=== PATIENT | female | born 1940 | race Caucasian/White ===

== ENCOUNTER 2016-07-12 18:11 | Inpatient (IN) ==
[2016-07-12] MEDS ORDERED: *HR* HYDROmorphone 2 MG/ML SYRINGE IV ONE ×2 (19:25→20:20)
[2016-07-12] MEDS ORDERED: Ondansetron 4 MG/2 ML VIAL IV ONE (19:25)
[2016-07-12 19:30] LABS: Basophils # 0.1 K/mcL (0.0-0.2); Basophils % 0.7 %; Eosinophils # 0.7 K/mcL (0.0-0.6); Eosinophils % 7.5 %; Hematocrit 31.6 % (35.3-44.9); Immature Granulocytes % 0.5 % (0-4); Lymphocytes # 1.5 K/mcL (0.6-4.6); Lymphocytes % 16.9 %; Mean Corpuscular HGB Conc 31.6 g/dL (31.6-35.5); Mean Corpuscular Volume 91.6 fL (83.0-100.0); Mean Platelet Volume 10.4 fL (9.4-12.4); Monocytes # 0.7 K/mcL (0.0-1.3); Monocytes % 7.7 %; Neutrophils # 5.9 K/mcL (1.6-8.9); Platelet Count 151 K/mcL (140-400); Red Blood Count 3.45 M/mcL (3.82-4.97); Red Cell Distribution Width 13.1 % (11.5-14.5); Segmented Neutrophils % 66.7 %
[2016-07-12 19:43] LABS: BUN/Creatinine Ratio 30 (6-26); Blood Urea Nitrogen 22 mg/dL (7-20); Calcium 9.5 mg/dL (8.6-10.8); Carbon Dioxide 27 mEq/L (19-29); Chloride 105 mEq/L (98-109); Glucose 106 mg/dL (70-99); Osmolality,Calculated 294 (280-300); Potassium 3.9 mEq/L (3.5-4.5); Sodium 140 mEq/L (136-145); eGFR For African Americans > 60 (> 60); eGFR For Non-African Americans > 60 (> 60)
--- NOTE | 2016-07-12 19:58 | Emergency Department Note ---
Disposition Clinical Impression: Fracture, intertrochanteric, left femur Qualifiers: Encounter type: initial encounter Fracture type: closed Qualified Code(s): S72.142A - Displaced intertrochanteric fracture of left femur, initial encounter for closed fracture Disposition: Admitted As Inpatient Condition: Fair Time of Disposition: 20:22 Lower Extremity Injury HPI - General Chief Complaint: ED Extremity Injury, Lower Stated Complaint: 'fell" Time Seen by Provider: 07/12/16 18:33 Source: patient, family, EMS Limitations: no limitations Nursing Notes Reviewed: Yes Vital Signs Reviewed: Yes - History of Present Illness HPI Narrative: History of present illness: Patient is a 76-year-old female with history of Alzheimer's and dementia who suffered a witnessed mechanical ground-level fall at home with no LOC. Patient does not say much family states that usually she needs to be watched and helped around the house. She can get around with a walker but is real and stable. Patient try to get up on her own. Patient's was with her but was unable to get to her in time to assist. Patient dropped to the floor. Patient did not hit her head. Patient landed on her left side. Patient is not on any anticoagulants but is on aspirin - Related Data Home Medications Medication Instructions Recorded Confirmed Aspirin Enteric Coated [Aspirin EC] 81 mg PO DAILY #0 07/04/15 11/02/15 Donepezil [Aricept] 10 mg PO HS #0 07/04/15 11/02/15 Albuterol Sulfate [Proair Hfa] 2 puff IH Q4H PRN #0 07/05/15 11/02/15 Budesonide/Formoterol 160/4.5 2 puff IH BIDR #0 07/05/15 11/02/15 [Symbicort 160/4.5] Omeprazole [PriLOSEC] 40 mg PO DAILY #0 07/05/15 11/02/15 Sertraline [Zoloft] 150 mg PO DAILY #0 07/05/15 11/02/15 Simvastatin [Zocor] 40 mg PO HS #0 07/05/15 11/02/15 Furosemide [Lasix] 20 mg PO DAILY 11/02/15 11/02/15 Memantine HCl [Namenda Xr] 28 mg PO DAILY 11/02/15 11/02/15 Montelukast [Singulair] 10 mg PO DAILY 07/12/16 07/12/16 Potassium Chloride [Klor-Con 10 meq PO DAILY 07/12/16 07/12/16 Sprinkle] Tiotropium [Spiriva] 18 mcg IH 0700 07/12/16 07/12/16 Previous Rx's Medication Instructions Recorded GuaiFENesin ER [Mucinex] 600 mg PO BID 5 Days 07/08/15 RisperiDONE [RisperDAL] 0.5 mg PO HS #14 tablet 11/05/15 Temazepam [Restoril] 15 mg PO HS PRN #14 capsule 11/05/15 Allergies Allergy/AdvReac Type Severity Reaction Status Date / Time No Known Allergies Allergy Verified 07/04/15 21:39 Limitations: ROS unobtainable due to patients medical condition Past Medical History - Past Medical History Source: obtained from family Medical history: Reports: CHF, COPD, dementia, hypertension Surgical history: Reports: no surgical history Psychiatric history: Reports: anxiety, other - Social History Smoking Status: Former smoker Smokeless Tobacco Status: No Alcohol use: Reports: none Drug use: Reports: none Physical Exam - General Limitations: other (Dementia) General appearance: alert, in no apparent distress - Head Head exam: atraumatic, normocephalic, normal inspection - Eye Eye exam: Present: normal appearance, PERRL, EOMI - ENT ENT exam: normal exam, normal oropharynx, mucous membranes moist - Neck Neck exam: Present: normal inspection, full ROM, trachea midline. Absent: tenderness - Chest Chest inspection: Present: normal inspection, symmetric chest wall rise. Absent : tenderness - Respiratory Respiratory exam: Present: normal lung sounds bilaterally. Absent: respiratory distress, wheezes - Cardiovascular Cardiovascular exam: Present: regular rate, normal rhythm - Abdominal Exam Abdominal exam: Present: soft, Non-Tender, normal bowel sounds. Absent: tenderness, distention, guarding, rebound, rigidity - Extremities Exam Extremities exam: Present: tenderness (Left lower extremity left thigh), normal capillary refill. Absent: pedal edema - Expanded Lower Extremity Exam Hip/Pelvis exam: Present: tenderness, external rotation, shortening, pelvis stable. Absent: ecchymosis - Neurological Exam Neurological exam: Present: alert, CN II-XII intact (GCS 15) - Psychiatric Psychiatric exam: Present: normal affect, normal mood - Skin Skin exam: Present: warm, dry, intact, normal color Course - Reevaluation(s) Reevaluation #1: Assessment: Mechanical fall resulting in left hip fracture, possible pelvic fracture, rib fractures, pneumothorax Plan: X-ray hip and pelvis and chest. CBC, BMP, troponin, EKG, type and screen , admit and orthopedic follow-up Time: 19:00 Reevaluation #2: Patient having images taken of the hip. Pain medications and ordered patient. Time: 19:28 Reevaluation #3: Patient did well. Patient received pain meds but is still having some pain. Will reassess in 5 minutes and re-dose if necessary. Patient given blankets that she feels cold. Patient feels better now after having her blankets and smiled with acceptance Time: 19:55 Additional Reevaluation(s): Patient has no complaints at this time awaiting transfer to in-hospital - Consultations Consultation #1: Dr. Santiago was consulted and asked for patient to be admitted to medicine and they will see patient once admitted. Time: 20:17 Consultation #2: Dr. Maciel except the patient for admission Time: 21:03 Vital Signs Temperature 98.6 F 07/12/16 18:15 Pulse Rate 82 07/12/16 18:15 Respiratory Rate 16 07/12/16 18:15 Blood Pressure 157/85 07/12/16 18:15 O2 Sat by Pulse Oximetry 98 07/12/16 18:15 Temperature 98.0 F 07/12/16 23:05 Pulse Rate 104 07/12/16 23:05 Respiratory Rate 16 07/12/16 23:34 Blood Pressure 130/65 07/12/16 23:05 O2 Sat by Pulse Oximetry 96 07/12/16 23:34 Oxygen Delivery Oxygen Delivery Nasal Cannula Extremity Injury, Lower - Medical Records Medical records reviewed: Yes I reviewed the patient's medical records. - Lab Data Lab results reviewed: Yes I reviewed the patient's lab results. Lab results narrative: Short CBC 07/12/16 Range/Units 18:40 WBC 8.9 (4.3-11.1) K/mcL Hgb 10.0 L (11.5-15.4) g/dL Hct 31.6 L (35.3-44.9) % Plt Count 151 (140-400) K/mcL Neutrophils # 5.9 (1.6-8.9) K/mcL BMP 07/12/16 Range/Units 18:40 Sodium 140 (136-145) mEq/L Potassium 3.9 (3.5-4.5) mEq/L Chloride 105 (98-109) mEq/L Carbon Dioxide 27 (19-29) mEq/L BUN 22 H (7-20) mg/dL Creatinine 0.73 (0.57-1.11) mg/dL Glucose 106 H (70-99) mg/dL Calcium 9.5 (8.6-10.8) mg/dL Result diagrams: 07/12/16 18:40 07/12/16 18:40 Lab Results 07/12/16 07/12/16 07/12/16 Range/Units 18:40 18:40 18:40 WBC 8.9 (4.3-11.1) K/mcL RBC 3.45 L (3.82-4.97) M/mcL Hgb 10.0 L (11.5-15.4) g/dL Hct 31.6 L (35.3-44.9) % MCV 91.6 (83.0-100.0) fL MCH 29.0 (28.0-33.3) pg MCHC 31.6 (31.6-35.5) g/dL RDW 13.1 (11.5-14.5) % Plt Count 151 (140-400) K/mcL MPV 10.4 (9.4-12.4) fL Immature Gran % 0.5 (0-4) % Seg Neutrophils % 66.7 % Lymphocytes % 16.9 % Monocytes % 7.7 % Eosinophils % 7.5 % Basophils % 0.7 % Neutrophils # 5.9 (1.6-8.9) K/mcL Lymphocytes # 1.5 (0.6-4.6) K/mcL Monocytes # 0.7 (0.0-1.3) K/mcL Eosinophils # 0.7 H (0.0-0.6) K/mcL Basophils # 0.1 (0.0-0.2) K/mcL PT (9.4-12.1) Seconds INR APTT (26.0-36.0) Seconds Sodium 140 (136-145) mEq/L Potassium 3.9 (3.5-4.5) mEq/L Chloride 105 (98-109) mEq/L Carbon Dioxide 27 (19-29) mEq/L BUN 22 H (7-20) mg/dL Creatinine 0.73 (0.57-1.11) mg/dL Est GFR ( Amer) > 60 (> 60) Est GFR (Non-Af Amer) > 60 (> 60) BUN/Creatinine Ratio 30 H (6-26) Glucose 106 H (70-99) mg/dL Calculated Osmolality 294 (280-300) Calcium 9.5 (8.6-10.8) mg/dL Blood Type A POSITIVE Antibody Screen NEGATIVE 07/12/16 Range/Units 18:40 WBC (4.3-11.1) K/mcL RBC (3.82-4.97) M/mcL Hgb (11.5-15.4) g/dL Hct (35.3-44.9) % MCV (83.0-100.0) fL MCH (28.0-33.3) pg MCHC (31.6-35.5) g/dL RDW (11.5-14.5) % Plt Count (140-400) K/mcL MPV (9.4-12.4) fL Immature Gran % (0-4) % Seg Neutrophils % % Lymphocytes % % Monocytes % % Eosinophils % % Basophils % % Neutrophils # (1.6-8.9) K/mcL Lymphocytes # (0.6-4.6) K/mcL Monocytes # (0.0-1.3) K/mcL Eosinophils # (0.0-0.6) K/mcL Basophils # (0.0-0.2) K/mcL PT 14.2 H (9.4-12.1) Seconds INR 1.3 APTT 30.2 (26.0-36.0) Seconds Sodium (136-145) mEq/L Potassium (3.5-4.5) mEq/L Chloride (98-109) mEq/L Carbon Dioxide (19-29) mEq/L BUN (7-20) mg/dL Creatinine (0.57-1.11) mg/dL Est GFR ( Amer) (> 60) Est GFR (Non-Af Amer) (> 60) BUN/Creatinine Ratio (6-26) Glucose (70-99) mg/dL Calculated Osmolality (280-300) Calcium (8.6-10.8) mg/dL Blood Type Antibody Screen - Radiology Data Radiology results reviewed: Yes I reviewed the patient's radiology results. Hip X-Ray 07/12/16 18:55 IMPRESSION: Acute intertrochanteric left proximal femur fracture. D/ / 07/12/2016 19:44:48 Calixto Medina MD / jeanna Interpreting Provider: Calixto Medina MD Chest X-Ray 07/12/16 19:03 IMPRESSION: Linear opacities within the lung bases bilaterally most compatible with atelectasis. D/ / Richard Do MD / Richard Do MD Interpreting Provider: Richard Do MD - EKG Data EKG attestation: Yes I reviewed and interpreted this EKG. EKG results narrative: EKG taken 07/12/2016 at 1935 hrs. shows a sinus rhythm with no acute ST or elevations or depressions. Rate is at 84 bpm. There is no QRS widening or QT prolongation. Previous EKG taken 11/01/2015 which also shows a sinus rhythm at a rate of 74 bpm with no acute ST elevations or depressions in any leads Attestation Statement - Attestation Attestation: I, Castro Marinelli MD, personally evaluated this patient and discussed their management with the resident physician. I reviewed the resident's note and agree with the documented findings, medical decision making, and plan of care. [place] 6-year-old female presents to the emergency department after a fall at home. She lives with family. She fell onto her left side while trying to walk with her walker. She complained of pain in the left hip area. No other apparent injuries. Patient has dementia and really unable to provide any significant history or review of systems. On examination patient is a well-developed well-nourished elderly female in no acute distress. She is alert but confused and disoriented. Chest is nontender to palpation. Breath sounds are clear and equal bilaterally. Heart regular rate and rhythm. Abdomen soft and nontender with normal bowel sounds. There is tenderness over the left hip and pain with movement with some mild shortening and external rotation. Neurovascular function intact distally. X-ray shows an intertrochanteric fracture of the left hip. Dr. Harry discussed the case with the orthopedist on-call, Dr. Santiago, and he recommended admission by the hospitalist with orthopedic consultation. The hospitalist, Dr. Maciel, was consulted and accepted admission of the patient.
[2016-07-12 20:04] LABS: INR 1.3; Prothrombin Time 14.2 Seconds (9.4-12.1)
[2016-07-12 20:07] LABS: Activated Partial Thrombo Time 30.2 Seconds (26.0-36.0)
[2016-07-12] MEDS ORDERED: Temazepam 15 MG CAPSULE PO PRN (21:51)
[2016-07-12] MEDS ORDERED: Benzonatate 100 MG CAPSULE PO PRN (21:56)
[2016-07-12] MEDS ORDERED: *HR* OxyCODONE Immed Rel 5 MG TABLET PO PRN (21:56)
[2016-07-12] MEDS ORDERED: Mag Hydrox/Al Hydrox/Simeth 30 ML UDC PO PRN (21:56)
[2016-07-12] MEDS ORDERED: Acetaminophen 325 MG TABLET PO PRN (21:56)
[2016-07-12] MEDS ORDERED: Naloxone 0.4 MG/ML INJ IVP PRN (21:56)
[2016-07-12] MEDS ORDERED: Ondansetron 4 MG/2 ML VIAL IVP PRN (21:56)
[2016-07-12] MEDS ORDERED: 0.9 % Sodium Chloride 1,000 ML IVC SCH (22:00)
[2016-07-12] MEDS ORDERED: risperiDONE 0.25 MG TABLET PO SCH (22:00)
--- NOTE | 2016-07-12 22:07 | Internal Med History&Physical ---
Date of Encounter: 07/12/16 Time of Encounter: 22:00 Assessment and Plan (1) Fall as cause of accidental injury at home as place of occurrence Current visit: Yes Status: Acute . (2) Chronic respiratory failure with hypoxia and hypercapnia Current visit: Yes Status: Chronic . (3) Advanced dementia Current visit: Yes Status: Chronic . (4) CAD (coronary artery disease) Current visit: Yes Status: Chronic . Qualifiers: Coronary Disease-Associated Artery/Lesion type: [place] artery [place] vs. transplanted heart: [place] heart Associated angina: without angina Qualified Code(s): I25.10 - Atherosclerotic heart disease of [place] coronary artery without angina pectoris (5) Fracture, intertrochanteric, left femur Current visit: Yes Status: Acute . Qualifiers: Encounter type: initial encounter Fracture type: closed Qualified Code(s) : S72.142A - Displaced intertrochanteric fracture of left femur, initial encounter for closed fracture (6) CAD (coronary artery disease), [place] coronary artery Current visit: Yes Status: Chronic . Qualifiers: [place] vs. transplanted heart: [place] heart Associated angina: without angina Qualified Code(s): I25.10 - Atherosclerotic heart disease of [place] coronary artery without angina pectoris (7) Multiple falls Current visit: Yes Status: Chronic . (8) Frail elderly Current visit: Yes Status: Chronic . (9) Former heavy cigarette smoker (20-39 per day) Current visit: Yes Status: Chronic . (10) COPD (chronic obstructive pulmonary disease) Current visit: Yes Status: Chronic . Qualifiers: COPD type: emphysema Emphysema type: unspecified Qualified Code(s): J43.9 - Emphysema, unspecified Internal Medicine - H&P: HPI Chief complaint: Fall. Left leg injury. Admitted From: Emergency Dept Plans for Post Hospital Care: Home History of present illness: Ms. Cartagena is a 76 year old female with history significant for advanced dementia-Alzheimer's type/behavioral disturbance, hypertension, dyslipidemia, depression/anxiety, GERD, COPD/chr respiratory failure/ hypoxia/hypercapnea/ dependence on supplemental oxygen, multiple fall hx, RAD/asthma, osteoarthritis , osteoporosis, CAD/diastolicCHF, PAF, former heavy smoker, etc.. The patient was admitted [facility] the emergency department presented in the company of family by EMS services from home following a mechanical fall where she sustained injury to her left leg. Mechanical fall was witnessed by family. Fall was ground-level at the home. There was no period of loss of consciousness. In the home setting she is minimally verbal. Family watches her often and assisted throughout the house so to avoid any injuries or trauma or accidents. Normally she ambulates with a walker due to gait instability. She apparently was an attempt to ambulate without assistance and her was unable to reach her in time to prevent her from a copy to the floor. Left hip x-ray series demonstrated acute intratrochanteric left proximal femur fracture. He was closed, nondisplaced, mildly comminuted. Hip Joints are maintained. The sacroiliac joints and symphysis is grossly maintained. Degenerative changes of the lower lumbar spine were evident. Chest x-ray demonstrated linear opacities within the lung bases most compatible with atelectasis. Chronic changes of the aorta were noted. No focal consolidation and effusion or pneumothorax seen. Osseous structures again demonstrated chronic fractures of the posterior lateral right ribs. Screening studies found afebrile at 98.6 pulse 82 respirations 16 blood pressure 157/85 O2 saturation 98 % on 2 L nasal cannula. WBC 8.9 hemoglobin 10 platelets 251,000. Metabolic panel benign. BUN was 22 creatinine 0.73. Glucose was 106. Blood cell differential normal. EKG demonstrated sinus rhythm with no acute ischemic changes. Rate 84. Nonspecific ST-T wave changes. Preliminary impressions are consistent with a mechanical fall without head injury. Graphic findings are compatible with intertrochanteric fracture proximal femur. Episodes concerned given her degree of severe dementia. This was discussed at length with the family at the bedside as well as her POA. They will attempt to assist as much as physically possible to be attentive to the patient throughout her hospital stay. Help offset some of her confusion induced in unfamiliar environments. Advanced age, frailty and comorbidities she is as well at risk for further acute clinical decline and morbidity. Workup and treatment will proceed comprehensively. Patient was visited and interviewed and examined. She is found to be encephalopathic due to her chronic underlying advanced Alzheimer's dementia. Examination was consistent with the described with this injury without untoward effects. Family members at the bedside to validate history as well as clinical circumstances and events. Cumulative laboratory and radiographic data base were reviewed considered and discussed. Consultative opinions will be sought as clinical circumstances justify. Initial consultative opinion has been requested of orthopedic surgery. Plan of care has been reviewed and discussed in detail with the family at the bedside. Questions addressed. Hospital course will be dependent on clinical findings, treatment response and potential consultative interventions. Given the patient's presenting concerns, past medical history, clinical findings and symptoms, she is admitted at this time to undergo further evaluation and disposition. Orders are written as per the computerized physician order packer or packager system. Condition is serious. Prognosis is guarded. CODE STATUS is DNR comfort care arrest. Past Med Surg Social Fam HX - Past Medical History Source: old records reviewed Medical history: arthritis, CHF, COPD, dementia, hypertension, osteoporosis, other Psychiatric history: anxiety, other - Past Surgical History Surgical History: non-contributory, other - Social History Smoking Status: Former smoker Smokeless Tobacco Status: No Alcohol use: none, unknown Drug use: none Occupational status: retired Current living situation: Home, With Family Activity Level: Independent ambulation, Uses cane/walker, Mostly sedentary Recent Out of Country Travel Within the Last 8 Weeks: No Exposure or Possible Exposure to Illness During Travel: No - Family History Daughter Living Status: Still Living Hx Family Cardiac Disorders: Yes Hx Family Respiratory Disorders: Yes Hx Family Cancer: No Hx Family GI Disorders: Yes Mother Adopted: No Family Member Ethnicity: Non- Living Status: Hx Family Cardiac Disorders: No Hx Family Respiratory Disorders: No Hx Family Cancer: Yes (lung) Hx Family GI Disorders: Yes (acid reflux) Hx Family Endocrine Disorder: No Hx Family Neuromuscular Disorders: No Hx Family Neurologic Disorders: No Hx Family HEENT Disorders: No Hx Family Autoimmune Disorders: No Internal Medicine - H&P: Meds Aspirin Enteric Coated [Aspirin EC] 81 mg PO DAILY #0 07/04/15 [History] Donepezil [Aricept] 10 mg PO HS #0 07/04/15 [History] Albuterol Sulfate [Proair Hfa] 2 puff IH Q4H PRN #0 07/05/15 [History] Budesonide/Formoterol 160/4.5 [Symbicort 160/4.5] 2 puff IH BIDR #0 07/05/15 [ History] Omeprazole [PriLOSEC] 40 mg PO DAILY #0 07/05/15 [History] Sertraline [Zoloft] 150 mg PO DAILY #0 07/05/15 [History] Simvastatin [Zocor] 40 mg PO HS #0 07/05/15 [History] GuaiFENesin ER [Mucinex] 600 mg PO BID 5 Days 07/08/15 [Rx] Furosemide [Lasix] 20 mg PO DAILY 11/02/15 [History] Memantine HCl [Namenda Xr] 28 mg PO DAILY 11/02/15 [History] RisperiDONE [RisperDAL] 0.5 mg PO HS #14 tablet 11/05/15 [Rx] Temazepam [Restoril] 15 mg PO HS PRN #14 capsule 11/05/15 [Rx] Montelukast [Singulair] 10 mg PO DAILY 07/12/16 [History] Potassium Chloride [Klor-Con Sprinkle] 10 meq PO DAILY 07/12/16 [History] Tiotropium [Spiriva] 18 mcg IH 0700 07/12/16 [History] Allergies No Known Allergies Allergy (Verified 07/04/15 21:39) ROS unobtainable: due to mental status All Systems PM: A 10-system review of systems was performed and is negative for pertinent findings except as documented above in the HPI. - Constitutional Constitutional: as per HPI - EENT Eyes: as per HPI Ears: as per HPI Nose, mouth and throat: as per HPI - Cardiovascular Cardiovascular ROS IM: as per HPI - Respiratory Respiratory: as per HPI - Gastrointestinal Gastrointestinal: as per HPI - Genitourinary Genitourinary: as per HPI Menstruation: as per HPI - Musculoskeletal Musculoskeletal ROS IM: as per HPI - Integumentary Integumentary IM: as per HPI - Neurological Neurological ROS: as per HPI - Psychiatric Psychiatric: as per HPI - Endocrine Endocrine IM: as per HPI - Hematologic/Lymphatic Hematologic/Lymphatic: as per HPI - Allergic/Immunologic Allergic/Immunologic: as per HPI - Constitutional Vitals: Temp Pulse Resp BP Pulse Ox 98.6 F 82 16 157/85 98 07/12/16 18:15 07/12/16 18:15 07/12/16 18:15 07/12/16 18:15 07/12/16 18:15 Vital Signs Temp Pulse Resp BP Pulse Ox 07/12/16 18:15 98.6 F 82 16 157/85 98 Intake and Output 07/12/16 07/12/16 07/12/16 07:59 15:59 23:59 Other: Weight 64.864 kg Patient Weight 07/12/16 23:59 Weight 64.864 kg General appearance: Present: cachectic, A&O X 1, mild distress, underweight. Absent: cooperative, answers questions appropriately - Head Head exam: Present: atraumatic, normocephalic - Eye Eye exam: Present: EOMI, PERRL, conjuntiva pink, sclera anicteric Pupils: Present: normal accommodation, PERRL - ENT ENT exam: Present: mucous membranes moist, normal oropharynx - Neck Neck exam general surgery: Present: supple, trachea midline. Absent: lymphadenopathy, nuchal rigidity - Respiratory Respiratory exam: Present: decreased breath sounds, CTAB. Absent: accessory muscle use, rales, rhonchi, wheezes - Cardiovascular Cardiovascular exam: Present: distant heart sounds, RRR, +S1, +S2. Absent: diastolic murmur, gallop, rubs, systolic murmur - GI/Abdominal GI/Abdominal exam: Present: normal bowel sounds, soft, no peritoneal signs. Absent: distended, tenderness - Extremities Exam Extremities exam: Present: tenderness, warm, radial pulses palpable and symetrical. Absent: calf tenderness, cyanotic, full ROM, normal inspection, pedal edema - Expanded Lower Extremities Exam Hip exam: Present: deformity, swelling, tenderness. Absent: full ROM Upper Leg exam: Present: deformity, swelling, tenderness. Absent: full ROM - Neurological Exam Neurological exam: Present: alert, altered, CN II-XII intact, no focal deficits. Absent: oriented X3, pronater drift, facial droop, speech deficit - Expanded Neurological Exam Neurological exam expanded: Present: expressive aphasia, inattentive, protecting the airway, receptive aphasia Patient oriented to: Present: person. Absent: place, time Coma Scale Eye Opening: To Voice Coma Scale Motor Response: Withdraws to Pain Coma Scale Verbal Response: Incomprehensible Coma Scale Total: 9 - Psychiatric Psychiatric exam: Present: anxious, flat affect - Skin Skin exam: Present: dry, intact, warm. Absent: petechiae, rash, urticaria, vesicles Internal Med - H&P Results - Labs CBC & Chem 7: 07/13/16 03:42 07/13/16 03:42 Labs: Short CBC 07/12/16 Range/Units 18:40 WBC 8.9 (4.3-11.1) K/mcL Hgb 10.0 L (11.5-15.4) g/dL Hct 31.6 L (35.3-44.9) % Plt Count 151 (140-400) K/mcL Neutrophils # 5.9 (1.6-8.9) K/mcL BMP 07/12/16 Range/Units 18:40 Sodium 140 (136-145) mEq/L Potassium 3.9 (3.5-4.5) mEq/L Chloride 105 (98-109) mEq/L Carbon Dioxide 27 (19-29) mEq/L BUN 22 H (7-20) mg/dL Creatinine 0.73 (0.57-1.11) mg/dL Glucose 106 H (70-99) mg/dL Calcium 9.5 (8.6-10.8) mg/dL Abnormal lab results RBC 3.45 M/mcL (3.82-4.97) L 07/12/16 18:40 Hgb 10.0 g/dL (11.5-15.4) L 07/12/16 18:40 Hct 31.6 % (35.3-44.9) L 07/12/16 18:40 Eosinophils # 0.7 K/mcL (0.0-0.6) H 07/12/16 18:40 PT 14.2 Seconds (9.4-12.1) H 07/12/16 18:40 BUN 22 mg/dL (7-20) H 07/12/16 18:40 BUN/Creatinine Ratio 30 (6-26) H 07/12/16 18:40 Glucose 106 mg/dL (70-99) H 07/12/16 18:40 Laboratory Results WBC 8.9 K/mcL (4.3-11.1) 07/12/16 18:40 RBC 3.45 M/mcL (3.82-4.97) L 07/12/16 18:40 Hgb 10.0 g/dL (11.5-15.4) L 07/12/16 18:40 Hct 31.6 % (35.3-44.9) L 07/12/16 18:40 MCV 91.6 fL (83.0-100.0) 07/12/16 18:40 MCH 29.0 pg (28.0-33.3) 07/12/16 18:40 MCHC 31.6 g/dL (31.6-35.5) 07/12/16 18:40 RDW 13.1 % (11.5-14.5) 07/12/16 18:40 Plt Count 151 K/mcL (140-400) 07/12/16 18:40 MPV 10.4 fL (9.4-12.4) 07/12/16 18:40 Immature Gran % 0.5 % (0-4) 07/12/16 18:40 Seg Neutrophils % 66.7 % 07/12/16 18:40 Lymphocytes % 16.9 % 07/12/16 18:40 Monocytes % 7.7 % 07/12/16 18:40 Eosinophils % 7.5 % 07/12/16 18:40 Basophils % 0.7 % 07/12/16 18:40 Neutrophils # 5.9 K/mcL (1.6-8.9) 07/12/16 18:40 Lymphocytes # 1.5 K/mcL (0.6-4.6) 07/12/16 18:40 Monocytes # 0.7 K/mcL (0.0-1.3) 07/12/16 18:40 Eosinophils # 0.7 K/mcL (0.0-0.6) H 07/12/16 18:40 Basophils # 0.1 K/mcL (0.0-0.2) 07/12/16 18:40 PT 14.2 Seconds (9.4-12.1) H 07/12/16 18:40 INR 1.3 07/12/16 18:40 APTT 30.2 Seconds (26.0-36.0) 07/12/16 18:40 Sodium 140 mEq/L (136-145) 07/12/16 18:40 Potassium 3.9 mEq/L (3.5-4.5) 07/12/16 18:40 Chloride 105 mEq/L (98-109) 07/12/16 18:40 Carbon Dioxide 27 mEq/L (19-29) 07/12/16 18:40 BUN 22 mg/dL (7-20) H 07/12/16 18:40 Creatinine 0.73 mg/dL (0.57-1.11) 07/12/16 18:40 Est GFR ( Amer) > 60 (> 60) 07/12/16 18:40 Est GFR (Non-Af Amer) > 60 (> 60) 07/12/16 18:40 BUN/Creatinine Ratio 30 (6-26) H 07/12/16 18:40 Glucose 106 mg/dL (70-99) H 07/12/16 18:40 Calculated Osmolality 294 (280-300) 07/12/16 18:40 Calcium 9.5 mg/dL (8.6-10.8) 07/12/16 18:40 Blood Type A POSITIVE 07/12/16 18:40 Antibody Screen NEGATIVE 07/12/16 18:40 Impressions Hip X-Ray 07/12/16 18:55 IMPRESSION: Acute intertrochanteric left proximal femur fracture. D/ / 07/12/2016 19:44:48 Calixto Medina MD / jeanna Interpreting Provider: Calixto Medina MD Chest X-Ray 07/12/16 19:03 IMPRESSION: Linear opacities within the lung bases bilaterally most compatible with atelectasis. D/ / Richard Do MD / Richard Do MD Interpreting Provider: Richard Do MD
[2016-07-12 22:38] LABS: Magnesium 1.7 mg/dL (1.6-2.6); Phosphorous 4.3 mg/dL (2.3-4.7)
[2016-07-12 23:00] LABS: Thyroid Stimulating Hormone 1.182 mcIU/mL (0.350-4.840)
[2016-07-12] MEDS: Budesonide/Formoterol 160/4.5 MDI IH SCH (23:34)
[2016-07-13 01:06] LABS: Bilirubin,Urine Negative (Negative); Blood,Urine Trace (Negative); Clarity,Urine Clear (Clear); Color,Urine Yellow (Yellow); Glucose,Urine (UA) Normal (Normal); Ketones,Urine Trace mg/dL (Negative); Leukocyte Esterase,Urine Moderate (Negative); Nitrite,Urine Negative (Negative); PH,Urine 5.5 pH Units (5.0-8.0); Protein,Urine 30 mg/dL (Neg-Trace); Specific Gravity,Urine 1.026 (1.010-1.025); Urobilinogen,Urine Normal (Normal)
[2016-07-13 01:08] LABS: Bacteria,Urine None Seen per hpf (None-Few); Hyaline Casts,Urine None Seen per lpf (None-Few); RBC,Urine 0-3 per hpf (0-3); Squamous Epithelial Cell,Urine Many per lpf (None-Few); WBC,Urine 15-30 per hpf (0-3)
[2016-07-13 04:07] LABS: Hematocrit 28.7 % (35.3-44.9); Hemoglobin 9.1 g/dL (11.5-15.4); Mean Corpuscular HGB Conc 31.7 g/dL (31.6-35.5); Mean Corpuscular Hemoglobin 29.4 pg (28.0-33.3); Mean Corpuscular Volume 92.9 fL (83.0-100.0); Mean Platelet Volume 10.7 fL (9.4-12.4); Platelet Count 157 K/mcL (140-400); Red Blood Count 3.09 M/mcL (3.82-4.97); Red Cell Distribution Width 13.3 % (11.5-14.5)
[2016-07-13 04:13] LABS: Hemoglobin A1C 5.1 %
[2016-07-13 04:29] LABS: Alanine Aminotransferase 14 Units/L (0-55); Albumin 3.3 g/dL (3.5-5.0); Albumin/Globulin Ratio 1.1 (1.1-2.2); Alkaline Phosphatase 70 Units/L (38-126); Aspartate Amino Transferase 17 Units/L (5-34); BUN/Creatinine Ratio 25 (6-26); Bilirubin,Total 0.3 mg/dL (0.2-1.2); Blood Urea Nitrogen 27 mg/dL (7-20); Carbon Dioxide 25 mEq/L (19-29); Chloride 104 mEq/L (98-109); Chol/HDL Ratio 3.1 (0-4.9); Cholesterol 203 mg/dL (< 200); Globulin 2.9 g/dL (2.4-3.5); Glucose 154 mg/dL (70-99); HDL Cholesterol 65 mg/dL (40-59); LDL Cholesterol,Calculated 119 mg/dL (0-99); Osmolality,Calculated 296 (280-300); Potassium 4.5 mEq/L (3.5-4.5); Sodium 139 mEq/L (136-145); Total Protein 6.2 g/dL (6.0-8.3); Triglycerides 95 mg/dL (< 150); eGFR For African Americans > 60 (> 60); eGFR For Non-African Americans 50 (> 60)
[2016-07-13] MEDS: Budesonide/Formoterol 160/4.5 MDI IH SCH (07:57)
[2016-07-13] MEDS: Albuterol Neb 1.25 MG/3 ML VIAL IH SCH ×2 (07:58→16:12)
[2016-07-13] MEDS: *HR* Morphine 2 MG/ML SYRINGE IVP PRN ×2 (08:20→12:35)
[2016-07-13] MEDS ORDERED: TUDORZA PRESSAIR IH SCH (09:00)
[2016-07-13] MEDS ORDERED: Loratadine 10 MG TABLET PO SCH (09:00)
[2016-07-13] MEDS ORDERED: Aspirin Enteric Coated 81 MG Tablet PO SCH (09:00)
[2016-07-13] MEDS ORDERED: (Memantine Hcl [Namenda Xr] 28 MG) PO SCH (09:00)
--- NOTE | 2016-07-13 09:31 | ECHO - Doppler Report ---
Echocardiogram Name: Mia Cartagena Date of Study: 07/13/2016 Date: 1940 Ht: 64.0 in Medical Record#: [id number] Age: 76 Wt: 143.0 lb Gender: Female BSA: 1.7 Order #: [id number] Location: [facility] Room #: [facility] Reading Physician: Debora Lam DO Scooper: Jose Iglesias RN Ordering Physician: Josh Maciel MD Primary Physician: Darren Oneill DO Indications: Preoperative Examination Impressions: LVEF 65%. Normal left ventricular size and systolic function. There is evidence of mild diastolic dysfunction of the left ventricle. Normal right ventricular size and function. No significant valvular dysfunction. No pulmonary hypertension. Findings: Study Quality * Technically adequate exam. ECG Findings * Sinus tachycardia. Aortic Valve * No aortic regurgitation. * No aortic stenosis. * Aortic valve not well visualized. Mitral Valve * Mild mitral annular calcification * Mildly thickened mitral valve leaflets. * Trace mitral regurgitation. * Increased gradient across MV, 4mmHg at 102 bpm is not diagnostic for stenosis. Aorta * Suboptimally evaluated. Tricuspid Valve * Tricuspid valve not well visualized. * Trace tricuspid regurgitation. Pulmonic Valve * Pulmonic valve is not well visualized. * No pulmonic stenosis. * No pulmonic regurgitation. Pulmonary Artery * Pulmonary artery not well visualized. Left Ventricle * Mild left ventricular diastolic dysfunction. * Normal LV chamber size, wall thickness and function. * LVEF 65%. Left Atrium * Moderately dilated left atrium. Right Atrium * Normal right atrial size. Interatrial Septum * Interatrial septum not well evaluated. Pericardium * There is no pericardial effusion present. IVC * The IVC is not dilated. Right Ventricle * Normal right ventricular structure and function. Not well visualized in subcostal view. History Hypertension History of CAD/PTCA Congestive Heart Failure 11/02/2015 a Previous Echo was performed. Measurements: BP: 148/ 76 2D Normal Values IVSd: 1.50 cm 0.6 - 1.0 cm LVIDd: 2.50 cm 3.7 - 5.6 cm LVPWd: 1.50 cm 0.6 - 1.1 cm LVIDs: 1.70 cm 1.5 - 3.6 cm LA: 2.80 cm 2.0 - 4.0cm %FS: 32.00 cm >25 % LVOT Diam: 1.60 cm LA volume: 66 Mitral Valve Peak Velocity 1.70 m/sec Mean Velocity:.90 m/sec Peak Grad:12.00 mmHg Mean Grad:4.00 mmHg Peak E:.85 m/sec Peak A:1.48 m/sec E/A Ratio:0.6 Peak E' Lat [place]:6.24 cm/s Peak E' Med [place]:3.8 cm/s E/E' Lat Ratio:13.6 E/E' Med Ratio:22.4 Updated by Debora Lam on 07/13/2016 9:26:17 AM electronically signed on 07/13/2016 9:27:19 AM with status of [employer]: 1=Normal, 2=Hypokinesis, 3=Akinesis, 4=Dyskinesis, 5=Aneurysmal, 6=Hyperkinetic, X=Not Visualized (Blank)=Missing
[2016-07-13] MEDS ORDERED: 0.9 % Sodium Chloride 1,000 ML IVC SCH (11:55)
--- NOTE | 2016-07-13 11:55 | Internal Med Progress Note ---
Date of Encounter: 07/13/16 Time of Encounter: 09:00 - Assessment and plan (1) Fracture, intertrochanteric, left femur Current Visit: Yes Status: Acute Assessment and plan: X-ray shows a left hip fracture. - Pain management. - Orthopedic consult for further management. Qualifiers: Encounter type: initial encounter Fracture type: closed Qualified Code(s) : S72.142A - Displaced intertrochanteric fracture of left femur, initial encounter for closed fracture (2) COPD (chronic obstructive pulmonary disease) Current Visit: No Status: Acute Assessment and plan: Stable, no signs of exacerbation. Continue home medications. Qualifiers: COPD type: emphysema Qualified Code(s): J43.9 - Emphysema, unspecified (3) Dementia Current Visit: No Status: Chronic Assessment and plan: Continue home medications Qualifiers: Dementia type: unspecified type Dementia behavioral disturbance: without behavioral disturbance Qualified Code(s): F03.90 - Unspecified dementia without behavioral disturbance (4) DVT prophylaxis Current Visit: No Status: Acute Assessment and plan: On mechanical prophylaxis. No anticoagulation now because of expected surgery (5) Dehydration Current Visit: No Status: Acute Assessment and plan: Patient has elevated BUN. Consider mild dehydration, will continue IV fluid. (6) UTI (urinary tract infection) Current Visit: No Status: Acute Assessment and plan: Rocephin IV x 3 Qualifiers: Urinary tract infection type: acute cystitis Hematuria presence: without hematuria Qualified Code(s): N30.00 - Acute cystitis without hematuria (7) Fall as cause of accidental injury at home as place of occurrence Current Visit: Yes Status: Acute Assessment and plan: Patient may need physical therapy and consider long-term placement. - Time Spent With Patient Greater than 35 minutes - Subjective Interval history: Patient is a 76-year-old female admitted for fall and left hip fracture. Her past medical history is significant for CHF, COPD, dementia, hypertension, osteoporosis. Patient was seen and examined. Patient is demented, not answer questions properly. Oriented 1. Vitals are generally stable, tachycardia possibly due to pain. Orthopedic consult informed by emergency physician. We will continue hydrate the patient and pain management. - Constitutional Vitals: Temp Pulse Resp BP Pulse Ox 98.2 F 104 16 126/69 94 07/13/16 11:35 07/13/16 11:35 07/13/16 11:35 07/13/16 11:35 07/13/16 11:35 General appearance: Present: cachectic, A&O X 1, mild distress, underweight. Absent: cooperative, answers questions appropriately - Head Head exam: Present: atraumatic, normocephalic - Eye Eye exam: Present: PERRL, conjuntiva pink, sclera anicteric Pupils: Present: PERRL - Neck Neck exam general surgery: Present: supple, trachea midline. Absent: lymphadenopathy - Respiratory Respiratory exam: Present: CTAB. Absent: accessory muscle use, rales, rhonchi, wheezes - Cardiovascular Cardiovascular exam: Present: RRR, +S1, +S2. Absent: diastolic murmur, gallop, rubs, systolic murmur - GI/Abdominal GI/Abdominal exam: Present: normal bowel sounds, soft, no peritoneal signs. Absent: distended, tenderness - Extremities Exam Extremities exam: Present: warm, radial pulses palpable and symetrical. Absent : calf tenderness, cyanotic, pedal edema Additional comments: Left hip tenderness, limited ROM due to pain - Neurological Exam Neurological exam: Present: CN II-XII intact, oriented X3, no focal deficits. Absent: pronater drift, facial droop, speech deficit - Skin Skin exam: Present: dry, intact Internal Medicine: Result - Labs CBC & Chem 7: 07/13/16 03:42 07/13/16 03:42 Labs: Short CBC 07/13/16 Range/Units 03:42 WBC 10.8 (4.3-11.1) K/mcL Hgb 9.1 L (11.5-15.4) g/dL Hct 28.7 L (35.3-44.9) % Plt Count 157 (140-400) K/mcL BMP 07/13/16 03:42 Sodium 139 Potassium 4.5 Chloride 104 Carbon Dioxide 25 BUN 27 H Creatinine 1.07 Glucose 154 H Calcium 9.0 Liver Function 07/13/16 Range/Units 03:42 Total Bilirubin 0.3 (0.2-1.2) mg/dL AST 17 (5-34) Units/L ALT 14 (0-55) Units/L Alkaline Phosphatase 70 (38-126) Units/L Albumin 3.3 L (3.5-5.0) g/dL Urine 07/13/16 Range/Units 00:50 Urine Color Yellow (Yellow) Urine Clarity Clear (Clear) Urine pH 5.5 (5.0-8.0) pH Units Ur Specific [place] 1.026 H (1.010-1.025) Urine Protein 30 H (Neg-Trace) mg/dL Urine Glucose (UA) Normal (Normal) mg/dL - ABG Interpretation ABG results: PT/INR, D-dimer PT 14.2 Seconds (9.4-12.1) H 07/12/16 18:40 Consult Discharge Plan - Plan Referrals: Darren Oneill DO [Primary Care Provider] -
--- NOTE | 2016-07-13 13:11 | Orthopedic Consult Note ---
Date of Encounter: 07/13/16 Time of Encounter: 12:20 Assessment and Plan (1) Fracture, intertrochanteric, left femur Current Visit: Yes Status: Acute Left femur IT fracture will require surgical fixation. Plan for Left hip IM nailing this afternoon pending medical clearance. Patient has dementia and not able to sign consent. Procedure, r/a/a were discussd with family but POA was not present to sign consent. I will discuss procedure r/b/a with POA when she returns if requested. Continue NPO. Continue pain control per hospitalist. UPDATE 16:15 - I did talk with POA and she had no further questions. Consent signed to proceed with surgery. Qualifiers: Encounter type: initial encounter Fracture type: closed Qualified Code(s) : S72.142A - Displaced intertrochanteric fracture of left femur, initial encounter for closed fracture History of Present Illness Chief complaint: left hip pain HPI: Ms. Cartagena is a 76 year old female who presented to the ER last night after a witnessed fall at home. Patient has dementia and is supposed to have assistance with ambulation. Patient ambulated without waiting for help and tripped while walking with walker. Family denies hitting head or LOC. Patient did not answer any questions on exam today and history came from family. Past Med Surg Social Fam HX - Past Medical History Medical history: arthritis, CHF, COPD, dementia, hypertension, osteoporosis, other Psychiatric history: anxiety, other - Past Surgical History Surgical History: non-contributory, other - Social History Smoking Status: Former smoker Smokeless Tobacco Status: No Alcohol use: none, unknown Drug use: none - Family History Daughter Living Status: Still Living Hx Family Cardiac Disorders: Yes Hx Family Respiratory Disorders: Yes Hx Family Cancer: No Hx Family GI Disorders: Yes Mother Adopted: No Family Member Ethnicity: Non- Living Status: Hx Family Cardiac Disorders: No Hx Family Respiratory Disorders: No Hx Family Cancer: Yes (lung) Hx Family GI Disorders: Yes (acid reflux) Hx Family Endocrine Disorder: No Hx Family Neuromuscular Disorders: No Hx Family Neurologic Disorders: No Hx Family HEENT Disorders: No Hx Family Autoimmune Disorders: No Medications and Allergies Aspirin Enteric Coated [Aspirin EC] 81 mg PO DAILY #0 07/04/15 [History] Donepezil [Aricept] 10 mg PO HS #0 07/04/15 [History] Albuterol Sulfate [Proair Hfa] 2 puff IH Q4H PRN #0 07/05/15 [History] Budesonide/Formoterol 160/4.5 [Symbicort 160/4.5] 2 puff IH BIDR #0 07/05/15 [ History] Omeprazole [PriLOSEC] 40 mg PO DAILY #0 07/05/15 [History] Sertraline [Zoloft] 150 mg PO DAILY #0 07/05/15 [History] Simvastatin [Zocor] 40 mg PO HS #0 07/05/15 [History] GuaiFENesin ER [Mucinex] 600 mg PO BID 5 Days 07/08/15 [Rx] Furosemide [Lasix] 20 mg PO DAILY 11/02/15 [History] Memantine HCl [Namenda Xr] 28 mg PO DAILY 11/02/15 [History] RisperiDONE [RisperDAL] 0.5 mg PO HS #14 tablet 11/05/15 [Rx] Temazepam [Restoril] 15 mg PO HS PRN #14 capsule 11/05/15 [Rx] Montelukast [Singulair] 10 mg PO DAILY 07/12/16 [History] Potassium Chloride [Klor-Con Sprinkle] 10 meq PO DAILY 07/12/16 [History] Tiotropium [Spiriva] 18 mcg IH 0700 07/12/16 [History] Allergies No Known Allergies Allergy (Verified 07/04/15 21:39) ROS unobtainable: due to mental status All Systems Reviewed: A 10-system review of systems was performed and is negative for pertinent findings except as documented above in the HPI. Physical Exam - Constitutional Vitals: Temp Pulse Resp BP Pulse Ox 98.2 F 104 16 126/69 94 07/13/16 11:35 07/13/16 11:35 07/13/16 11:35 07/13/16 11:35 07/13/16 11:35 - Hip left Tenderness with palpation: anterior, lateral (No open wounds, ecchymosis or erythema noted to left hip. LLE slightly shortened and externally rotated. Patient unable to follow commands to test motion or for numbness/calf tenderness.) Results - Labs Result Diagrams: 07/13/16 03:42 07/13/16 03:42 Labs: Abnormal lab results RBC 3.09 M/mcL (3.82-4.97) L 07/13/16 03:42 Hgb 9.1 g/dL (11.5-15.4) L 07/13/16 03:42 Hct 28.7 % (35.3-44.9) L 07/13/16 03:42 Eosinophils # 0.7 K/mcL (0.0-0.6) H 07/12/16 18:40 PT 14.2 Seconds (9.4-12.1) H 07/12/16 18:40 BUN 27 mg/dL (7-20) H 07/13/16 03:42 Est GFR (Non-Af Amer) 50 (> 60) L 07/13/16 03:42 Glucose 154 mg/dL (70-99) H 07/13/16 03:42 Lactic Acid 0.4 mmol/L (0.5-2.2) L 07/12/16 22:17 Albumin 3.3 g/dL (3.5-5.0) L 07/13/16 03:42 Cholesterol 203 mg/dL (< 200) H 07/13/16 03:42 LDL Cholesterol, Calc 119 mg/dL (0-99) H 07/13/16 03:42 HDL Cholesterol 65 mg/dL (40-59) H 07/13/16 03:42 Ur Specific [place] 1.026 (1.010-1.025) H 07/13/16 00:50 Urine Protein 30 mg/dL (Neg-Trace) H 07/13/16 00:50 Urine Ketones Trace mg/dL (Negative) H 07/13/16 00:50 Urine Blood Trace (Negative) H 07/13/16 00:50 Ur Leukocyte Esterase Moderate (Negative) H 07/13/16 00:50 Urine Microscopic WBC 15-30 per hpf (0-3) H 07/13/16 00:50 Ur Squamous Epith Cells Many per lpf (None-Few) H 07/13/16 00:50 H & H 07/13/16 Range/Units 03:42 Hgb 9.1 L (11.5-15.4) g/dL Hct 28.7 L (35.3-44.9) % All other labs normal. - Diagnostic results Hip x-ray: report reviewed, image reviewed Consult Discharge Plan - Plan Referrals: Darren Oneill DO [Primary Care Provider] - - Attending Attestation Case and plan of care was discussed with the supervising physician who was available for all aspects of care.
--- NOTE | 2016-07-13 17:11 | Anesthesia Evaluation PreOp ---
Date of Encounter: 07/13/16 Time of Encounter: 17:58 - Past History Planned Operation: L hip IM nail Cardiac History: CHF, HTN, Hyperlipidemia, Arrhythmia (paroxysmal A fib), Other (coronary artery disease - no stents) Pulmonary History: Former smoker (heavy smoker in past), COPD, Other (chronic hypercarbic, hypoxic respiratory failure with oxygen dependence -- 3.5L NC all the time) [employer] CONTACT REPRESENTATIVE History: Other (Advanced Alzheimer's dementia) Other Medical History: GERD Anesthesia History: No Prior Anesthetic Complications Alcohol Use: none, unknown Drug use: none Medications and Allergies Aspirin Enteric Coated [Aspirin EC] 81 mg PO DAILY #0 07/04/15 [History] Donepezil [Aricept] 10 mg PO HS #0 07/04/15 [History] Albuterol Sulfate [Proair Hfa] 2 puff IH Q4H PRN #0 07/05/15 [History] Budesonide/Formoterol 160/4.5 [Symbicort 160/4.5] 2 puff IH BIDR #0 07/05/15 [ History] Omeprazole [PriLOSEC] 40 mg PO DAILY #0 07/05/15 [History] Sertraline [Zoloft] 150 mg PO DAILY #0 07/05/15 [History] Simvastatin [Zocor] 40 mg PO HS #0 07/05/15 [History] GuaiFENesin ER [Mucinex] 600 mg PO BID 5 Days 07/08/15 [Rx] Furosemide [Lasix] 20 mg PO DAILY 11/02/15 [History] Memantine HCl [Namenda Xr] 28 mg PO DAILY 11/02/15 [History] RisperiDONE [RisperDAL] 0.5 mg PO HS #14 tablet 11/05/15 [Rx] Temazepam [Restoril] 15 mg PO HS PRN #14 capsule 11/05/15 [Rx] Montelukast [Singulair] 10 mg PO DAILY 07/12/16 [History] Potassium Chloride [Klor-Con Sprinkle] 10 meq PO DAILY 07/12/16 [History] Tiotropium [Spiriva] 18 mcg IH 0700 07/12/16 [History] Allergies No Known Allergies Allergy (Verified 07/04/15 21:39) - Meds/Allergy Pre-op Review Medications Reviewed: Yes Allergies Reviewed: Yes Beta Blockers on Current Med List: No Anesthesia Results - Labs 07/13/16 03:42 07/13/16 03:42 - Imaging EKG: report reviewed, image reviewed (SR) Additional studies: 07-13-2016: LVEF 65% normal LV size/function mild diastolic dysfunction of the LV normal RV size/function no sign valvular dysfunction no pulm htn Anesthesia Exam Last Vital Signs Temp 98.3 F 07/13/16 15:34 Pulse 76 07/13/16 15:34 Resp 16 07/13/16 16:12 BP 147/75 07/13/16 15:34 Pulse Ox 95 07/13/16 16:12 Weight: 65 kg - HEENT Pupil (Motor): Pupils equal, EOMI Mallampati: III Teeth: Poor dentition Oral Opening: Greater than 3 - [employer] CONTACT REPRESENTATIVE LOC: Oriented (to name/date of ) - Cardiac Rhythm: Regular Murmur: None - Pulmonary Breath Sounds: bilateral Clear Respiratory Effort: Symmetrical Anesthesia Assess/Plan ASA Score: 4 (O2-dependent COPD, advanced Alzheimer's dementia, CAD/CHF, A fib) Modified [place] Scale for Level of Consciousness: Cooperative, oriented, and tranquil Anesthetic Plan: General, Precautions (Will make full code for rosalia-op period; discussed with and agreed upon with her daughter Jane Bear) Monitoring Plan: Standard Monitors Recovery Plan: PACU
[2016-07-13] MEDS ORDERED: *HR* Propofol 200 MG/20 ML VIAL IVP ONE (18:23)
[2016-07-13] MEDS ORDERED: *HR* FentaNYL (PF) 100 MCG/2 ML VIAL ONE (18:23)
[2016-07-13] MEDS ORDERED: Lidocaine -MPF 2% 2 ML VIAL ONE (18:24)
[2016-07-13] MEDS ORDERED: Dexamethasone 4 MG/ML VIAL ONE (18:24)
[2016-07-13] MEDS ORDERED: Ondansetron 4 MG/2 ML VIAL ONE (18:24)
[2016-07-13] MEDS ORDERED: *HR* Labetalol 20 MG/4 ML SYRINGE IVP ONE (18:46)
[2016-07-13] MEDS ORDERED: Acetaminophen IV 1,000 MG/100 ML INFUS..BTL ONE (19:27)
[2016-07-13] MEDS ORDERED: *HR* Morphine 10 MG/ML VIAL ONE (19:38)
[2016-07-13] MEDS ORDERED: Ondansetron 4 MG/2 ML VIAL IVP ONE ×2 (19:48→21:22)
--- NOTE | 2016-07-13 20:00 | Operative Note ---
Date of procedure: 07/13/16 Pre-op diagnosis: Left hip intertrochanteric fracture Post-op diagnosis: same Procedure: Left hip intramedullary nailing Implants: Synthes TFN Anesthesia: JL Surgeon: Momo Santiago Estimated blood loss (cc): 300 Specimen: 0 Condition: stable Disposition: PACU Procedure in Detail: The patient received IV antibiotics in the holding area. She was brought to the operating room, sign in was performed. The patient underwent general anesthesia on the hospital bed. She was then transferred to the fracture table in supine position. The patient was positioned with the support groin post, the affected left lower extremity in the traction perera and the contralateral lower extremity in a well-padded limb perera with a hip flexed and abducted out of the way. Fluoroscopy was then brought in, the fractures visualized, and the fracture reduced. We checked on AP and true lateral view of the hip. Once satisfactory the left hip, from the pelvis down to the knee, was prepped and draped in usual sterile fashion. A timeout was performed. The level of the greater trochanter was palpated, a 5-6 cm oblique incision was made just proximally, , followed by Bovie dissection. The hip abductor was sharply split in line with its fibers with a curved Dexter scissors. The tip of the greater trochanter was palpable. A curved awl was then positioned on the tip. Its position was checked on fluoroscopy, slightly advanced, and we checked the lateral view. Once appropriately positioned, the aggressive awl was then used to open the proximal femur down to level of the lesser trochanter. A short Trochanteric Femoral Nail Advanced with 130 degree neck angle, 10 mm diameter, was assembled, and appropriately inserted into the proximal femur. The appropriate level was checked under fluoroscopy. The triple trochars of 130 degree neck angle was then positioned against the skin, checking fluoroscopy for positioning. Once satisfactory a 2.5 cm incision was made, the fascia was bluntly split along with the muscle fibers of the vastus lateralis. The triple trocar was advanced up against the lateral cortex. The guidepin was then driven up into the femoral head, checking AP and lateral views. The wire was adjusted as needed. A 95 mm long helical blade was chosen. Overdrilled the guidewire, and the helical blade was tapped in place over the guidewire in standard technique. Once close to the edge of the femoral head, the setscrew was then placed. Traction was then taken off the leg, and the fracture compressed. The triple trochars for the distal static locking screw were placed in the jig, a second incision was extended 1 cm longitudinally distally. The trochars were advanced to the cortex, and drilled across. The depth was measured and a 32 mm long by 5 mm bicortical screw was placed. All trochars and jig were removed. Final fluoroscopy shots were taken and saved showing good AP and lateral views of the hip and also distally at the tip of the nail. The wounds were irrigated with normal saline. Fascia over the abductors was closed with 1 Vicryl [id number] stitches, including the deep subcutaneous fat layer. Subcutaneous tissues were closed with 2-0 Vicryl, and the skin incisions were closed with nu. Sterile dressings were applied. The patient was transferred to hospital bed where she was extubated and taken to recovery room in stable condition.
--- NOTE | 2016-07-13 20:35 | Anesthesia Evaluation Post Op ---
Date of Encounter: 07/13/16 Time of Encounter: 20:50 - Vital Signs Vital Signs: Vital Signs/O2 Sat/Glucose, Most Current Temp Pulse Resp BP Pulse Ox 07/13/16 20:26 94 14 179/85 100 07/13/16 20:16 91 12 151/75 100 07/13/16 20:06 97.8 F 87 12 137/66 99 - Lungs Lungs: Clear Ascult./Percussion - Airway Airway: Non-obstructed - Cardiovascular Regular Rate - Mental Status Mental Status: Baseline Status - Pain Pain Scale: 0 - Nausea Vomiting Nausea Vomiting: Not Present - Hydration Hydration: NPO - Discharge PostOp Status: Transfer Patient to floor
[2016-07-13 20:43] LABS: Hematocrit 23.2 % (35.3-44.9)
[2016-07-13 20:44] LABS: Hemoglobin 7.3 g/dL (11.5-15.4)
[2016-07-13] MEDS ORDERED: Temazepam 15 MG CAPSULE PO PRN (21:22)
[2016-07-13] MEDS ORDERED: Sennosides 8.6 MG TABLET PO PRN (21:22)
[2016-07-13] MEDS ORDERED: Ringers Solution, Lactated 1,000 ML IVC SCH (21:22)
[2016-07-13] MEDS ORDERED: Benzonatate 100 MG CAPSULE PO PRN (21:22)
[2016-07-13] MEDS ORDERED: Ondansetron 4 MG/2 ML VIAL IVP PRN (21:22)
[2016-07-13] MEDS ORDERED: *HR* Morphine 2 MG/ML SYRINGE IVP PRN (21:22)
[2016-07-13] MEDS ORDERED: Mag Hydrox/Al Hydrox/Simeth 30 ML UDC PO PRN (21:22)
[2016-07-13] MEDS ORDERED: Naloxone 0.4 MG/ML INJ IVP PRN ×2 (21:22)
[2016-07-13] MEDS ORDERED: Budesonide/Formoterol 160/4.5 MDI IH SCH (22:00)
[2016-07-13] MEDS ORDERED: 0.9 % Sodium Chloride 500 ML IVC ONE (22:50)
[2016-07-13] MEDS ORDERED: methylPREDNISolone 125 MG/2 ML VIAL IVP SCH (23:00)
[2016-07-13] MEDS: ceFAZolin 2,000 MG in D5% in Water 100 ML IVPB SCH (23:37)
[2016-07-14 00:10] LABS: ABG Base Excess 0.5 mEq/L (-2.0 to 3.0); ABG HCO3 27.8 mEQ/L (21-27); ABG Oxygen Saturation 96 % (95-98); ABG PCO2 62 mmHg (35-45); ABG PH 7.26 pH Units (7.32-7.45); ABG PO2 90 mmHg (85-104); ABG TCO2 29.7 mEq/L (20-26); Blood Gas FiO2 36 %
[2016-07-14 00:24] LABS: Hematocrit 23.1 % (35.3-44.9); Hemoglobin 7.2 g/dL (11.5-15.4)
[2016-07-14] MEDS ORDERED: 0.9 % Sodium Chloride 250 ML ONE (01:07)
[2016-07-14] MEDS ORDERED: *HR* LORazepam 2 MG/ML VIAL IVP ONE (01:34)
[2016-07-14] MEDS: Ipratropium/Albuterol Neb 3 ML IH SCH ×2 (02:24→05:00)
[2016-07-14] MEDS ORDERED: Bumetanide 1 MG/4 ML VIAL IVP STA (02:38)
[2016-07-14 05:10] LABS: VBG HCO3 23.9 mEq/L (21-27); VBG PH 7.27 pH Units (7.32-7.42)
[2016-07-14 05:13] LABS: Basophils % 0.3 %; Eosinophils % 0.1 %; Hematocrit 28.1 % (35.3-44.9); Immature Granulocytes % 0.8 % (0-4); Lymphocytes # 1.1 K/mcL (0.6-4.6); Lymphocytes % 7.2 %; Mean Corpuscular HGB Conc 31.7 g/dL (31.6-35.5); Mean Corpuscular Hemoglobin 29.7 pg (28.0-33.3); Mean Corpuscular Volume 93.7 fL (83.0-100.0); Mean Platelet Volume 11.2 fL (9.4-12.4); Monocytes # 0.6 K/mcL (0.0-1.3); Monocytes % 3.7 %; Neutrophils # 13.5 K/mcL (1.6-8.9); Platelet Count 173 K/mcL (140-400); Red Cell Distribution Width 14.3 % (11.5-14.5); Segmented Neutrophils % 87.9 %
[2016-07-14 05:27] LABS: Hemoglobin 8.9 g/dL (11.5-15.4)
[2016-07-14 05:45] LABS: Calcium 8.6 mg/dL (8.6-10.8)
[2016-07-14] MEDS ORDERED: MethylPREDNISolone 40 MG/ML VIAL IVP SCH (06:00)
[2016-07-14 06:06] LABS: Hematocrit 29.8 % (35.3-44.9); Hemoglobin 9.4 g/dL (11.5-15.4)
--- NOTE | 2016-07-14 06:33 | Electrocardiograph Report ---
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
[2016-07-14] MEDS ORDERED: 0.9 % Sodium Chloride 1,000 ML ONE (06:47)
[2016-07-14] MEDS ORDERED: 0.9 % Sodium Chloride 1,000 ML IVC SCH (07:00)
[2016-07-14] MEDS ORDERED: *HR* Metoprolol 5 MG/5 ML VIAL IVP ONE (08:07)
--- NOTE | 2016-07-14 08:09 | Internal Med Progress Note ---
Addendum entered and electronically signed by Destinee Mendieta DO 11:34: Anemia likely secondary to acute blood loss due to surgery. However, review of records indicates that patient has chronic anemia. Will perform anemia studies today. Original Note: <Destinee Mendieta - Last Filed: 07/14/16 11:19> Date of Encounter: 07/14/16 Time of Encounter: 08:15 - Assessment and plan (1) Acute on chronic respiratory failure Current Visit: No Status: Acute Assessment and plan: Patient became lethargic last night following surgery with episode of hypoxemia Acute respiratory failure likely multifactorial given sedation due to anesthesia and underlying COPD ABG at 23:51 with respiratory acidosis, pH 7.26, pCO2 62, pO2 90, calculated HCO3 27.8 Patient was started on BIPAP Repeat ABD this morning revealed pH 7.31, pCO2 49, pO2 125, HCO3 24 CXR reveals clear lungs with small unchange right pleural effusion, no left pleural effusion, bibasilar atelectasis Zopenex neb and Atrovent nebs scheduled Patient has received two doses of 40mg IV solu-medrol Restart symbicort, singulair, spiriva, mucinex We will give patient trial off BIPAP and monitor closely Qualifiers: Respiratory failure complication: hypoxia and hypercapnia Qualified Code(s) : J96.21 - Acute and chronic respiratory failure with hypoxia; J96.22 - Acute and chronic respiratory failure with hypercapnia (2) TIESHA (acute kidney injury) Current Visit: No Status: Acute Assessment and plan: Cr increased to 1.57 from 1.07 Patient has hyperkalemia today at 4.7 Patient has 450 deficit of fluid Encourage oral intake Increase IVF to 75 given CXR without evidence of increased pleural effusions We will stop Lovenox and start heparin SQ Continue to monitor renal function (3) Fracture, intertrochanteric, left femur Current Visit: Yes Status: Acute Assessment and plan: s/p day#1 left femur repair per Dr. 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 Qualifiers: Encounter type: initial encounter Fracture type: closed Qualified Code(s) : S72.142A - Displaced intertrochanteric fracture of left femur, initial encounter for closed fracture (4) Tachycardia Current Visit: Yes Status: Acute Assessment and plan: Likely secondary to Albuterol nebs and acute respiratory failure EKG demonstrated sinus tachycardia ECHO demonstrated mild diastolic dysfunction Mild elevation in troponin 0.04, likely demand ischemia due to respiratory failure Patient given Lopressor 2.5mg IV this morning Continue to monitor (5) COPD (chronic obstructive pulmonary disease) Current Visit: No Status: Acute Assessment and plan: May be contributory to acute respiratory failure Patient has received two doses of 40mg IV solu-medrol Restart symbicort, singulair, spiriva, mucinex Continue O2 supplementation Qualifiers: COPD type: emphysema Emphysema type: unspecified Qualified Code(s): J43.9 - Emphysema, unspecified (6) Hypertension Current Visit: Yes Status: Acute Assessment and plan: BP is stable. Continue home medication Qualifiers: Hypertension type: essential hypertension Qualified Code(s): I10 - Essential (primary) hypertension (7) Elevated troponin Current Visit: Yes Status: Acute Assessment and plan: Troponin 0.04 in the setting of acute on chronic respiratory failure Likely secondary to demand ischemia EKG sinus tachycardia without evidence of ST wave changes (8) Hyperkalemia Current Visit: No Status: Acute Assessment and plan: K+ 4.7 on repeat BMP, trending down from 5.0 this morning IVF Continue to monitor (9) Constipation Current Visit: Yes Status: Acute Assessment and plan: Start Miralax powder BID scheduled Qualifiers: Constipation type: unspecified constipation type Qualified Code(s): K59.00 - Constipation, unspecified (10) Dementia Current Visit: No Status: Chronic Assessment and plan: Continue home medications Aricept and Namenda Patient will need to bring Namenda from home as pharmacy does not have extended release form Qualifiers: Dementia type: unspecified type Dementia behavioral disturbance: without behavioral disturbance Qualified Code(s): F03.90 - Unspecified dementia without behavioral disturbance (11) Frail elderly Current Visit: Yes Status: Chronic (12) DVT prophylaxis Current Visit: No Status: Acute Assessment and plan: Heparin SQ - Time Spent With Patient 25 - 35 minutes (30 minutes including time with patinet and coordinating care) - Subjective Interval history: Patient in bed and wearing BIPAP. Patient became lethargic last night following surgery with episode of hypoxemia. ABG revealed respiratory acidosis at 23:51. Patient was started on BIPAP. Repeat VBG revealed respiratory acidosis at 03:49. Last recorded vitals demonstrate patient O2 saturation was 97% on FIO2 of 50 at 08:00. Patient appears comfortable resting in bed. She is in no acute distress during patient interview. Patient does admit to pain to left hip. Daughter is present with patient at bedside. Daughter is primary caregiver. She states that patient has not had a bowel movement for 3 days. Patient takes Miralax at home every other day. - Constitutional Vitals: Temp Pulse Resp BP Pulse Ox 99.2 F 112 22 162/91 97 07/14/16 06:29 07/14/16 06:29 07/14/16 08:01 07/14/16 06:29 07/14/16 08:01 General appearance: Present: cachectic, A&O X 1, underweight. Absent: cooperative, answers questions appropriately Exam: Patient very hard of hearing Hears best in left ear Patient resting in bed with BIPAP in place No acute distress, no tachypnea, no accessory muscle use, no intercostal retractions - Head Head exam: Present: atraumatic, normocephalic - Eye Eye exam: Present: PERRL, sclera anicteric Additional comments: Conjunctiva pale - Neck Neck exam general surgery: Present: supple, trachea midline. Absent: thyromegaly - Respiratory Respiratory exam: Present: decreased breath sounds. Absent: accessory muscle use, rales, rhonchi, wheezes Additional comments: Unable to appreciate lung sounds over the sound of BIPAP Lung sounds decreased - Cardiovascular Cardiovascular exam: Present: +S1, +S2, tachycardia (regular rate). Absent: diastolic murmur, gallop, rubs, systolic murmur - GI/Abdominal GI/Abdominal exam: Present: normal bowel sounds, soft, tenderness (TTP diffusely ), no peritoneal signs. Absent: distended - Extremities Exam Extremities exam: Present: normal capillary refill, warm, radial pulses palpable and symetrical. Absent: calf tenderness, cyanotic, mottling Additional comments: Edema to left upper leg Dressing to left leg and hip in place and clean, dry, intact - Neurological Exam Neurological exam: Present: no focal deficits Additional comments: Awake, not alert or oriented - Skin Skin exam: Present: dry, intact Internal Medicine: Result - Labs CBC & Chem 7: 07/14/16 05:56 07/14/16 10:02 Labs: Short CBC 07/13/16 07/14/16 07/14/16 Range/Units 20:30 00:08 03:49 WBC 15.3 H (4.3-11.1) K/mcL Hgb 7.3 L D 7.2 L 8.9 L D (11.5-15.4) g/dL Hct 23.2 L 23.1 L 28.1 L (35.3-44.9) % Plt Count 173 (140-400) K/mcL Neutrophils # 13.5 H (1.6-8.9) K/mcL 07/14/16 Range/Units 05:56 WBC (4.3-11.1) K/mcL Hgb 9.4 L (11.5-15.4) g/dL Hct 29.8 L (35.3-44.9) % Plt Count (140-400) K/mcL Neutrophils # (1.6-8.9) K/mcL BMP 07/14/16 03:49 Sodium 141 Potassium 5.0 H Chloride 106 Carbon Dioxide 23 BUN 37 H D Creatinine 1.57 H Glucose 159 H Calcium 8.6 Cardiac Enzymes 07/14/16 Range/Units 03:49 Troponin I 0.04 H* (0-0.03) ng/mL - ABG Interpretation ABG results: ABG ABG pH 7.26 pH Units (7.32-7.45) L 07/13/16 23:51 ABG pCO2 62 mmHg (35-45) H 07/13/16 23:51 ABG pO2 90 mmHg (85-104) 07/13/16 23:51 ABG O2 Saturation 96 % (95-98) 07/13/16 23:51 PT/INR, D-dimer PT 14.2 Seconds (9.4-12.1) H 07/12/16 18:40 - Impressions Impressions Chest X-Ray 07/13/16 22:50 IMPRESSION: Stable small right pleural effusion and bibasilar atelectasis. D/ / Tyrell Bunch MD / Tyrell Bunch MD Interpreting Provider: Tyrell Bunch MD - VTE Documentation of Mechanical Device: Intermittent pneumatic compression device Consult Discharge Plan - Plan Referrals: Darren Oneill DO [Primary Care Provider] - <Ruchi Solomon - Last Filed: 07/14/16 18:28> Date of Encounter: 07/14/16 - Constitutional Vitals: Temp Pulse Resp BP Pulse Ox 98.0 F 88 16 158/78 98 07/14/16 16:29 07/14/16 16:29 07/14/16 16:29 07/14/16 16:29 07/14/16 16:29 Internal Medicine: Result - Labs CBC & Chem 7: 07/14/16 05:56 07/14/16 10:02 Labs: Short CBC 07/13/16 07/14/16 07/14/16 Range/Units 20:30 00:08 03:49 WBC 15.3 H (4.3-11.1) K/mcL Hgb 7.3 L D 7.2 L 8.9 L D (11.5-15.4) g/dL Hct 23.2 L 23.1 L 28.1 L (35.3-44.9) % Plt Count 173 (140-400) K/mcL Neutrophils # 13.5 H (1.6-8.9) K/mcL 07/14/16 Range/Units 05:56 WBC (4.3-11.1) K/mcL Hgb 9.4 L (11.5-15.4) g/dL Hct 29.8 L (35.3-44.9) % Plt Count (140-400) K/mcL Neutrophils # (1.6-8.9) K/mcL BMP 07/14/16 07/14/16 03:49 10:02 Sodium 141 139 Potassium 5.0 H 4.7 H Chloride 106 104 Carbon Dioxide 23 24 BUN 37 H D 42 H Creatinine 1.57 H 1.57 H Glucose 159 H 202 H Calcium 8.6 8.5 L Cardiac Enzymes 07/14/16 Range/Units 03:49 Troponin I 0.04 H* (0-0.03) ng/mL - ABG Interpretation ABG results: ABG ABG pH 7.31 pH Units (7.32-7.45) L 07/14/16 09:20 ABG pCO2 49 mmHg (35-45) H 07/14/16 09:20 ABG pO2 125 mmHg (85-104) H 07/14/16 09:20 ABG O2 Saturation 99 % (95-98) H 07/14/16 09:20 PT/INR, D-dimer PT 14.2 Seconds (9.4-12.1) H 07/12/16 18:40 - Impressions Impressions Chest X-Ray 07/13/16 22:50 IMPRESSION: Stable small right pleural effusion and bibasilar atelectasis. D/ / Tyrell Bunch MD / Tyrell Bunch MD Interpreting Provider: Tyrell Bunch MD - Attending Attestation I examined this patient and reviewed laboratory, imaging and all diagnostic data. My medical decision-making was reviewed with Dr Mendieta - Resident Physician. I agree with the documented findings, disposition and treatment plan as described above
[2016-07-14] MEDS: Albuterol Neb 1.25 MG/3 ML VIAL IH SCH (08:16)
[2016-07-14] MEDS ORDERED: Patient Taking Own Medication 1 EACH PO SCH (09:00)
[2016-07-14] MEDS ORDERED: Albuterol Neb 1.25 MG/3 ML VIAL IH SCH (09:00)
[2016-07-14] MEDS ORDERED: Loratadine 10 MG TABLET PO SCH (09:00)
[2016-07-14] MEDS ORDERED: Patient Taking Own Medication 1 EACH IH SCH (09:00)
[2016-07-14 09:27] LABS: ABG Base Excess -1.7 mEq/L (-2.0 to 3.0); ABG HCO3 24.7 mEQ/L (21-27); ABG Oxygen Saturation 99 % (95-98); ABG PCO2 49 mmHg (35-45); ABG PH 7.31 pH Units (7.32-7.45); ABG PO2 125 mmHg (85-104); ABG TCO2 26.2 mEq/L (20-26)
[2016-07-14] MEDS: ceFAZolin 2,000 MG in D5% in Water 100 ML IVPB SCH (09:28)
[2016-07-14] MEDS: Budesonide/Formoterol 160/4.5 MDI IH SCH ×2 (09:29→20:06)
[2016-07-14] MEDS: Levalbuterol 1 PUFF INHALER IH SCH ×5 (09:30→23:16)
[2016-07-14] MEDS: Aspirin Enteric Coated 81 MG Tablet PO SCH (09:58)
[2016-07-14] MEDS: *HR* OxyCODONE Immed Rel 5 MG TABLET PO PRN ×3 (10:07→18:01)
[2016-07-14 10:22] LABS: Calcium 8.5 mg/dL (8.6-10.8); Potassium 4.7 mEq/L (3.5-4.5)
[2016-07-14] MEDS: 0.9 % Sodium Chloride 1,000 ML IVC SCH (10:30)
[2016-07-14] MEDS: Tiotropium 18 MCG inhalation IH SCH (11:29)
[2016-07-14] MEDS: Ipratropium Neb 0.5 MG NEBULIZER IH SCH ×4 (11:34→23:16)
[2016-07-14] MEDS: Acetaminophen 325 MG TABLET PO PRN (15:57)
--- NOTE | 2016-07-14 16:19 | Orthopedics Progress Note ---
Date of Encounter: 07/14/16 Time of Encounter: 15:30 - Assessment and Plan (1) Fracture, intertrochanteric, left femur Current Visit: Yes Status: Acute POD#1 s/p left hip IM nailing Continue with therapy. WBAT. Will likely require ECF rehab upon discharge. Continue pain control per hospitalist. Will follow up with Nayeli Quintana PA-C in [facility] office on 07/27/16 at 9:30am. Qualifiers: Encounter type: initial encounter Fracture type: closed Qualified Code(s) : S72.142A - Displaced intertrochanteric fracture of left femur, initial encounter for closed fracture Subjective Principal diagnosis: POD#1 s/p left hip IM nailing Interval history: Patient awake and pleasant on exam today with no concerns. No family present. Patient states no pain but otherwise could not answer questions appropriately secondary to dementia. Objective Vital signs: Vital Signs Temp Pulse Resp BP Pulse Ox 07/14/16 14:07 98 07/14/16 14:01 140/70 98 07/14/16 13:20 97 07/14/16 13:03 96 07/14/16 11:35 16 96 07/14/16 10:56 97.9 F 94 20 167/79 99 07/14/16 09:27 13 97 07/14/16 08:01 22 97 07/14/16 06:29 99.2 F 112 20 162/91 98 07/14/16 05:00 12 98 07/14/16 04:37 97.9 F 110 11 144/68 98 07/14/16 02:24 13 91 07/14/16 01:39 97.8 F 108 14 123/71 91 07/14/16 01:24 97.7 F 116 13 07/14/16 01:18 97.7 F 116 13 133/72 07/14/16 00:45 13 98 07/14/16 00:03 97.2 F L 117 13 123/62 96 07/13/16 23:59 11 98 07/13/16 22:45 97.8 F 103 14 105/59 97 07/13/16 21:55 18 98 07/13/16 21:45 97.9 F 105 14 99/57 07/13/16 20:44 97.2 F L 96 16 106/58 96 07/13/16 20:36 97.2 F L 99 16 102/50 92 07/13/16 20:26 94 14 179/85 100 07/13/16 20:16 91 12 151/75 100 07/13/16 20:06 97.8 F 87 12 137/66 99 Intake and Output 07/14/16 07/14/16 07/14/16 07:59 15:59 23:59 Intake Total 400 / 400 Output Total 250 / 250 Balance 150 / 150 Intake: IV Fluids 100 / 100 Ancef 2,000 MG In 100 / 100 Dextrose 5% 100 ML @ 200 mls/hr IVPB Q8HR [facility] Rx#: [id number] Oral 0 / 0 Blood Product 300 / 300 Rbcs Leuko Poor As-1 300 / 300 Unit [id number] Output: Urine 250 / 250 Incision: clean and dry (dressings clean, dry and intact with no visible drainage or surrounding erythema, patient unable to follow commands for ROM testing) - Labs CBC & BMP: 07/14/16 05:56 07/14/16 10:02 Labs: Abnormal lab results WBC 15.3 K/mcL (4.3-11.1) H 07/14/16 03:49 RBC 3.00 M/mcL (3.82-4.97) L 07/14/16 03:49 Hgb 9.4 g/dL (11.5-15.4) L 07/14/16 05:56 Hct 29.8 % (35.3-44.9) L 07/14/16 05:56 Neutrophils # 13.5 K/mcL (1.6-8.9) H 07/14/16 03:49 PT 14.2 Seconds (9.4-12.1) H 07/12/16 18:40 ABG pH 7.31 pH Units (7.32-7.45) L 07/14/16 09:20 ABG pCO2 49 mmHg (35-45) H 07/14/16 09:20 ABG pO2 125 mmHg (85-104) H 07/14/16 09:20 ABG Total CO2 26.2 mEq/L (20-26) H 07/14/16 09:20 ABG O2 Saturation 99 % (95-98) H 07/14/16 09:20 VBG pH 7.27 pH Units (7.32-7.42) L 07/14/16 03:49 VBG pCO2 52 mmHg (41-51) H 07/14/16 03:49 VBG pO2 135 mmHg (25-40) H 07/14/16 03:49 Potassium 4.7 mEq/L (3.5-4.5) H 07/14/16 10:02 BUN 42 mg/dL (7-20) H 07/14/16 10:02 Creatinine 1.57 mg/dL (0.57-1.11) H 07/14/16 10:02 Est GFR ( Amer) 39 (> 60) L 07/14/16 10:02 Est GFR (Non-Af Amer) 32 (> 60) L 07/14/16 10:02 BUN/Creatinine Ratio 27 (6-26) H 07/14/16 10:02 Glucose 202 mg/dL (70-99) H 07/14/16 10:02 Calculated Osmolality 304 (280-300) H 07/14/16 10:02 Lactic Acid 0.4 mmol/L (0.5-2.2) L 07/12/16 22:17 Calcium 8.5 mg/dL (8.6-10.8) L 07/14/16 10:02 Troponin I 0.04 ng/mL (0-0.03) H* 07/14/16 03:49 Albumin 3.3 g/dL (3.5-5.0) L 07/13/16 03:42 Cholesterol 203 mg/dL (< 200) H 07/13/16 03:42 LDL Cholesterol, Calc 119 mg/dL (0-99) H 07/13/16 03:42 HDL Cholesterol 65 mg/dL (40-59) H 07/13/16 03:42 Ur Specific Jenkins 1.026 (1.010-1.025) H 07/13/16 00:50 Urine Protein 30 mg/dL (Neg-Trace) H 07/13/16 00:50 Urine Ketones Trace mg/dL (Negative) H 07/13/16 00:50 Urine Blood Trace (Negative) H 07/13/16 00:50 Ur Leukocyte Esterase Moderate (Negative) H 07/13/16 00:50 Urine Microscopic WBC 15-30 per hpf (0-3) H 07/13/16 00:50 Ur Squamous Epith Cells Many per lpf (None-Few) H 07/13/16 00:50 - VTE Documentation of Mechanical Device: Intermittent pneumatic compression device Consult Discharge Plan - Plan Referrals: Darren Oneill DO [Primary Care Provider] -
[2016-07-14] MEDS: *HR* Heparin 5,000 UNIT/ML VIAL SQ SCH (18:01)
[2016-07-14] MEDS: risperiDONE 0.25 MG TABLET PO SCH (19:54)
[2016-07-14] MEDS ORDERED: *HR* Enoxaparin 30 MG/0.3 ML SYRINGE SQ SCH (20:08)
[2016-07-15] MEDS ORDERED: *HR* LORazepam 2 MG/ML VIAL IVP ONE (00:23)
[2016-07-15] MEDS: 0.9 % Sodium Chloride 1,000 ML IVC SCH (01:20)
[2016-07-15] MEDS: *HR* Heparin 5,000 UNIT/ML VIAL SQ SCH ×2 (05:09→16:44)
[2016-07-15] MEDS: *HR* OxyCODONE Immed Rel 5 MG TABLET PO PRN ×3 (05:15→16:49)
[2016-07-15] MEDS: Levalbuterol 1 PUFF INHALER IH SCH ×6 (05:22→23:00)
[2016-07-15] MEDS: Ipratropium Neb 0.5 MG NEBULIZER IH SCH ×6 (05:22→23:00)
[2016-07-15 06:53] LABS: Basophils % 0.1 %; Eosinophils % 0.2 %; Hematocrit 19.1 % (35.3-44.9); Immature Granulocytes % 0.5 % (0-4); Immature Platelets 3.6 % (1.1-6.1); Lymphocytes # 1.4 K/mcL (0.6-4.6); Lymphocytes % 17.1 %; Mean Corpuscular HGB Conc 33.5 g/dL (31.6-35.5); Mean Corpuscular Hemoglobin 29.9 pg (28.0-33.3); Mean Corpuscular Volume 89.3 fL (83.0-100.0); Monocytes # 0.7 K/mcL (0.0-1.3); Monocytes % 8.8 %; Platelet Count 124 K/mcL (140-400); Red Blood Count 2.14 M/mcL (3.82-4.97); Red Cell Distribution Width 14.4 % (11.5-14.5); Segmented Neutrophils % 73.3 %
[2016-07-15 06:54] LABS: Hemoglobin 6.4 g/dL (11.5-15.4)
[2016-07-15 07:08] LABS: BUN/Creatinine Ratio 37 (6-26); Blood Urea Nitrogen 30 mg/dL (7-20); Calcium 8.3 mg/dL (8.6-10.8); Carbon Dioxide 27 mEq/L (19-29); Chloride 106 mEq/L (98-109); Glucose 118 mg/dL (70-99); Osmolality,Calculated 293 (280-300); Potassium 3.8 mEq/L (3.5-4.5); Sodium 138 mEq/L (136-145); eGFR For African Americans > 60 (> 60); eGFR For Non-African Americans > 60 (> 60)
--- NOTE | 2016-07-15 08:17 | Internal Med Progress Note ---
<AnamDestinee Faithcali Christianson - Last Filed: 07/15/16 09:06> Date of Encounter: 07/15/16 Time of Encounter: 08:14 - Assessment and plan (1) Anemia Current Visit: Yes Status: Acute Assessment and plan: Patient's Hb today dropped to 6.4 from 9.4 yesterday Will repeat Hb this morning Anemia is likely secondary to acute blood loss due to surgery and dilution from IVF Patient has been transfused 1 unit RBCs this morning She will be transfused 2 more units today Will monitor Hb today after transfusions are complete Qualifiers: Anemia type: unspecified type Qualified Code(s): D64.9 - Anemia, unspecified (2) Acute on chronic respiratory failure Current Visit: Yes Status: Resolved Assessment and plan: 07/15/16 Patient is clinically improved today She is maintaining O2 sat of 95% on 2.5 L NC Final sputum culture 07/14/16 did not meet criteria for culture No leukocytosis and CXR did not demonstrate evidence for infectious pulmonary process 07/14/16 Patient became lethargic last night following surgery with episode of hypoxemia Acute respiratory failure likely multifactorial given sedation due to anesthesia and underlying COPD ABG at 23:51 with respiratory acidosis, pH 7.26, pCO2 62, pO2 90, calculated HCO3 27.8 Patient was started on BIPAP Repeat ABD this morning revealed pH 7.31, pCO2 49, pO2 125, HCO3 24 CXR reveals clear lungs with small unchange right pleural effusion, no left pleural effusion, bibasilar atelectasis Zopenex neb and Atrovent nebs scheduled Patient has received two doses of 40mg IV solu-medrol Restart symbicort, singulair, spiriva, mucinex We will give patient trial off BIPAP and monitor closely Qualifiers: Respiratory failure complication: hypoxia and hypercapnia Qualified Code(s) : J96.21 - Acute and chronic respiratory failure with hypoxia; J96.22 - Acute and chronic respiratory failure with hypercapnia (3) Fracture, intertrochanteric, left femur Current Visit: Yes Status: Acute Assessment and plan: s/p day#2 left femur repair per Dr. Santiago Patient has pain today and pain medication is ordered PRN Continue recommendations per PT Patient will require placement to rehabilitation following discharge motion picture set up worker to coordinate Qualifiers: Encounter type: initial encounter Fracture type: closed Qualified Code(s) : S72.142A - Displaced intertrochanteric fracture of left femur, initial encounter for closed fracture (4) Tachycardia Current Visit: Yes Status: Acute Assessment and plan: HR 104 and regular this morning Patient has had elevated HR since admission, possibly secondary to pain EKG previously demonstrated sinus tachycardia ECHO demonstrated mild diastolic dysfunction Continue to monitor (5) Thrombocytopenia Current Visit: Yes Status: Acute Assessment and plan: Platelets 124 today, trending down from 173 yesterday Patient is likely hemodiluted from IVF Continue to monitor (6) COPD (chronic obstructive pulmonary disease) Current Visit: No Status: Chronic Assessment and plan: Stable Patient requiring 2.5L O2 for saturation, but usually uses 3.5L at home Continue symbicort, singulair, spiriva, mucinex Continue O2 supplementation Qualifiers: COPD type: emphysema Emphysema type: unspecified Qualified Code(s): J43.9 - Emphysema, unspecified (7) Hypertension Current Visit: No Status: Chronic Assessment and plan: BP is stable. Continue home medication Qualifiers: Hypertension type: essential hypertension Qualified Code(s): I10 - Essential (primary) hypertension (8) TIESHA (acute kidney injury) Current Visit: Yes Status: Resolved Assessment and plan: 07/15/16 Resolved today Cr 0.82 today, improved with IVF Patient's fluid status at deficit of 1500mL Continue to monitor 07/14/16 Cr increased to 1.57 from 1.07 Patient has hyperkalemia today at 4.7 Patient has 450 deficit of fluid Encourage oral intake Increase IVF to 75 given CXR without evidence of increased pleural effusions We will stop Lovenox and start heparin SQ Continue to monitor renal function (9) Hyperkalemia Current Visit: Yes Status: Resolved Assessment and plan: Continue to monitor (10) Elevated troponin Current Visit: Yes Status: Acute Assessment and plan: Troponin 0.04 in the setting of acute on chronic respiratory failure Likely secondary to demand ischemia EKG sinus tachycardia without evidence of ST wave changes (11) Constipation Current Visit: Yes Status: Acute Assessment and plan: Miralax powder BID scheduled Qualifiers: Constipation type: unspecified constipation type Qualified Code(s): K59.00 - Constipation, unspecified (12) Dementia Current Visit: No Status: Chronic Assessment and plan: Continue home medications Aricept and Namenda Patient will need to bring Namenda from home as pharmacy does not have extended release form Qualifiers: Dementia type: unspecified type Dementia behavioral disturbance: without behavioral disturbance Qualified Code(s): F03.90 - Unspecified dementia without behavioral disturbance (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 Patient reportedly had episode of delirium last night. She was given IV Ativan. Patient does take Restoril 15mg each night. While it is written as prn on medication list, daughter states that she gives it to patient every night. Patient oriented only to self and cannot remember her year. She does complain of left hip pain this morning. Family complains of swelling to left leg. I let family know this is normal following surgery. - Constitutional Vitals: Temp Pulse Resp BP Pulse Ox 99.7 F H 104 16 128/67 95 07/15/16 07:29 07/15/16 07:29 07/15/16 07:29 07/15/16 07:29 07/15/16 07:29 General appearance: Present: cooperative, A&O X 1, underweight. Absent: answers questions appropriately - Head Head exam: Present: atraumatic, normocephalic - Eye Eye exam: Present: PERRL, sclera anicteric - Neck Neck exam general surgery: Present: supple, trachea midline. Absent: lymphadenopathy - Respiratory Respiratory exam: Present: CTAB. Absent: accessory muscle use, rales, rhonchi, wheezes - Cardiovascular Cardiovascular exam: Present: RRR, +S1, +S2. Absent: diastolic murmur, gallop, rubs, systolic murmur - GI/Abdominal GI/Abdominal exam: Present: firm (Appreciate firmness to abdomen, no distension , rigidity, or guarding), normal bowel sounds, no peritoneal signs. Absent: distended, tenderness - Extremities Exam Extremities exam: Present: normal inspection, pedal edema (2+ non-pitting edema of left leg to level of thigh, no edema appreciated to right leg), warm, radial pulses palpable and symetrical. Absent: calf tenderness, cyanotic Additional comments: Dressing to left hip clean,dry,intact No evidence of fluid collection or hematoma to anterior or lateral thigh - Neurological Exam Neurological exam: Present: CN II-XII intact, no focal deficits. Absent: facial droop - Skin Skin exam: Present: dry, intact Internal Medicine: Result - Labs CBC & Chem 7: 07/15/16 06:41 07/15/16 06:41 Labs: Short CBC 07/15/16 Range/Units 06:41 WBC 8.2 (4.3-11.1) K/mcL Hgb 6.4 L D (11.5-15.4) g/dL Hct 19.1 L (35.3-44.9) % Plt Count 124 L (140-400) K/mcL Neutrophils # 6.0 (1.6-8.9) K/mcL BMP 07/14/16 07/15/16 10:02 06:41 Sodium 139 138 Potassium 4.7 H 3.8 Chloride 104 106 Carbon Dioxide 24 27 BUN 42 H 30 H D Creatinine 1.57 H 0.82 Glucose 202 H 118 H Calcium 8.5 L 8.3 L - ABG Interpretation ABG results: ABG ABG pH 7.31 pH Units (7.32-7.45) L 07/14/16 09:20 ABG pCO2 49 mmHg (35-45) H 07/14/16 09:20 ABG pO2 125 mmHg (85-104) H 07/14/16 09:20 ABG O2 Saturation 99 % (95-98) H 07/14/16 09:20 PT/INR, D-dimer PT 14.2 Seconds (9.4-12.1) H 07/12/16 18:40 - VTE Documentation of Mechanical Device: Intermittent pneumatic compression device Consult Discharge Plan - Plan Referrals: Darren Oneill DO [Primary Care Provider] - <Ruchi Solomon - Last Filed: 07/15/16 16:12> Date of Encounter: 07/15/16 - Constitutional Vitals: Temp Pulse Resp BP Pulse Ox 98.1 F 108 18 116/59 93 07/15/16 15:34 07/15/16 15:34 07/15/16 15:34 07/15/16 15:34 07/15/16 15:34 Internal Medicine: Result - Labs CBC & Chem 7: 07/15/16 08:49 07/15/16 06:41 Labs: Short CBC 07/15/16 07/15/16 Range/Units 06:41 08:49 WBC 8.2 (4.3-11.1) K/mcL Hgb 6.4 L D 6.8 L (11.5-15.4) g/dL Hct 19.1 L 21.3 L (35.3-44.9) % Plt Count 124 L (140-400) K/mcL Neutrophils # 6.0 (1.6-8.9) K/mcL BMP 07/15/16 06:41 Sodium 138 Potassium 3.8 Chloride 106 Carbon Dioxide 27 BUN 30 H D Creatinine 0.82 Glucose 118 H Calcium 8.3 L - ABG Interpretation ABG results: ABG ABG pH 7.31 pH Units (7.32-7.45) L 07/14/16 09:20 ABG pCO2 49 mmHg (35-45) H 07/14/16 09:20 ABG pO2 125 mmHg (85-104) H 07/14/16 09:20 ABG O2 Saturation 99 % (95-98) H 07/14/16 09:20 PT/INR, D-dimer PT 14.2 Seconds (9.4-12.1) H 07/12/16 18:40 - Impressions Impressions Lower Extremity CT 07/15/16 10:06 IMPRESSION: Interval ORIF of previously noted acute traumatic comminuted left femur intertrochanteric fracture. Bony alignment is grossly anatomic. No new acute bony abnormalities. Mild soft tissue swelling and subcutaneous fat stranding along with a few small scattered foci of soft tissue gas about the left hip, likely relating to the recent surgical intervention and/or recent injury. No focal fluid collections or radiopaque foreign bodies. Small nonspecific left hip joint effusion. D/ / 07/15/2016 11:13:01 Tyrell Kellogg MD / jeanna Interpreting Provider: Tyrell Kellogg MD X-Ray 07/15/16 10:11 IMPRESSION: No evidence of obstruction or significant fecal retention. D/ / 07/15/2016 11:59:30 Pan Ga MD / jeanna Interpreting Provider: Pan Ga MD - Attending Attestation I examined this patient and reviewed laboratory, imaging and all diagnostic data. My medical decision-making was reviewed with Dr Mendieta - Resident Physician. I agree with the documented findings, disposition and treatment plan as described above
[2016-07-15] MEDS: Budesonide/Formoterol 160/4.5 MDI IH SCH ×2 (08:44→20:31)
[2016-07-15 09:32] LABS: Hematocrit 21.3 % (35.3-44.9); Hemoglobin 6.8 g/dL (11.5-15.4)
[2016-07-15] MEDS ORDERED: 0.9 % Sodium Chloride 250 ML IVC PRN (09:39)
[2016-07-15] MEDS ORDERED: 0.9 % Sodium Chloride 250 ML ONE ×2 (09:40→15:05)
[2016-07-15] MEDS: Aspirin Enteric Coated 81 MG Tablet PO SCH (09:56)
[2016-07-15 11:35] LABS: % Iron Saturation 8 % (15-50); Iron 17 mcg/dL (50-170); Transferrin 161 mg/dL (180-382)
[2016-07-15] MEDS ORDERED: *HR* LORazepam 1 MG TABLET PO ONE (12:23)
[2016-07-15] MEDS ORDERED: Haloperidol Lactate 5 MG/ML VIAL IM STA (12:39)
[2016-07-15] MEDS ORDERED: Magnesium Oxide 400 MG TABLET PO ONE (12:40)
--- NOTE | 2016-07-15 15:20 | Orthopedics Progress Note ---
Date of Encounter: 07/15/16 Time of Encounter: 15:17 - Assessment and Plan (1) Fracture, intertrochanteric, left femur Current Visit: Yes Status: Acute POD#2 s/p left hip IM nailing dressings were changed today Continue with therapy. WBAT. Will likely require ECF rehab upon discharge. Continue pain control per hospitalist. Will follow up with Nayeli Quintana PA-C in [facility] office on 07/27/16 at 9:30am. Qualifiers: Encounter type: initial encounter Fracture type: closed Qualified Code(s) : S72.142A - Displaced intertrochanteric fracture of left femur, initial encounter for closed fracture Subjective Principal diagnosis: POD#2 s/p left hip IM nailing Interval history: Patient awake and pleasant on exam today with no concerns. No family present. Patient did not answer any questions that I asked. Objective Vital signs: Vital Signs Temp Pulse Resp BP Pulse Ox 07/15/16 13:50 98.2 F 103 16 103/61 94 07/15/16 10:09 98.9 F 103 16 133/67 93 07/15/16 09:54 98.3 F 100 16 147/72 07/15/16 08:52 16 128/67 95 07/15/16 07:29 99.7 F H 104 16 128/67 95 07/15/16 00:56 99.4 F 106 15 124/66 98 07/14/16 21:51 99.3 F 108 15 136/75 97 07/14/16 20:06 18 96 07/14/16 16:29 98.0 F 88 16 158/78 98 Intake and Output 07/14/16 07/15/16 07/15/16 23:59 07:59 15:59 Intake Total 1200 / 1200 395 / 395 Output Total 400 / 400 1500 / 1500 Balance 800 / 800 -1500 / -1500 395 / 395 Intake: IV Fluids 1000 / 1000 0.9 % Sodium Chloride 1, 1000 / 1000 000 ML @ 75 mls/hr IVC . [id number] [facility] Rx#: [id number] Oral 200 / 200 120 / 120 Blood Product 275 / 275 Rbcs Leuko Poor As-1 275 / 275 Unit [id number] Output: Catheter 400 / 400 1500 / 1500 Other: Meal Breakfast Percent of Meal Consumed 50% Incision: clean and dry (dressings c/d/i with no visible drainage or surrounding erythema. Moderate ecchymosis to inner thigh, mild swelling to LLE) - Labs CBC & BMP: 07/15/16 08:49 07/15/16 06:41 Labs: Abnormal lab results RBC 2.14 M/mcL (3.82-4.97) L 07/15/16 06:41 Hgb 6.8 g/dL (11.5-15.4) L 07/15/16 08:49 Hct 21.3 % (35.3-44.9) L 07/15/16 08:49 Plt Count 124 K/mcL (140-400) L 07/15/16 06:41 PT 14.2 Seconds (9.4-12.1) H 07/12/16 18:40 ABG pH 7.31 pH Units (7.32-7.45) L 07/14/16 09:20 ABG pCO2 49 mmHg (35-45) H 07/14/16 09:20 ABG pO2 125 mmHg (85-104) H 07/14/16 09:20 ABG Total CO2 26.2 mEq/L (20-26) H 07/14/16 09:20 ABG O2 Saturation 99 % (95-98) H 07/14/16 09:20 VBG pH 7.27 pH Units (7.32-7.42) L 07/14/16 03:49 VBG pCO2 52 mmHg (41-51) H 07/14/16 03:49 VBG pO2 135 mmHg (25-40) H 07/14/16 03:49 BUN 30 mg/dL (7-20) H D 07/15/16 06:41 BUN/Creatinine Ratio 37 (6-26) H 07/15/16 06:41 Glucose 118 mg/dL (70-99) H 07/15/16 06:41 Lactic Acid 0.4 mmol/L (0.5-2.2) L 07/12/16 22:17 Calcium 8.3 mg/dL (8.6-10.8) L 07/15/16 06:41 Iron 17 mcg/dL (50-170) L 07/15/16 06:41 % Saturation 8 % (15-50) L 07/15/16 06:41 Transferrin 161 mg/dL (180-382) L 07/15/16 06:41 Troponin I 0.04 ng/mL (0-0.03) H* 07/14/16 03:49 Albumin 3.3 g/dL (3.5-5.0) L 07/13/16 03:42 Cholesterol 203 mg/dL (< 200) H 07/13/16 03:42 LDL Cholesterol, Calc 119 mg/dL (0-99) H 07/13/16 03:42 HDL Cholesterol 65 mg/dL (40-59) H 07/13/16 03:42 Ur Specific Warner 1.026 (1.010-1.025) H 07/13/16 00:50 Urine Protein 30 mg/dL (Neg-Trace) H 07/13/16 00:50 Urine Ketones Trace mg/dL (Negative) H 07/13/16 00:50 Urine Blood Trace (Negative) H 07/13/16 00:50 Ur Leukocyte Esterase Moderate (Negative) H 07/13/16 00:50 Urine Microscopic WBC 15-30 per hpf (0-3) H 07/13/16 00:50 Ur Squamous Epith Cells Many per lpf (None-Few) H 07/13/16 00:50 - VTE Documentation of Mechanical Device: Intermittent pneumatic compression device Consult Discharge Plan - Plan Referrals: Darren Oneill DO [Primary Care Provider] -
[2016-07-15] MEDS ORDERED: Furosemide 40 MG/4 ML VIAL IVP ONE (18:50)
[2016-07-15] MEDS ORDERED: *HR* Metoprolol 5 MG/5 ML VIAL IVP PRN (18:50)
[2016-07-15 18:56] LABS: ABG HCO3 29.2 mEQ/L (21-27); ABG Oxygen Saturation 93 % (95-98); ABG PCO2 46 mmHg (35-45); ABG PH 7.41 pH Units (7.32-7.45); ABG PO2 66 mmHg (85-104); ABG TCO2 30.6 mEq/L (20-26); Blood Gas FiO2 28 %; Blood Gas Liter Flow 2 L/MIN
[2016-07-15 19:29] LABS: Hematocrit 29.2 % (35.3-44.9)
[2016-07-15 19:30] LABS: Hemoglobin 9.9 g/dL (11.5-15.4)
[2016-07-15] MEDS: risperiDONE 0.25 MG TABLET PO SCH (19:46)
[2016-07-15] MEDS: Tiotropium 18 MCG inhalation IH SCH (20:16)
[2016-07-16] MEDS: Levalbuterol 1 PUFF INHALER IH SCH ×6 (03:47→23:43)
[2016-07-16] MEDS: Ipratropium Neb 0.5 MG NEBULIZER IH SCH ×7 (03:47→23:43)
[2016-07-16 04:53] LABS: Basophils % 0.2 %; Eosinophils # 0.1 K/mcL (0.0-0.6); Eosinophils % 1.2 %; Hematocrit 28.8 % (35.3-44.9); Hemoglobin 9.8 g/dL (11.5-15.4); Immature Granulocytes % 0.7 % (0-4); Lymphocytes # 1.3 K/mcL (0.6-4.6); Lymphocytes % 15.3 %; Mean Corpuscular Hemoglobin 29.3 pg (28.0-33.3); Mean Platelet Volume 10.5 fL (9.4-12.4); Monocytes % 11.4 %; Nucleated Red Blood Cells 0.4 /100 WBC (0); Platelet Count 144 K/mcL (140-400); Red Blood Count 3.35 M/mcL (3.82-4.97); Red Cell Distribution Width 14.5 % (11.5-14.5); Segmented Neutrophils % 71.2 %
[2016-07-16 05:05] LABS: BUN/Creatinine Ratio 31 (6-26); Blood Urea Nitrogen 23 mg/dL (7-20); Calcium 8.7 mg/dL (8.6-10.8); Carbon Dioxide 30 mEq/L (19-29); Chloride 101 mEq/L (98-109); Glucose 115 mg/dL (70-99); Osmolality,Calculated 291 (280-300); Potassium 3.3 mEq/L (3.5-4.5); Sodium 138 mEq/L (136-145); eGFR For African Americans > 60 (> 60); eGFR For Non-African Americans > 60 (> 60)
[2016-07-16] MEDS: Budesonide/Formoterol 160/4.5 MDI IH SCH ×2 (07:48→20:24)
[2016-07-16] MEDS: Aspirin Enteric Coated 81 MG Tablet PO SCH (09:27)
[2016-07-16] MEDS: Acetaminophen 325 MG TABLET PO PRN (09:31)
[2016-07-16] MEDS: Furosemide 20 MG TABLET PO SCH (09:39)
[2016-07-16] MEDS: Albuterol 2.5 MG/3 ML NEBULIZER IH PRN ×2 (11:07→11:20)
[2016-07-16] MEDS ORDERED: Bisacodyl 10 MG RECTAL SUPPOSITORY RC ONE (11:19)
--- NOTE | 2016-07-16 13:22 | Internal Med Progress Note ---
<AnamDestinee Meghan - Last Filed: 07/16/16 13:20> Date of Encounter: 07/16/16 Time of Encounter: 10:00 - Assessment and plan (1) Anemia Current Visit: Yes Status: Acute Assessment and plan: Patient's 9.8, stable from 9.9 yesterday following transfusion Patient's iron studies demonstrate iron-deficiency anemia Anemia is likely secondary to acute blood loss due to surgery and dilution from IVF CT 07/15/16 left leg is negative for hematoma or fluid collection Start suppository today and dulcolax Will determine if GI is source of bleed Qualifiers: Anemia type: unspecified type Qualified Code(s): D64.9 - Anemia, unspecified (2) Acute on chronic respiratory failure Current Visit: Yes Status: Resolved Assessment and plan: Resolved Patient using 3-3.5 L O2, which is what she uses at home Morning demonstrates HCO3 of 30 Family states that patient snores while sleeping Will attempt to qualify for BIPAP given concern for SLIME Continue medications for COPD Qualifiers: Respiratory failure complication: hypoxia and hypercapnia Qualified Code(s) : J96.21 - Acute and chronic respiratory failure with hypoxia; J96.22 - Acute and chronic respiratory failure with hypercapnia (3) Fracture, intertrochanteric, left femur Current Visit: Yes Status: Acute Assessment and plan: s/p day#3 left femur repair per Dr. 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 Qualifiers: Encounter type: initial encounter Fracture type: closed Qualified Code(s) : S72.142A - Displaced intertrochanteric fracture of left femur, initial encounter for closed fracture (4) Tachycardia Current Visit: Yes Status: Acute Assessment and plan: HR 89 and regular this morning and improved from previous EKG demonstrated sinus tachycardia ECHO demonstrated mild diastolic dysfunction Continue to monitor (5) COPD (chronic obstructive pulmonary disease) Current Visit: No Status: Chronic Assessment and plan: Stable Patient requiring 3- 3.5L O2 for saturation Continue atrovent, xopenex, Continue home medications symbicort, singulair, mucinex Continue O2 supplementation Qualifiers: COPD type: emphysema Emphysema type: unspecified Qualified Code(s): J43.9 - Emphysema, unspecified (6) Hypokalemia Current Visit: Yes Status: Acute Assessment and plan: K+ 3.3, replaced Patient started on Lasix 20mg daily Will continue to monitor (7) Thrombocytopenia Current Visit: Yes Status: Acute Assessment and plan: Platelets 144 today, trending up from 124 yesterday Continue to monitor (8) Hypertension Current Visit: No Status: Chronic Assessment and plan: BP is stable. Continue home medication Qualifiers: Hypertension type: essential hypertension Qualified Code(s): I10 - Essential (primary) hypertension (9) TIESHA (acute kidney injury) Current Visit: Yes Status: Resolved Assessment and plan: Resolved (10) Elevated troponin Current Visit: Yes Status: Acute Assessment and plan: Troponin 0.04 in the setting of acute on chronic respiratory failure Likely secondary to demand ischemia EKG sinus tachycardia without evidence of ST wave changes (11) Constipation Current Visit: Yes Status: Acute Assessment and plan: Patient has been at hospital for 5 without having a stool Dulcolax 10mg po Dulcolax 10mg suppository Qualifiers: Constipation type: unspecified constipation type Qualified Code(s): K59.00 - Constipation, unspecified (12) Dementia Current Visit: No Status: Chronic Assessment and plan: Continue home medications Aricept and Namenda Patient will need to bring Namenda from home as pharmacy does not have extended release form Start Restoril scheduled HS Qualifiers: Dementia type: unspecified type Dementia behavioral disturbance: without behavioral disturbance Qualified Code(s): F03.90 - Unspecified dementia without behavioral disturbance (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 Patient reportedly had episode of aggression last night. She threatened to kill nursing staff and had to had a sitter. Patient states that she has not have a bowel movement. Patient asked for a laxative. - Constitutional Vitals: Temp Pulse Resp BP Pulse Ox 98.3 F 89 14 147/73 96 07/16/16 13:14 07/16/16 13:14 07/16/16 10:58 07/16/16 10:58 07/16/16 13:14 General appearance: Present: cooperative, A&O X 1, underweight. Absent: answers questions appropriately - Head Head exam: Present: atraumatic, normocephalic - Eye Eye exam: Present: PERRL, sclera anicteric - Neck Neck exam general surgery: Present: supple, trachea midline - Respiratory Respiratory exam: Present: CTAB. Absent: accessory muscle use, rales, rhonchi, wheezes - Cardiovascular Cardiovascular exam: Present: RRR, +S1, +S2. Absent: diastolic murmur, gallop, rubs, systolic murmur - GI/Abdominal GI/Abdominal exam: Present: distended (increased from yesterday), hyperactive bowel sounds, soft, no peritoneal signs. Absent: tenderness - Extremities Exam Extremities exam: Present: warm, radial pulses palpable and symetrical. Absent : calf tenderness, cyanotic, pedal edema - Neurological Exam Neurological exam: Present: CN II-XII intact, oriented X3, no focal deficits. Absent: pronater drift, facial droop, speech deficit - Skin Skin exam: Present: dry, intact Internal Medicine: Result - Labs CBC & Chem 7: 07/16/16 03:36 07/16/16 03:36 Labs: Short CBC 07/15/16 07/16/16 Range/Units 19:13 03:36 WBC 8.4 (4.3-11.1) K/mcL Hgb 9.9 L D 9.8 L (11.5-15.4) g/dL Hct 29.2 L 28.8 L (35.3-44.9) % Plt Count 144 (140-400) K/mcL Neutrophils # 6.0 (1.6-8.9) K/mcL BMP 07/16/16 03:36 Sodium 138 Potassium 3.3 L Chloride 101 Carbon Dioxide 30 H BUN 23 H Creatinine 0.75 Glucose 115 H Calcium 8.7 - ABG Interpretation ABG results: ABG ABG pH 7.41 pH Units (7.32-7.45) 07/15/16 18:45 ABG pCO2 46 mmHg (35-45) H 07/15/16 18:45 ABG pO2 66 mmHg (85-104) L 07/15/16 18:45 ABG O2 Saturation 93 % (95-98) L 07/15/16 18:45 PT/INR, D-dimer PT 14.2 Seconds (9.4-12.1) H 07/12/16 18:40 - Impressions Impressions Lower Extremity CT 07/15/16 10:06 IMPRESSION: Interval ORIF of previously noted acute traumatic comminuted left femur intertrochanteric fracture. Bony alignment is grossly anatomic. No new acute bony abnormalities. Mild soft tissue swelling and subcutaneous fat stranding along with a few small scattered foci of soft tissue gas about the left hip, likely relating to the recent surgical intervention and/or recent injury. No focal fluid collections or radiopaque foreign bodies. Small nonspecific left hip joint effusion. D/ / 07/15/2016 11:13:01 Tyrell Kellogg MD / jeanna Interpreting Provider: Tyrell Kellogg MD - VTE Documentation of Mechanical Device: Intermittent pneumatic compression device Consult Discharge Plan - Plan Referrals: Darren Oneill DO [Primary Care Provider] - <Ruchi Solomon E - Last Filed: 07/16/16 18:48> Date of Encounter: 07/16/16 - Constitutional Vitals: Temp Pulse Resp BP Pulse Ox 98.1 F 93 15 127/66 97 07/16/16 15:20 07/16/16 15:20 07/16/16 15:20 07/16/16 15:20 07/16/16 15:20 Internal Medicine: Result - Labs CBC & Chem 7: 07/16/16 03:36 07/16/16 03:36 Labs: Short CBC 07/15/16 07/16/16 Range/Units 19:13 03:36 WBC 8.4 (4.3-11.1) K/mcL Hgb 9.9 L D 9.8 L (11.5-15.4) g/dL Hct 29.2 L 28.8 L (35.3-44.9) % Plt Count 144 (140-400) K/mcL Neutrophils # 6.0 (1.6-8.9) K/mcL BMP 07/16/16 03:36 Sodium 138 Potassium 3.3 L Chloride 101 Carbon Dioxide 30 H BUN 23 H Creatinine 0.75 Glucose 115 H Calcium 8.7 - ABG Interpretation ABG results: ABG ABG pH 7.41 pH Units (7.32-7.45) 07/15/16 18:45 ABG pCO2 46 mmHg (35-45) H 07/15/16 18:45 ABG pO2 66 mmHg (85-104) L 07/15/16 18:45 ABG O2 Saturation 93 % (95-98) L 07/15/16 18:45 PT/INR, D-dimer PT 14.2 Seconds (9.4-12.1) H 07/12/16 18:40 - Attending Attestation I examined this patient and reviewed laboratory, imaging and all diagnostic data. My medical decision-making was reviewed with Dr Mendieta - Resident Physician. I agree with the documented findings, disposition and treatment plan as described above
[2016-07-16] MEDS ORDERED: Temazepam 15 MG CAPSULE PO SCH (21:00)
[2016-07-16] MEDS: risperiDONE 0.25 MG TABLET PO SCH (21:45)
[2016-07-17 04:13] LABS: Basophils % 0.3 %; Eosinophils # 0.3 K/mcL (0.0-0.6); Eosinophils % 4.6 %; Hematocrit 27.7 % (35.3-44.9); Hemoglobin 9.3 g/dL (11.5-15.4); Immature Granulocytes % 0.7 % (0-4); Lymphocytes # 1.3 K/mcL (0.6-4.6); Lymphocytes % 17.6 %; Mean Corpuscular HGB Conc 33.6 g/dL (31.6-35.5); Mean Corpuscular Hemoglobin 29.5 pg (28.0-33.3); Mean Corpuscular Volume 87.9 fL (83.0-100.0); Mean Platelet Volume 10.3 fL (9.4-12.4); Monocytes # 0.7 K/mcL (0.0-1.3); Monocytes % 9.3 %; Platelet Count 153 K/mcL (140-400); Red Blood Count 3.15 M/mcL (3.82-4.97); Red Cell Distribution Width 14.7 % (11.5-14.5); Segmented Neutrophils % 67.5 %
[2016-07-17 04:38] LABS: BUN/Creatinine Ratio 33 (6-26); Blood Urea Nitrogen 23 mg/dL (7-20); Calcium 8.6 mg/dL (8.6-10.8); Carbon Dioxide 27 mEq/L (19-29); Chloride 104 mEq/L (98-109); Glucose 115 mg/dL (70-99); Magnesium 2.1 mg/dL (1.6-2.6); Osmolality,Calculated 293 (280-300); Potassium 4.3 mEq/L (3.5-4.5); Sodium 139 mEq/L (136-145); eGFR For African Americans > 60 (> 60); eGFR For Non-African Americans > 60 (> 60)
[2016-07-17] MEDS: Levalbuterol 1 PUFF INHALER IH SCH ×3 (04:50→11:02)
[2016-07-17] MEDS: Ipratropium Neb 0.5 MG NEBULIZER IH SCH ×3 (04:50→11:02)
[2016-07-17 07:09] VITALS: BP 132/75
--- NOTE | 2016-07-17 07:27 | Discharge Summary ---
Date of Encounter: 07/17/16 Time of Encounter: 07:23 - Discharge Diagnosis (1) Fall Priority: Primary Status: Acute Comments: mechanical fall Qualifiers: Encounter type: initial encounter Qualified Code(s): W19.XXXA - Unspecified fall, initial encounter (2) Fracture, intertrochanteric, left femur Priority: Primary Status: Acute Comments: 07/13: Patient underwent Left hip intramedullary nailing Appreciate ortho input. continue pain meds. PT/OT. discharge to rehab today. Qualifiers: Encounter type: initial encounter Fracture type: closed Qualified Code(s) : S72.142A - Displaced intertrochanteric fracture of left femur, initial encounter for closed fracture (3) Acute on chronic respiratory failure Priority: Primary Status: Resolved Comments: Post-operative acute respiratory failure with hypoxemia and hypercapnia. Patient has COPD and uses 3.5 L of oxygen via NC at home. 07/13, overnight: patient became lethargic following surgery likely multifactorial due to anesthesia and underlying COPD. CXR shows small unchanged right pleural effusion, bibasilar atelectasis. Patient placed on BIPAP and received empiric antibiotics with clinical resolution of hypoxemia and hypercapnia. She was also started on aggressive nebulizations, and she was resumed on her home dose of symbicort, singulair and mucinex. echocardiogram showed LVEF 65%, mild diastolic dysfunction. Patient was weaned down to her home dose of oxygen. She will continue nebs q4 hours while awake, symbicort, mucinex and singulair. Qualifiers: Respiratory failure complication: hypoxia and hypercapnia Qualified Code(s) : J96.21 - Acute and chronic respiratory failure with hypoxia; J96.22 - Acute and chronic respiratory failure with hypercapnia (4) Acute blood loss anemia Priority: Primary Status: Acute Comments: secondary to left hip fracture. Hgb dropped to 7.2 on 07/14 and she received 1 unit PRBC. Hgb dropped again to 6.4-6.9 on 07/15 and she received 2 nits PRBC. 07/15: CT leg is negative for fluid collections, there is mild soft tissue swelling and subcutaneous fat stranding. Hgb is 9.3. Patient is asymptomatic and hemodynamically stable. no need for transfusion. (5) Chronic diastolic heart failure Priority: Primary Status: Chronic Comments: received IV lasix following blood transfusion. continue home dose of lasix 20 mg daily and betablocker. (6) CAD (coronary artery disease) Priority: Primary Status: Chronic Comments: stable. continue aspirin, metoprolol and simvastatin. Qualifiers: Coronary Disease-Associated Artery/Lesion type: [place] artery [place] vs. transplanted heart: [place] heart Associated angina: without angina Qualified Code(s): I25.10 - Atherosclerotic heart disease of [place] coronary artery without angina pectoris (7) TIESHA (acute kidney injury) Priority: Primary Status: Resolved Comments: secondary to hypovolemia due to acute blood loss. She was started on IV fluids with resolution of her TIESHA and hyperkalemia. (8) Constipation Priority: Primary Status: Acute Comments: secondary to immobilization. Qualifiers: Constipation type: unspecified constipation type Qualified Code(s): K59.00 - Constipation, unspecified (9) COPD (chronic obstructive pulmonary disease) Priority: Primary Status: Chronic Comments: plan as above. Qualifiers: COPD type: emphysema Emphysema type: unspecified Qualified Code(s): J43.9 - Emphysema, unspecified (10) Hypertension Priority: Secondary Status: Chronic Comments: BP is adequate Qualifiers: Hypertension type: essential hypertension Qualified Code(s): I10 - Essential (primary) hypertension (11) Dementia with behavioral disturbance Priority: Primary Status: Acute Comments: Patient with history of advanced dementia. She had episodes of delirium secondary to metabolic derangements. REquired sitter for one day as well as haldol. Mental status is at baseline. Qualifiers: Dementia type: Alzheimer's disease Alzheimer's disease onset: unspecified onset Qualified Code(s): G30.8 - Other Alzheimer's disease; F02.81 - Dementia in other diseases classified elsewhere with behavioral disturbance (12) Hyperkalemia Priority: Primary Status: Resolved - Discharge Medications Prescriptions: OxyCODONE Immed Rel [Roxicodone 5 MG] 5 mg PO Q4H PRN #20 tablet PRN Reason: moderate to severe pain Temazepam [Restoril] 15 mg PO HS PRN #20 capsule PRN Reason: Insomnia Home Medications: Aspirin Enteric Coated [Aspirin EC] 81 mg PO DAILY #0 07/04/15 [History] Donepezil [Aricept] 10 mg PO HS #0 07/04/15 [History] Budesonide/Formoterol 160/4.5 [Symbicort 160/4.5] 2 puff IH BIDR #0 07/05/15 [ History] Omeprazole [PriLOSEC] 40 mg PO DAILY #0 07/05/15 [History] Sertraline [Zoloft] 150 mg PO DAILY #0 07/05/15 [History] Simvastatin [Zocor] 40 mg PO HS #0 07/05/15 [History] Furosemide [Lasix] 20 mg PO DAILY 11/02/15 [History] Memantine HCl [Namenda Xr] 28 mg PO DAILY 11/02/15 [History] RisperiDONE [RisperDAL] 0.5 mg PO HS #14 tablet 11/05/15 [Rx] Temazepam [Restoril] 15 mg PO HS PRN #14 capsule 11/05/15 [Rx] Montelukast [Singulair] 10 mg PO DAILY 07/12/16 [History] Potassium Chloride [Klor-Con Sprinkle] 10 meq PO DAILY 07/12/16 [History] Tiotropium [Spiriva] 18 mcg IH 0700 07/12/16 [History] GuaiFENesin ER [Mucinex] 1,200 PO BID 07/14/16 [History] Albuterol Neb [Proventil Neb] 2.5 mg IH Q2H PRN #0 inhsol 07/17/16 [Rx] Docusate [Colace] 100 mg PO BID #0 capsule 07/17/16 [Rx] Levalbuterol [Xopenex INH] 4 puff IH [id number] inhaler 07/17/16 [Rx] Mag Hydrox/Al Hydrox/Simeth [Maalox] 15 ml PO Q6HR PRN #0 udc 07/17/16 [Rx] OxyCODONE Immed Rel [Roxicodone 5 MG] 5 mg PO Q4H PRN #20 tablet 07/17/16 [Rx] Temazepam [Restoril] 15 mg PO HS PRN #20 capsule 07/17/16 [Rx] Allergies/Adverse Reactions: Allergies No Known Allergies Allergy (Verified 07/04/15 21:39) Procedures/tests Complete & Pending: Procedures Performed prior 72 hours Category Date Time Status CT lower leg LT wo con [CT] Stat Cat Scan 07/15/16 10:06 Completed Date of admission: 07/13/16 20:05 Primary care physician: Darren Oneill Consults: 07/13/16 22:50 Consult to Nurse Navigator [CONS] Routine Comment: Consult to Respiratory Therapy [CONS] Stat Reason for Consult: Please evaluate for out but deep suctioning due to increasing chest congestion. Time Notified: 22:54 Call Completed: Yes - Patient Status Disposition: Transfer Inpatient Rehab Fac Condition: Good Functional capacity at discharge: uses cane/walker Overall status at discharge: patient is progressing back to baseline - Discharge Instructions Follow Up With: Nayeli Quintana PAC [Physician Turner Machine Operator] - (07/27/2016 @ 9692) Darren Oneill, [Primary Care Provider] - - Diet and Activity Activity: as per physical therapy (Continue with therapy. left leg WBAT. ) Diet: low fat, low cholesterol Interval History: Patient has no complaints. Hospital course: Ms. Cartagena is a 76 year old female with past medical history significant for advanced dementia Alzheimer's type/behavioral disturbance, diastolic heart failure, chronic respiratory failure on 3.5 L NC at home, COPD, multiple falls in the past, hypertension, osteoporosis, and paroxysmal atrial fibrillation. She presented there on the chronic tonsillitis upon with injuring her left leg. Patient underwent Left hip intramedullary nailing on 07/13. Her postoperative course was complicated by acute respiratory failure with hypoxemia and hypercapnia due to somnolence following surgery. Her changes in mental status where likely secondary to an ECF and underlying COPD. CXR shows small unchanged right pleural effusion, bibasilar atelectasis. Patient placed on BIPAP and received empiric antibiotics with clinical resolution of hypoxemia and hypercapnia. She was also started on aggressive nebulizations, and she was resumed on her home dose of symbicort, singulair and mucinex. Echocardiogram showed LVEF 65%, mild diastolic dysfunction. Patient was weaned down to her home dose of oxygen. She continue nebs q4 hours while awake, symbicort, mucinex and singulair. In addition, she developed acute blood loss anemia secondary to left hip fracture and received transfusion of 3 units of packed red blood cells. Her hemoglobin remaining in the nines. She was asymptomatic and hemodynamically stable at discharge. Patient received Lasix after transfusion and then resumed her home dose of Lasix 20 mg daily. Beta dinesh was added. She had episodes of delirium secondary to metabolic derangements. REquired sitter for one day as well as haldol. Mental status at baseline at discharge. PLAN: Follow-up in the orthopedic clinic in one to 2 weeks. Repeat hemoglobin in 2 weeks. Avoid constipation. - Time Spent with Patient Total time spent providing and/or coordinating discharge services: - Constitutional Vitals: Temp Pulse Resp BP Pulse Ox 98.6 F 89 24 132/75 100 07/17/16 07:05 07/17/16 07:05 07/17/16 07:05 07/17/16 07:05 07/17/16 07:05 General appearance: Present: cooperative, A&O X 1, no acute distress, underweight. Absent: answers questions appropriately - Respiratory Respiratory exam: Present: CTAB - Cardiovascular Cardiovascular exam: Present: RRR - GI/Abdominal GI/Abdominal exam: Present: normal bowel sounds, soft. Absent: distended, tenderness - Extremities Exam Extremities exam: Present: pedal edema (left leg) - Neurological Exam Neurological exam: Present: alert, oriented X3, no focal deficits, strengths equal and symetr throughout. Absent: facial droop, speech deficit - VTE Documentation of Mechanical Device: Intermittent pneumatic compression device
[2016-07-17] MEDS: Budesonide/Formoterol 160/4.5 MDI IH SCH (07:51)
--- NOTE | 2016-07-17 08:01 | Physician Discharge Referral ---
ExtendedCare Referral Info Transfer To: [facility] Provider in Charge: Shaheed Provider in Charge after Transfer: PCP Institutional Level of Care: Skilled - Diagnosis (1) Fall Status: Acute (2) Fracture, intertrochanteric, left femur Status: Acute (3) Acute on chronic respiratory failure Status: Resolved (4) Acute blood loss anemia Status: Acute (5) Chronic diastolic heart failure Status: Chronic (6) CAD (coronary artery disease) Status: Chronic (7) TIESHA (acute kidney injury) Status: Resolved (8) Constipation Status: Acute (9) COPD (chronic obstructive pulmonary disease) Status: Chronic (10) Hypertension Status: Chronic (11) Dementia with behavioral disturbance Status: Acute (12) Hyperkalemia Status: Resolved - Transfer Medications Prescriptions: OxyCODONE Immed Rel [Roxicodone 5 MG] 5 mg PO Q4H PRN #20 tablet PRN Reason: moderate to severe pain Home Medications: Aspirin Enteric Coated [Aspirin EC] 81 mg PO DAILY #0 07/04/15 [History] Donepezil [Aricept] 10 mg PO HS #0 07/04/15 [History] Budesonide/Formoterol 160/4.5 [Symbicort 160/4.5] 2 puff IH BIDR #0 07/05/15 [ History] Omeprazole [PriLOSEC] 40 mg PO DAILY #0 07/05/15 [History] Sertraline [Zoloft] 150 mg PO DAILY #0 07/05/15 [History] Simvastatin [Zocor] 40 mg PO HS #0 07/05/15 [History] Furosemide [Lasix] 20 mg PO DAILY 11/02/15 [History] Memantine HCl [Namenda Xr] 28 mg PO DAILY 11/02/15 [History] RisperiDONE [RisperDAL] 0.5 mg PO HS #14 tablet 11/05/15 [Rx] Temazepam [Restoril] 15 mg PO HS PRN #14 capsule 11/05/15 [Rx] Montelukast [Singulair] 10 mg PO DAILY 07/12/16 [History] Potassium Chloride [Klor-Con Sprinkle] 10 meq PO DAILY 07/12/16 [History] Tiotropium [Spiriva] 18 mcg IH 0700 07/12/16 [History] GuaiFENesin ER [Mucinex] 1,200 PO BID 07/14/16 [History] Albuterol Neb [Proventil Neb] 2.5 mg IH Q2H PRN #0 inhsol 07/17/16 [Rx] Docusate [Colace] 100 mg PO BID #0 capsule 07/17/16 [Rx] Levalbuterol [Xopenex INH] 4 puff IH [id number] inhaler 07/17/16 [Rx] Mag Hydrox/Al Hydrox/Simeth [Maalox] 15 ml PO Q6HR PRN #0 udc 07/17/16 [Rx] OxyCODONE Immed Rel [Roxicodone 5 MG] 5 mg PO Q4H PRN #20 tablet 07/17/16 [Rx] Allergies/Adverse Reactions: Allergies No Known Allergies Allergy (Verified 07/04/15 21:39) - Respiratory Orders Oxygen / L per min (3.5) Smoking Cessation: Smoking cessation has been advised. For more information, call the [employer] Quit Line at 1-187-ECKE-NOW. - Advance Directives Code Status: DNR-Arrest - Mobility Orders Ambulate - Rehabiliation Orders Rehab Potential: Fair Rehab Orders: Evaluation for Physical Therapy, Evaluation for Occupational Therapy - Treatments Skin tear care topically daily PRN per policy, May check for fecal impaction rectally daily PRN, Fleet enema rectally every other day PRN cleansing purposes - Diet Orders No Added Salt (DINO), Cardiac CERTIFICATION: I certify that the transfer of the above named patient to an Extended Care Facility is necessary for the continuing treatment of the diagnosis listed. The above information is true and accurate reflection of patient's current condition. Confidential - Redisclosure prohibited without a patient's written consent.
[2016-07-17] MEDS: Aspirin Enteric Coated 81 MG Tablet PO SCH (08:45)
[2016-07-17] MEDS: Furosemide 20 MG TABLET PO SCH (08:45)
[2016-07-17] MEDS: *HR* OxyCODONE Immed Rel 5 MG TABLET PO PRN (11:11)
== END 2016-07-17 11:25 | DRG 308 ==
LOC: EMEROO 18:11 → 3NENU 18:11 → SUATTDRO 21:38 → 3NENU 23:00 → SUATTDRO 07-13 20:05 → 3BNU 07-15 16:16 → UNDODISIN 07-17 11:03
PROVIDERS: ADMIT Internal Medicine; ATTEND Internal Medicine

== ENCOUNTER 2016-07-27 12:10 | Inpatient (IN) ==
--- NOTE | 2016-07-27 12:23 | Emergency Department Note ---
Disposition Clinical Impression: HCAP (healthcare-associated pneumonia) Leucocytosis Qualifiers: Leukocytosis type: unspecified Qualified Code(s): D72.829 - Elevated white blood cell count, unspecified Disposition: Admitted As Inpatient Condition: Fair Referrals: NO,PCP [Primary Care Provider] - Forms: ED Satisfaction Letter Time of Disposition: 15:24 SOB HPI - General Chief Complaint: ED Upper Respiratory Infection Stated Complaint: productive cough Time Seen by Provider: 07/27/16 12:22 Source: patient, EMS Mode of arrival: ambulatory Limitations: altered mental status Nursing Notes Reviewed: Yes Vital Signs Reviewed: Yes - History of Present Illness Patient is a 76-year-old female past medical history of dementia, COPD and CHF, right hip fracture and is currently in a long term for care. She presented to the ED today due to cough. She is accompanied by her daughter. Patient is baseline nonverbal. Daughter states that she has had a cough for the past 3 days, possible fevers but she is unsure. She usually wears 3-1/2 L nasal cannula oxygen chronically. Patient is unable to answer any review of system questions. Daughter states that the patient was seen this morning by orthopedics due to a left hip fracture and a left wrist injury. She had surgery on her left hip and she states that orthopedics has told her that it is healing well, she also has a splint on her left wrist placed today by orthopedics, they did not want any other intervention at this time we will have her follow-up with orthopedics as scheduled. - Related Data Home Medications Medication Instructions Recorded Confirmed Aspirin Enteric Coated [Aspirin EC] 81 mg PO DAILY #0 07/04/15 07/14/16 Donepezil [Aricept] 10 mg PO HS #0 07/04/15 07/14/16 Budesonide/Formoterol 160/4.5 2 puff IH BIDR #0 07/05/15 07/14/16 [Symbicort 160/4.5] Omeprazole [PriLOSEC] 40 mg PO DAILY #0 07/05/15 07/14/16 Sertraline [Zoloft] 150 mg PO DAILY #0 07/05/15 07/14/16 Simvastatin [Zocor] 40 mg PO HS #0 07/05/15 07/14/16 Furosemide [Lasix] 20 mg PO DAILY 11/02/15 07/14/16 Memantine HCl [Namenda Xr] 28 mg PO DAILY 11/02/15 07/14/16 Montelukast [Singulair] 10 mg PO DAILY 07/12/16 07/14/16 Potassium Chloride [Klor-Con 10 meq PO DAILY 07/12/16 07/14/16 Sprinkle] Tiotropium [Spiriva] 18 mcg IH 0700 07/12/16 07/14/16 GuaiFENesin ER [Mucinex] 1,200 PO BID 07/14/16 Previous Rx's Medication Instructions Recorded RisperiDONE [RisperDAL] 0.5 mg PO HS #14 tablet 11/05/15 Temazepam [Restoril] 15 mg PO HS PRN #14 capsule 11/05/15 Albuterol Neb [Proventil Neb] 2.5 mg IH Q2H PRN #0 inhsol 07/17/16 Docusate [Colace] 100 mg PO BID #0 capsule 07/17/16 Levalbuterol [Xopenex INH] 4 puff IH [id number] inhaler 07/17/16 Mag Hydrox/Al Hydrox/Simeth 15 ml PO Q6HR PRN #0 udc 07/17/16 [Maalox] OxyCODONE Immed Rel [Roxicodone 5 5 mg PO Q4H PRN #20 tablet 07/17/16 MG] Temazepam [Restoril] 15 mg PO HS PRN #20 capsule 07/17/16 Allergies Allergy/AdvReac Type Severity Reaction Status Date / Time No Known Allergies Allergy Verified 07/04/15 21:39 Limitations: ROS unobtainable due to patients medical condition Past Medical History - Past Medical History Attestation: Yes The following information was validated with the patient. Source: patient Medical history: Reports: arthritis, CHF, COPD, dementia, hypertension, osteoporosis, other Surgical history: Reports: non-contributory, other Psychiatric history: Reports: anxiety, other - Social History Smoking Status: Unknown if ever smoked Smokeless Tobacco Status: No Alcohol use: Reports: none, unknown Drug use: Reports: none Physical Exam Patient has flat facies on exam, nonverbal baseline - General Limitations: altered mental status General appearance: alert, in no apparent distress - Head Head exam: atraumatic, normocephalic, normal inspection - ENT ENT exam: normal exam, mucous membranes moist - Neck Neck exam: Present: normal inspection, full ROM, trachea midline - Respiratory Respiratory exam: Present: other (rhonchi in RLL) - Cardiovascular Cardiovascular exam: Present: regular rate, normal rhythm, normal heart sounds - Abdominal Exam Abdominal exam: Present: soft, Non-Tender. Absent: tenderness, distention, guarding, rebound, rigidity - Extremities Exam Extremities exam: Present: normal inspection, full ROM. Absent: tenderness, pedal edema - Neurological Exam Neurological exam: Present: alert, other (nonverbal baseline due to dementia) - Psychiatric Psychiatric exam: Present: normal mood, flat affect - Skin Skin exam: Present: warm, dry, intact, normal color Course Course Narrative: Patient mildly hypertensive. Otherwise, satting 95% on 2 L nasal cannula oxygen. Patient is nonverbal at baseline due to dementia, flat facies and affect. No respiratory distress. Patient does have rhonchi in the right lower lobe. Daughter is concerned about patient's respiratory status, she states that she recently had an episode of pneumonia and required hospital admission. She has been in a nursing over the past 2 weeks due to hip fracture. She technically meets criteria for hospital acquired pneumonia. We will obtain basic labs, will consider hospital admission. 15:21 patient has a white blood cell count of 12.6, hemoglobin 9.6. The BMP not concerning. Patient has healthcare acquired pneumonia. Discussed case with hospitalist, he recommended admission to the hospital for IV antibiotic. Will start the patient on vancomycin, Zosyn, Levaquin. Vital Signs Temperature 98.2 F 07/27/16 12:11 Pulse Rate 100 07/27/16 12:11 Respiratory Rate 18 07/27/16 12:11 Blood Pressure 157/87 07/27/16 12:11 O2 Sat by Pulse Oximetry 97 07/27/16 12:11 Temperature 98.2 F 07/27/16 12:11 Pulse Rate 100 07/27/16 14:51 Respiratory Rate 18 07/27/16 14:51 Blood Pressure 124/74 07/27/16 14:51 O2 Sat by Pulse Oximetry 97 07/27/16 14:51 Oxygen Delivery Oxygen Delivery Nasal Cannula Shortness of Breath/Dyspnea - [facility] Narrative Medical decision making narrative: Patient mildly hypertensive. Otherwise, satting 95% on 2 L nasal cannula oxygen. Patient is nonverbal at baseline due to dementia, flat facies and affect. No respiratory distress. Patient does have rhonchi in the right lower lobe. Daughter is concerned about patient's respiratory status, she states that she recently had an episode of pneumonia and required hospital admission. She has been in a nursing over the past 2 weeks due to hip fracture. She technically meets criteria for hospital acquired pneumonia. We will obtain basic labs, will consider hospital admission. 15:21 patient has a white blood cell count of 12.6, hemoglobin 9.6. The BMP not concerning. Patient has healthcare acquired pneumonia. Discussed case with hospitalist, he recommended admission to the hospital for IV antibiotic. Will start the patient on vancomycin, Zosyn, Levaquin. - Medical Records Medical records reviewed: Yes I reviewed the patient's medical records. - Lab Data Lab results reviewed: Yes I reviewed the patient's lab results. Result diagrams: 07/27/16 14:19 07/27/16 14:19 Lab Results 07/27/16 07/27/16 07/27/16 Range/Units 14:19 14:19 14:19 WBC 12.6 H (4.3-11.1) K/mcL RBC 3.24 L (3.82-4.97) M/mcL Hgb 9.6 L (11.5-15.4) g/dL Hct 30.1 L (35.3-44.9) % MCV 92.9 (83.0-100.0) fL MCH 29.6 (28.0-33.3) pg MCHC 31.9 (31.6-35.5) g/dL RDW 16.5 H (11.5-14.5) % Plt Count 316 (140-400) K/mcL MPV 8.9 L (9.4-12.4) fL Immature Gran % 0.9 (0-4) % Seg Neutrophils % 75.0 % Lymphocytes % 12.8 % Monocytes % 8.3 % Eosinophils % 2.5 % Basophils % 0.5 % Neutrophils # 9.4 H (1.6-8.9) K/mcL Lymphocytes # 1.6 (0.6-4.6) K/mcL Monocytes # 1.0 (0.0-1.3) K/mcL Eosinophils # 0.3 (0.0-0.6) K/mcL Basophils # 0.1 (0.0-0.2) K/mcL Sodium 137 (136-145) mEq/L Potassium 4.0 (3.5-4.5) mEq/L Chloride 100 (98-109) mEq/L Carbon Dioxide 28 (19-29) mEq/L BUN 16 (7-20) mg/dL Creatinine 0.60 (0.57-1.11) mg/dL Est GFR ( Amer) > 60 (> 60) Est GFR (Non-Af Amer) > 60 (> 60) BUN/Creatinine Ratio 27 H (6-26) Glucose 113 H (70-99) mg/dL Calculated Osmolality 286 (280-300) Calcium 9.1 (8.6-10.8) mg/dL B-Natriuretic Peptide 328 H (0-100) pg/mL - Radiology Data Radiology results reviewed: Yes I reviewed the patient's radiology results. Chest X-Ray 07/27/16 12:25 IMPRESSION: Right lower lobe airspace disease versus atelectasis. Findings not significantly changed D/ / Nakul Pittman MD / Nakul Pittman MD Interpreting Provider: Nakul Pittman MD - EKG Data EKG attestation: Yes I reviewed and interpreted this EKG. EKG results narrative: 07/27/2016 at 13:11. Sinus tachycardia. Rate 106. WA 124. QRS 66. QTC 393. Normal axis. No acute ST elevation or depression. Unchanged from previous EKG on [facility] - [facility]. Situation: Demographics, MOA Background: Presenting Complaint, Relevant PMH, Meds, & Allergies Assessment: Vital Signs, Course and respsone to treatment, Exam Concerns, Patient/Family Expectation, Pertinant Lab Results, Outstanding Labs Recommendation: Barrier(s) to disposition, Recommendation based on pending studies, treatments, or consults S.B.A.Bethany Report Given to: Dr. Josiah Encarnacion Repor Time: 15:24 Attestation Statement - Attestation Attestation: Patient was seen with resident physician. I reviewed the history, physical, assessment and plan, and agree with the findings. I also personally evaluated this patient and had [id number] time with this patient. 76-year-old female presents to the emergency department with productive cough. Patient is nonverbal but from family patient started with cough that is productive since today. She has had rattling in her lungs for some time however. Family's concern because she has had this several times in the past. She is commend and sent back to the nursing facility and then subsequently developed a more significant pneumonia that required hospitalization. They are hoping that she can be hospitalized at this time. On exam vital signs are stable. Heart regular rhythm and rate. Lungs diffuse wheezing throughout. Abdomen soft and nontender. Extremities unremarkable. Neurologically patient bawls all commands but is nonverbal. X-ray revealed possible pneumonia versus atelectasis. With recent history we will likely treat her pneumonia. Her oxygen levels were okay however, we will check labs and treat accordingly. Patient had a mildly elevated white blood cell count, but with the potential for hospital-acquired pneumonia with IV antibiotics were indicated. Discussed with hospitalist and arrange for admission. Agree with resident physician assessment and plan.
[2016-07-27] MEDS ORDERED: Ipratropium/Albuterol Neb 3 ML IH ONE (13:32)
[2016-07-27 14:26] LABS: Basophils # 0.1 K/mcL (0.0-0.2); Basophils % 0.5 %; Eosinophils # 0.3 K/mcL (0.0-0.6); Eosinophils % 2.5 %; Hematocrit 30.1 % (35.3-44.9); Hemoglobin 9.6 g/dL (11.5-15.4); Immature Granulocytes % 0.9 % (0-4); Lymphocytes # 1.6 K/mcL (0.6-4.6); Lymphocytes % 12.8 %; Mean Corpuscular HGB Conc 31.9 g/dL (31.6-35.5); Mean Corpuscular Hemoglobin 29.6 pg (28.0-33.3); Mean Corpuscular Volume 92.9 fL (83.0-100.0); Mean Platelet Volume 8.9 fL (9.4-12.4); Monocytes % 8.3 %; Neutrophils # 9.4 K/mcL (1.6-8.9); Platelet Count 316 K/mcL (140-400); Red Blood Count 3.24 M/mcL (3.82-4.97); Red Cell Distribution Width 16.5 % (11.5-14.5)
[2016-07-27 14:55] LABS: BUN/Creatinine Ratio 27 (6-26); Blood Urea Nitrogen 16 mg/dL (7-20); Calcium 9.1 mg/dL (8.6-10.8); Carbon Dioxide 28 mEq/L (19-29); Chloride 100 mEq/L (98-109); Glucose 113 mg/dL (70-99); Osmolality,Calculated 286 (280-300); Sodium 137 mEq/L (136-145); eGFR For African Americans > 60 (> 60); eGFR For Non-African Americans > 60 (> 60)
[2016-07-27] MEDS ORDERED: Acetaminophen 325 MG TABLET PO PRN (16:36)
[2016-07-27] MEDS ORDERED: Naloxone 0.4 MG/ML INJ IVP PRN (16:36)
[2016-07-27] MEDS ORDERED: Mag Hydrox/Al Hydrox/Simeth 30 ML UDC PO PRN (16:40)
[2016-07-27] MEDS ORDERED: Temazepam 15 MG CAPSULE PO PRN (16:40)
--- NOTE | 2016-07-27 17:05 | Internal Med History&Physical ---
Date of Encounter: 07/27/16 Time of Encounter: 16:54 Assessment and Plan (1) Pneumonia Current visit: No Status: Acute alf resident. Was recently discharged from this hospital. Was having a shot of breath/cough persistent for more than 2 days in care home. Daughter/family was concerned. Patient was brought to the emergency room. Patient is nonverbal. On examination occasional crepitations right lower lobe. Noted that white count was elevated X-rays reviewed: Possible right lower lobe pneumonia. Assessment :right lower lobe pneumonia secondary to ? Aspiration Plan: Blood cultures. IV levofloxacin. Speech therapy evaluation tomorrow. Qualifiers: Pneumonia type: due to unspecified organism Laterality: right Lung location: lower lobe of lung Qualified Code(s): J18.1 - Lobar pneumonia, unspecified organism (2) COPD (chronic obstructive pulmonary disease) Current visit: No Status: Chronic Stable for now Qualifiers: COPD type: emphysema Emphysema type: unspecified Qualified Code(s): J43.9 - Emphysema, unspecified (3) Atelectasis of left lung Current visit: No Status: Resolved chronic issue (4) Advanced dementia Current visit: No Status: Chronic Patient has advanced dementia. (5) DVT prophylaxis Current visit: No Status: Acute SCD Medical decision making: This patient has moderate to severe risk of worsening clinically in spite of being on appropriate medication due to underlying lung/ mental condition. Internal Medicine - H&P: HPI Chief complaint: SOB Admitted From: Emergency Dept Plans for Post Hospital Care: Transfer Inp Rehab Fac History of present illness: PCP : [facility] resident. Brief PMH : Hypertension, COPD, congestive heart failure, right hip fracture, care home resident. History of present illness: This patient was recently discharged from the hospital after she was evaluated and treated for medical issues pertaining to the fracture of the right hip. Patient was sent to the inpatient rehabilitation. It was noticed by patient's daughter that patient is persistently coughing and she was short of breath at a nursing facility. Patient was brought to the hospital for further evaluation. Patient is nonverbal and communicates via sign language. Patient denies chest pain and dizziness. Course in the emergency room: Patient was evaluated in the emergency room. Basic labs are drawn. Radiological imaging was done. X-ray chest was suggestive of possible right lower lobe pneumonia. Her white count is elevated. There is a possibility of a air under diaphragm which is very remote. I read the radiology report and which does not mention the same. Reason for admission: Patient is admitted in view of possibility of a pneumonia which needs intravenous antibiotics. Family history: Noncontributory Past Med Surg Social Fam HX - Past Medical History Medical history: arthritis, CHF, COPD, dementia, hypertension, osteoporosis, other Psychiatric history: anxiety, other - Past Surgical History Surgical History: non-contributory, other - Social History Smoking Status: Unknown if ever smoked Smokeless Tobacco Status: No Alcohol use: none, unknown Drug use: none - Family History Daughter Living Status: Still Living Hx Family Cardiac Disorders: Yes Hx Family Respiratory Disorders: Yes Hx Family Cancer: No Hx Family GI Disorders: Yes Mother Adopted: No Family Member Ethnicity: Non- Living Status: Hx Family Cardiac Disorders: No Hx Family Respiratory Disorders: No Hx Family Cancer: Yes (lung) Hx Family GI Disorders: Yes (acid reflux) Hx Family Endocrine Disorder: No Hx Family Neuromuscular Disorders: No Hx Family Neurologic Disorders: No Hx Family HEENT Disorders: No Hx Family Autoimmune Disorders: No Internal Medicine - H&P: Meds Aspirin Enteric Coated [Aspirin EC] 81 mg PO DAILY #0 07/04/15 [History] Donepezil [Aricept] 10 mg PO HS #0 07/04/15 [History] Sertraline [Zoloft] 150 mg PO DAILY #0 07/05/15 [History] Furosemide [Lasix] 20 mg PO DAILY 11/02/15 [History] Memantine HCl [Namenda Xr] 28 mg PO DAILY 11/02/15 [History] RisperiDONE [RisperDAL] 0.5 mg PO HS #14 tablet 11/05/15 [Rx] Temazepam [Restoril] 15 mg PO HS PRN #14 capsule 11/05/15 [Rx] Montelukast [Singulair] 10 mg PO DAILY 07/12/16 [History] Potassium Chloride [Klor-Con Sprinkle] 10 meq PO DAILY 07/12/16 [History] GuaiFENesin ER [Mucinex] 1,200 mg PO BID 07/14/16 [History] Albuterol Neb [Proventil Neb] 2.5 mg IH Q2H PRN #0 inhsol 07/17/16 [Rx] Docusate [Colace] 100 mg PO BID #0 capsule 07/17/16 [Rx] Mag Hydrox/Al Hydrox/Simeth [Maalox] 15 ml PO Q6HR PRN #0 udc 07/17/16 [Rx] OxyCODONE Immed Rel [Roxicodone 5 MG] 5 mg PO Q4H PRN #20 tablet 07/17/16 [Rx] Fluticasone/Salmeterol [Advair 250-50 Diskus] 1 puff IH BID 07/27/16 [History] Ipratropium Neb [Atrovent Neb] 0.5 mg IH Q6HR 07/27/16 [History] Pantoprazole Sodium [Protonix] 40 mg PO DAILY 07/27/16 [History] Allergies No Known Allergies Allergy (Verified 07/04/15 21:39) ROS unobtainable: due to mental status All Systems PM: A 10-system review of systems was performed and is negative for pertinent findings except as documented above in the HPI. - Constitutional Vitals: Temp Pulse Resp BP Pulse Ox 98.2 F 100 18 150/82 97 07/27/16 12:11 07/27/16 14:51 07/27/16 16:39 07/27/16 16:39 07/27/16 14:51 General appearance: Present: A&O X 2, pleasant - Head Head exam: Present: atraumatic, normocephalic - Eye Eye exam: Present: PERRL, conjuntiva pink, sclera anicteric Pupils: Present: PERRL - Neck Neck exam general surgery: Present: supple, trachea midline. Absent: lymphadenopathy - Respiratory Respiratory exam: Present: CTAB. Absent: accessory muscle use, rales, rhonchi, wheezes - Cardiovascular Cardiovascular exam: Present: RRR, +S1, +S2. Absent: diastolic murmur, gallop, rubs, systolic murmur - GI/Abdominal GI/Abdominal exam: Present: normal bowel sounds, soft, no peritoneal signs. Absent: distended, tenderness - Extremities Exam Extremities exam: Present: warm, radial pulses palpable and symetrical. Absent : calf tenderness, cyanotic, pedal edema - Neurological Exam Neurological exam: Present: CN II-XII intact, oriented X3, no focal deficits. Absent: pronater drift, facial droop, speech deficit - Skin Skin exam: Present: dry, intact Internal Med - H&P Results - Labs CBC & Chem 7: 07/27/16 14:19 07/27/16 14:19 Labs: I discussed this patient with emergency room physician Labs discussed
[2016-07-27] MEDS: Ipratropium Neb 0.5 MG NEBULIZER IH SCH ×2 (18:36→22:30)
[2016-07-27] MEDS: 0.9 % Sodium Chloride 1,000 ML IVC SCH (18:38)
[2016-07-27] MEDS: risperiDONE 0.25 MG TABLET PO SCH (21:26)
[2016-07-28 04:26] LABS: Basophils # 0.1 K/mcL (0.0-0.2); Basophils % 0.5 %; Eosinophils # 0.3 K/mcL (0.0-0.6); Hematocrit 29.6 % (35.3-44.9); Hemoglobin 9.4 g/dL (11.5-15.4); Immature Granulocytes % 0.9 % (0-4); Lymphocytes # 1.3 K/mcL (0.6-4.6); Lymphocytes % 12.6 %; Mean Corpuscular HGB Conc 31.8 g/dL (31.6-35.5); Mean Corpuscular Hemoglobin 29.8 pg (28.0-33.3); Mean Platelet Volume 9.4 fL (9.4-12.4); Monocytes # 0.9 K/mcL (0.0-1.3); Monocytes % 8.7 %; Neutrophils # 7.6 K/mcL (1.6-8.9); Platelet Count 300 K/mcL (140-400); Red Blood Count 3.15 M/mcL (3.82-4.97); Red Cell Distribution Width 16.4 % (11.5-14.5); Segmented Neutrophils % 74.3 %
[2016-07-28 04:56] LABS: Alanine Aminotransferase 13 Units/L (0-55); Albumin 2.2 g/dL (3.5-5.0); Albumin/Globulin Ratio 0.5 (1.1-2.2); Alkaline Phosphatase 157 Units/L (38-126); Aspartate Amino Transferase 14 Units/L (5-34); BUN/Creatinine Ratio 26 (6-26); Bilirubin,Total 0.5 mg/dL (0.2-1.2); Blood Urea Nitrogen 18 mg/dL (7-20); Calcium 9.1 mg/dL (8.6-10.8); Carbon Dioxide 27 mEq/L (19-29); Chloride 104 mEq/L (98-109); Chol/HDL Ratio 4.2 (0-4.9); Cholesterol 227 mg/dL (< 200); Globulin 4.3 g/dL (2.4-3.5); Glucose 120 mg/dL (70-99); HDL Cholesterol 54 mg/dL (40-59); LDL Cholesterol,Calculated 154 mg/dL (0-99); Osmolality,Calculated 291 (280-300); Phosphorous 3.6 mg/dL (2.3-4.7); Potassium 3.9 mEq/L (3.5-4.5); Sodium 139 mEq/L (136-145); Total Protein 6.5 g/dL (6.0-8.3); Triglycerides 93 mg/dL (< 150); eGFR For African Americans > 60 (> 60); eGFR For Non-African Americans > 60 (> 60)
[2016-07-28] MEDS: Ipratropium Neb 0.5 MG NEBULIZER IH SCH ×5 (05:06→21:20)
[2016-07-28] MEDS: *HR* Enoxaparin 40 MG/0.4 ML SYRINGE SQ SCH (06:17)
--- NOTE | 2016-07-28 06:39 | Electrocardiograph Report ---
[facility] Test Date: 2016-07-27 Pat Name: Mia Cartagena Department: 103 Room: 2NE17 Gender: F Outside Sales Associate: GURVINDER : 1940 Requested By: Donte Robert Order Number: [id number] Reading MD: Sudhakar Perez DO Measurements Intervals [place] Rate: 106 P: 62 MO: 124 QRS: 62 QRSD: 66 T: 59 QT: 331 QTc: 393 Interpretive Statements SINUS TACHYCARDIA POSSIBLE LEFT ATRIAL ENLARGEMENT ABNORMAL RHYTHM ECG Electronically Signed On 07-28-2016 6:37:16 EDT by Sudhakar Perez DO
[2016-07-28] MEDS: Albuterol 2.5 MG/3 ML NEBULIZER IH PRN (08:17)
[2016-07-28] MEDS: Aspirin Enteric Coated 81 MG Tablet PO SCH (08:57)
[2016-07-28] MEDS: Furosemide 20 MG TABLET PO SCH (08:57)
[2016-07-28] MEDS: Levofloxacin 750 MG/150 ML 750 MG/150 ML BAG IVPB SCH (08:57)
[2016-07-28] MEDS ORDERED: (Memantine Hcl [Namenda Xr] 28 MG) PO SCH (09:00)
[2016-07-28] MEDS: (Memantine Hcl [Namenda Xr] 28 MG) PO SCH (09:55)
--- NOTE | 2016-07-28 10:14 | Venous Imaging Report ---
LE Venous Duplex Patient Name:Mia Cartagena Order Number:[id number] Procedure Date:07/27/2016 Date:1940ge:76 yrs Gender:Female Location:[facility] Room #: 2NE17 Fabric Designer:Imani Nuñez RDCS Referring MD:Ted Birmingham MD insurance marketing specialist:None Reading MD:Ferdinand Malone MD Primary Indications:DVT Secondary Indications: Impressions: Left lower extremity: normal superficial and deep exam. Recommendations: Preliminary given to RN, Tammie. Findings Venous Duplex Results: Left: Venous imaging of the lower extremity reveals full patency and normal vessel compressibility of the left distal iliac, left common femoral, left superficial femoral, left popliteal, left posterior tibial, left peroneal, left great saphenous and left lesser saphenous. Doppler signals in the evaluated veins were normal. Prior Study: No prior study available for comparison. Lower Extremity Venous Duplex Side Vein Compress Spontaneous Flow Augment Diameter (cm) Depth (cm) Left Distal Iliac Normal Yes Phasic Yes Left Common Femoral Normal Yes Phasic Yes Left Superficial Femoral Normal Yes Phasic Yes Left Popliteal Normal Yes Phasic Yes Left Posterior Tibial Normal Yes Phasic Yes Left Peroneal Normal Yes Phasic Yes Left Great Saphenous Normal Yes Phasic Yes Left Lesser Saphenous Normal Yes Phasic Yes Updated by Ferdinand Malone MD on 07/28/2016 10:07:16 AM electronically signed on 07/28/2016 10:07:41 AM with status of Final
--- NOTE | 2016-07-28 16:47 | Internal Med Progress Note ---
Date of Encounter: 07/28/16 Time of Encounter: 16:45 - Assessment and plan (1) Pneumonia Current Visit: No Status: Acute Assessment and plan: Day 2: Levofloxacin Still has copious expectoration. Denies shortness of breath. Plan: Will continue same treatment for now Qualifiers: Pneumonia type: due to unspecified organism Laterality: right Lung location: lower lobe of lung Qualified Code(s): J18.1 - Lobar pneumonia, unspecified organism (2) COPD (chronic obstructive pulmonary disease) Current Visit: No Status: Chronic Assessment and plan: Stable. Does not appear to be in exacerbation. Qualifiers: COPD type: emphysema Emphysema type: unspecified Qualified Code(s): J43.9 - Emphysema, unspecified (3) Atelectasis of left lung Current Visit: No Status: Resolved Assessment and plan: Chronic atelectasis. (4) Advanced dementia Current Visit: No Status: Chronic Assessment and plan: Patient is almost nonverbal. She has dementia. (5) DVT prophylaxis Current Visit: No Status: Acute Assessment and plan: Heparin - Subjective Interval history: Seen and examined. Chart reviewed. Patient is comfortably lying in bed. Family at bedside. Patient denies chest pain, shortness of breath, abdominal pain or diarrhea. - Constitutional Vitals: Temp Pulse Resp BP Pulse Ox 97.8 F 106 16 165/88 97 07/28/16 16:05 07/28/16 16:05 07/28/16 16:07 07/28/16 16:05 07/28/16 16:07 General appearance: Present: A&O X 2, pleasant - Head Head exam: Present: atraumatic, normocephalic - Eye Eye exam: Present: PERRL, conjuntiva pink, sclera anicteric Pupils: Present: PERRL - Neck Neck exam general surgery: Present: supple, trachea midline. Absent: lymphadenopathy - Respiratory Respiratory exam: Present: CTAB. Absent: accessory muscle use, rales, rhonchi, wheezes - Cardiovascular Cardiovascular exam: Present: RRR, +S1, +S2. Absent: diastolic murmur, gallop, rubs, systolic murmur - GI/Abdominal GI/Abdominal exam: Present: normal bowel sounds, soft, no peritoneal signs. Absent: distended, tenderness - Extremities Exam Extremities exam: Present: warm, radial pulses palpable and symetrical. Absent : calf tenderness, cyanotic, pedal edema - Neurological Exam Neurological exam: Present: CN II-XII intact, oriented X3, no focal deficits. Absent: pronater drift, facial droop, speech deficit - Skin Skin exam: Present: dry, intact Internal Medicine: Result - Labs CBC & Chem 7: 07/28/16 04:06 07/28/16 04:06 Labs: Short CBC 07/28/16 Range/Units 04:06 WBC 10.2 (4.3-11.1) K/mcL Hgb 9.4 L (11.5-15.4) g/dL Hct 29.6 L (35.3-44.9) % Plt Count 300 (140-400) K/mcL Neutrophils # 7.6 (1.6-8.9) K/mcL BMP 07/28/16 04:06 Sodium 139 Potassium 3.9 Chloride 104 Carbon Dioxide 27 BUN 18 Creatinine 0.69 Glucose 120 H Calcium 9.1 Cardiac Enzymes 07/27/16 07/28/16 Range/Units 22:20 04:06 Troponin I 0.03 0.03 (0-0.03) ng/mL Liver Function 07/28/16 Range/Units 04:06 Total Bilirubin 0.5 (0.2-1.2) mg/dL AST 14 (5-34) Units/L ALT 13 (0-55) Units/L Alkaline Phosphatase 157 H (38-126) Units/L Albumin 2.2 L (3.5-5.0) g/dL Consult Discharge Plan - Plan Referrals: NO,PCP [Primary Care Provider] -
[2016-07-28] MEDS: risperiDONE 0.25 MG TABLET PO SCH (20:58)
[2016-07-29] MEDS: 0.9 % Sodium Chloride 1,000 ML IVC SCH ×2 (00:56→17:19)
[2016-07-29] MEDS: Ipratropium Neb 0.5 MG NEBULIZER IH SCH ×4 (04:10→23:06)
[2016-07-29 05:24] LABS: Basophils % 0.9 %; Eosinophils % 5.5 %; Hematocrit 27.7 % (35.3-44.9); Hemoglobin 8.8 g/dL (11.5-15.4); Immature Granulocytes % 1.2 % (0-4); Lymphocytes % 14.1 %; Mean Corpuscular HGB Conc 31.8 g/dL (31.6-35.5); Mean Corpuscular Hemoglobin 30.2 pg (28.0-33.3); Mean Corpuscular Volume 95.2 fL (83.0-100.0); Mean Platelet Volume 9.8 fL (9.4-12.4); Monocytes % 8.6 %; Platelet Count 284 K/mcL (140-400); Red Blood Count 2.91 M/mcL (3.82-4.97); Segmented Neutrophils % 69.7 %
[2016-07-29 05:25] LABS: Basophils # 0.1 K/mcL (0.0-0.2); Eosinophils # 0.5 K/mcL (0.0-0.6); Lymphocytes # 1.2 K/mcL (0.6-4.6); Monocytes # 0.7 K/mcL (0.0-1.3)
[2016-07-29] MEDS: *HR* Enoxaparin 40 MG/0.4 ML SYRINGE SQ SCH (05:41)
[2016-07-29 05:47] LABS: Alanine Aminotransferase 12 Units/L (0-55); Albumin/Globulin Ratio 0.5 (1.1-2.2); Alkaline Phosphatase 140 Units/L (38-126); Aspartate Amino Transferase 14 Units/L (5-34); BUN/Creatinine Ratio 33 (6-26); Bilirubin,Total 0.3 mg/dL (0.2-1.2); Blood Urea Nitrogen 21 mg/dL (7-20); Calcium 8.9 mg/dL (8.6-10.8); Carbon Dioxide 27 mEq/L (19-29); Chloride 105 mEq/L (98-109); Glucose 108 mg/dL (70-99); Osmolality,Calculated 290 (280-300); Potassium 3.7 mEq/L (3.5-4.5); Sodium 138 mEq/L (136-145); Total Protein 5.9 g/dL (6.0-8.3); eGFR For African Americans > 60 (> 60); eGFR For Non-African Americans > 60 (> 60)
[2016-07-29 05:50] LABS: Albumin 1.9 g/dL (3.5-5.0)
[2016-07-29] MEDS ORDERED: 0.9 % Sodium Chloride 500 ML IVC ONE (08:33)
[2016-07-29] MEDS: Furosemide 20 MG TABLET PO SCH (09:09)
[2016-07-29] MEDS: Aspirin Enteric Coated 81 MG Tablet PO SCH (09:09)
[2016-07-29] MEDS: Levofloxacin 750 MG/150 ML 750 MG/150 ML BAG IVPB SCH (09:10)
[2016-07-29] MEDS: (Memantine Hcl [Namenda Xr] 28 MG) PO SCH (09:11)
[2016-07-29] MEDS: Albuterol 2.5 MG/3 ML NEBULIZER IH PRN (09:17)
[2016-07-29] MEDS: *HR* OxyCODONE Immed Rel 5 MG TABLET PO PRN ×3 (10:01→20:17)
--- NOTE | 2016-07-29 10:28 | Internal Med Progress Note ---
<Justice Wallace - Last Filed: 07/29/16 13:31> Date of Encounter: 07/29/16 Time of Encounter: 09:10 - Assessment and plan (1) Pneumonia Current Visit: No Status: Acute Assessment and plan: Levaquin Day #3 Accompanied by sputum production, mild wheeze on exam. Add solumedrol 40mg IV BID for COPD exacerbation, taper as clinically warranted. Qualifiers: Pneumonia type: due to unspecified organism Laterality: right Lung location: lower lobe of lung Qualified Code(s): J18.1 - Lobar pneumonia, unspecified organism (2) Anemia Current Visit: Yes Status: Acute Assessment and plan: Prior iron panel without ferritin, but suggestive of post-op loss. Monitor Hgb, recheck H/H in afternoon. Transfuse as clinically indicated. Qualifiers: Anemia type: iron deficiency Iron deficiency anemia type: chronic blood loss Qualified Code(s): D50.0 - Iron deficiency anemia secondary to blood loss (chronic) (3) Status post fracture of femur Current Visit: Yes Status: Acute Assessment and plan: Hgb with decreased trend since admission. Consult placed to ortho, appreciate recs. Ordered for Left hip Xray, Hip X-Ray 07/29/16 11:28 IMPRESSION: Stable appearance of left intertrochanteric fracture fixation. Diffuse osteopenia with no new acute osseous abnormality. (4) Aspiration into airway Current Visit: Yes Status: Acute Assessment and plan: Given report of choking with food, suspect aspiration. Appreciate speech therapy recs. Passed MBS, to start soft textures with nectar thick liquids. Qualifiers: Encounter type: initial encounter Qualified Code(s): T17.908A - Unspecified foreign body in respiratory tract, part unspecified causing other injury, initial encounter (5) COPD (chronic obstructive pulmonary disease) Current Visit: No Status: Chronic Assessment and plan: Possible exacerbation, with wheeze and expressing sputum on exam. Per above, cont levaquin, IV steroids, taper as dictated clinically. Qualifiers: COPD type: emphysema Emphysema type: unspecified Qualified Code(s): J43.9 - Emphysema, unspecified (6) Advanced dementia Current Visit: No Status: Chronic Assessment and plan: Patient is almost nonverbal. She has dementia. - Subjective Interval history: Pt seen/eval, daughter at bedside. Patient is nonverbal, undergoing pna treatment. Left upper thigh bruise from admission appears better. She was noted to have coughing with oral intake. - Constitutional Vitals: Temp Pulse Resp BP Pulse Ox 98.7 F 102 18 153/86 95 07/29/16 08:05 07/29/16 08:05 07/29/16 09:18 07/29/16 08:05 07/29/16 09:18 General appearance: Present: pleasant - Head Head exam: Present: atraumatic, normocephalic - Eye Eye exam: Present: EOMI, sclera anicteric - ENT ENT exam: Present: mucous membranes moist Additional comments: left lip dry, mild cracking - Neck Neck exam general surgery: Present: supple, trachea midline. Absent: lymphadenopathy - Respiratory Respiratory exam: Present: wheezes (mild). Absent: accessory muscle use, rhonchi - Cardiovascular Cardiovascular exam: Present: +S1, +S2. Absent: JVD - GI/Abdominal GI/Abdominal exam: Present: soft, no peritoneal signs. Absent: tenderness - Extremities Exam Extremities exam: Present: warm, radial pulses palpable and symetrical Additional comments: Left LE with distal pulses palpable, mild pretibial pitting. Prior bruising appears improved, nvi Internal Medicine: Result - Labs CBC & Chem 7: 07/29/16 03:28 07/29/16 03:28 Labs: Short CBC 07/29/16 Range/Units 03:28 WBC 8.6 (4.3-11.1) K/mcL Hgb 8.8 L (11.5-15.4) g/dL Hct 27.7 L (35.3-44.9) % Plt Count 284 (140-400) K/mcL Neutrophils # 6.0 (1.6-8.9) K/mcL BMP 07/29/16 03:28 Sodium 138 Potassium 3.7 Chloride 105 Carbon Dioxide 27 BUN 21 H Creatinine 0.64 Glucose 108 H Calcium 8.9 Liver Function 07/29/16 Range/Units 03:28 Total Bilirubin 0.3 (0.2-1.2) mg/dL AST 14 (5-34) Units/L ALT 12 (0-55) Units/L Alkaline Phosphatase 140 H (38-126) Units/L Albumin 1.9 L (3.5-5.0) g/dL - VTE Documentation of Mechanical Device: Intermittent pneumatic compression device Consult Discharge Plan - Plan Referrals: NO,PCP [Primary Care Provider] - <Ted Birmingham P - Last Filed: 07/29/16 16:41> Date of Encounter: 07/29/16 - Assessment and plan (1) Pneumonia Current Visit: No Status: Acute Qualifiers: Pneumonia type: due to unspecified organism Laterality: right Lung location: lower lobe of lung Qualified Code(s): J18.1 - Lobar pneumonia, unspecified organism (2) COPD (chronic obstructive pulmonary disease) Current Visit: No Status: Chronic Qualifiers: COPD type: emphysema Emphysema type: unspecified Qualified Code(s): J43.9 - Emphysema, unspecified (3) Atelectasis of left lung Current Visit: No Status: Resolved (4) Advanced dementia Current Visit: No Status: Chronic (5) DVT prophylaxis Current Visit: No Status: Acute - Constitutional Vitals: Temp Pulse Resp BP Pulse Ox 98.2 F 109 18 151/77 97 07/29/16 11:12 07/29/16 11:12 07/29/16 16:22 07/29/16 11:12 07/29/16 16:22 Internal Medicine: Result - Labs CBC & Chem 7: 07/29/16 13:27 07/29/16 03:28 Labs: Short CBC 07/29/16 07/29/16 Range/Units 03:28 13:27 WBC 8.6 (4.3-11.1) K/mcL Hgb 8.8 L 9.1 L (11.5-15.4) g/dL Hct 27.7 L 28.8 L (35.3-44.9) % Plt Count 284 (140-400) K/mcL Neutrophils # 6.0 (1.6-8.9) K/mcL BMP 07/29/16 03:28 Sodium 138 Potassium 3.7 Chloride 105 Carbon Dioxide 27 BUN 21 H Creatinine 0.64 Glucose 108 H Calcium 8.9 Liver Function 07/29/16 Range/Units 03:28 Total Bilirubin 0.3 (0.2-1.2) mg/dL AST 14 (5-34) Units/L ALT 12 (0-55) Units/L Alkaline Phosphatase 140 H (38-126) Units/L Albumin 1.9 L (3.5-5.0) g/dL Urine 07/29/16 Range/Units 09:44 Urine Color Yellow (Yellow) Urine Clarity Turbid A (Clear) Urine pH 6.0 (5.0-8.0) pH Units Ur Specific [place] 1.011 (1.010-1.025) Urine Protein Negative (Neg-Trace) mg/dL Urine Glucose (UA) Normal (Normal) mg/dL - Impressions Impressions Videofluoroscopic Swallow 07/29/16 10:47 IMPRESSION: Suspected thin liquid barium aspiration due to the list dictation of a cough but no direct visualization of the aspiration was observed. Please see separate speech pathology report for full discussion of findings and recommendations. D/ / Richard Rubin MD / Richard Rubin MD Interpreting Provider: Richard Rubin MD Hip X-Ray 07/29/16 11:28 IMPRESSION: Stable appearance of left intertrochanteric fracture fixation. Diffuse osteopenia with no new acute osseous abnormality. D/ / 07/29/2016 12:24:14 Clarisse Corbett MD / Mayuri Mayfield Interpreting Provider: Clarisse Corbett MD - Attending Attestation I examined this patient and my medical decision-making was reviewed with the RAIL MANAGER/PA/Advanced Practice Nurse/Resident Physician. I agree with the documented findings, disposition and treatment plan as described except to the extent set forth below. Input from orthopedic surgery appreciated. We will continue present treatment Back to senior living soon
[2016-07-29 11:05] LABS: Bilirubin,Urine Negative (Negative); Blood,Urine Small (Negative); Clarity,Urine Turbid (Clear); Color,Urine Yellow (Yellow); Glucose,Urine (UA) Normal (Normal); Ketones,Urine Negative (Negative); Leukocyte Esterase,Urine Large (Negative); Nitrite,Urine Negative (Negative); Protein,Urine Negative (Neg-Trace); Specific Gravity,Urine 1.011 (1.010-1.025); Urobilinogen,Urine Normal (Normal)
[2016-07-29 11:07] LABS: Bacteria,Urine Moderate per hpf (None-Few); RBC,Urine 0-3 per hpf (0-3); Squamous Epithelial Cell,Urine Many per lpf (None-Few); WBC,Urine TNTC per hpf (0-3)
[2016-07-29 11:17] LABS: Hyaline Casts,Urine None Seen per lpf (None-Few)
[2016-07-29 13:36] LABS: Hematocrit 28.8 % (35.3-44.9); Hemoglobin 9.1 g/dL (11.5-15.4)
[2016-07-29] MEDS: MethylPREDNISolone 40 MG/ML VIAL IVP SCH ×2 (13:59→17:17)
--- NOTE | 2016-07-29 16:20 | Orthopedic Consult Note ---
Date of Encounter: 07/29/16 Time of Encounter: 16:00 Assessment and Plan (1) Fracture, intertrochanteric, left femur Current Visit: No Status: Acute POW#2 s/p left hip IM nailing Significant ecchymosis to left thigh is slowly improving but is expected after surgery. Swelling to left foot somewhat increased compared to exam 2 days ago. Doppler showed negative for DVT to LLE. Incision to left hip is well healed with no s/s infection. Steristrips to be removed 08/02/16 if have not worn off by that time. Continue with therapy for the lower extremities. She is WBAT with assistance. Keep follow up in [facility] office with Nayeli Quintana PA-C on 08/10/16 at 10:30am. Qualifiers: Encounter type: initial encounter Fracture type: closed Qualified Code(s) : S72.142A - Displaced intertrochanteric fracture of left femur, initial encounter for closed fracture History of Present Illness Chief complaint: left hip bruising HPI: Ms. Cartagena is a 76 year old female who was admitted 2 days ago for pneumonia. She started having productive cough 3 days ago. She is s/p left him IM nailing on 07/13/[address] Santiago. I did see her in the [facility] office 2 days ago for her first follow up and xrays in office showed good bony alignment and hardware intact with no complications. Her incision was healing well at that time and nu were removed in the office without complication. She was noted to have significant ecchymosis to the left thigh and knee and swelling to the LLE but nothing out of proportion to what is expected after surgery. Patient has dementia so not able to relay if she has any pain. She has been in ECF and therapy has been working with her. Daughter noted that she was favoring left wrist starting Wednesday. Xrays in office did not show definitive fracture but treated conservatively with wrist brace and repeat xrays in 2 weeks. Past Med Surg Social Fam HX - Past Medical History Medical history: arthritis, CHF, COPD, dementia, hypertension, osteoporosis, other Psychiatric history: anxiety, other - Past Surgical History Surgical History: non-contributory, other - Social History Smoking Status: Unknown if ever smoked Smokeless Tobacco Status: No Alcohol use: none, unknown Drug use: none - Family History Daughter Living Status: Still Living Hx Family Cardiac Disorders: Yes Hx Family Respiratory Disorders: Yes Hx Family Cancer: No Hx Family GI Disorders: Yes Mother Adopted: No Family Member Ethnicity: Non- Living Status: Hx Family Cardiac Disorders: No Hx Family Respiratory Disorders: No Hx Family Cancer: Yes (lung) Hx Family GI Disorders: Yes (acid reflux) Hx Family Endocrine Disorder: No Hx Family Neuromuscular Disorders: No Hx Family Neurologic Disorders: No Hx Family HEENT Disorders: No Hx Family Autoimmune Disorders: No Medications and Allergies Aspirin Enteric Coated [Aspirin EC] 81 mg PO DAILY #0 07/04/15 [History] Donepezil [Aricept] 10 mg PO HS #0 07/04/15 [History] Sertraline [Zoloft] 150 mg PO DAILY #0 07/05/15 [History] Furosemide [Lasix] 20 mg PO DAILY 11/02/15 [History] Memantine HCl [Namenda Xr] 28 mg PO DAILY 11/02/15 [History] RisperiDONE [RisperDAL] 0.5 mg PO HS #14 tablet 11/05/15 [Rx] Temazepam [Restoril] 15 mg PO HS PRN #14 capsule 11/05/15 [Rx] Montelukast [Singulair] 10 mg PO DAILY 07/12/16 [History] Potassium Chloride [Klor-Con Sprinkle] 10 meq PO DAILY 07/12/16 [History] GuaiFENesin ER [Mucinex] 1,200 mg PO BID 07/14/16 [History] Albuterol Neb [Proventil Neb] 2.5 mg IH Q2H PRN #0 inhsol 07/17/16 [Rx] Docusate [Colace] 100 mg PO BID #0 capsule 07/17/16 [Rx] Mag Hydrox/Al Hydrox/Simeth [Maalox] 15 ml PO Q6HR PRN #0 udc 07/17/16 [Rx] OxyCODONE Immed Rel [Roxicodone 5 MG] 5 mg PO Q4H PRN #20 tablet 07/17/16 [Rx] Fluticasone/Salmeterol [Advair 250-50 Diskus] 1 puff IH BID 07/27/16 [History] Ipratropium Neb [Atrovent Neb] 0.5 mg IH Q6HR 07/27/16 [History] Pantoprazole Sodium [Protonix] 40 mg PO DAILY 07/27/16 [History] Allergies No Known Allergies Allergy (Verified 07/04/15 21:39) ROS unobtainable: due to mental status All Systems Reviewed: A 10-system review of systems was performed and is negative for pertinent findings except as documented above in the HPI. Physical Exam - Constitutional Vitals: Temp Pulse Resp BP Pulse Ox 98.2 F 109 17 151/77 95 07/29/16 11:12 07/29/16 11:12 07/29/16 11:12 07/29/16 11:12 07/29/16 11:12 - Hip left Tenderness with palpation: none (There is significant ecchymosis to the left thigh and knee although decreased compared to exam 2 days ago. Moderate swelling to left foot increased compared to exam 2 days ago. Incision to lateral left hip is c/d/i with steristrips intact and no surrounding erythema or drainage. No tenderness to palpation to left hip. Patient unable to follow commands for ROM. NV intact with brisk cap refill.) Results - Labs Result Diagrams: 07/29/16 13:27 07/29/16 03:28 Labs: Abnormal lab results RBC 2.91 M/mcL (3.82-4.97) L 07/29/16 03:28 Hgb 9.1 g/dL (11.5-15.4) L 07/29/16 13:27 Hct 28.8 % (35.3-44.9) L 07/29/16 13:27 RDW 16.0 % (11.5-14.5) H 07/29/16 03:28 BUN 21 mg/dL (7-20) H 07/29/16 03:28 BUN/Creatinine Ratio 33 (6-26) H 07/29/16 03:28 Glucose 108 mg/dL (70-99) H 07/29/16 03:28 POC Glucose 104 (58-89) H 07/29/16 08:10 Alkaline Phosphatase 140 Units/L (38-126) H 07/29/16 03:28 B-Natriuretic Peptide 228 pg/mL (0-100) H 07/28/16 04:06 Serum Total Protein 5.9 g/dL (6.0-8.3) L 07/29/16 03:28 Albumin 1.9 g/dL (3.5-5.0) L 07/29/16 03:28 Globulin 4.0 g/dL (2.4-3.5) H 07/29/16 03:28 Albumin/Globulin Ratio 0.5 (1.1-2.2) L 07/29/16 03:28 Cholesterol 227 mg/dL (< 200) H 07/28/16 04:06 LDL Cholesterol, Calc 154 mg/dL (0-99) H 07/28/16 04:06 Urine Clarity Turbid (Clear) A 07/29/16 09:44 Urine Blood Small (Negative) H 07/29/16 09:44 Ur Leukocyte Esterase Large (Negative) H 07/29/16 09:44 Urine Microscopic WBC TNTC per hpf (0-3) H 07/29/16 09:44 Ur Squamous Epith Cells Many per lpf (None-Few) H 07/29/16 09:44 Urine Bacteria Moderate per hpf (None-Few) H 07/29/16 09:44 H & H 07/29/16 07/29/16 Range/Units 03:28 13:27 Hgb 8.8 L 9.1 L (11.5-15.4) g/dL Hct 27.7 L 28.8 L (35.3-44.9) % All other labs normal. - Diagnostic results Hip x-ray: report reviewed, image reviewed Consult Discharge Plan - Plan Referrals: NO,PCP [Primary Care Provider] -
[2016-07-29] MEDS: risperiDONE 0.25 MG TABLET PO SCH (20:17)
[2016-07-30] MEDS: Ipratropium Neb 0.5 MG NEBULIZER IH SCH ×4 (04:15→21:37)
[2016-07-30] MEDS: *HR* Enoxaparin 40 MG/0.4 ML SYRINGE SQ SCH (06:15)
[2016-07-30] MEDS: MethylPREDNISolone 40 MG/ML VIAL IVP SCH (06:15)
[2016-07-30 07:27] LABS: Basophils % 0.4 %; Eosinophils % 0.4 %; Hematocrit 28.6 % (35.3-44.9); Hemoglobin 9.1 g/dL (11.5-15.4); Immature Granulocytes % 1.4 % (0-4); Lymphocytes # 1.4 K/mcL (0.6-4.6); Lymphocytes % 17.9 %; Mean Corpuscular HGB Conc 31.8 g/dL (31.6-35.5); Mean Corpuscular Hemoglobin 29.4 pg (28.0-33.3); Mean Corpuscular Volume 92.6 fL (83.0-100.0); Mean Platelet Volume 9.4 fL (9.4-12.4); Monocytes # 0.7 K/mcL (0.0-1.3); Monocytes % 8.9 %; Neutrophils # 5.7 K/mcL (1.6-8.9); Platelet Count 299 K/mcL (140-400); Red Blood Count 3.09 M/mcL (3.82-4.97); Red Cell Distribution Width 15.8 % (11.5-14.5)
[2016-07-30 07:47] LABS: Alanine Aminotransferase 11 Units/L (0-55); Albumin 1.9 g/dL (3.5-5.0); Albumin/Globulin Ratio 0.5 (1.1-2.2); Alkaline Phosphatase 145 Units/L (38-126); Aspartate Amino Transferase 13 Units/L (5-34); BUN/Creatinine Ratio 28 (6-26); Bilirubin,Total 0.3 mg/dL (0.2-1.2); Blood Urea Nitrogen 17 mg/dL (7-20); Calcium 8.9 mg/dL (8.6-10.8); Carbon Dioxide 26 mEq/L (19-29); Chloride 106 mEq/L (98-109); Glucose 99 mg/dL (70-99); Osmolality,Calculated 290 (280-300); Potassium 3.9 mEq/L (3.5-4.5); Sodium 139 mEq/L (136-145); Total Protein 5.9 g/dL (6.0-8.3); eGFR For African Americans > 60 (> 60); eGFR For Non-African Americans > 60 (> 60)
[2016-07-30] MEDS: Aspirin Enteric Coated 81 MG Tablet PO SCH (09:30)
[2016-07-30] MEDS: Furosemide 20 MG TABLET PO SCH (09:30)
[2016-07-30] MEDS: Levofloxacin 750 MG/150 ML 750 MG/150 ML BAG IVPB SCH (09:30)
[2016-07-30] MEDS: 0.9 % Sodium Chloride 1,000 ML IVC SCH (09:31)
[2016-07-30] MEDS: (Memantine Hcl [Namenda Xr] 28 MG) PO SCH (09:31)
--- NOTE | 2016-07-30 10:16 | Internal Med Progress Note ---
<Justice Wallace - Last Filed: 07/30/16 10:24> Date of Encounter: 07/30/16 Time of Encounter: 09:30 - Assessment and plan (1) Pneumonia Current Visit: No Status: Acute Assessment and plan: Levaquin Day #4 Accompanied by sputum production, mild wheeze on exam. On solumedrol 40mg IV QD for COPD exacerbation, stop date 08/01/16 for 5 day course. Suspect associated atelectasis. Consult to RT, consideration of physiotherapy, flutter valve. Appreciate recs. Qualifiers: Pneumonia type: due to unspecified organism Laterality: right Lung location: lower lobe of lung Qualified Code(s): J18.1 - Lobar pneumonia, unspecified organism (2) Anemia Current Visit: Yes Status: Acute Assessment and plan: Prior iron panel without ferritin, but suggestive of post-op loss. Hgb has been steady, with improvement in ecchymosis. Cont to monitor. Qualifiers: Anemia type: iron deficiency Iron deficiency anemia type: chronic blood loss Qualified Code(s): D50.0 - Iron deficiency anemia secondary to blood loss (chronic) (3) Status post fracture of femur Current Visit: Yes Status: Acute Assessment and plan: Hgb monitoring, steady. Consult placed to ortho, appreciate recs. Ordered for Left hip Xray, Hip X-Ray 07/29/16 11:28 IMPRESSION: Stable appearance of left intertrochanteric fracture fixation. Diffuse osteopenia with no new acute osseous abnormality. Per ortho: Incision to left hip is well healed with no s/s infection. Steristrips to be removed 08/02/16 if have not worn off by that time. Continue with therapy for the lower extremities. She is WBAT with assistance. Keep follow up in [facility] office with Nayeli Quintana PA-C on 08/10/16 at 10:30am. (4) Aspiration into airway Current Visit: Yes Status: Acute Assessment and plan: Given report of choking with food, suspect aspiration. Appreciate speech therapy recs. Passed MBS, to cont soft textures with nectar thick liquids. Qualifiers: Encounter type: initial encounter Qualified Code(s): T17.908A - Unspecified foreign body in respiratory tract, part unspecified causing other injury, initial encounter (5) COPD (chronic obstructive pulmonary disease) Current Visit: No Status: Chronic Assessment and plan: Possible exacerbation, with wheeze and expressing sputum on exam. Per above, cont levaquin, IV steroids burst. Qualifiers: COPD type: emphysema Emphysema type: unspecified Qualified Code(s): J43.9 - Emphysema, unspecified (6) Advanced dementia Current Visit: No Status: Chronic Assessment and plan: Patient is minimally verbal. She has dementia. - Subjective Interval history: Pt seen/eval, daughter at bedside. Patient would be evaluated by orthopedic service yesterday, with improving post-op changes. She is minimally verbal. She did pass her MBS yesterday. Still has some cough, no other concerns. - Constitutional Vitals: Temp Pulse Resp BP Pulse Ox 97.9 F 89 18 161/90 98 07/30/16 07:07 07/30/16 07:07 07/30/16 07:07 07/30/16 07:07 07/30/16 09:42 General appearance: Present: pleasant - Head Head exam: Present: atraumatic, normocephalic - Eye Eye exam: Present: EOMI - ENT ENT exam: Present: mucous membranes moist - Neck Neck exam general surgery: Present: supple, trachea midline - Respiratory Respiratory exam: Present: decreased breath sounds (bases), rhonchi (scant at bases). Absent: wheezes Additional comments: on supp O2 NC - Cardiovascular Cardiovascular exam: Present: +S1, +S2. Absent: JVD - GI/Abdominal GI/Abdominal exam: Present: soft, no peritoneal signs - Extremities Exam Extremities exam: Present: pedal edema (mild, left hip with improved superficial ecchymosis, distally nvi), warm, radial pulses palpable and symetrical Internal Medicine: Result - Labs CBC & Chem 7: 07/30/16 06:26 07/30/16 06:26 Labs: Short CBC 07/30/16 Range/Units 06:26 WBC 8.0 (4.3-11.1) K/mcL Hgb 9.1 L (11.5-15.4) g/dL Hct 28.6 L (35.3-44.9) % Plt Count 299 (140-400) K/mcL Neutrophils # 5.7 (1.6-8.9) K/mcL BMP 07/30/16 06:26 Sodium 139 Potassium 3.9 Chloride 106 Carbon Dioxide 26 BUN 17 Creatinine 0.61 Glucose 99 Calcium 8.9 Liver Function 07/30/16 Range/Units 06:26 Total Bilirubin 0.3 (0.2-1.2) mg/dL AST 13 (5-34) Units/L ALT 11 (0-55) Units/L Alkaline Phosphatase 145 H (38-126) Units/L Albumin 1.9 L (3.5-5.0) g/dL - VTE Documentation of Mechanical Device: Intermittent pneumatic compression device Consult Discharge Plan - Plan Referrals: NO,PCP [Primary Care Provider] - <Ted Birmingham P - Last Filed: 07/30/16 17:44> Date of Encounter: 07/30/16 - Assessment and plan (1) Pneumonia Current Visit: No Status: Acute Qualifiers: Pneumonia type: due to unspecified organism Laterality: right Lung location: lower lobe of lung Qualified Code(s): J18.1 - Lobar pneumonia, unspecified organism (2) COPD (chronic obstructive pulmonary disease) Current Visit: No Status: Chronic Qualifiers: COPD type: emphysema Emphysema type: unspecified Qualified Code(s): J43.9 - Emphysema, unspecified (3) Atelectasis of left lung Current Visit: No Status: Resolved (4) Advanced dementia Current Visit: No Status: Chronic (5) DVT prophylaxis Current Visit: No Status: Acute - Constitutional Vitals: Temp Pulse Resp BP Pulse Ox 98.3 F 101 16 172/88 97 07/30/16 15:33 07/30/16 15:33 07/30/16 15:33 07/30/16 15:33 07/30/16 15:33 Internal Medicine: Result - Labs CBC & Chem 7: 07/30/16 06:26 07/30/16 06:26 Labs: Short CBC 07/30/16 Range/Units 06:26 WBC 8.0 (4.3-11.1) K/mcL Hgb 9.1 L (11.5-15.4) g/dL Hct 28.6 L (35.3-44.9) % Plt Count 299 (140-400) K/mcL Neutrophils # 5.7 (1.6-8.9) K/mcL BMP 07/30/16 06:26 Sodium 139 Potassium 3.9 Chloride 106 Carbon Dioxide 26 BUN 17 Creatinine 0.61 Glucose 99 Calcium 8.9 Liver Function 07/30/16 Range/Units 06:26 Total Bilirubin 0.3 (0.2-1.2) mg/dL AST 13 (5-34) Units/L ALT 11 (0-55) Units/L Alkaline Phosphatase 145 H (38-126) Units/L Albumin 1.9 L (3.5-5.0) g/dL - Attending Attestation I examined this patient and my medical decision-making was reviewed with the BEADER/PA/Advanced Practice Nurse/Resident Physician. I agree with the documented findings, disposition and treatment plan as described except to the extent set forth below. Patient's daughter prefers to go to half-way tomorrow
[2016-07-30] MEDS: Sennosides 8.6 MG TABLET PO SCH ×2 (10:49→21:19)
[2016-07-30] MEDS: *HR* OxyCODONE Immed Rel 5 MG TABLET PO PRN (14:45)
[2016-07-30] MEDS: risperiDONE 0.25 MG TABLET PO SCH (21:19)
[2016-07-31] MEDS: Ipratropium Neb 0.5 MG NEBULIZER IH SCH ×3 (03:46→16:31)
[2016-07-31] MEDS: Aspirin Enteric Coated 81 MG Tablet PO SCH (08:22)
[2016-07-31] MEDS: *HR* OxyCODONE Immed Rel 5 MG TABLET PO PRN ×2 (08:22→16:35)
[2016-07-31] MEDS: Furosemide 20 MG TABLET PO SCH (08:22)
[2016-07-31] MEDS: (Memantine Hcl [Namenda Xr] 28 MG) PO SCH (08:23)
[2016-07-31] MEDS: *HR* Enoxaparin 40 MG/0.4 ML SYRINGE SQ SCH (08:23)
[2016-07-31] MEDS: Sennosides 8.6 MG TABLET PO SCH (08:23)
[2016-07-31] MEDS ORDERED: MethylPREDNISolone 40 MG/ML VIAL IVP SCH (09:00)
[2016-07-31] MEDS ORDERED: levoFLOXacin 750 MG TABLET PO SCH (09:00)
--- NOTE | 2016-07-31 11:43 | Discharge Summary ---
<Justice Wallace - Last Filed: 07/31/16 11:41> Date of Encounter: 07/31/16 Time of Encounter: 11:41 - Discharge Diagnosis (1) Pneumonia Priority: Primary Status: Acute Qualifiers: Pneumonia type: due to unspecified organism Laterality: right Lung location: lower lobe of lung Qualified Code(s): J18.1 - Lobar pneumonia, unspecified organism (2) Anemia Priority: Secondary Status: Chronic Qualifiers: Anemia type: iron deficiency Iron deficiency anemia type: chronic blood loss Qualified Code(s): D50.0 - Iron deficiency anemia secondary to blood loss (chronic) (3) Status post fracture of femur Priority: Secondary Status: Chronic (4) Aspiration into airway Priority: Primary Status: Acute Qualifiers: Encounter type: initial encounter Qualified Code(s): T17.908A - Unspecified foreign body in respiratory tract, part unspecified causing other injury, initial encounter (5) COPD (chronic obstructive pulmonary disease) Priority: Primary Status: Acute Qualifiers: COPD type: emphysema Emphysema type: unspecified Qualified Code(s): J43.9 - Emphysema, unspecified (6) Advanced dementia Priority: Secondary Status: Chronic - Discharge Medications Prescriptions: Levofloxacin 750 mg PO DAILY #2 tablet OxyCODONE Immed Rel [Roxicodone 5 MG] 5 mg PO Q4H PRN #20 tablet PRN Reason: moderate to severe pain PredniSONE 40 mg PO DAILY #2 tablet Home Medications: Aspirin Enteric Coated [Aspirin EC] 81 mg PO DAILY #0 07/04/15 [History] Donepezil [Aricept] 10 mg PO HS #0 07/04/15 [History] Sertraline [Zoloft] 150 mg PO DAILY #0 07/05/15 [History] Furosemide [Lasix] 20 mg PO DAILY 11/02/15 [History] Memantine HCl [Namenda Xr] 28 mg PO DAILY 11/02/15 [History] RisperiDONE [RisperDAL] 0.5 mg PO HS #14 tablet 11/05/15 [Rx] Temazepam [Restoril] 15 mg PO HS PRN #14 capsule 11/05/15 [Rx] Montelukast [Singulair] 10 mg PO DAILY 07/12/16 [History] Potassium Chloride [Klor-Con Sprinkle] 10 meq PO DAILY 07/12/16 [History] GuaiFENesin ER [Mucinex] 1,200 mg PO BID 07/14/16 [History] Albuterol Neb [Proventil Neb] 2.5 mg IH Q2H PRN #0 inhsol 07/17/16 [Rx] Docusate [Colace] 100 mg PO BID #0 capsule 07/17/16 [Rx] Mag Hydrox/Al Hydrox/Simeth [Maalox] 15 ml PO Q6HR PRN #0 udc 07/17/16 [Rx] Fluticasone/Salmeterol [Advair 250-50 Diskus] 1 puff IH BID 07/27/16 [History] Ipratropium Neb [Atrovent Neb] 0.5 mg IH Q6HR 07/27/16 [History] Pantoprazole Sodium [Protonix] 40 mg PO DAILY 07/27/16 [History] Levofloxacin 750 mg PO DAILY #2 tablet 07/31/16 [Rx] OxyCODONE Immed Rel [Roxicodone 5 MG] 5 mg PO Q4H PRN #20 tablet 07/31/16 [Rx] PredniSONE 40 mg PO DAILY #2 tablet 07/31/16 [Rx] Allergies/Adverse Reactions: Allergies No Known Allergies Allergy (Verified 07/04/15 21:39) Date of admission: 07/29/16 16:12 Primary care physician: PCP NO Consults: 07/30/16 10:08 Consult to Respiratory Therapy [CONS] Routine Reason for Consult: 76 yoF here for pna after sustaining left hip fracture with repair. She continues to have congestion, suspect atelectasis. Consideration of chest physiothereapy, flutter valve, thanks. Call Completed: No Discharging clinician: Ted Birmingham Anticipated date of discharge: 07/31/16 - Patient Status Disposition: Transfer Inpatient Rehab Fac Condition: Fair Functional capacity at discharge: bed bound Overall status at discharge: patient is progressing back to baseline - Discharge Instructions Instructions: Acute Respiratory Distress Syndrome (DC), Acute Kidney Injury (DC ), Acute Kidney Injury (GEN), Urinary Tract Infection in Women (DC), Dementia ( GEN), Chronic Obstructive Pulmonary Disease (DC), Chronic Hypertension (DC), Anemia (GEN), Fall Prevention (DC), Pneumonia (DC), Acute Kidney Injury, Bricklayer Paving Brick (GEN) Follow Up With: NO,PCP [Primary Care Provider] - - Diet and Activity Activity: as per physical therapy Diet: other (soft textures with nectar thick liquids) Hospital course: Ms. Cartagena is a 76 year old female Patient would present to [facility] with chief concern: dyspnea and cough with productive sputum, suggestive of pneumonia and COPD exacerbation. Comorbidities include: advanced dementia with limited verbal, s/p left him IM nailing on 07/13/[address] Santiago. Hospital course: Initial impression pneumonia and COPD exacerbation. Patient would undergo treatment with empiric antibiotics, steroid therapy with improvement. Completed duration of antibiotics. Imaging studies disclosed: Chest X-Ray 07/27/16 12:25 IMPRESSION: Right lower lobe airspace disease versus atelectasis. Findings not significantly changed Videofluoroscopic Swallow 07/29/16 10:47 IMPRESSION: Suspected thin liquid barium aspiration due to the list dictation of a cough but no direct visualization of the aspiration was observed. Please see separate speech pathology report for full discussion of findings and recommendations. Hip X-Ray 07/29/16 11:28 IMPRESSION: Stable appearance of left intertrochanteric fracture fixation. Diffuse osteopenia with no new acute osseous abnormality. Orthopedic consult regarding post-op week #2 left hip IM nailing. Recommendation: Significant ecchymosis to left thigh is slowly improving but is expected after surgery. Swelling to left foot somewhat increased compared to exam 2 days ago. Doppler showed negative for DVT to LLE. Continue with therapy for the lower extremities. She is WBAT with assistance. Keep follow up in [facility] office with Nayeli Quintana PA-C on 08/10/16 at 10:30am. Speech therapy consult for suspected aspiration, she would undergo MBS, with recommendation to cont soft textures with nectar thick liquids. At time of discharge, patient was clinically improved, hemodynamically stable, progressing to baseline, and agreeable with plan of care. Patient was advised to seek immediate medical attention for any new or worsening symptoms including but not limited to fever, chills, chest pain, chest pressure, dyspnea, cough, abdominal pain, nausea, vomiting, diarrhea, bloody stool, urine and the patient voiced understanding. Patient will follow-up with [facility] office with Nayeli Quintana PA-C on 08/10/16 at 10:30am. Prednisone 40mg x 1 for tomorrow to complete course steroid burst. Levaquin for 2 more days. Recommendations to [facility], consensus for rehab. - Time Spent with Patient Total time spent providing and/or coordinating discharge services: Greater than 30 minutes - Constitutional Vitals: Temp Pulse Resp BP Pulse Ox 97.5 F L 98 16 153/85 97 07/31/16 10:36 07/31/16 10:36 07/31/16 10:46 07/31/16 10:36 07/31/16 10:46 General appearance: Present: pleasant - Head Head exam: Present: atraumatic, normocephalic Additional comments: - Eye Eye exam: Present: EOMI - ENT ENT exam: Present: mucous membranes moist - Neck Neck exam general surgery: Present: supple, trachea midline - Respiratory Respiratory exam: Present: decreased breath sounds (bases), rhonchi (scant at bases). Absent: wheezes Additional comments: on supp O2 NC - Cardiovascular Cardiovascular exam: Present: +S1, +S2. Absent: JVD - GI/Abdominal GI/Abdominal exam: Present: soft, no peritoneal signs - Extremities Exam Extremities exam: Present: pedal edema (mild, left hip with improved superficial ecchymosis, distally nvi), warm, radial pulses palpable and symetrical - VTE Documentation of Mechanical Device: Intermittent pneumatic compression device <Ted Birmingham P - Last Filed: 07/31/16 16:58> Date of Encounter: 07/31/16 - Discharge Diagnosis (1) Pneumonia Status: Acute Qualifiers: Pneumonia type: due to unspecified organism Laterality: right Lung location: lower lobe of lung Qualified Code(s): J18.1 - Lobar pneumonia, unspecified organism (2) COPD (chronic obstructive pulmonary disease) Status: Acute Qualifiers: COPD type: emphysema Emphysema type: unspecified Qualified Code(s): J43.9 - Emphysema, unspecified (3) Advanced dementia Status: Chronic (4) DVT prophylaxis Status: Acute Date of admission: 07/29/16 16:12 Primary care physician: PCP NO Consults: 07/30/16 10:08 Consult to Respiratory Therapy [CONS] Routine Reason for Consult: 76 yoF here for pna after sustaining left hip fracture with repair. She continues to have congestion, suspect atelectasis. Consideration of chest physiothereapy, flutter valve, thanks. Call Completed: No Hospital course: Ms. Cartagena is a 76 year old female - Time Spent with Patient Total time spent providing and/or coordinating discharge services: - Constitutional Vitals: Temp Pulse Resp BP Pulse Ox 98.3 F 102 20 143/72 96 07/31/16 15:25 07/31/16 15:25 07/31/16 16:31 07/31/16 15:25 07/31/16 16:31 - Attending Attestation I examined this patient and my medical decision-making was reviewed with the BLENDING TANK HELPER/PA/Advanced Practice Nurse/Resident Physician. I agree with the documented findings, disposition and treatment plan as described except to the extent set forth below.
--- NOTE | 2016-07-31 12:01 | Physician Discharge Referral ---
Addendum entered and electronically signed by Justice Wallace DO 07/31/16 15:59: OARRS reviewed. She is still recovering Post-op week #2 from left intertrochanteric femur fracture s/p IM nailing. Patient will be going to [facility]. Will write for oxycodone 5mg tablet Q4H for [id number]-hp-[id number] pain. HOLD for SBP<100, HR<60, RR<10, confusion or lethargy. Original Note: <Justice Wallace - Last Filed: 07/31/16 11:58> ExtendedCare Referral Info Transfer To: [facility] Provider in Charge: Dr. Ted Birmingham Provider in Charge after Transfer: PCP Institutional Level of Care: Intermediate - MR - Diagnosis (1) Pneumonia Priority: Primary Status: Acute (2) Anemia Priority: Secondary Status: Chronic (3) Status post fracture of femur Priority: Secondary Status: Chronic (4) Aspiration into airway Priority: Secondary Status: Acute (5) COPD (chronic obstructive pulmonary disease) Priority: Primary Status: Acute (6) Advanced dementia Priority: Secondary Status: Chronic Prognosis: Fair Aware of Diagnosis: Family Aware of Prognosis: Family - Transfer Medications Prescriptions: Levofloxacin 750 mg PO DAILY #2 tablet OxyCODONE Immed Rel [Roxicodone 5 MG] 5 mg PO Q4H PRN #20 tablet PRN Reason: moderate to severe pain PredniSONE 40 mg PO DAILY #2 tablet Home Medications: Aspirin Enteric Coated [Aspirin EC] 81 mg PO DAILY #0 07/04/15 [History] Donepezil [Aricept] 10 mg PO HS #0 07/04/15 [History] Sertraline [Zoloft] 150 mg PO DAILY #0 07/05/15 [History] Furosemide [Lasix] 20 mg PO DAILY 11/02/15 [History] Memantine HCl [Namenda Xr] 28 mg PO DAILY 11/02/15 [History] RisperiDONE [RisperDAL] 0.5 mg PO HS #14 tablet 11/05/15 [Rx] Temazepam [Restoril] 15 mg PO HS PRN #14 capsule 11/05/15 [Rx] Montelukast [Singulair] 10 mg PO DAILY 07/12/16 [History] Potassium Chloride [Klor-Con Sprinkle] 10 meq PO DAILY 07/12/16 [History] GuaiFENesin ER [Mucinex] 1,200 mg PO BID 07/14/16 [History] Albuterol Neb [Proventil Neb] 2.5 mg IH Q2H PRN #0 inhsol 07/17/16 [Rx] Docusate [Colace] 100 mg PO BID #0 capsule 07/17/16 [Rx] Mag Hydrox/Al Hydrox/Simeth [Maalox] 15 ml PO Q6HR PRN #0 udc 07/17/16 [Rx] Fluticasone/Salmeterol [Advair 250-50 Diskus] 1 puff IH BID 07/27/16 [History] Ipratropium Neb [Atrovent Neb] 0.5 mg IH Q6HR 07/27/16 [History] Pantoprazole Sodium [Protonix] 40 mg PO DAILY 07/27/16 [History] Levofloxacin 750 mg PO DAILY #2 tablet 07/31/16 [Rx] OxyCODONE Immed Rel [Roxicodone 5 MG] 5 mg PO Q4H PRN #20 tablet 07/31/16 [Rx] PredniSONE 40 mg PO DAILY #2 tablet 07/31/16 [Rx] Allergies/Adverse Reactions: Allergies No Known Allergies Allergy (Verified 07/04/15 21:39) - Respiratory Orders Oxygen / L per min (3) Smoking Cessation: Smoking cessation has been advised. For more information, call the [place] Tobacco Quit Line at 4-006-XXQU-NOW. - Ancillary Orders May use pressure relief devices daily prn, May consult with Dentist, Box Brander, Oxyacetylene Welder PRN - Advance Directives Living Will: No Power of Technology Services Manager: No Code Status: Full Code - Mobility Orders Chair, Bedrest - Rehabiliation Orders Rehab Potential: Fair Rehab Orders: Sternal Precautions, ROM Exercises, Evaluation for Physical Therapy, Evaluation for Occupational Therapy - Treatments Skin tear care topically daily PRN per policy - Diet Orders Pureed (soft textures with nectar thick liquids.) CERTIFICATION: I certify that the transfer of the above named patient to an Extended Care Facility is necessary for the continuing treatment of the diagnosis listed. The above information is true and accurate reflection of patient's current condition. Confidential - Redisclosure prohibited without a patient's written consent. <Ted Birmingham P - Last Filed: 07/31/16 16:58> - Diagnosis (1) Pneumonia Status: Acute (2) COPD (chronic obstructive pulmonary disease) Status: Acute (3) Advanced dementia Status: Chronic (4) DVT prophylaxis Status: Acute - Respiratory Orders Smoking Cessation: Smoking cessation has been advised. For more information, call the [place] Tobacco Quit Line at 7-041-QZZENOW. CERTIFICATION: I certify that the transfer of the above named patient to an Extended Care Facility is necessary for the continuing treatment of the diagnosis listed. The above information is true and accurate reflection of patient's current condition. Confidential - Redisclosure prohibited without a patient's written consent.
[2016-07-31 15:26] VITALS: BP 143/72
== END 2016-07-31 16:50 | DRG 140 ==
LOC: 3BNU 12:10 → EMEROO 12:10 → 2NENU 16:07
PROVIDERS: ADMIT Hospitalist; ATTEND Registered Nurse

== ENCOUNTER 2016-08-26 08:23 | Inpatient (IN) ==
[2016-08-26] MEDS ORDERED: Ipratropium/Albuterol Neb 3 ML IH ONE (08:52)
--- NOTE | 2016-08-26 08:58 | Emergency Department Note ---
Disposition Clinical Impression: Confusion Disposition: Admitted As Inpatient Condition: Fair General Adult HPI - General Chief complaint: ED Shortness of Breath/Dyspnea Stated complaint: needs admited Time Seen by Provider: 08/26/16 08:35 Source: patient, family Limitations: no limitations - History of Present Illness Pain Scale: 5 - Related Data Home Medications Medication Instructions Recorded Confirmed Aspirin Enteric Coated [Aspirin EC] 81 mg PO DAILY #0 07/04/15 08/26/16 Donepezil [Aricept] 10 mg PO HS #0 07/04/15 08/26/16 Sertraline [Zoloft] 150 mg PO DAILY #0 07/05/15 08/26/16 Furosemide [Lasix] 20 mg PO DAILY 11/02/15 08/26/16 Memantine HCl [Namenda Xr] 28 mg PO DAILY 11/02/15 08/26/16 Montelukast [Singulair] 10 mg PO DAILY 07/12/16 08/26/16 Potassium Chloride [Klor-Con 10 meq PO DAILY 07/12/16 08/26/16 Sprinkle] GuaiFENesin ER [Mucinex] 1,200 mg PO BID 07/14/16 08/26/16 Fluticasone/Salmeterol [Advair 1 puff IH BID 07/27/16 08/26/16 250-50 Diskus] Ipratropium Neb [Atrovent Neb] 0.5 mg IH Q6HR 07/27/16 08/26/16 Pantoprazole Sodium [Protonix] 40 mg PO DAILY 07/27/16 08/26/16 L. Acidophilus/Pectin, Real 1 cap PO DAILY 08/26/16 08/26/16 [Acidophilus Probiotic Capsule] Magnesium Hydroxide [Milk of 30 ml PO QWEEK PRN 08/26/16 08/26/16 Magnesia] Previous Rx's Medication Instructions Recorded Temazepam [Restoril] 15 mg PO HS PRN #14 capsule 11/05/15 risperiDONE [RisperDAL] 0.5 mg PO HS #14 tablet 11/05/15 Albuterol Neb [Proventil Neb] 2.5 mg IH Q2H PRN #0 inhsol 07/17/16 Docusate [Colace] 100 mg PO BID #0 capsule 07/17/16 Mag Hydrox/Al Hydrox/Simeth 15 ml PO Q6HR PRN #0 udc 07/17/16 [Maalox] OxyCODONE Immed Rel [Roxicodone 5 5 mg PO Q4H PRN #20 tablet 07/31/16 MG] Allergies Allergy/AdvReac Type Severity Reaction Status Date / Time No Known Allergies Allergy Verified 07/04/15 21:39 Past Medical History - Past Medical History Medical history: Reports: arthritis, CHF, COPD, dementia, hypertension, osteoporosis, other Surgical history: Reports: non-contributory, other Psychiatric history: Reports: anxiety, other - Social History Smoking Status: Former smoker Smokeless Tobacco Status: No Alcohol use: Reports: none Drug use: Reports: none Physical Exam - General Limitations: no limitations General appearance: alert Course Vital Signs Temperature 98 F 08/26/16 08:31 Pulse Rate 90 08/26/16 08:31 Respiratory Rate 18 08/26/16 08:31 Blood Pressure 150/68 08/26/16 08:31 O2 Sat by Pulse Oximetry 94 08/26/16 08:31 Temperature 98.4 F 08/26/16 15:15 Pulse Rate 83 08/26/16 15:15 Respiratory Rate 18 08/26/16 16:17 Blood Pressure 168/77 08/26/16 15:15 O2 Sat by Pulse Oximetry 93 08/26/16 16:17 Oxygen Delivery Oxygen Delivery Nasal Cannula Medical Decision Making - Lab Data Result diagrams: 08/26/16 09:23 08/26/16 09:23 Lab Results 08/26/16 08/26/16 08/26/16 Range/Units 09:23 09:23 09:23 WBC 7.2 (4.3-11.1) K/mcL RBC 3.95 (3.82-4.97) M/mcL Hgb 11.6 (11.5-15.4) g/dL Hct 37.1 (35.3-44.9) % MCV 93.9 (83.0-100.0) fL MCH 29.4 (28.0-33.3) pg MCHC 31.3 L (31.6-35.5) g/dL RDW 15.1 H (11.5-14.5) % Plt Count 196 (140-400) K/mcL MPV 9.6 (9.4-12.4) fL Immature Gran % 0.7 (0-4) % Seg Neutrophils % 65.2 % Lymphocytes % 15.3 % Monocytes % 8.3 % Eosinophils % 9.8 % Basophils % 0.7 % Neutrophils # 4.7 (1.6-8.9) K/mcL Lymphocytes # 1.1 (0.6-4.6) K/mcL Monocytes # 0.6 (0.0-1.3) K/mcL Eosinophils # 0.7 H (0.0-0.6) K/mcL Basophils # 0.1 (0.0-0.2) K/mcL Sodium 141 (136-145) mEq/L Potassium 3.5 (3.5-4.5) mEq/L Chloride 105 (98-109) mEq/L Carbon Dioxide 28 (19-29) mEq/L BUN 13 (7-20) mg/dL Creatinine 0.60 (0.57-1.11) mg/dL Est GFR ( Amer) > 60 (> 60) Est GFR (Non-Af Amer) > 60 (> 60) BUN/Creatinine Ratio 22 (6-26) Glucose 97 (70-99) mg/dL Calculated Osmolality 292 (280-300) Lactic Acid 0.9 (0.5-2.2) mmol/L Calcium 9.7 (8.6-10.8) mg/dL Troponin I (0-0.03) ng/mL B-Natriuretic Peptide (0-100) pg/mL Urine Color (Yellow) Urine Clarity (Clear) Urine pH (5.0-8.0) pH Units Ur Specific [place] (1.010-1.025) Urine Protein (Neg-Trace) mg/dL Urine Glucose (UA) (Normal) mg/dL Urine Ketones (Negative) mg/dL Urine Blood (Negative) Urine Nitrite (Negative) Urine Bilirubin (Negative) Urine Urobilinogen (Normal) mg/dL Ur Leukocyte Esterase (Negative) Urine Microscopic WBC (0-3) per hpf Ur Squamous Epith Cells (None-Few) per lpf Urine Bacteria (None-Few) per hpf Hyaline Casts (None-Few) per lpf Ur Culture Indicated? (NO) 08/26/16 08/26/16 08/26/16 Range/Units 09:23 09:23 09:36 WBC (4.3-11.1) K/mcL RBC (3.82-4.97) M/mcL Hgb (11.5-15.4) g/dL Hct (35.3-44.9) % MCV (83.0-100.0) fL MCH (28.0-33.3) pg MCHC (31.6-35.5) g/dL RDW (11.5-14.5) % Plt Count (140-400) K/mcL MPV (9.4-12.4) fL Immature Gran % (0-4) % Seg Neutrophils % % Lymphocytes % % Monocytes % % Eosinophils % % Basophils % % Neutrophils # (1.6-8.9) K/mcL Lymphocytes # (0.6-4.6) K/mcL Monocytes # (0.0-1.3) K/mcL Eosinophils # (0.0-0.6) K/mcL Basophils # (0.0-0.2) K/mcL Sodium (136-145) mEq/L Potassium (3.5-4.5) mEq/L Chloride (98-109) mEq/L Carbon Dioxide (19-29) mEq/L BUN (7-20) mg/dL Creatinine (0.57-1.11) mg/dL Est GFR ( Amer) (> 60) Est GFR (Non-Af Amer) (> 60) BUN/Creatinine Ratio (6-26) Glucose (70-99) mg/dL Calculated Osmolality (280-300) Lactic Acid (0.5-2.2) mmol/L Calcium (8.6-10.8) mg/dL Troponin I 0.01 (0-0.03) ng/mL B-Natriuretic Peptide 145 H (0-100) pg/mL Urine Color Yellow (Yellow) Urine Clarity Cloudy A (Clear) Urine pH 5.5 (5.0-8.0) pH Units Ur Specific [place] 1.026 H (1.010-1.025) Urine Protein Negative (Neg-Trace) mg/dL Urine Glucose (UA) Normal (Normal) mg/dL Urine Ketones Negative (Negative) mg/dL Urine Blood Negative (Negative) Urine Nitrite Negative (Negative) Urine Bilirubin Negative (Negative) Urine Urobilinogen Normal (Normal) mg/dL Ur Leukocyte Esterase Moderate H (Negative) Urine Microscopic WBC 15-30 H (0-3) per hpf Ur Squamous Epith Cells Many H (None-Few) per lpf Urine Bacteria Moderate H (None-Few) per hpf Hyaline Casts Few (None-Few) per lpf Ur Culture Indicated? YES A (NO) Attestation Statement - Attestation Attestation: I examined this patient and my medical decision-making was reviewed with the GRAPHIC ARTS TECHNICIAN/PA/Advanced Practice Nurse/Resident Physician. I agree with the documented findings, disposition and treatment plan as described except to the extent set forth below. Face to face time provided Patient presents in the care of her family. She is increasingly agitated. Urine reported to have a strong smell. Also complains of dyspnea. Hard of hearing on exam.
--- NOTE | 2016-08-26 09:25 | Emergency Department Note ---
Disposition Clinical Impression: Confusion Disposition: Admitted As Inpatient Condition: Fair Referrals: Sherry Thompson DO [Non-Partnered Physician] - Darren Oneill DO [Primary Care Provider] - Forms: ED Satisfaction Letter General Adult HPI - General Chief complaint: ED Shortness of Breath/Dyspnea Stated complaint: needs admited Time Seen by Provider: 08/26/16 08:35 Source: patient, family Limitations: no limitations - History of Present Illness HPI Narrative: History obtained by family at bedside. Patient non verbal. Reported subjective fevers, dyspnea, agitation for the last 2-3 days. Notable foul odor or urine with no complaints of dysuria/pain with urination. [place] home O2 3.5L. Daughter notes the patient's current mentation is worse than her baseline and has been over last 2-3 days. PMH: Alzherimer's, agitation, COPD, CAD, hs HCAP, hs aspiration, hx fall PSH: Lt hip fx w/repair ROS: Positive: Fever, dyspnea, increased agitation, foul smell of urine Negative: Nausea, vomiting, abdominal pain, chest pain, dysuria/pain with urination, unusual confusion from baseline. Pain Scale: 5 - Related Data Home Medications Medication Instructions Recorded Confirmed Aspirin Enteric Coated [Aspirin EC] 81 mg PO DAILY #0 07/04/15 07/27/16 Donepezil [Aricept] 10 mg PO HS #0 07/04/15 07/27/16 Sertraline [Zoloft] 150 mg PO DAILY #0 07/05/15 07/27/16 Furosemide [Lasix] 20 mg PO DAILY 11/02/15 07/27/16 Memantine HCl [Namenda Xr] 28 mg PO DAILY 11/02/15 07/27/16 Montelukast [Singulair] 10 mg PO DAILY 07/12/16 07/27/16 Potassium Chloride [Klor-Con 10 meq PO DAILY 07/12/16 07/27/16 Sprinkle] GuaiFENesin ER [Mucinex] 1,200 mg PO BID 07/14/16 07/27/16 Fluticasone/Salmeterol [Advair 1 puff IH BID 07/27/16 07/27/16 250-50 Diskus] Ipratropium Neb [Atrovent Neb] 0.5 mg IH Q6HR 07/27/16 07/27/16 Pantoprazole Sodium [Protonix] 40 mg PO DAILY 07/27/16 07/27/16 Previous Rx's Medication Instructions Recorded Temazepam [Restoril] 15 mg PO HS PRN #14 capsule 11/05/15 risperiDONE [RisperDAL] 0.5 mg PO HS #14 tablet 11/05/15 Albuterol Neb [Proventil Neb] 2.5 mg IH Q2H PRN #0 inhsol 07/17/16 Docusate [Colace] 100 mg PO BID #0 capsule 07/17/16 Mag Hydrox/Al Hydrox/Simeth 15 ml PO Q6HR PRN #0 udc 07/17/16 [Maalox] OxyCODONE Immed Rel [Roxicodone 5 5 mg PO Q4H PRN #20 tablet 07/31/16 MG] levoFLOXacin [Levofloxacin] 750 mg PO DAILY #2 tablet 07/31/16 predniSONE [PredniSONE] 40 mg PO DAILY #2 tablet 07/31/16 Allergies Allergy/AdvReac Type Severity Reaction Status Date / Time No Known Allergies Allergy Verified 07/04/15 21:39 All systems ED: reviewed and negative except as stated. Past Medical History - Past Medical History Medical history: Reports: arthritis, CHF, COPD, dementia, hypertension, osteoporosis, other Surgical history: Reports: non-contributory, other Psychiatric history: Reports: anxiety, other - Social History Smoking Status: Former smoker Smokeless Tobacco Status: No Alcohol use: Reports: none Drug use: Reports: none Physical Exam Vital Signs Reviewed General: Patient is alert, not oriented, and in no acute distress. Patient is nonverbal but will communicate with nodding/shaking her head. HEENT: No facial asymmetry. Head is normocephalic and atraumatic. PERRLA, EOMI. Nasal turbinates moist and pink. Posterior pharynx without exudates or cobblestoning. Trachea midline, no palpable thyroid nodules, no thyromegaly. Cardiovascular: Heart regular rate and rhythm without clicks, rubs, gallops, or murmurs. No JVD. PMI nondisplaced. No pedal edema. Bilateral radial and posterior tibial pulses 2/4. No carotid bruit. Respiratory: Symmetric chest rise with poor respiratory effort. Bilateral breath sounds are without wheezing, crackles, or rhonchi; decreased lung sounds bibasilar. Abdomen: Bowel sounds present normoactive x-4 quadrants. Abdomen is soft, nondistended, and nontender. No organomegaly noted. Musculoskeletal: Unable to assess muscle strength secondary to lack of patient cooperation. Spontaneously moving all extremities. Neuro: Unable to assess cranial nerves secondary to lack of patient cooperation. Psych: Patient's affect is appropriate for situation. - General Limitations: no limitations General appearance: alert Course Course Narrative: Patient is nonverbal. She is extremely hard of hearing. You can yell into her left ear and she will nod or shake her head to simple questioning and is cooperative. Patient's daughter is bedside. History obtained from patient's daughter. Patient does live at home with her who is her primary caregiver. Daughter does not believe they have any difficulties caring for the patient at this time. Patient was previously seen by Dr. Birmingham. When patient presented to the ER triage, daughter insisted that we paged Dr. Birmingham; he was paged and evaluated the patient and agreed to her admission. Clinical suspicion is for healthcare associated pneumonia versus aspiration pneumonia versus UTI. Urinalysis is not concerning for UTI. Chest x-ray and physical exam are not concerning for pneumonia. No leukocytosis and normal electrolytes. Patient has been comfortable, cooperative, and pleasant during her ER stay. She did attempt to get out of bed and would not listen to recommendations to remain in bed ; I gave 0.5 mg Ativan. Spoke with the admitting hospitalist, Dr. Grijalva, agrees to accept the patient for worsening baseline mentation. Vital Signs Temperature 98 F 08/26/16 08:31 Pulse Rate 90 08/26/16 08:31 Respiratory Rate 18 08/26/16 08:31 Blood Pressure 150/68 08/26/16 08:31 O2 Sat by Pulse Oximetry 94 08/26/16 08:31 Temperature 98 F 08/26/16 08:31 Pulse Rate 81 08/26/16 09:11 Respiratory Rate 16 08/26/16 09:15 Blood Pressure 139/97 08/26/16 09:11 O2 Sat by Pulse Oximetry 96 08/26/16 09:15 Oxygen Delivery Oxygen Delivery Nasal Cannula Medical Decision Making - Lab Data Result diagrams: 08/26/16 09:23 08/26/16 09:23 Lab Results 08/26/16 08/26/1617 Range/Units 09:23 09:23 09:23 WBC 7.2 (4.3-11.1) K/mcL RBC 3.95 (3.82-4.97) M/mcL Hgb 11.6 (11.5-15.4) g/dL Hct 37.1 (35.3-44.9) % MCV 93.9 (83.0-100.0) fL MCH 29.4 (28.0-33.3) pg MCHC 31.3 L (31.6-35.5) g/dL RDW 15.1 H (11.5-14.5) % Plt Count 196 (140-400) K/mcL MPV 9.6 (9.4-12.4) fL Immature Gran % 0.7 (0-4) % Seg Neutrophils % 65.2 % Lymphocytes % 15.3 % Monocytes % 8.3 % Eosinophils % 9.8 % Basophils % 0.7 % Neutrophils # 4.7 (1.6-8.9) K/mcL Lymphocytes # 1.1 (0.6-4.6) K/mcL Monocytes # 0.6 (0.0-1.3) K/mcL Eosinophils # 0.7 H (0.0-0.6) K/mcL Basophils # 0.1 (0.0-0.2) K/mcL Sodium 141 (136-145) mEq/L Potassium 3.5 (3.5-4.5) mEq/L Chloride 105 (98-109) mEq/L Carbon Dioxide 28 (19-29) mEq/L BUN 13 (7-20) mg/dL Creatinine 0.60 (0.57-1.11) mg/dL Est GFR ( Amer) > 60 (> 60) Est GFR (Non-Af Amer) > 60 (> 60) BUN/Creatinine Ratio 22 (6-26) Glucose 97 (70-99) mg/dL Calculated Osmolality 292 (280-300) Lactic Acid 0.9 (0.5-2.2) mmol/L Calcium 9.7 (8.6-10.8) mg/dL Troponin I (0-0.03) ng/mL B-Natriuretic Peptide (0-100) pg/mL Urine Color (Yellow) Urine Clarity (Clear) Urine pH (5.0-8.0) pH Units Ur Specific [place] (1.010-1.025) Urine Protein (Neg-Trace) mg/dL Urine Glucose (UA) (Normal) mg/dL Urine Ketones (Negative) mg/dL Urine Blood (Negative) Urine Nitrite (Negative) Urine Bilirubin (Negative) Urine Urobilinogen (Normal) mg/dL Ur Leukocyte Esterase (Negative) Urine Microscopic WBC (0-3) per hpf Ur Squamous Epith Cells (None-Few) per lpf Urine Bacteria (None-Few) per hpf Hyaline Casts (None-Few) per lpf Ur Culture Indicated? (NO) 08/26/16 08/26/16 08/26/16 Range/Units 09:23 09:23 09:36 WBC (4.3-11.1) K/mcL RBC (3.82-4.97) M/mcL Hgb (11.5-15.4) g/dL Hct (35.3-44.9) % MCV (83.0-100.0) fL MCH (28.0-33.3) pg MCHC (31.6-35.5) g/dL RDW (11.5-14.5) % Plt Count (140-400) K/mcL MPV (9.4-12.4) fL Immature Gran % (0-4) % Seg Neutrophils % % Lymphocytes % % Monocytes % % Eosinophils % % Basophils % % Neutrophils # (1.6-8.9) K/mcL Lymphocytes # (0.6-4.6) K/mcL Monocytes # (0.0-1.3) K/mcL Eosinophils # (0.0-0.6) K/mcL Basophils # (0.0-0.2) K/mcL Sodium (136-145) mEq/L Potassium (3.5-4.5) mEq/L Chloride (98-109) mEq/L Carbon Dioxide (19-29) mEq/L BUN (7-20) mg/dL Creatinine (0.57-1.11) mg/dL Est GFR ( Amer) (> 60) Est GFR (Non-Af Amer) (> 60) BUN/Creatinine Ratio (6-26) Glucose (70-99) mg/dL Calculated Osmolality (280-300) Lactic Acid (0.5-2.2) mmol/L Calcium (8.6-10.8) mg/dL Troponin I 0.01 (0-0.03) ng/mL B-Natriuretic Peptide 145 H (0-100) pg/mL Urine Color Yellow (Yellow) Urine Clarity Cloudy A (Clear) Urine pH 5.5 (5.0-8.0) pH Units Ur Specific [place] 1.026 H (1.010-1.025) Urine Protein Negative (Neg-Trace) mg/dL Urine Glucose (UA) Normal (Normal) mg/dL Urine Ketones Negative (Negative) mg/dL Urine Blood Negative (Negative) Urine Nitrite Negative (Negative) Urine Bilirubin Negative (Negative) Urine Urobilinogen Normal (Normal) mg/dL Ur Leukocyte Esterase Moderate H (Negative) Urine Microscopic WBC 15-30 H (0-3) per hpf Ur Squamous Epith Cells Many H (None-Few) per lpf Urine Bacteria Moderate H (None-Few) per hpf Hyaline Casts Few (None-Few) per lpf Ur Culture Indicated? YES A (NO)
[2016-08-26 09:31] LABS: Basophils # 0.1 K/mcL (0.0-0.2); Basophils % 0.7 %; Eosinophils # 0.7 K/mcL (0.0-0.6); Eosinophils % 9.8 %; Hematocrit 37.1 % (35.3-44.9); Hemoglobin 11.6 g/dL (11.5-15.4); Immature Granulocytes % 0.7 % (0-4); Lymphocytes # 1.1 K/mcL (0.6-4.6); Lymphocytes % 15.3 %; Mean Corpuscular HGB Conc 31.3 g/dL (31.6-35.5); Mean Corpuscular Hemoglobin 29.4 pg (28.0-33.3); Mean Corpuscular Volume 93.9 fL (83.0-100.0); Mean Platelet Volume 9.6 fL (9.4-12.4); Monocytes # 0.6 K/mcL (0.0-1.3); Monocytes % 8.3 %; Neutrophils # 4.7 K/mcL (1.6-8.9); Platelet Count 196 K/mcL (140-400); Red Blood Count 3.95 M/mcL (3.82-4.97); Red Cell Distribution Width 15.1 % (11.5-14.5); Segmented Neutrophils % 65.2 %
[2016-08-26 09:40] LABS: Bilirubin,Urine Negative (Negative); Blood,Urine Negative (Negative); Clarity,Urine Cloudy (Clear); Color,Urine Yellow (Yellow); Glucose,Urine (UA) Normal (Normal); Ketones,Urine Negative (Negative); Leukocyte Esterase,Urine Moderate (Negative); Nitrite,Urine Negative (Negative); PH,Urine 5.5 pH Units (5.0-8.0); Protein,Urine Negative (Neg-Trace); Specific Gravity,Urine 1.026 (1.010-1.025); Urobilinogen,Urine Normal (Normal)
[2016-08-26 09:45] LABS: BUN/Creatinine Ratio 22 (6-26); Blood Urea Nitrogen 13 mg/dL (7-20); Calcium 9.7 mg/dL (8.6-10.8); Carbon Dioxide 28 mEq/L (19-29); Chloride 105 mEq/L (98-109); Glucose 97 mg/dL (70-99); Osmolality,Calculated 292 (280-300); Potassium 3.5 mEq/L (3.5-4.5); Sodium 141 mEq/L (136-145); eGFR For African Americans > 60 (> 60); eGFR For Non-African Americans > 60 (> 60)
[2016-08-26 09:49] LABS: Squamous Epithelial Cell,Urine Many per lpf (None-Few); WBC,Urine 15-30 per hpf (0-3)
[2016-08-26] MEDS ORDERED: *HR* LORazepam 2 MG/ML VIAL IVP ONE ×2 (09:49→14:27)
[2016-08-26 09:50] LABS: Bacteria,Urine Moderate per hpf (None-Few); Hyaline Casts,Urine Few per lpf (None-Few)
[2016-08-26] MEDS ORDERED: Naloxone 0.4 MG/ML INJ IVP PRN (14:01)
[2016-08-26] MEDS ORDERED: Acetaminophen 325 MG TABLET PO PRN (14:01)
--- NOTE | 2016-08-26 14:08 | Internal Med History&Physical ---
<Soren Nath - Last Filed: 08/26/16 14:39> Date of Encounter: 08/26/16 Time of Encounter: 14:02 Assessment and Plan (1) Acute encephalopathy Current visit: Yes Status: Acute 76-year-old female history of dementia, COPD, CAD, left femur fracture presents to ER with daughter chief complaint confusion. At baseline patient is alert and oriented to self, and collected. For the past few days patient has been agitated, aggressive. She has had productive yellowish, green sputum, and shortness of breath that started yesterday. Patient has history of COPD, on 3.5 L of oxygen at home and was desaturating to 84%. Patient was pulling off IV , leads. CBC- 7.2, hgb 11.6 BMP: No electrolyte abnormalities. Patient is saturating 96% on 3.5 L O2 Urinalysis: Moderate leukocyte esterase and bacteria with 15-30 white blood cell count. -Last October patient had UTI secondary to strep agalactiae -Urine culture pending. CXR: Shows by basilar atelectasis, no change from previous, no evidence of infiltrate or pulmonary venous congestion. -patient has productive sputum, with sputum color change and desatturating to 84% on home oxygen. At this point unclear etiology: Patient may have confusion secondary to infection including UTI/pneumonia -PRN ativan for agitation. (2) Acute and chronic respiratory failure Current visit: Yes Status: Acute As noted above patient desaturated on 3.5 L oxygen at home to 84%. Currently patient is on 2.5 L oxygen and satting at 96%. Secondary to suspected community acquired pneumonia and COPD exacerbation. Ketosteroids start patient on scheduled DuoNeb, prednisone, Levaquin. Qualifiers: Respiratory failure complication: hypoxia Qualified Code(s): J96.21 - Acute and chronic respiratory failure with hypoxia (3) Community acquired pneumonia Current visit: Yes Status: Suspected Patient presents with change in sputum color, increased sputum production that is yellowish green and desaturation to 84% on 3.5 L oxygen. In beginning of July 2016 patient was admitted for 20 acquired pneumonia treated with levofloxacin. At that time no organism was isolated on culture. Video fluoroscopic swallow found thin liquid barium aspiration. This patient has history of dementia and past history of aspiration pneumonia this cannot be ruled out currently. We will continue Levaquin and await blood culture, sputum culture sensitivities. (4) UTI (urinary tract infection) Current visit: Yes Status: Suspected per family no report or complaint of pain with urination Urinalysis shows excite Estrace bacteria, liposarcoma. Urine culture pending. Patient started on Levaquin will await urine culture for sensitivities to de- escalate. Qualifiers: Urinary tract infection type: acute cystitis Hematuria presence: without hematuria Qualified Code(s): N30.00 - Acute cystitis without hematuria (5) DVT prophylaxis Current visit: Yes Status: Acute Heparin SQ (6) COPD (chronic obstructive pulmonary disease) Current visit: Yes Status: Chronic Patient is a former smoker quit 15 years ago. Creatinine 3.5 L of oxygen outpatient. On Advair outpatient. We will continue this. Started on prednisone and DuoNeb's for COPD exacerbation. Continue oxygen supplementation. Currently saturating at 96% on 3.5 L of oxygen. Qualifiers: COPD type: emphysema Emphysema type: unspecified Qualified Code(s): J43.9 - Emphysema, unspecified (7) Dementia Current visit: Yes Status: Chronic Patient is a history of Alzheimer's dementia. She is on donepezil and memantine will continue this. Underwent bedside swallow eval will continue this. On previous admission patient had a video fluoroscopic swallow and speech therapy recommended soft textures of neck to her thickened liquids. Qualifiers: Dementia type: Alzheimer's disease Alzheimer's disease onset: late-onset Dementia behavioral disturbance: without behavioral disturbance Qualified Code (s): G30.1 - Alzheimer's disease with late onset; F02.80 - Dementia in other diseases classified elsewhere without behavioral disturbance (8) Status post fracture of femur Current visit: Yes Status: Chronic Patient is status post left femur fracture. She does not complain about left hip pain. Status post left hip intramedullary nailing. Followed by Dr. Santiago Currently there is no erythema, warmth at the left hip. Internal Medicine - H&P: HPI Chief complaint: sob Admitted From: Home Plans for Post Hospital Care: Home History of present illness: Ms. Cartagena is a 76 year old female history of dementia, CHF, COPD, hypertension presents with chief complaint of confusion. At baseline patient is alert and oriented to self, calm, collected. However daughter states that she has been more agitated, aggressive, throwing objects. Daughter noticed the patient was severely short of breath yesterday. Daughter noticed patient's oxygen concentration steadily declining over the past 3 days with lowest level at 84. Patient is on 3.5 L of oxygen at home. Her shortness of breath was refractory to rescue inhaler and nebulizer treatments. Patient has green, yellowish productive sputum. Daughter denies patient having fevers, nausea, vomiting, melena, hematochezia, abdominal pain, headache, fall, head trauma. During patient's encounter she is calm and collected in bed wanting to go home. Alert and oriented to self. She denies any pain, follows commands. However patient is nonverbal and does not answer any questions. Past Med Surg Social Fam HX - Past Medical History Medical history: arthritis, CHF, COPD, dementia, hypertension, osteoporosis, other Psychiatric history: anxiety, other - Past Surgical History Surgical History: non-contributory, other - Social History Smoking Status: Former smoker Smokeless Tobacco Status: No Alcohol use: none Drug use: none - Family History Daughter Living Status: Still Living Hx Family Cardiac Disorders: Yes Hx Family Respiratory Disorders: Yes Hx Family Cancer: No Hx Family GI Disorders: Yes Mother Adopted: No Family Member Ethnicity: Non- Living Status: Hx Family Cardiac Disorders: No Hx Family Respiratory Disorders: No Hx Family Cancer: Yes (lung) Hx Family GI Disorders: Yes (acid reflux) Hx Family Endocrine Disorder: No Hx Family Neuromuscular Disorders: No Hx Family Neurologic Disorders: No Hx Family HEENT Disorders: No Hx Family Autoimmune Disorders: No Internal Medicine - H&P: Meds Aspirin Enteric Coated [Aspirin EC] 81 mg PO DAILY #0 07/04/15 [History] Donepezil [Aricept] 10 mg PO HS #0 07/04/15 [History] Sertraline [Zoloft] 150 mg PO DAILY #0 07/05/15 [History] Furosemide [Lasix] 20 mg PO DAILY 11/02/15 [History] Memantine HCl [Namenda Xr] 28 mg PO DAILY 11/02/15 [History] Temazepam [Restoril] 15 mg PO HS PRN #14 capsule 11/05/15 [Rx] risperiDONE [RisperDAL] 0.5 mg PO HS #14 tablet 11/05/15 [Rx] Montelukast [Singulair] 10 mg PO DAILY 07/12/16 [History] Potassium Chloride [Klor-Con Sprinkle] 10 meq PO DAILY 07/12/16 [History] GuaiFENesin ER [Mucinex] 1,200 mg PO BID 07/14/16 [History] Albuterol Neb [Proventil Neb] 2.5 mg IH Q2H PRN #0 inhsol 07/17/16 [Rx] Docusate [Colace] 100 mg PO BID #0 capsule 07/17/16 [Rx] Mag Hydrox/Al Hydrox/Simeth [Maalox] 15 ml PO Q6HR PRN #0 udc 07/17/16 [Rx] Fluticasone/Salmeterol [Advair 250-50 Diskus] 1 puff IH BID 07/27/16 [History] Ipratropium Neb [Atrovent Neb] 0.5 mg IH Q6HR 07/27/16 [History] Pantoprazole Sodium [Protonix] 40 mg PO DAILY 07/27/16 [History] OxyCODONE Immed Rel [Roxicodone 5 MG] 5 mg PO Q4H PRN #20 tablet 07/31/16 [Rx] L. Acidophilus/Pectin, [place] [Acidophilus Probiotic Capsule] 1 cap PO DAILY [History] Magnesium Hydroxide [Milk of Magnesia] 30 ml PO QWEEK PRN 08/26/16 [History] Allergies No Known Allergies Allergy (Verified 07/04/15 21:39) ROS unobtainable: due to mental status All Systems PM: A 10-system review of systems was performed and is negative for pertinent findings except as documented above in the HPI. - Constitutional Vitals: Temp Pulse Resp BP Pulse Ox 97.9 F 79 16 167/77 98 08/26/16 11:23 08/26/16 11:23 08/26/16 11:23 08/26/16 11:23 08/26/16 11:23 General appearance: Present: A&O X 1 (To self) - Head Head exam: Present: atraumatic, normocephalic - Eye Eye exam: Present: PERRL, conjuntiva pink, sclera anicteric - Neck Neck exam general surgery: Present: supple, trachea midline. Absent: lymphadenopathy - Respiratory Respiratory exam: Present: CTAB. Absent: accessory muscle use, rales, rhonchi, wheezes - Cardiovascular Cardiovascular exam: Present: RRR, +S1, +S2. Absent: diastolic murmur, gallop, rubs, systolic murmur - GI/Abdominal GI/Abdominal exam: Present: normal bowel sounds, soft, no peritoneal signs. Absent: distended, tenderness - Extremities Exam Extremities exam: Present: warm, radial pulses palpable and symetrical. Absent : calf tenderness, cyanotic, pedal edema - Neurological Exam Neurological exam: Present: alert, strengths equal and symetr throughout. Absent: oriented X3 (To self only), facial droop - Psychiatric Psychiatric exam: Present: anxious, flat affect - Skin Skin exam: Present: dry, intact Internal Med - H&P Results - Labs CBC & Chem 7: 08/26/16 09:23 08/26/16 09:23 <Ted Birmingham P - Last Filed: 08/26/16 17:40> Date of Encounter: 08/26/16 Internal Medicine - H&P: HPI History of present illness: Ms. Cartagena is a 76 year old female All Systems PM: A 10-system review of systems was performed and is negative for pertinent findings except as documented above in the HPI. - Constitutional Vitals: Temp Pulse Resp BP Pulse Ox 98.4 F 83 18 168/77 93 08/26/16 15:15 08/26/16 15:15 08/26/16 16:17 08/26/16 15:15 08/26/16 16:17 Internal Med - H&P Results - Labs CBC & Chem 7: 08/26/16 09:23 08/26/16 09:23 - Attending Attestation I examined this patient and my medical decision-making was reviewed with the [employer]HEO[employer] ASSEMBLER/PA/Advanced Practice Nurse/Resident Physician. I agree with the documented findings, disposition and treatment plan as described except to the extent set forth below.
[2016-08-26] MEDS ORDERED: MOM Conc 10 ML UD.LIQ PO PRN (14:13)
[2016-08-26] MEDS ORDERED: Temazepam 15 MG CAPSULE PO PRN (14:13)
[2016-08-26] MEDS ORDERED: hydrOXYzine pamoate 25 MG CAPSULE PO PRN (14:16)
[2016-08-26] MEDS ORDERED: Albuterol 2.5 MG/3 ML NEBULIZER IH PRN (14:32)
--- NOTE | 2016-08-26 15:56 | Electrocardiograph Report ---
[address] [place], [place] [address] Test Date: 2016-08-26 Pat Name: Mia Cartagena Department: 105 Room: 2N3 Gender: F Gl Accountant: : 1940 Requested By: Abhinav Sierra Order Number: [id number] Reading MD: Baudilio Bowling MD Measurements Intervals [place] Rate: 83 P: 58 LA: 131 QRS: 41 QRSD: 77 T: 38 QT: 373 QTc: 412 Interpretive Statements SINUS RHYTHM BASELINE ARTIFACT Electronically Signed On 08-26-2016 15:54:38 EDT by Baudilio Bowling MD
[2016-08-26] MEDS: Ipratropium/Albuterol Neb 3 ML IH SCH ×2 (16:13→23:32)
[2016-08-26] MEDS: *HR* Heparin 5,000 UNIT/ML VIAL SQ SCH (16:30)
[2016-08-26] MEDS: Levofloxacin 750 MG/150 ML 750 MG/150 ML BAG IVPB SCH (16:30)
[2016-08-26] MEDS: predniSONE 20 MG TABLET PO SCH (16:31)
[2016-08-26] MEDS: risperiDONE 0.25 MG TABLET PO SCH (21:11)
[2016-08-26] MEDS: Budesonide/Formoterol 160/4.5 MDI IH SCH (23:32)
[2016-08-27] MEDS: Ipratropium/Albuterol Neb 3 ML IH SCH ×4 (04:27→21:04)
[2016-08-27 05:28] LABS: Basophils % 0.7 %; Eosinophils % 0.9 %; Hematocrit 33.7 % (35.3-44.9); Hemoglobin 10.7 g/dL (11.5-15.4); Immature Granulocytes % 0.7 % (0-4); Lymphocytes # 1.3 K/mcL (0.6-4.6); Lymphocytes % 27.3 %; Mean Corpuscular HGB Conc 31.8 g/dL (31.6-35.5); Mean Corpuscular Hemoglobin 29.6 pg (28.0-33.3); Mean Corpuscular Volume 93.1 fL (83.0-100.0); Mean Platelet Volume 9.7 fL (9.4-12.4); Monocytes # 0.4 K/mcL (0.0-1.3); Monocytes % 8.5 %; Neutrophils # 2.9 K/mcL (1.6-8.9); Platelet Count 201 K/mcL (140-400); Red Blood Count 3.62 M/mcL (3.82-4.97); Red Cell Distribution Width 14.7 % (11.5-14.5); Segmented Neutrophils % 61.9 %
[2016-08-27 05:48] LABS: Alanine Aminotransferase 11 Units/L (0-55); Albumin 2.9 g/dL (3.5-5.0); Albumin/Globulin Ratio 0.8 (1.1-2.2); Alkaline Phosphatase 152 Units/L (38-126); Aspartate Amino Transferase 16 Units/L (5-34); BUN/Creatinine Ratio 19 (6-26); Bilirubin,Total 0.3 mg/dL (0.2-1.2); Blood Urea Nitrogen 13 mg/dL (7-20); Calcium 9.9 mg/dL (8.6-10.8); Carbon Dioxide 28 mEq/L (19-29); Chloride 105 mEq/L (98-109); Globulin 3.7 g/dL (2.4-3.5); Glucose 108 mg/dL (70-99); Magnesium 1.6 mg/dL (1.6-2.6); Osmolality,Calculated 293 (280-300); Phosphorous 3.4 mg/dL (2.3-4.7); Potassium 4.1 mEq/L (3.5-4.5); Sodium 141 mEq/L (136-145); Total Protein 6.6 g/dL (6.0-8.3); eGFR For African Americans > 60 (> 60); eGFR For Non-African Americans > 60 (> 60)
[2016-08-27] MEDS: *HR* Heparin 5,000 UNIT/ML VIAL SQ SCH ×2 (06:38→17:12)
[2016-08-27] MEDS: Budesonide/Formoterol 160/4.5 MDI IH SCH ×2 (10:26→21:04)
[2016-08-27] MEDS: Aspirin Enteric Coated 81 MG Tablet PO SCH (10:48)
[2016-08-27] MEDS: Levofloxacin 750 MG/150 ML 750 MG/150 ML BAG IVPB SCH (10:48)
[2016-08-27] MEDS: Furosemide 20 MG TABLET PO SCH (10:48)
[2016-08-27] MEDS: predniSONE 20 MG TABLET PO SCH (10:48)
[2016-08-27] MEDS: (Memantine Hcl [Namenda Xr] 28 MG) PO SCH (12:20)
--- NOTE | 2016-08-27 13:13 | Internal Med Progress Note ---
<Soren Nath - Last Filed: 08/27/16 13:53> Date of Encounter: 08/27/16 Time of Encounter: 13:53 - Assessment and plan (1) Acute encephalopathy Current Visit: Yes Status: Acute Assessment and plan: Acute encephalopathy in setting of hx of Alzheimer's dementia likely 2nd to UTI Possible pneumonia however less likely as: Patient saturating greater than 90% on home 2.5 L O2, afebrile, no leukocytosis, chest x-ray negative, lung exam clear. Patient continues to be agitated. Shee now has a sitter. Patient is eating her meals. Alert and oriented to self Urine culture negative Sputum culture pending. Blood cultures pending. Continue to monitor. (2) Acute and chronic respiratory failure Current Visit: Yes Status: Acute Assessment and plan: As noted above patient desaturated on 3.5 L oxygen at home to 84%. Currently patient is on 2.5 L oxygen and satting at 96%. Secondary to suspected community acquired pneumonia but less likley and COPD exacerbation. continue DuoNeb, prednisone, Levaquin (day 2). Qualifiers: Respiratory failure complication: hypoxia Qualified Code(s): J96.21 - Acute and chronic respiratory failure with hypoxia (3) Community acquired pneumonia Current Visit: Yes Status: Suspected Assessment and plan: Patient presents with change in sputum color, increased sputum production that is yellowish green and desaturation to 84% on 3.5 L oxygen. In beginning of July 2016 patient was admitted for community acquired pneumonia treated with levofloxacin. At that time no organism was isolated on culture. Video fluoroscopic swallow found thin liquid barium aspiration. This patient has history of dementia and past history of aspiration pneumonia this cannot be ruled out currently. We will continue Levaquin and await blood culture, sputum culture and blood culture sensitivities. (4) UTI (urinary tract infection) Current Visit: Yes Status: Suspected Assessment and plan: per family no report or complaint of pain with urination Urinalysis shows leukocyte esterace, bacteria, wbc urine culture negative continue levaquin day 2. Qualifiers: Urinary tract infection type: acute cystitis Hematuria presence: without hematuria Qualified Code(s): N30.00 - Acute cystitis without hematuria (5) DVT prophylaxis Current Visit: Yes Status: Acute Assessment and plan: continue heparin (6) COPD (chronic obstructive pulmonary disease) Current Visit: Yes Status: Chronic Assessment and plan: Patient is a former smoker quit 15 years ago. Creatinine 3.5 L of oxygen outpatient. On Advair outpatient. We will continue this. Started on prednisone and DuoNeb's for COPD exacerbation. Continue oxygen supplementation. Currently saturating at 96% on 3.5 L of oxygen Qualifiers: COPD type: emphysema Emphysema type: unspecified Qualified Code(s): J43.9 - Emphysema, unspecified (7) Dementia Current Visit: Yes Status: Chronic Assessment and plan: Patient is a history of Alzheimer's dementia. She is on donepezil and memantine will continue this. Underwent bedside swallow eval will continue this. On previous admission patient had a video fluoroscopic swallow and speech therapy recommended soft textures of neck to her thickened liquids. Qualifiers: Dementia type: Alzheimer's disease Alzheimer's disease onset: late-onset Dementia behavioral disturbance: without behavioral disturbance Qualified Code (s): G30.1 - Alzheimer's disease with late onset; F02.80 - Dementia in other diseases classified elsewhere without behavioral disturbance (8) Status post fracture of femur Current Visit: Yes Status: Chronic Assessment and plan: Patient is status post left femur fracture. She does not complain about left hip pain. Status post left hip intramedullary nailing. Followed by Dr. Santiago Currently there is no erythema, warmth at the left hip. - Subjective Interval history: Patient continues to be aggressive, nonverbal. Alert and oriented to self. - Constitutional Vitals: Temp Pulse Resp BP Pulse Ox 97.6 F 88 20 143/66 96 08/27/16 11:27 08/27/16 11:27 08/27/16 11:27 08/27/16 11:27 08/27/16 11:27 General appearance: Present: A&O X 1 (To self) Exam: Agitated, aggressive - Respiratory Respiratory exam: Present: CTAB. Absent: accessory muscle use, rales, rhonchi, wheezes - Cardiovascular Cardiovascular exam: Present: RRR, +S1, +S2. Absent: diastolic murmur, gallop, rubs, systolic murmur - GI/Abdominal GI/Abdominal exam: Present: normal bowel sounds, soft, no peritoneal signs. Absent: distended, tenderness - Extremities Exam Extremities exam: Present: warm, radial pulses palpable and symetrical. Absent : calf tenderness, cyanotic, pedal edema - Psychiatric Psychiatric exam: Present: agitated, anxious, flat affect Internal Medicine: Result - Labs CBC & Chem 7: 08/27/16 04:58 08/27/16 04:58 Labs: Short CBC 08/27/16 Range/Units 04:58 WBC 4.6 (4.3-11.1) K/mcL Hgb 10.7 L (11.5-15.4) g/dL Hct 33.7 L (35.3-44.9) % Plt Count 201 (140-400) K/mcL Neutrophils # 2.9 (1.6-8.9) K/mcL BMP 08/27/16 04:58 Sodium 141 Potassium 4.1 Chloride 105 Carbon Dioxide 28 BUN 13 Creatinine 0.69 Glucose 108 H Calcium 9.9 Liver Function 08/27/16 Range/Units 04:58 Total Bilirubin 0.3 (0.2-1.2) mg/dL AST 16 (5-34) Units/L ALT 11 (0-55) Units/L Alkaline Phosphatase 152 H (38-126) Units/L Albumin 2.9 L (3.5-5.0) g/dL Consult Discharge Plan - Plan Referrals: Darren Oneill, [Primary Care Provider] - <Ted Birmingham - Last Filed: 08/27/16 17:32> Date of Encounter: 08/27/16 - Constitutional Vitals: Temp Pulse Resp BP Pulse Ox 98.3 F 90 20 150/68 96 08/27/16 16:47 08/27/16 16:47 08/27/16 16:47 08/27/16 16:47 08/27/16 16:47 Internal Medicine: Result - Labs CBC & Chem 7: 08/27/16 04:58 08/27/16 04:58 Labs: Short CBC 08/27/16 Range/Units 04:58 WBC 4.6 (4.3-11.1) K/mcL Hgb 10.7 L (11.5-15.4) g/dL Hct 33.7 L (35.3-44.9) % Plt Count 201 (140-400) K/mcL Neutrophils # 2.9 (1.6-8.9) K/mcL BMP 08/27/16 04:58 Sodium 141 Potassium 4.1 Chloride 105 Carbon Dioxide 28 BUN 13 Creatinine 0.69 Glucose 108 H Calcium 9.9 Liver Function 08/27/16 Range/Units 04:58 Total Bilirubin 0.3 (0.2-1.2) mg/dL AST 16 (5-34) Units/L ALT 11 (0-55) Units/L Alkaline Phosphatase 152 H (38-126) Units/L Albumin 2.9 L (3.5-5.0) g/dL - Attending Attestation I examined this patient and my medical decision-making was reviewed with the LOG CUT OFF SAWYER/PA/Advanced Practice Nurse/Resident Physician. I agree with the documented findings, disposition and treatment plan as described except to the extent set forth below.
[2016-08-27] MEDS ORDERED: Melatonin 3 MG TABLET PO SCH (21:00)
[2016-08-27] MEDS: risperiDONE 0.25 MG TABLET PO SCH (21:52)
[2016-08-28] MEDS: Ipratropium/Albuterol Neb 3 ML IH SCH ×2 (03:49→11:13)
[2016-08-28 05:54] LABS: Basophils % 0.2 %; Eosinophils % 0.2 %; Hematocrit 33.8 % (35.3-44.9); Hemoglobin 10.9 g/dL (11.5-15.4); Immature Granulocytes % 0.4 % (0-4); Lymphocytes # 0.8 K/mcL (0.6-4.6); Lymphocytes % 16.2 %; Mean Corpuscular HGB Conc 32.2 g/dL (31.6-35.5); Mean Corpuscular Hemoglobin 30.1 pg (28.0-33.3); Mean Corpuscular Volume 93.4 fL (83.0-100.0); Monocytes # 0.1 K/mcL (0.0-1.3); Neutrophils # 3.8 K/mcL (1.6-8.9); Platelet Count 200 K/mcL (140-400); Red Blood Count 3.62 M/mcL (3.82-4.97); Red Cell Distribution Width 14.8 % (11.5-14.5)
[2016-08-28] MEDS: *HR* Heparin 5,000 UNIT/ML VIAL SQ SCH (06:27)
[2016-08-28 07:25] VITALS: BP 173/89
[2016-08-28] MEDS: Aspirin Enteric Coated 81 MG Tablet PO SCH (08:42)
[2016-08-28] MEDS: (Memantine Hcl [Namenda Xr] 28 MG) PO SCH (08:42)
[2016-08-28] MEDS: Furosemide 20 MG TABLET PO SCH (08:42)
[2016-08-28] MEDS: predniSONE 20 MG TABLET PO SCH (08:42)
[2016-08-28] MEDS ORDERED: levoFLOXacin 500 MG TABLET PO SCH (09:00)
[2016-08-28] MEDS: Budesonide/Formoterol 160/4.5 MDI IH SCH (11:13)
--- NOTE | 2016-08-28 11:56 | Discharge Summary ---
<Soren Nath - Last Filed: 08/28/16 13:08> Date of Encounter: 08/28/16 Time of Encounter: 13:08 - Discharge Diagnosis (1) Acute encephalopathy Priority: Primary Status: Acute (2) Acute and chronic respiratory failure Priority: Secondary Status: Acute Qualifiers: Respiratory failure complication: hypoxia Qualified Code(s): J96.21 - Acute and chronic respiratory failure with hypoxia (3) Community acquired pneumonia Priority: Secondary Status: Suspected (4) UTI (urinary tract infection) Priority: Secondary Status: Suspected Qualifiers: Urinary tract infection type: acute cystitis Hematuria presence: without hematuria Qualified Code(s): N30.00 - Acute cystitis without hematuria (5) DVT prophylaxis Priority: Secondary Status: Acute (6) COPD (chronic obstructive pulmonary disease) Priority: Secondary Status: Chronic Qualifiers: COPD type: emphysema Emphysema type: unspecified Qualified Code(s): J43.9 - Emphysema, unspecified (7) Dementia Priority: Secondary Status: Chronic Qualifiers: Dementia type: Alzheimer's disease Alzheimer's disease onset: late-onset Dementia behavioral disturbance: without behavioral disturbance Qualified Code (s): G30.1 - Alzheimer's disease with late onset; F02.80 - Dementia in other diseases classified elsewhere without behavioral disturbance (8) Status post fracture of femur Priority: Secondary Status: Chronic - Discharge Medications Prescriptions: Ipratropium Neb [Atrovent Neb] 0.5 mg IH Q6HR #1 vial levoFLOXacin [Levaquin] 750 mg PO DAILY #5 tablet OxyCODONE Immed Rel [Roxicodone 5 MG] 5 mg PO Q4H PRN #20 tablet PRN Reason: moderate to severe pain Home Medications: Aspirin Enteric Coated [Aspirin EC] 81 mg PO DAILY #0 07/04/15 [History] Donepezil [Aricept] 10 mg PO HS #0 07/04/15 [History] Sertraline [Zoloft] 150 mg PO DAILY #0 07/05/15 [History] Furosemide [Lasix] 20 mg PO DAILY 11/02/15 [History] Memantine HCl [Namenda Xr] 28 mg PO DAILY 11/02/15 [History] Temazepam [Restoril] 15 mg PO HS PRN #14 capsule 11/05/15 [Rx] risperiDONE [RisperDAL] 0.5 mg PO HS #14 tablet 11/05/15 [Rx] Montelukast [Singulair] 10 mg PO DAILY 07/12/16 [History] Potassium Chloride [Klor-Con Sprinkle] 10 meq PO DAILY 07/12/16 [History] GuaiFENesin ER [Mucinex] 1,200 mg PO BID 07/14/16 [History] Albuterol Neb [Proventil Neb] 2.5 mg IH Q2H PRN #0 inhsol 07/17/16 [Rx] Docusate [Colace] 100 mg PO BID #0 capsule 07/17/16 [Rx] Mag Hydrox/Al Hydrox/Simeth [Maalox] 15 ml PO Q6HR PRN #0 udc 07/17/16 [Rx] Fluticasone/Salmeterol [Advair 250-50 Diskus] 1 puff IH BID 07/27/16 [History] Pantoprazole Sodium [Protonix] 40 mg PO DAILY 07/27/16 [History] L. Acidophilus/Pectin, [place] [Acidophilus Probiotic Capsule] 1 cap PO DAILY [History] Magnesium Hydroxide [Milk of Magnesia] 30 ml PO QWEEK PRN 08/26/16 [History] Ipratropium Neb [Atrovent Neb] 0.5 mg IH Q6HR #1 vial 08/28/16 [Rx] OxyCODONE Immed Rel [Roxicodone 5 MG] 5 mg PO Q4H PRN #20 tablet 08/28/16 [Rx] levoFLOXacin [Levaquin] 750 mg PO DAILY #5 tablet 08/28/16 [Rx] Allergies/Adverse Reactions: Allergies No Known Allergies Allergy (Verified 07/04/15 21:39) Date of admission: 08/26/16 17:39 Primary care physician: Darren Oneill Consults: 08/27/16 09:40 Consult to Control Cabinet Assembler [CONS] Routine Reason for Consult: Poss return to [facility] Discharging clinician: Soren Nath Anticipated date of discharge: 08/28/16 - Patient Status Disposition: Home, Self-Care Condition: Fair Functional capacity at discharge: uses cane/walker Overall status at discharge: patient is progressing back to baseline - Discharge Instructions Instructions: Acute Respiratory Distress Syndrome (DC), Chronic Obstructive Pulmonary Disease (DC), Pneumonia (DC) Follow Up With: Darren Oneill DO [Primary Care Provider] - 09/04/16 8:45 am Additional Instructions: Please return to ER if shortness of breath worsens, patient has altered mental status, patient become progressive, unresponsive, complaints of chest pain, nausea, vomiting. Please finish 5 days of Levaquin. - Diet and Activity Activity: increase activity as tolerated, wear oxygen at all times Diet: other (Mechanically altered diet, ground meat, nectar thick) Interval History: 76-year-old female history of dementia, COPD, CAD, left femur fracture presents to ER with daughter chief complaint confusion. At baseline patient is alert and oriented to self, and collected. For the past few days patient has been agitated, aggressive. She has had productive yellowish, green sputum, and shortness of breath that started yesterday. Patient has history of COPD, on 3.5 L of oxygen at home and was desaturating to 84%. Patient was pulling off IV , leads. Urinalysis showed moderate leukocyte esterase and bacteria, 15-30 white blood cells. BMP had no electrolyte abnormalities, possible count on CBC was normal. Hemoglobin was 11.6. Chest x-ray showed bibasilar consistent with unchanged from previous. Acute encephalopathy suspected secondary to UTI/ possible pneumonia. Hospital course: Patient was started on Levaquin for possible UTI, suspected pneumonia. She is also on scheduled nebs and prednisone for acute on chronic respiratory failure. At home patient is not interested, this was continued inpatient saturations remained above 90%. Sputum culture, urine culture, blood cultures negative. Patient was on Levaquin for 2 days and remained afebrile, normotensive, with normal heart rate. Her mental status was variable, patient became agitated with staff. However this morning she is more calm and collected. Patient is more verbal. She is taking her medications. She is able to tolerate her diet and ambulating on her own. Lung sounds are clear to auscultation. Patient will be discharged to home with her family. Plan: Finish antibiotic regimen of Levaquin 750 mg daily for 5 days. Follow-up with PCP in the next 7 days. Continue home Symbicort, nebulizer treatments. - Time Spent with Patient Total time spent providing and/or coordinating discharge services: - Constitutional Vitals: Temp Pulse Resp BP Pulse Ox 97.7 F 88 15 173/89 96 08/28/16 05:01 08/28/16 07:00 08/28/16 07:00 08/28/16 07:00 08/28/16 09:02 General appearance: Present: A&O X 1 (To self) - Head Head exam: Present: atraumatic, normocephalic - Eye Eye exam: Present: PERRL, conjuntiva pink, sclera anicteric - Neck Neck exam general surgery: Present: supple, trachea midline. Absent: lymphadenopathy - Respiratory Respiratory exam: Present: CTAB. Absent: accessory muscle use, rales, rhonchi, wheezes - Cardiovascular Cardiovascular exam: Present: RRR, +S1, +S2. Absent: diastolic murmur, gallop, rubs, systolic murmur - GI/Abdominal GI/Abdominal exam: Present: normal bowel sounds, soft, no peritoneal signs. Absent: distended, tenderness - Extremities Exam Extremities exam: Present: warm, radial pulses palpable and symetrical. Absent : calf tenderness, cyanotic, pedal edema - Neurological Exam Neurological exam: Present: CN II-XII intact, no focal deficits. Absent: oriented X3 (self), pronater drift, facial droop, speech deficit - Skin Skin exam: Present: dry, intact <Valencia,Ted P - Last Filed: 08/28/16 17:51> Date of Encounter: 08/28/16 Date of admission: 08/26/16 17:39 Primary care physician: Darren Oneill Consults: 08/27/16 09:40 Consult to Control Cabinet Assembler [CONS] Routine Reason for SW Consult: Poss return to [facility] Hospital course: Ms. Cartagena is a 76 year old female - Time Spent with Patient Total time spent providing and/or coordinating discharge services: - Constitutional Vitals: Temp Pulse Resp BP Pulse Ox 97.7 F 88 20 173/89 97 08/28/16 05:01 08/28/16 07:00 08/28/16 11:13 08/28/16 07:00 08/28/16 11:13 - Attending Attestation I examined this patient and my medical decision-making was reviewed with the CONCRETE FINISHER/PA/Advanced Practice Nurse/Resident Physician. I agree with the documented findings, disposition and treatment plan as described except to the extent set forth below.
--- NOTE | 2016-08-28 15:22 | Physician Discharge Referral ---
<Soren Nath - Last Filed: 08/28/16 15:22> Home Health/Hosp Referral Info Transfer to: Home Health Attending Provider: Dr. Birmingham Provider in Charge Post Discharge: PCP - Diagnosis (1) Acute encephalopathy Priority: Primary Status: Acute (2) Acute and chronic respiratory failure Priority: Secondary Status: Acute (3) Community acquired pneumonia Priority: Secondary Status: Suspected (4) UTI (urinary tract infection) Priority: Secondary Status: Suspected (5) DVT prophylaxis Priority: Secondary Status: Acute (6) COPD (chronic obstructive pulmonary disease) Priority: Secondary Status: Chronic (7) Dementia Priority: Secondary Status: Chronic (8) Status post fracture of femur Priority: Secondary Status: Chronic - Respiratory Orders Oxygen / L per min (3.5) Smoking Cessation: Smoking cessation has been advised. For more information, call the [place] [employer] Quit Line at 8-868-TFBH-NOW. - Diet/Nutrition Diet/Nutrition: List: mechanically altered ground meat nectar thick diet. - Activity Activity Orders: Ambulate - Services Needed Following services are medically necessary services: Nursing, Home Health Aide - Transfer Medications Prescriptions: Ipratropium Neb [Atrovent Neb] 0.5 mg IH Q6HR #1 vial levoFLOXacin [Levaquin] 750 mg PO DAILY #5 tablet OxyCODONE Immed Rel [Roxicodone 5 MG] 5 mg PO Q4H PRN #20 tablet PRN Reason: moderate to severe pain Home Medications: Aspirin Enteric Coated [Aspirin EC] 81 mg PO DAILY #0 07/04/15 [History] Donepezil [Aricept] 10 mg PO HS #0 07/04/15 [History] Sertraline [Zoloft] 150 mg PO DAILY #0 07/05/15 [History] Furosemide [Lasix] 20 mg PO DAILY 11/02/15 [History] Memantine HCl [Namenda Xr] 28 mg PO DAILY 11/02/15 [History] Temazepam [Restoril] 15 mg PO HS PRN #14 capsule 11/05/15 [Rx] risperiDONE [RisperDAL] 0.5 mg PO HS #14 tablet 11/05/15 [Rx] Montelukast [Singulair] 10 mg PO DAILY 07/12/16 [History] Potassium Chloride [Klor-Con Sprinkle] 10 meq PO DAILY 07/12/16 [History] GuaiFENesin ER [Mucinex] 1,200 mg PO BID 07/14/16 [History] Albuterol Neb [Proventil Neb] 2.5 mg IH Q2H PRN #0 inhsol 07/17/16 [Rx] Docusate [Colace] 100 mg PO BID #0 capsule 07/17/16 [Rx] Mag Hydrox/Al Hydrox/Simeth [Maalox] 15 ml PO Q6HR PRN #0 udc 07/17/16 [Rx] Fluticasone/Salmeterol [Advair 250-50 Diskus] 1 puff IH BID 07/27/16 [History] Pantoprazole Sodium [Protonix] 40 mg PO DAILY 07/27/16 [History] L. Acidophilus/Pectin, [place] [Acidophilus Probiotic Capsule] 1 cap PO DAILY [History] Magnesium Hydroxide [Milk of Magnesia] 30 ml PO QWEEK PRN 08/26/16 [History] Ipratropium Neb [Atrovent Neb] 0.5 mg IH Q6HR #1 vial 08/28/16 [Rx] OxyCODONE Immed Rel [Roxicodone 5 MG] 5 mg PO Q4H PRN #20 tablet 08/28/16 [Rx] levoFLOXacin [Levaquin] 750 mg PO DAILY #5 tablet 08/28/16 [Rx] Allergies/Adverse Reactions: Allergies No Known Allergies Allergy (Verified 07/04/15 21:39) Certification: Further, I certify that my clinical findings support that this patient is homebound (i.e. absences from home require considerable and taxing effort and are for medical reasons or restorationism services or infrequently or short duration when for other reasons) because: Homebound Reason: Patient requires assistance of a person or device to safely leave home, Absences from home are contraindicated except to recieve medical care Attestation: My signature below is to certify that this patient is under my care and that I, or nurse practitioner, or a physician's home health assistant working with me, has a face-to -face encounter with this patient. <Ted Birmingham P - Last Filed: 08/28/16 17:52> - Respiratory Orders Smoking Cessation: Smoking cessation has been advised. For more information, call the [place] [employer] Quit Line at 3-893-NABZ-NOW. Certification: Further, I certify that my clinical findings support that this patient is homebound (i.e. absences from home require considerable and taxing effort and are for medical reasons or restorationism services or infrequently or short duration when for other reasons) because: Attestation: My signature below is to certify that this patient is under my care and that I, or nurse practitioner, or a physician's home health assistant working with me, has a face-to -face encounter with this patient.
== END 2016-08-28 16:27 | disposition home or self-care (01) | DRG 463 ==
LOC: EMEROO 08:23 → 2NENU 08:23
PROVIDERS: ADMIT Internal Medicine Endocrinology, Diabetes & Metabolism; ATTEND Internal Medicine

== ENCOUNTER 2016-09-06 15:39 | Observation (INO) ==
--- NOTE | 2016-09-06 15:55 | Emergency Department Note ---
START Narrative - START START: I examined this patient and my medical decision-making was reviewed with the FACILITY MAINTENANCE TECHNICIAN/PA/Advanced Practice Nurse/Resident Physician. I agree with the documented findings, disposition and treatment plan as described except to the extent set forth below. ED attending note: Patient seen with emergency medicine resident Dr. Dominguez. Please see a copy of his note for details of the H&P, evaluation, management and disposition of this patient. We independently had [id number] contact with the patient Briefly: A 76-year-old female via EMS from home for acute confusional state. Patient discharged about a week and a half ago for Opnce for pneumonia. Patient having urinary symptoms bouts of confusion. She is very hard of hearing. Afebrile with stable vital signs here. Family members at bedside. Urinalysis screening labs and chest x-ray pending. Admission anticipated.
[2016-09-06] MEDS ORDERED: Ipratropium/Albuterol Neb 3 ML IH ONE (16:18)
[2016-09-06] MEDS ORDERED: 0.9 % Sodium Chloride 500 ML IVC ONE (16:19)
--- NOTE | 2016-09-06 16:19 | Emergency Department Note ---
Disposition Clinical Impression: Confusion UTI (urinary tract infection) Qualifiers: Urinary tract infection type: acute cystitis Hematuria presence: without hematuria Qualified Code(s): N30.00 - Acute cystitis without hematuria Disposition: Admitted As Inpatient Condition: Good General Adult HPI - General Chief complaint: ED Urogenital-Female Stated complaint: Urinary S/Sx Source: patient, family, EMS Limitations: other Nursing Notes Reviewed: Yes Vital Signs Reviewed: Yes - History of Present Illness HPI Narrative: Patient brought in for evaluation by family for increased confusion that started today. Patient has had a cough no increased oxygen requirements or sputum production. Patient has had a change in color to her urine as well as odor. Patient is very hard of hearing and is unable to answer a lot of questions. She does complain of pain with palpation to her right shoulder as well as her right and left pelvis. No palpation farther distally than the trochanter. 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 They do have home health that comes out and helps occasionally. It appears that this is likely a big burden as she is more confused but not too far from her baseline. Patient does not do much at home but does require constant 3 L of oxygen Pain Scale: 3 - Related Data Home Medications Medication Instructions Recorded Confirmed Aspirin Enteric Coated [Aspirin EC] 81 mg PO DAILY #0 07/04/15 09/06/16 Donepezil [Aricept] 10 mg PO HS #0 07/04/15 09/06/16 Sertraline [Zoloft] 150 mg PO DAILY #0 07/05/15 09/06/16 Furosemide [Lasix] 20 mg PO DAILY 11/02/15 09/06/16 Memantine HCl [Namenda Xr] 28 mg PO DAILY 11/02/15 09/06/16 Montelukast [Singulair] 10 mg PO DAILY 07/12/16 09/06/16 Potassium Chloride [Klor-Con 10 meq PO DAILY 07/12/16 09/06/16 Sprinkle] GuaiFENesin ER [Mucinex] 1,200 mg PO BID 07/14/16 09/06/16 Fluticasone/Salmeterol [Advair 1 puff IH BID 07/27/16 09/06/16 250-50 Diskus] Pantoprazole Sodium [Protonix] 40 mg PO DAILY 07/27/16 09/06/16 L. Acidophilus/Pectin, [place] 1 cap PO DAILY 08/26/16 09/06/16 [Acidophilus Probiotic Capsule] Magnesium Hydroxide [Milk of 30 ml PO QWEEK PRN 08/26/16 09/06/16 Magnesia] Previous Rx's Medication Instructions Recorded Temazepam [Restoril] 15 mg PO HS PRN #14 capsule 11/05/15 risperiDONE [RisperDAL] 0.5 mg PO HS #14 tablet 11/05/15 Albuterol Neb [Proventil Neb] 2.5 mg IH Q2H PRN #0 inhsol 07/17/16 Docusate [Colace] 100 mg PO BID #0 capsule 07/17/16 Mag Hydrox/Al Hydrox/Simeth 15 ml PO Q6HR PRN #0 udc 07/17/16 [Maalox] Ipratropium Neb [Atrovent Neb] 0.5 mg IH Q6HR #1 vial 08/28/16 OxyCODONE Immed Rel [Roxicodone 5 5 mg PO Q4H PRN #20 tablet 08/28/16 MG] levoFLOXacin [Levaquin] 750 mg PO DAILY #5 tablet 08/28/16 Allergies Allergy/AdvReac Type Severity Reaction Status Date / Time No Known Allergies Allergy Verified 07/04/15 21:39 Review of Systems: Per family increased confusion. Recent UTI and pneumonia. Change in color and odor of urine Limitations: ROS unobtainable due to patients medical condition Past Medical History - Past Medical History Medical history: Reports: arthritis, CHF, COPD, coronary artery disease, dementia, hypertension, osteoporosis, other Surgical history: Reports: non-contributory, other Psychiatric history: Reports: anxiety, other - Social History Smoking Status: Former smoker Smokeless Tobacco Status: No Alcohol use: Reports: none Drug use: Reports: none Physical Exam General appearance: NAD, very hard of hearing, difficult time following commands. Eyes: anicteric sclerae, moist conjunctivae; PERRL HENT: Atraumatic; oropharynx clear with moist mucous membranes and no mucosal ulcerations Neck: Normal inspection; Trachea midline; FROM, supple Lungs: Diminished with occasional wheezing CV: RRR, no MRGs Abdomen: Soft, non-tender; no rebound or gaurding Extremities: No peripheral edema or extremity lymphadenopathy Skin: Normal temperature; no rash, ulcers or lesions Psych: Flat affect Neuro: Awake and alert - General Limitations: other General appearance: alert, in no apparent distress Course - Reevaluation(s) Reevaluation #1: UTI without significant abnormalities on blood work or imaging.. - Consultations Consultation #1: Discussed with Dr. Hummel. Patient accepted for admission. Vital Signs Temperature 97.2 F L 09/06/16 15:41 Pulse Rate 91 09/06/16 15:41 Respiratory Rate 20 09/06/16 15:41 Blood Pressure 168/84 09/06/16 15:41 O2 Sat by Pulse Oximetry 96 09/06/16 15:41 Temperature 97.2 F L 09/06/16 15:41 Pulse Rate 95 09/06/16 17:03 Respiratory Rate 18 09/06/16 17:49 Blood Pressure 145/77 09/06/16 17:49 O2 Sat by Pulse Oximetry 97 09/06/16 17:03 Oxygen Delivery Oxygen Delivery Nasal Cannula Medical Decision Making - Lab Data Result diagrams: 09/06/16 16:14 09/06/16 16:14 Lab Results 09/06/16 09/06/16 09/06/16 Range/Units 16:14 16:14 16:14 WBC 7.5 (4.3-11.1) K/mcL RBC 3.94 (3.82-4.97) M/mcL Hgb 11.7 (11.5-15.4) g/dL Hct 36.2 (35.3-44.9) % MCV 91.9 (83.0-100.0) fL MCH 29.7 (28.0-33.3) pg MCHC 32.3 (31.6-35.5) g/dL RDW 14.3 (11.5-14.5) % Plt Count 171 (140-400) K/mcL MPV 9.9 (9.4-12.4) fL Immature Gran % 0.5 (0-4) % Seg Neutrophils % 67.7 % Lymphocytes % 16.9 % Monocytes % 9.4 % Eosinophils % 5.1 % Basophils % 0.4 % Neutrophils # 5.1 (1.6-8.9) K/mcL Lymphocytes # 1.3 (0.6-4.6) K/mcL Monocytes # 0.7 (0.0-1.3) K/mcL Eosinophils # 0.4 (0.0-0.6) K/mcL Basophils # 0.0 (0.0-0.2) K/mcL Sodium 138 (136-145) mEq/L Potassium 3.7 (3.5-4.5) mEq/L Chloride 101 (98-109) mEq/L Carbon Dioxide 27 (19-29) mEq/L BUN 10 (7-20) mg/dL Creatinine 0.67 (0.57-1.11) mg/dL Est GFR ( Amer) > 60 (> 60) Est GFR (Non-Af Amer) > 60 (> 60) BUN/Creatinine Ratio 15 (6-26) Glucose 132 H (70-99) mg/dL Calculated Osmolality 287 (280-300) Lactic Acid (0.5-2.2) mmol/L Calcium 9.8 (8.6-10.8) mg/dL Magnesium 1.6 (1.6-2.6) mg/dL Total Bilirubin 0.5 (0.2-1.2) mg/dL AST 14 (5-34) Units/L ALT 11 (0-55) Units/L Alkaline Phosphatase 142 H (38-126) Units/L Troponin I 0.01 (0-0.03) ng/mL Serum Total Protein 6.8 (6.0-8.3) g/dL Albumin 3.0 L (3.5-5.0) g/dL Globulin 3.8 H (2.4-3.5) g/dL Albumin/Globulin Ratio 0.8 L (1.1-2.2) TSH 0.602 (0.350-4.840) mcIU/mL Urine Color (Yellow) Urine Clarity (Clear) Urine pH (5.0-8.0) pH Units Ur Specific [place] (1.010-1.025) Urine Protein (Neg-Trace) mg/dL Urine Glucose (UA) (Normal) mg/dL Urine Ketones (Negative) mg/dL Urine Blood (Negative) Urine Nitrite (Negative) Urine Bilirubin (Negative) Urine Urobilinogen (Normal) mg/dL Ur Leukocyte Esterase (Negative) Urine Microscopic RBC (0-3) per hpf Urine Microscopic WBC (0-3) per hpf Ur Squamous Epith Cells (None-Few) per lpf Urine Bacteria (None-Few) per hpf Hyaline Casts (None-Few) per lpf Ur Culture Indicated? (NO) 09/06/16 09/06/16 Range/Units 16:14 16:24 WBC (4.3-11.1) K/mcL RBC (3.82-4.97) M/mcL Hgb (11.5-15.4) g/dL Hct (35.3-44.9) % MCV (83.0-100.0) fL MCH (28.0-33.3) pg MCHC (31.6-35.5) g/dL RDW (11.5-14.5) % Plt Count (140-400) K/mcL MPV (9.4-12.4) fL Immature Gran % (0-4) % Seg Neutrophils % % Lymphocytes % % Monocytes % % Eosinophils % % Basophils % % Neutrophils # (1.6-8.9) K/mcL Lymphocytes # (0.6-4.6) K/mcL Monocytes # (0.0-1.3) K/mcL Eosinophils # (0.0-0.6) K/mcL Basophils # (0.0-0.2) K/mcL Sodium (136-145) mEq/L Potassium (3.5-4.5) mEq/L Chloride (98-109) mEq/L Carbon Dioxide (19-29) mEq/L BUN (7-20) mg/dL Creatinine (0.57-1.11) mg/dL Est GFR ( Amer) (> 60) Est GFR (Non-Af Amer) (> 60) BUN/Creatinine Ratio (6-26) Glucose (70-99) mg/dL Calculated Osmolality (280-300) Lactic Acid 1.4 (0.5-2.2) mmol/L Calcium (8.6-10.8) mg/dL Magnesium (1.6-2.6) mg/dL Total Bilirubin (0.2-1.2) mg/dL AST (5-34) Units/L ALT (0-55) Units/L Alkaline Phosphatase (38-126) Units/L Troponin I (0-0.03) ng/mL Serum Total Protein (6.0-8.3) g/dL Albumin (3.5-5.0) g/dL Globulin (2.4-3.5) g/dL Albumin/Globulin Ratio (1.1-2.2) TSH (0.350-4.840) mcIU/mL Urine Color Yellow (Yellow) Urine Clarity Cloudy A (Clear) Urine pH 6.0 (5.0-8.0) pH Units Ur Specific [place] 1.020 (1.010-1.025) Urine Protein Negative (Neg-Trace) mg/dL Urine Glucose (UA) Normal (Normal) mg/dL Urine Ketones Negative (Negative) mg/dL Urine Blood Small H (Negative) Urine Nitrite Positive A (Negative) Urine Bilirubin Negative (Negative) Urine Urobilinogen Normal (Normal) mg/dL Ur Leukocyte Esterase Large H (Negative) Urine Microscopic RBC 0-3 (0-3) per hpf Urine Microscopic WBC TNTC H (0-3) per hpf Ur Squamous Epith Cells Few (None-Few) per lpf Urine Bacteria Many H (None-Few) per hpf Hyaline Casts Moderate H (None-Few) per lpf Ur Culture Indicated? YES A (NO)
[2016-09-06 16:21] LABS: Basophils % 0.4 %; Eosinophils # 0.4 K/mcL (0.0-0.6); Eosinophils % 5.1 %; Hematocrit 36.2 % (35.3-44.9); Hemoglobin 11.7 g/dL (11.5-15.4); Immature Granulocytes % 0.5 % (0-4); Lymphocytes # 1.3 K/mcL (0.6-4.6); Lymphocytes % 16.9 %; Mean Corpuscular HGB Conc 32.3 g/dL (31.6-35.5); Mean Corpuscular Hemoglobin 29.7 pg (28.0-33.3); Mean Corpuscular Volume 91.9 fL (83.0-100.0); Mean Platelet Volume 9.9 fL (9.4-12.4); Monocytes # 0.7 K/mcL (0.0-1.3); Monocytes % 9.4 %; Neutrophils # 5.1 K/mcL (1.6-8.9); Platelet Count 171 K/mcL (140-400); Red Blood Count 3.94 M/mcL (3.82-4.97); Red Cell Distribution Width 14.3 % (11.5-14.5); Segmented Neutrophils % 67.7 %
[2016-09-06 16:33] LABS: Bilirubin,Urine Negative (Negative); Blood,Urine Small (Negative); Clarity,Urine Cloudy (Clear); Color,Urine Yellow (Yellow); Glucose,Urine (UA) Normal (Normal); Ketones,Urine Negative (Negative); Leukocyte Esterase,Urine Large (Negative); Nitrite,Urine Positive (Negative); Protein,Urine Negative (Neg-Trace); Urobilinogen,Urine Normal (Normal)
[2016-09-06 16:34] LABS: Alanine Aminotransferase 11 Units/L (0-55); Albumin/Globulin Ratio 0.8 (1.1-2.2); Alkaline Phosphatase 142 Units/L (38-126); Aspartate Amino Transferase 14 Units/L (5-34); BUN/Creatinine Ratio 15 (6-26); Bilirubin,Total 0.5 mg/dL (0.2-1.2); Blood Urea Nitrogen 10 mg/dL (7-20); Calcium 9.8 mg/dL (8.6-10.8); Carbon Dioxide 27 mEq/L (19-29); Chloride 101 mEq/L (98-109); Globulin 3.8 g/dL (2.4-3.5); Glucose 132 mg/dL (70-99); Magnesium 1.6 mg/dL (1.6-2.6); Osmolality,Calculated 287 (280-300); Potassium 3.7 mEq/L (3.5-4.5); Sodium 138 mEq/L (136-145); Total Protein 6.8 g/dL (6.0-8.3); eGFR For African Americans > 60 (> 60); eGFR For Non-African Americans > 60 (> 60)
[2016-09-06 16:36] LABS: Bacteria,Urine Many per hpf (None-Few); Hyaline Casts,Urine Moderate per lpf (None-Few); RBC,Urine 0-3 per hpf (0-3); Squamous Epithelial Cell,Urine Few per lpf (None-Few); WBC,Urine TNTC per hpf (0-3)
[2016-09-06 16:56] LABS: Thyroid Stimulating Hormone 0.602 mcIU/mL (0.350-4.840)
[2016-09-06] MEDS ORDERED: Naloxone 0.4 MG/ML INJ IVP PRN (17:24)
[2016-09-06] MEDS ORDERED: Acetaminophen 325 MG TABLET PO PRN (17:24)
[2016-09-06] MEDS ORDERED: *HR* HYDROcodone/Acet 5/325 mg TABLET PO PRN (17:24)
[2016-09-06] MEDS ORDERED: Ondansetron 4 MG/2 ML VIAL IVP PRN (17:24)
--- NOTE | 2016-09-06 18:34 | Internal Med History&Physical ---
Date of Encounter: 09/06/16 Time of Encounter: 17:15 Assessment and Plan (1) Acute encephalopathy Current visit: Yes Status: Acute acute metabolic encephalopathy. Ct head showed no acute intracranial process, ventriculomegaly. likely secondary to UTI. continue ceftriaxone. (2) UTI (urinary tract infection) Current visit: No Status: Acute Patient is a poor historian due to advanced dementia, her family is at bedside and answering all questions. Yesterday evening, her family noticed that she was more confused and acting strange. She did complained of mild pain in her lower abdomen and left hip. No nausea, no vomiting, no diarrhea, no urinary complaints , no fever, no chills. UA was positive for infection. Iv fluids, gently hydration. IV ceftriaxone. f/u urine culture. Qualifiers: Urinary tract infection type: acute cystitis Hematuria presence: without hematuria Qualified Code(s): N30.00 - Acute cystitis without hematuria (3) Abdominal pain Current visit: Yes Status: Acute likely secondary to UTI. CXR, pelvic XR and shoulder Xr showed no acute fracture. plan as uti Qualifiers: Abdominal location: lower abdomen, unspecified Qualified Code(s): R10.30 - Lower abdominal pain, unspecified (4) COPD (chronic obstructive pulmonary disease) Current visit: No Status: Chronic at baseline. continue oxygen at 3.5 L NC. nebs. Qualifiers: COPD type: emphysema Emphysema type: unspecified Qualified Code(s): J43.9 - Emphysema, unspecified (5) Chronic respiratory failure with hypoxia Current visit: No Status: Chronic plan as copd (6) History of dementia Current visit: Yes Status: Chronic (7) CAD (coronary artery disease) Current visit: No Status: Chronic aspirin. stable. Qualifiers: Coronary Disease-Associated Artery/Lesion type: [place] artery [place] vs. transplanted heart: [place] heart Associated angina: without angina Qualified Code(s): I25.10 - Atherosclerotic heart disease of [place] coronary artery without angina pectoris (8) Hypertension Current visit: No Status: Chronic stable bp. Qualifiers: Hypertension type: essential hypertension Qualified Code(s): I10 - Essential (primary) hypertension Internal Medicine - H&P: HPI Chief complaint: confusion since yesterday evening Admitted From: Home Plans for Post Hospital Care: Home History of present illness: Ms. Cartagena is a 76 year old female with past medical history significant for advanced dementia Alzheimer's type/behavioral disturbance, diastolic heart failure LVEF 65%, chronic respiratory failure on 3.5 L NC at home, COPD, multiple falls in the past, hypertension, osteoporosis, and paroxysmal atrial fibrillation. She is wheelchair ridden and fell a few weeks ago. Patient is a poor historian due to advanced dementia, her family is at bedside and answering all questions. Yesterday evening, her family noticed that she was more confused and acting strange. She did complained of mild pain in her lower abdomen and left hip. Her left leg swells up on and off. No nausea, no vomiting, no diarrhea , no urinary complaints, no fever, no chills, no chest pain, no shortness of breath, no headache. Past Med Surg Social Fam HX - Past Medical History Medical history: arthritis, CHF, COPD, coronary artery disease, dementia, hypertension, osteoporosis, other Psychiatric history: anxiety, other - Past Surgical History Surgical History: non-contributory, other - Social History Smoking Status: Former smoker Smokeless Tobacco Status: No Alcohol use: none Drug use: none - Family History Daughter Living Status: Still Living Hx Family Cardiac Disorders: Yes Hx Family Respiratory Disorders: Yes Hx Family Cancer: No Hx Family GI Disorders: Yes Mother Adopted: No Family Member Ethnicity: Non- Living Status: Hx Family Cardiac Disorders: No Hx Family Respiratory Disorders: No Hx Family Cancer: Yes (lung) Hx Family GI Disorders: Yes (acid reflux) Hx Family Endocrine Disorder: No Hx Family Neuromuscular Disorders: No Hx Family Neurologic Disorders: No Hx Family HEENT Disorders: No Hx Family Autoimmune Disorders: No Internal Medicine - H&P: Meds Aspirin Enteric Coated [Aspirin EC] 81 mg PO DAILY #0 07/04/15 [History] Donepezil [Aricept] 10 mg PO HS #0 07/04/15 [History] Sertraline [Zoloft] 150 mg PO DAILY #0 07/05/15 [History] Furosemide [Lasix] 20 mg PO DAILY 11/02/15 [History] Memantine HCl [Namenda Xr] 28 mg PO DAILY 11/02/15 [History] Temazepam [Restoril] 15 mg PO HS PRN #14 capsule 11/05/15 [Rx] risperiDONE [RisperDAL] 0.5 mg PO HS #14 tablet 08/09/16 [Rx] Montelukast [Singulair] 10 mg PO DAILY 07/12/16 [History] Potassium Chloride [Klor-Con Sprinkle] 10 meq PO DAILY 07/12/16 [History] GuaiFENesin ER [Mucinex] 1,200 mg PO BID 07/14/16 [History] Albuterol Neb [Proventil Neb] 2.5 mg IH Q2H PRN #0 inhsol 07/17/16 [Rx] Docusate [Colace] 100 mg PO BID #0 capsule 07/17/16 [Rx] Mag Hydrox/Al Hydrox/Simeth [Maalox] 15 ml PO Q6HR PRN #0 udc 07/17/16 [Rx] Fluticasone/Salmeterol [Advair 250-50 Diskus] 1 puff IH BID 07/27/16 [History] Pantoprazole Sodium [Protonix] 40 mg PO DAILY 07/27/16 [History] L. Acidophilus/Pectin, [place] [Acidophilus Probiotic Capsule] 1 cap PO DAILY [History] Magnesium Hydroxide [Milk of [place]es[place]] 30 ml PO QWEEK PRN 08/26/16 [History] Ipratropium Neb [Atrovent Neb] 0.5 mg IH Q6HR #1 vial 08/28/16 [Rx] OxyCODONE Immed Rel [Roxicodone 5 MG] 5 mg PO Q4H PRN #20 tablet 08/28/16 [Rx] levoFLOXacin [Levaquin] 750 mg PO DAILY #5 tablet 08/28/16 [Rx] Allergies No Known Allergies Allergy (Verified 07/04/15 21:39) ROS unobtainable: due to mental status All Systems PM: A 10-system review of systems was performed and is negative for pertinent findings except as documented above in the HPI. - Constitutional Vitals: Temp Pulse Resp BP Pulse Ox 97.2 F L 95 18 145/77 97 09/06/16 15:41 09/06/16 17:03 09/06/16 17:49 09/06/16 17:49 09/06/16 17:03 General appearance: Present: pleasant, no acute distress Exam: confused. follows some commands such as rolling over her body to the right side and taking deep breath. moves all extremities. - Neck Neck exam general surgery: Present: supple, trachea midline - Respiratory Respiratory exam: Present: CTAB - Cardiovascular Cardiovascular exam: Present: RRR - GI/Abdominal GI/Abdominal exam: Present: normal bowel sounds, soft. Absent: distended, tenderness - Extremities Exam Extremities exam: Present: pedal edema (left leg edema, chronic) - Back Exam Back exam: Absent: CVA tenderness (L), CVA tenderness (R) - Neurological Exam Neurological exam: Present: alert, strengths equal and symetr throughout. Absent: pronater drift, facial droop, speech deficit Internal Med - H&P Results - Labs CBC & Chem 7: 09/06/16 16:14 09/06/16 16:14 Labs: Short CBC 09/06/16 Range/Units 16:14 WBC 7.5 (4.3-11.1) K/mcL Hgb 11.7 (11.5-15.4) g/dL Hct 36.2 (35.3-44.9) % Plt Count 171 (140-400) K/mcL Neutrophils # 5.1 (1.6-8.9) K/mcL BMP 09/06/16 16:14 Sodium 138 Potassium 3.7 Chloride 101 Carbon Dioxide 27 BUN 10 Creatinine 0.67 Glucose 132 H Calcium 9.8 Cardiac Enzymes 09/06/16 Range/Units 16:14 Troponin I 0.01 (0-0.03) ng/mL Liver Function 09/06/16 Range/Units 16:14 Total Bilirubin 0.5 (0.2-1.2) mg/dL AST 14 (5-34) Units/L ALT 11 (0-55) Units/L Alkaline Phosphatase 142 H (38-126) Units/L Albumin 3.0 L (3.5-5.0) g/dL Urine 09/06/16 Range/Units 16:24 Urine Color Yellow (Yellow) Urine Clarity Cloudy A (Clear) Urine pH 6.0 (5.0-8.0) pH Units Ur Specific [place] 1.020 (1.010-1.025) Urine Protein Negative (Neg-Trace) mg/dL Urine Glucose (UA) Normal (Normal) mg/dL - Impressions ITS Impressions Chest X-Ray 09/06/16 15:53 IMPRESSION: Chronic rib fractures and bibasilar atelectasis. No acute fracture identified. D/ / Martín Burroughs MD / Martín Burroughs MD Interpreting Provider: Martín Burroughs MD Pelvis X-Ray 09/06/16 15:54 IMPRESSION: Chronic rib fractures and bibasilar atelectasis. No acute fracture identified. D/ / Martín Burroughs MD / Martín Burroughs MD Interpreting Provider: Martín Burroughs MD Shoulder X-Ray 09/06/16 15:55 IMPRESSION: Chronic rib fractures and bibasilar atelectasis. No acute fracture identified. D/ / Martín Burroughs MD / Martín Burroughs MD Interpreting Provider: Martín Burroughs MD Head CT 09/06/16 15:56 IMPRESSION: No acute intracranial abnormality. Ventriculomegaly which may be due to atrophy although normal pressure hydrocephalus could have this appearance and is is considered with the provided history. D/ / Otis Brown MD / Otis Brown MD Interpreting Provider: Otis Brown MD
[2016-09-06] MEDS ORDERED: Temazepam 15 MG CAPSULE PO PRN (18:46)
[2016-09-06] MEDS: risperiDONE 0.25 MG TABLET PO SCH (20:49)
[2016-09-07 03:50] LABS: Basophils # 0.1 K/mcL (0.0-0.2); Basophils % 0.9 %; Eosinophils # 0.6 K/mcL (0.0-0.6); Hematocrit 32.4 % (35.3-44.9); Immature Granulocytes % 0.6 % (0-4); Lymphocytes # 1.5 K/mcL (0.6-4.6); Lymphocytes % 21.5 %; Mean Corpuscular HGB Conc 30.9 g/dL (31.6-35.5); Mean Corpuscular Hemoglobin 29.1 pg (28.0-33.3); Mean Corpuscular Volume 94.2 fL (83.0-100.0); Mean Platelet Volume 10.2 fL (9.4-12.4); Monocytes # 0.7 K/mcL (0.0-1.3); Monocytes % 10.8 %; Neutrophils # 3.9 K/mcL (1.6-8.9); Platelet Count 166 K/mcL (140-400); Red Blood Count 3.44 M/mcL (3.82-4.97); Red Cell Distribution Width 14.3 % (11.5-14.5); Segmented Neutrophils % 57.2 %
[2016-09-07 04:05] LABS: BUN/Creatinine Ratio 14 (6-26); Blood Urea Nitrogen 8 mg/dL (7-20); Calcium 9.1 mg/dL (8.6-10.8); Carbon Dioxide 26 mEq/L (19-29); Chloride 106 mEq/L (98-109); Glucose 86 mg/dL (70-99); Magnesium 1.4 mg/dL (1.6-2.6); Osmolality,Calculated 290 (280-300); Phosphorous 3.7 mg/dL (2.3-4.7); Potassium 3.6 mEq/L (3.5-4.5); Sodium 141 mEq/L (136-145); eGFR For African Americans > 60 (> 60); eGFR For Non-African Americans > 60 (> 60)
[2016-09-07] MEDS: Ipratropium/Albuterol Neb 3 ML IH SCH ×4 (04:10→22:48)
[2016-09-07] MEDS: Furosemide 20 MG TABLET PO SCH (08:03)
[2016-09-07] MEDS: Aspirin Enteric Coated 81 MG Tablet PO SCH (08:03)
[2016-09-07] MEDS: Pantoprazole 40 MG VIAL IVP SCH (08:03)
--- NOTE | 2016-09-07 10:09 | Electrocardiograph Report ---
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
[2016-09-07] MEDS ORDERED: *HR* LORazepam 2 MG/ML VIAL IVP ONE (16:24)
[2016-09-07] MEDS ORDERED: Water for inj. (sterile) 0 ML IV ONE (16:33)
[2016-09-07] MEDS ORDERED: clonazePAM 0.5 MG TABLET PO ONE (16:46)
--- NOTE | 2016-09-07 17:00 | Internal Med Progress Note ---
Date of Encounter: 09/07/16 Time of Encounter: 10:20 - Assessment and plan (1) Acute encephalopathy Current Visit: Yes Status: Acute Assessment and plan: Likely secondary to urinary tract infection. Patient does have history of dementia. CT head showed no acute intracranial process, ventriculomegaly. Continue Rocephin Monitor patient Fall precautions Bed alarm (2) UTI (urinary tract infection) Current Visit: Yes Status: Acute Assessment and plan: Urine positive for signs of infection. She is being treated with Rocephin IV. Initial culture shows gram-negative rods. Final culture and sensitivity still pending. Encourage by mouth fluids continue antibiotics. Increased confusion could be due to. According to family patient reported low abdominal pain. She is not answering questions at this time. Abdomen is nontender to palpation, soft with bowel sounds present. Rocephin 1 g IV daily Final culture and sensitivity pending Qualifiers: Urinary tract infection type: acute cystitis Hematuria presence: with hematuria Qualified Code(s): N30.01 - Acute cystitis with hematuria (3) COPD (chronic obstructive pulmonary disease) Current Visit: No Status: Chronic Assessment and plan: No acute exacerbation. Continue oxygen at 3.5 L and nebulizers. Family has requested the patient have inhalers as well. Lungs are clear with poor inspiratory effort due to patient not being able to follow commands. Qualifiers: COPD type: emphysema Emphysema type: unspecified Qualified Code(s): J43.9 - Emphysema, unspecified (4) Abdominal pain Current Visit: Yes Status: Acute Assessment and plan: Abdomen is soft, bowel sounds present. No masses or hernias noted. Patient was complaining of low abdominal pain per family. Continue to monitor. Most likely due to urinary tract infection. Qualifiers: Abdominal location: lower abdomen, unspecified Qualified Code(s): R10.30 - Lower abdominal pain, unspecified (5) Dementia Current Visit: No Status: Chronic Qualifiers: Dementia type: Alzheimer's disease Alzheimer's disease onset: late-onset Dementia behavioral disturbance: without behavioral disturbance Qualified Code (s): G30.1 - Alzheimer's disease with late onset; F02.80 - Dementia in other diseases classified elsewhere without behavioral disturbance (6) CAD (coronary artery disease) Current Visit: No Status: Chronic Assessment and plan: Continue aspirin. Qualifiers: Coronary Disease-Associated Artery/Lesion type: [place] artery [place] vs. transplanted heart: [place] heart Associated angina: without angina Qualified Code(s): I25.10 - Atherosclerotic heart disease of [place] coronary artery without angina pectoris (7) Multiple falls Current Visit: No Status: Chronic Assessment and plan: Patient has fallen several times at home. Patient had single view chest, pelvis , and right shoulder. All showed chronic rib fractures and bibasilar atelectasis with no acute fractures. Patient does not have any bruising or visible injuries. PT, OT, social worker health services on board. Referral has been made for [facility]. (8) Hypertension Current Visit: Yes Status: Chronic Assessment and plan: Well-controlled in inpatient setting. Continue medications. Qualifiers: Hypertension type: essential hypertension Qualified Code(s): I10 - Essential (primary) hypertension - Time Spent With Patient less than 15 minutes - Subjective Interval history: Patient was evaluated at 10:20 AM. Patient had inadvertently removed IV, nurses were in the room for evaluation. Family also in room for and if evaluation. Daughter at bedside is tearful, appears to be exceptionally stressed and tired in caregiver role. We are trying to get patient placed in [facility] [facility], however there is no bed available at their first choice, referral packet has been sent to [facility] which is her [facility] choice.. We will continue to monitor patient. Patient is very confused. She answers her full name to any question that is asked. Left leg is edematous. Patient denies pain. There is no redness or warmth. Per admission note her left leg does become edematous on and off. We will need to continue to monitor it and potentially order Doppler as needed. Patient has had multiple falls at home. X-rays that were taken in the emergency department of shoulder, pelvis, chest were negative except for chronic rib fractures and bibasilar atelectasis. No acute fractures noted. - Constitutional Vitals: Temp Pulse Resp BP Pulse Ox 98.7 F 91 16 147/73 96 09/07/16 15:12 09/07/16 15:12 09/07/16 16:35 09/07/16 15:12 09/07/16 16:35 General appearance: Present: A&O X 0, A&O X 1, pleasant, no acute distress. Absent: answers questions appropriately - Head Head exam: Present: atraumatic, normal inspection - Eye Eye exam: Present: normal appearance, conjuntiva pink. Absent: nystagmus - ENT ENT exam: Present: mucous membranes moist, normal exam - Respiratory Respiratory exam: Present: decreased breath sounds, CTAB. Absent: rales, respiratory distress, rhonchi, stridor, wheezes Additional comments: Poor inspiratory effort due to patient dementia and not being able to follow commands. - Cardiovascular Cardiovascular exam: Present: RRR, +S1, +S2 - GI/Abdominal GI/Abdominal exam: Present: normal bowel sounds, soft. Absent: hepatomegaly, mass - Extremities Exam Extremities exam: Present: normal capillary refill, pedal edema, warm Additional comments: +1 nonpitting edema in the left lower extremity. Normal for patient. - Neurological Exam Neurological exam: Present: alert, altered. Absent: oriented X3, facial droop, speech deficit Internal Medicine: Result - Labs CBC & Chem 7: 09/07/16 02:36 09/07/16 02:36 Labs: Short CBC 09/07/16 Range/Units 02:36 WBC 6.8 (4.3-11.1) K/mcL Hgb 10.0 L D (11.5-15.4) g/dL Hct 32.4 L (35.3-44.9) % Plt Count 166 (140-400) K/mcL Neutrophils # 3.9 (1.6-8.9) K/mcL BMP 09/07/16 02:36 Sodium 141 Potassium 3.6 Chloride 106 Carbon Dioxide 26 BUN 8 Creatinine 0.58 Glucose 86 Calcium 9.1 Consult Discharge Plan - Plan Referrals: Darren Oneill DO [Primary Care Provider] -
[2016-09-07] MEDS: risperiDONE 0.25 MG TABLET PO SCH (20:03)
[2016-09-07] MEDS: Budesonide/Formoterol 160/4.5 MDI IH SCH (22:48)
[2016-09-08] MEDS: Ipratropium/Albuterol Neb 3 ML IH SCH ×2 (03:58→10:38)
[2016-09-08 06:18] LABS: Basophils # 0.1 K/mcL (0.0-0.2); Basophils % 0.8 %; Eosinophils # 0.5 K/mcL (0.0-0.6); Hematocrit 32.7 % (35.3-44.9); Hemoglobin 10.6 g/dL (11.5-15.4); Immature Granulocytes % 0.5 % (0-4); Lymphocytes # 1.3 K/mcL (0.6-4.6); Lymphocytes % 17.3 %; Mean Corpuscular HGB Conc 32.4 g/dL (31.6-35.5); Mean Corpuscular Hemoglobin 29.4 pg (28.0-33.3); Mean Corpuscular Volume 90.8 fL (83.0-100.0); Mean Platelet Volume 10.5 fL (9.4-12.4); Monocytes # 0.5 K/mcL (0.0-1.3); Monocytes % 7.1 %; Neutrophils # 5.1 K/mcL (1.6-8.9); Platelet Count 171 K/mcL (140-400); Red Cell Distribution Width 14.1 % (11.5-14.5); Segmented Neutrophils % 67.3 %
[2016-09-08 06:34] LABS: BUN/Creatinine Ratio 19 (6-26); Blood Urea Nitrogen 11 mg/dL (7-20); Calcium 9.2 mg/dL (8.6-10.8); Carbon Dioxide 28 mEq/L (19-29); Chloride 105 mEq/L (98-109); Glucose 105 mg/dL (70-99); Osmolality,Calculated 288 (280-300); Potassium 3.7 mEq/L (3.5-4.5); Sodium 139 mEq/L (136-145); eGFR For African Americans > 60 (> 60); eGFR For Non-African Americans > 60 (> 60)
[2016-09-08] MEDS ORDERED: Sulfamethoxazole/Trimeth DS 1 EACH TABLET PO SCH (09:00)
[2016-09-08] MEDS: Pantoprazole 40 MG VIAL IVP SCH (09:35)
[2016-09-08] MEDS: Furosemide 20 MG TABLET PO SCH (09:36)
[2016-09-08] MEDS: Aspirin Enteric Coated 81 MG Tablet PO SCH (09:36)
[2016-09-08] MEDS: Budesonide/Formoterol 160/4.5 MDI IH SCH (10:38)
--- NOTE | 2016-09-08 11:14 | Discharge Summary ---
Date of Encounter: 09/08/16 Time of Encounter: 10:00 - Discharge Diagnosis (1) Acute encephalopathy Priority: Primary Status: Resolved (2) UTI (urinary tract infection) Priority: Primary Status: Acute Comments: Urine culture report Escherichia coli with multiple resistances. Indeterminant resistance to ceftriaxone, changed to Bactrim on day of discharge. No known drug allergies. Qualifiers: Urinary tract infection type: acute cystitis Hematuria presence: with hematuria Qualified Code(s): N30.01 - Acute cystitis with hematuria (3) Multiple rib fractures Priority: Secondary Status: Chronic Comments: no new fractures. Qualifiers: Encounter type: subsequent encounter Fracture type: closed Laterality: unspecified laterality Fracture healing: with routine healing Qualified Code (s): S22.49XD - Multiple fractures of ribs, unspecified side, subsequent encounter for fracture with routine healing (4) COPD (chronic obstructive pulmonary disease) Priority: Secondary Status: Chronic Comments: no acute exacerbation. No increased need for oxygen. Qualifiers: COPD type: emphysema Emphysema type: unspecified Qualified Code(s): J43.9 - Emphysema, unspecified (5) Chronic respiratory failure with hypoxia Priority: Secondary Status: Chronic Comments: No increased need for supplemental oxygen. (6) Advanced dementia Priority: Secondary Status: Chronic Comments: appeared consistent with her baseline on day of discharge. sending to [facility] (7) DVT prophylaxis Priority: Primary Status: Acute Comments: observation patient. up ad melba. (8) CAD (coronary artery disease) Priority: Secondary Status: Chronic Comments: patient denied chest pain. Troponin x1 negative Qualifiers: Coronary Disease-Associated Artery/Lesion type: [place] artery [place] vs. transplanted heart: [place] heart Associated angina: without angina Qualified Code(s): I25.10 - Atherosclerotic heart disease of [place] coronary artery without angina pectoris (9) Severe chronic obstructive pulmonary disease Priority: Secondary Status: Chronic Comments: remains on 3.5L continuously (10) Former heavy cigarette smoker (20-39 per day) Priority: Secondary Status: Chronic (11) Constipation Priority: Primary Status: Resolved Comments: large BM on day of discharge. Qualifiers: Constipation type: unspecified constipation type Qualified Code(s): K59.00 - Constipation, unspecified (12) Hypertension Priority: Secondary Status: Chronic Comments: Normotensive the time of discharge, hypertensive overnight however the patient becomes agitated at night. Follow-up outpatient. Qualifiers: Hypertension type: essential hypertension Qualified Code(s): I10 - Essential (primary) hypertension (13) Chronic diastolic heart failure Priority: Secondary Status: Chronic Comments: No acute exacerbation. (14) Anemia Priority: Secondary Status: Chronic Comments: Stable. Consistent with baseline. Follow-up outpatient. Qualifiers: Anemia type: iron deficiency Iron deficiency anemia type: chronic blood loss Qualified Code(s): D50.0 - Iron deficiency anemia secondary to blood loss (chronic) - Discharge Medications Prescriptions: Albuterol Sulfate [Albuterol Inhaler] 2 puff IH Q4H PRN #1 inhaler PRN Reason: Shortness Of Breath/Wheezing OxyCODONE Immed Rel [Roxicodone 5 MG] 5 mg PO Q4H PRN #20 tablet PRN Reason: moderate to severe pain Sulfamethoxazole/Trimeth DS [Bactrim Ds] 1 each PO BID #19 tablet Home Medications: Aspirin Enteric Coated [Aspirin EC] 81 mg PO DAILY #0 07/04/15 [History] Donepezil [Aricept] 10 mg PO HS #0 07/04/15 [History] Sertraline [Zoloft] 150 mg PO DAILY #0 07/05/15 [History] Furosemide [Lasix] 20 mg PO DAILY 11/02/15 [History] Memantine HCl [Namenda Xr] 28 mg PO DAILY 11/02/15 [History] Temazepam [Restoril] 15 mg PO HS PRN #14 capsule 11/05/15 [Rx] risperiDONE [RisperDAL] 0.5 mg PO HS #14 tablet 11/05/15 [Rx] Montelukast [Singulair] 10 mg PO DAILY 07/12/16 [History] Potassium Chloride [Klor-Con Sprinkle] 10 meq PO DAILY 07/12/16 [History] GuaiFENesin ER [Mucinex] 1,200 mg PO BID 07/14/16 [History] Albuterol Neb [Proventil Neb] 2.5 mg IH Q2H PRN #0 inhsol 07/17/16 [Rx] Docusate [Colace] 100 mg PO BID #0 capsule 07/17/16 [Rx] Mag Hydrox/Al Hydrox/Simeth [Maalox] 15 ml PO Q6HR PRN #0 udc 07/17/16 [Rx] Fluticasone/Salmeterol [Advair 250-50 Diskus] 1 puff IH BID 07/27/16 [History] Pantoprazole Sodium [Protonix] 40 mg PO DAILY 07/27/16 [History] L. Acidophilus/Pectin, [place] [Acidophilus Probiotic Capsule] 1 cap PO DAILY [History] Magnesium Hydroxide [Milk of Magnesia] 30 ml PO QWEEK PRN 08/26/16 [History] Ipratropium Neb [Atrovent Neb] 0.5 mg IH Q6HR #1 vial 08/28/16 [Rx] levoFLOXacin [Levaquin] 750 mg PO DAILY #5 tablet 08/28/16 [Rx] Albuterol Sulfate [Albuterol Inhaler] 2 puff IH Q4H PRN #1 inhaler 09/08/16 [Rx] OxyCODONE Immed Rel [Roxicodone 5 MG] 5 mg PO Q4H PRN #20 tablet 09/08/16 [Rx] Sulfamethoxazole/Trimeth DS [Bactrim Ds] 1 each PO BID #19 tablet 09/08/16 [Rx] Allergies/Adverse Reactions: Allergies No Known Allergies Allergy (Verified 07/04/15 21:39) Date of admission: 09/06/16 17:42 Primary care physician: Darren Oneill Consults: 09/07/16 07:26 Consult to Salvationist [CONS] Routine Reason for SW Consult: frequent falls, pts family wants rehab ([facility]) 09/07/16 07:28 Consult to Physical Therapy [CONS] Routine Comment: Evaluate, develop and implement POC Reason for Consult: eval, frequent falls 09/07/16 07:29 Consult to Occupational Therapy [CONS] Routine Comment: Evaluate, develop and implement POC Reason for Consult: frequent falls, eval. Discharging clinician: Trinidad Hughes Anticipated date of discharge: 09/08/16 (sending to [place] today, if accepted ) - Patient Status Disposition: Transfer Inpatient Rehab Fac Condition: Fair Functional capacity at discharge: wheelchair bound - Discharge Instructions Follow Up With: Darren Oneill DO [Primary Care Provider] - Additional Instructions: Follow-up with primary care provider within one to 2 weeks - Diet and Activity Activity: as per physical therapy, increase activity as tolerated Diet: low fat, low cholesterol, low salt diet Hospital course: Ms. Cartagena is a 76 year old female with past medical history of advanced dementia, diastolic heart failure with preserved ejection fraction, chronic respiratory failure on 3.5 L continuously at home, COPD, history of falls, hypertension, atrial fibrillation. Patient is wheelchair ridden. Her family states that on day prior to presentation, family noticed that the patient was more confused and she was acting strangely. Patient did complain of mild pain across her lower abdomen and into her left hip but was otherwise a poor historian. No vomiting, nausea, diarrhea, chest pain, shortness of breath. Chest x-ray in the emergency department revealing chronic rib fractures without acute processes. Pelvic x-ray negative for acute processes. Shoulder x-ray negative for acute processes. Head CT negative for acute processes. Patient had abnormal urinalysis consistent with a urinary tract infection. Patient was admitted to the hospitalist service for further evaluation and management. Patient was admitted and observed over the course of 2 nights and was treated with ceftriaxone. Sensitivity report on day of discharge consistent with Escherichia coli with multiple resistances including an indeterminate resistance to ceftriaxone. She was then changed to Bactrim. She was alert and pleasantly confused on day of discharge consistent with her baseline. She had a large bowel movement on day of discharge as well. She was able tolerate a regular diet. She was seen and evaluated by occupational and physical therapy both of whom recommended inpatient rehabilitation. She was discharged to [facility] in stable condition with close outpatient follow-up recommended. ITS Impressions Chest X-Ray 09/06/16 15:53 IMPRESSION: Chronic rib fractures and bibasilar atelectasis. No acute fracture identified. D/ / Martín Burroughs MD / Martín Burroughs MD Interpreting Provider: Martín Burroughs MD Pelvis X-Ray 09/06/16 15:54 IMPRESSION: Chronic rib fractures and bibasilar atelectasis. No acute fracture identified. D/ / Martín Burroughs MD / Martín Burroughs MD Interpreting Provider: Martín Burroughs MD Shoulder X-Ray 09/06/16 15:55 IMPRESSION: Chronic rib fractures and bibasilar atelectasis. No acute fracture identified. D/ / Martín Burroughs MD / Martín Burroughs MD Interpreting Provider: Martín Burroughs MD Head CT 09/06/16 15:56 IMPRESSION: No acute intracranial abnormality. Ventriculomegaly which may be due to atrophy although normal pressure hydrocephalus could have this appearance and is is considered with the provided history. D/ / Otis Brown MD / Otis Brown MD Interpreting Provider: Otis Brown MD - Time Spent with Patient Total time spent providing and/or coordinating discharge services: - Constitutional Vitals: Temp Pulse Resp BP Pulse Ox 98.2 F 90 18 148/70 96 09/08/16 07:07 09/08/16 07:07 09/08/16 10:41 09/08/16 07:07 09/08/16 10:41 General appearance: Present: A&O X 1, pleasant, no acute distress. Absent: answers questions appropriately - Head Head exam: Present: atraumatic, normocephalic - Eye Eye exam: Present: PERRL, conjuntiva pink, sclera anicteric Pupils: Present: PERRL - Neck Neck exam general surgery: Present: supple, trachea midline. Absent: lymphadenopathy - Respiratory Respiratory exam: Present: decreased breath sounds. Absent: accessory muscle use, rales, respiratory distress, rhonchi, wheezes - Cardiovascular Cardiovascular exam: Present: RRR, +S1, +S2. Absent: diastolic murmur, gallop, rubs, systolic murmur - GI/Abdominal GI/Abdominal exam: Present: normal bowel sounds, soft, no peritoneal signs. Absent: distended, tenderness - Extremities Exam Extremities exam: Present: warm, radial pulses palpable and symetrical. Absent : calf tenderness, cyanotic, pedal edema - Neurological Exam Neurological exam: Present: alert, CN II-XII intact, no focal deficits, strengths equal and symetr throughout. Absent: pronater drift, facial droop, speech deficit - Skin Skin exam: Present: dry, intact, normal color, warm
[2016-09-08 11:43] VITALS: BP 114/61
--- NOTE | 2016-09-08 11:57 | Physician Discharge Referral ---
ExtendedCare Referral Info Transfer To: [facility], [place], operated by [facility] Provider in Charge: Milad Hughes CNP Provider in Charge after Transfer: PCP Institutional Level of Care: Skilled - Diagnosis (1) Acute encephalopathy Priority: Primary Status: Resolved (2) UTI (urinary tract infection) Priority: Primary Status: Acute (3) Multiple rib fractures Priority: Secondary Status: Chronic (4) COPD (chronic obstructive pulmonary disease) Priority: Secondary Status: Chronic (5) Chronic respiratory failure with hypoxia Priority: Secondary Status: Chronic (6) Advanced dementia Priority: Secondary Status: Chronic (7) DVT prophylaxis Priority: Primary Status: Acute (8) CAD (coronary artery disease) Priority: Secondary Status: Chronic (9) Severe chronic obstructive pulmonary disease Priority: Secondary Status: Chronic (10) Former heavy cigarette smoker (20-39 per day) Priority: Secondary Status: Chronic (11) Constipation Priority: Primary Status: Resolved (12) Hypertension Priority: Secondary Status: Chronic (13) Chronic diastolic heart failure Priority: Secondary Status: Chronic (14) Anemia Priority: Secondary Status: Chronic Prognosis: Fair Aware of Diagnosis: Family Aware of Prognosis: Family - Transfer Medications Prescriptions: Albuterol Sulfate [Albuterol Inhaler] 2 puff IH Q4H PRN #1 inhaler PRN Reason: Shortness Of Breath/Wheezing OxyCODONE Immed Rel [Roxicodone 5 MG] 5 mg PO Q4H PRN #20 tablet PRN Reason: moderate to severe pain Sulfamethoxazole/Trimeth DS [Bactrim Ds] 1 each PO BID #19 tablet Home Medications: Aspirin Enteric Coated [Aspirin EC] 81 mg PO DAILY #0 07/04/15 [History] Donepezil [Aricept] 10 mg PO HS #0 07/04/15 [History] Sertraline [Zoloft] 150 mg PO DAILY #0 07/05/15 [History] Furosemide [Lasix] 20 mg PO DAILY 11/02/15 [History] Memantine HCl [Namenda Xr] 28 mg PO DAILY 11/02/15 [History] Temazepam [Restoril] 15 mg PO HS PRN #14 capsule 11/05/15 [Rx] risperiDONE [RisperDAL] 0.5 mg PO HS #14 tablet 11/05/15 [Rx] Montelukast [Singulair] 10 mg PO DAILY 07/12/16 [History] Potassium Chloride [Klor-Con Sprinkle] 10 meq PO DAILY 07/12/16 [History] GuaiFENesin ER [Mucinex] 1,200 mg PO BID 07/14/16 [History] Albuterol Neb [Proventil Neb] 2.5 mg IH Q2H PRN #0 inhsol 07/17/16 [Rx] Docusate [Colace] 100 mg PO BID #0 capsule 07/17/16 [Rx] Mag Hydrox/Al Hydrox/Simeth [Maalox] 15 ml PO Q6HR PRN #0 udc 07/17/16 [Rx] Fluticasone/Salmeterol [Advair 250-50 Diskus] 1 puff IH BID 07/27/16 [History] Pantoprazole Sodium [Protonix] 40 mg PO DAILY 07/27/16 [History] L. Acidophilus/Pectin, [place] [Acidophilus Probiotic Capsule] 1 cap PO DAILY [History] Magnesium Hydroxide [Milk of Magnesia] 30 ml PO QWEEK PRN 08/26/16 [History] Ipratropium Neb [Atrovent Neb] 0.5 mg IH Q6HR #1 vial 08/28/16 [Rx] levoFLOXacin [Levaquin] 750 mg PO DAILY #5 tablet 08/28/16 [Rx] Albuterol Sulfate [Albuterol Inhaler] 2 puff IH Q4H PRN #1 inhaler 09/08/16 [Rx] OxyCODONE Immed Rel [Roxicodone 5 MG] 5 mg PO Q4H PRN #20 tablet 09/08/16 [Rx] Sulfamethoxazole/Trimeth DS [Bactrim Ds] 1 each PO BID #19 tablet 09/08/16 [Rx] Allergies/Adverse Reactions: Allergies No Known Allergies Allergy (Verified 07/04/15 21:39) - Respiratory Orders Smoking Cessation: Smoking cessation has been advised. For more information, call the [place] Tobacco Quit Line at 6-568-TBVE-NOW. - Ancillary Orders May use pressure relief devices daily prn, May go on KAREN w/family/respon democrat w /meds at nurse discretion PRN, May have alcoholic beverages, May consult with Dentist, Slurry Worker, Inserting Machine Operator PRN - Advance Directives Living Will: No Power of Publication Distributor: No Code Status: Full Code - Mobility Orders Ambulate (per PT) - Rehabiliation Orders Rehab Potential: Fair Rehab Orders: ROM Exercises, Evaluation for Physical Therapy, Evaluation for Occupational Therapy - Treatments Skin tear care topically daily PRN per policy, May check for fecal impaction rectally daily PRN, Fleet enema rectally every other day PRN cleansing purposes CERTIFICATION: I certify that the transfer of the above named patient to an Extended Care Facility is necessary for the continuing treatment of the diagnosis listed. The above information is true and accurate reflection of patient's current condition. Confidential - Redisclosure prohibited without a patient's written consent.
== END 2016-09-08 13:31 ==
LOC: EMEROO 15:39 → 3BNU 15:39 → SUATTDRO 17:42 → 3BNU 18:30
PROVIDERS: ADMIT Internal Medicine; ATTEND Nurse Practitioner Family

== ENCOUNTER 2017-04-02 13:59 | Inpatient (IN) ==
--- NOTE | 2017-04-02 14:26 | Emergency Department Note ---
START Narrative - START START: I examined this patient and my medical decision-making was reviewed with the MOWER SHARPENER/PA/Advanced Practice Nurse/Resident Physician. I agree with the documented findings, disposition and treatment plan as described except to the extent set forth below. I did see the patient and did review the ECF records and the patient does have decreased level of consciousness, fever, tachycardia and tachypnea but no hypotension. We will initiate antibiotics as well as a workup with labs including lactate level blood cultures and CT scan as the patient did have isolated right upper quadrant abdominal pain on exam. The patient will be admitted to the hospital. IV fluids have been started. I did review the patient's EKG showing sinus tachycardia with rate of [address] depression 1426
--- NOTE | 2017-04-02 14:31 | Emergency Department Note ---
Disposition Clinical Impression: Advanced dementia, HCAP (healthcare-associated pneumonia) Pneumonia Qualifiers: Pneumonia type: due to unspecified organism Qualified Code(s): J18.9 - Pneumonia, unspecified organism Disposition: Admitted As Inpatient Condition: Fair Time of Disposition: 17:58 Fever HPI - General Chief Complaint: ED Fever Stated Complaint: fever Time Seen by Provider: 04/02/17 14:03 Source: EMS Limitations: no limitations Nursing Notes Reviewed: Yes Vital Signs Reviewed: Yes - History of Present Illness HPI Narrative: Mrs. Cartagena is a 76-year-old woman with a history of dementia, multiple episodes of pneumonia, CHF, CAD, hypertension who presents to the hospital with fever for approximately 3 weeks' duration. The patient is accompanied by her daughter who provides a significant amount of the history as the patient is only somewhat vocal. Apparently the patient is a long-term patient in an [facility], and they have noticed increased fevers recently. Her temperature is pending as high as 101 while on transport today, and she has apparently been treated for pneumonia with multiple different antibiotic medications, currently on day 3 of moxifloxacin. The family says that in addition to this, apparently the patient had an issue of altered mental status with change in pupillary response several days ago but has not fully resolved. It is associated with a tremor in the arms and a weakness with the arms, they state that she is not able to lift her arms to her mouth to feed herself. Additionally the patient is not speaking as much as she was previously. This is new. Patient denies any cough, shortness of breath. - Related Data Home Medications Medication Instructions Recorded Confirmed Donepezil [Aricept] 10 mg PO HS #0 07/04/15 09/06/16 Sertraline [Zoloft] 150 mg PO DAILY #0 07/05/15 09/06/16 Furosemide [Lasix] 20 mg PO DAILY 11/02/15 09/06/16 Memantine HCl [Namenda Xr] 28 mg PO DAILY 11/02/15 09/06/16 Montelukast [Singulair] 10 mg PO DAILY 07/12/16 09/06/16 Potassium Chloride [Klor-Con 10 meq PO DAILY 07/12/16 09/06/16 Sprinkle] GuaiFENesin ER [Mucinex] 1,200 mg PO BID 07/14/16 09/06/16 Fluticasone/Salmeterol [Advair 1 puff IH BID 07/27/16 09/06/16 250-50 Diskus] L. Acidophilus/Pectin, [place] 1 cap PO DAILY 08/26/16 09/06/16 [Acidophilus Probiotic Capsule] Aspirin 81 mg PO DAILY 04/02/17 04/02/17 Folic Acid 1 mg PO DAILY 04/02/17 04/02/17 Ipratropium/Albuterol Neb [Duoneb] 3 ml IH Q4H PRN 04/02/17 04/02/17 OxyCODONE Immed Rel [Roxicodone 5 5 mg PO Q6H PRN 04/02/17 04/02/17 MG] RisperiDONE [Risperdal] 0.5 mg PO HS 04/02/17 04/02/17 Previous Rx's Medication Instructions Recorded Docusate [Colace] 100 mg PO BID #0 capsule 07/17/16 Albuterol Sulfate [Albuterol 2 puff IH Q4H PRN #1 inhaler 09/08/16 Inhaler] Allergies Allergy/AdvReac Type Severity Reaction Status Date / Time No Known Allergies Allergy Verified 07/04/15 21:39 Limitations: ROS unobtainable due to patients medical condition Constitutional: Reports: fever, chills, weakness. Denies: weight change Eyes: Denies: vision change Respiratory: Denies: cough, dyspnea Gastrointestinal: Denies: nausea, vomiting Integumentary: Denies: rash Neurological: Reports: weakness. Denies: headache, confusion Hematological/Lymphatic: Denies: easy bleeding Allergic/Immunologic: Denies: facial swelling Fever PMH - Past Medical History Medical history: Reports: arthritis, CHF, COPD, coronary artery disease, dementia, hypertension, osteoporosis, other Surgical history: Reports: non-contributory, other Psychiatric history: Reports: anxiety, other - Social History Smoking Status: Former smoker Alcohol use: Reports: none Drug use: Reports: none Physical Exam Gen.: Vitals noted. No acute distress. HEENT: PERRL/EOMI, oropharynx clear, Normocephalic, atraumatic Neck: Supple. No adenopathy. Cardiac: RRR but rapid, no murmur, +S1/S2 Pulmonary: CTA bilaterally, no wheezes, rales or rhonchi, equal chest expansion Abdomen: Soft, patient jumped and said "Ouch that hurts" on palpation of RUQ. No distention Back: Nontender throughout. MSK: ROM intact, no joint swelling noted Extremities: no BLE edema, nontender calf, no cyanosis or clubbing Neuro: Patient is responive but does not follow commands well - General Limitations: no limitations General appearance: alert, in no apparent distress Course Vital Signs Temperature 99.6 F 04/02/17 14:04 Pulse Rate 119 04/02/17 14:04 Respiratory Rate 16 04/02/17 14:04 Blood Pressure 158/76 04/02/17 14:04 O2 Sat by Pulse Oximetry 93 04/02/17 14:04 Temperature 99.6 F 04/02/17 14:04 Pulse Rate 119 04/02/17 14:04 Respiratory Rate 16 04/02/17 14:04 Blood Pressure 158/76 04/02/17 14:04 O2 Sat by Pulse Oximetry 93 04/02/17 14:45 Oxygen Delivery Oxygen Delivery Nasal Cannula Fever - MDM Narrative Medical decision making narrative: I reviewed this patient's labs and imaging. On presentation the patient is apparently altered in mental status. She generally does not respond or answer questions, nor does she follow instructions. She did demonstrate significant pain with palpation of the right upper quadrant of the abdomen. I got an abdominal CT, and a head CT did not rule out acute processes in the either area , however on the abdominal CT did find significant stool in the patient's rectal vault which required decompression. The patient's lactic acid was 2.2, however she did appear significantly tachycardic and tachypneic On presentation , and she additionally leukocytotic at time of presentation. Additionally, the patient's family says that she has been treated for pneumonia several times. Based on these things, I believe the patient is likely at high risk of developing sepsis. I begin the patient on broad-spectrum antibiotics including vancomycin and Zosyn, because she has been in healthcare settings recently. Additionally I started the patient on 30 mL/kg normal saline bolus. Finally, the patient's troponin was elevated at 0.06, which is likely due to demand ischemia. Her EKG did not demonstrate any acute findings, and she has no clinical indication of an GA at this time. That being said, the patient will require trending of this which can be done as an inpatient. Her vitals remained stable, and I spoke with the hospitalist who accepted the patient for pneumonia. Spoke with the family of the patient who understand an agree to this plan. - Medical Records Medical records reviewed: Yes I reviewed the patient's medical records. - Lab Data Lab results reviewed: Yes I reviewed the patient's lab results. Result diagrams: 04/02/17 14:23 04/02/17 14:23 Lab Results 04/02/17 04/02/17 04/02/17 Range/Units 14:23 14:23 14:23 WBC 12.8 H (4.3-11.1) K/mcL RBC 4.47 (3.82-4.97) M/mcL Hgb 13.3 (11.5-15.4) g/dL Hct 42.8 (35.3-44.9) % MCV 95.7 (83.0-100.0) fL MCH 29.8 (28.0-33.3) pg MCHC 31.1 L (31.6-35.5) g/dL RDW 14.1 (11.5-14.5) % Plt Count 255 (140-400) K/mcL MPV 10.4 (9.4-12.4) fL Immature Gran % 0.8 (0-4) % Seg Neutrophils % 69.0 % Lymphocytes % 20.4 % Monocytes % 8.5 % Eosinophils % 0.7 % Basophils % 0.6 % Neutrophils # 8.8 (1.6-8.9) K/mcL Lymphocytes # 2.6 (0.6-4.6) K/mcL Monocytes # 1.1 (0.0-1.3) K/mcL Eosinophils # 0.1 (0.0-0.6) K/mcL Basophils # 0.1 (0.0-0.2) K/mcL Sodium 153 H (136-145) mEq/L Potassium 3.4 L (3.5-5.1) mEq/L Chloride 119 H (98-107) mEq/L Carbon Dioxide 25 (23-29) mEq/L BUN 31 H (8-23) mg/dL Creatinine 0.98 (0.60-1.20) mg/dL Est GFR ( Amer) > 60 (> 60) Est GFR (Non-Af Amer) 55 L (> 60) BUN/Creatinine Ratio 32 H (6-26) Glucose 153 H (70-105) mg/dL Calculated Osmolality 326 H (280-300) Lactic Acid 2.2 (0.5-2.2) mmol/L Calcium 9.2 (8.6-10.3) mg/dL Total Bilirubin 0.3 (0.3-1.0) mg/dL Direct Bilirubin 0.0 (0.0-0.2) mg/dL Indirect Bilirubin 0.3 (0.0-1.2) mg/dL AST 14 (13-39) Units/L ALT 10 (7-52) Units/L Alkaline Phosphatase 80 (34-104) Units/L Troponin I (< 0.04) ng/mL Serum Total Protein 7.1 (6.4-8.9) g/dL Albumin 3.5 (3.5-5.7) g/dL Globulin 3.6 H (2.4-3.5) g/dL Albumin/Globulin Ratio 1.0 L (1.1-2.2) Lipase 20 (11-82) Units/L Urine Color (Yellow) Urine Clarity (Clear) Urine pH (5.0-8.0) pH Units Ur Specific [place] (1.010-1.025) Urine Protein (Neg-Trace) mg/dL Urine Glucose (UA) (Normal) mg/dL Urine Ketones (Negative) mg/dL Urine Blood (Negative) Urine Nitrite (Negative) Urine Bilirubin (Negative) Urine Urobilinogen (Normal) mg/dL Ur Leukocyte Esterase (Negative) Ur Culture Indicated? (NO) 04/02/17 04/02/17 Range/Units 14:23 15:48 WBC (4.3-11.1) K/mcL RBC (3.82-4.97) M/mcL Hgb (11.5-15.4) g/dL Hct (35.3-44.9) % MCV (83.0-100.0) fL MCH (28.0-33.3) pg MCHC (31.6-35.5) g/dL RDW (11.5-14.5) % Plt Count (140-400) K/mcL MPV (9.4-12.4) fL Immature Gran % (0-4) % Seg Neutrophils % % Lymphocytes % % Monocytes % % Eosinophils % % Basophils % % Neutrophils # (1.6-8.9) K/mcL Lymphocytes # (0.6-4.6) K/mcL Monocytes # (0.0-1.3) K/mcL Eosinophils # (0.0-0.6) K/mcL Basophils # (0.0-0.2) K/mcL Sodium (136-145) mEq/L Potassium (3.5-5.1) mEq/L Chloride (98-107) mEq/L Carbon Dioxide (23-29) mEq/L BUN (8-23) mg/dL Creatinine (0.60-1.20) mg/dL Est GFR ( Amer) (> 60) Est GFR (Non-Af Amer) (> 60) BUN/Creatinine Ratio (6-26) Glucose (70-105) mg/dL Calculated Osmolality (280-300) Lactic Acid (0.5-2.2) mmol/L Calcium (8.6-10.3) mg/dL Total Bilirubin (0.3-1.0) mg/dL Direct Bilirubin (0.0-0.2) mg/dL Indirect Bilirubin (0.0-1.2) mg/dL AST (13-39) Units/L ALT (7-52) Units/L Alkaline Phosphatase (34-104) Units/L Troponin I 0.06 H* (< 0.04) ng/mL Serum Total Protein (6.4-8.9) g/dL Albumin (3.5-5.7) g/dL Globulin (2.4-3.5) g/dL Albumin/Globulin Ratio (1.1-2.2) Lipase (11-82) Units/L Urine Color Yellow (Yellow) Urine Clarity Clear (Clear) Urine pH 6.0 (5.0-8.0) pH Units Ur Specific [place] 1.020 (1.010-1.025) Urine Protein Negative (Neg-Trace) mg/dL Urine Glucose (UA) Normal (Normal) mg/dL Urine Ketones Negative (Negative) mg/dL Urine Blood Negative (Negative) Urine Nitrite Negative (Negative) Urine Bilirubin Negative (Negative) Urine Urobilinogen Normal (Normal) mg/dL Ur Leukocyte Esterase Negative (Negative) Ur Culture Indicated? NO (NO) - EKG Data EKG attestation: Yes I reviewed and interpreted this EKG. EKG results narrative: EKG demonstrates sinus tachycardia with a ventricular rate of 125, WV interval 1 :15, QRS duration 66, QTC 394 with no evidence of acute ischemia
[2017-04-02 14:37] LABS: Basophils # 0.1 K/mcL (0.0-0.2); Basophils % 0.6 %; Eosinophils # 0.1 K/mcL (0.0-0.6); Eosinophils % 0.7 %; Hematocrit 42.8 % (35.3-44.9); Hemoglobin 13.3 g/dL (11.5-15.4); Immature Granulocytes % 0.8 % (0-4); Lymphocytes # 2.6 K/mcL (0.6-4.6); Lymphocytes % 20.4 %; Mean Corpuscular HGB Conc 31.1 g/dL (31.6-35.5); Mean Corpuscular Hemoglobin 29.8 pg (28.0-33.3); Mean Corpuscular Volume 95.7 fL (83.0-100.0); Mean Platelet Volume 10.4 fL (9.4-12.4); Monocytes # 1.1 K/mcL (0.0-1.3); Monocytes % 8.5 %; Neutrophils # 8.8 K/mcL (1.6-8.9); Platelet Count 255 K/mcL (140-400); Red Blood Count 4.47 M/mcL (3.82-4.97); Red Cell Distribution Width 14.1 % (11.5-14.5)
[2017-04-02 14:50] LABS: Alanine Aminotransferase 10 Units/L (7-52); Albumin 3.5 g/dL (3.5-5.7); Alkaline Phosphatase 80 Units/L (34-104); Aspartate Amino Transferase 14 Units/L (13-39); BUN/Creatinine Ratio 32 (6-26); Bilirubin,Indirect 0.3 mg/dL (0.0-1.2); Bilirubin,Total 0.3 mg/dL (0.3-1.0); Blood Urea Nitrogen 31 mg/dL (8-23); Calcium 9.2 mg/dL (8.6-10.3); Carbon Dioxide 25 mEq/L (23-29); Chloride 119 mEq/L (98-107); Globulin 3.6 g/dL (2.4-3.5); Glucose 153 mg/dL (70-105); Lipase 20 Units/L (11-82); Osmolality,Calculated 326 (280-300); Potassium 3.4 mEq/L (3.5-5.1); Sodium 153 mEq/L (136-145); Total Protein 7.1 g/dL (6.4-8.9); eGFR For African Americans > 60 (> 60); eGFR For Non-African Americans 55 (> 60)
[2017-04-02] MEDS: 0.9 % Sodium Chloride 1,000 ML IVC SCH ×4 (15:14→22:33)
[2017-04-02 16:08] LABS: Bilirubin,Urine Negative (Negative); Blood,Urine Negative (Negative); Clarity,Urine Clear (Clear); Color,Urine Yellow (Yellow); Glucose,Urine (UA) Normal (Normal); Ketones,Urine Negative (Negative); Leukocyte Esterase,Urine Negative (Negative); Nitrite,Urine Negative (Negative); Protein,Urine Negative (Neg-Trace); Urobilinogen,Urine Normal (Normal)
[2017-04-02] MEDS ORDERED: Milk and Molasses Enema 200 ML RC ONE (16:20)
[2017-04-02] MEDS ORDERED: Ondansetron 4 MG/2 ML VIAL IVP PRN (17:08)
[2017-04-02] MEDS ORDERED: Naloxone 0.4 MG/ML INJ IVP PRN (17:08)
--- NOTE | 2017-04-02 17:09 | Event Note ---
Date of Encounter: 04/02/17 Time of Encounter: 17:07 Patient seen and examined with REIMBURSEMENT MANAGER. Recurrent pneumonia over the past 4 months. Suspect aspiration. She is infact on thickened diet. Will ask speech to see patient. Start her on zosyn. She also has evidence of proctitis on CT and she will be on zosyn and flagyl. She was disimpacted in the ED for constipation. She is DNR/DNI according to discussion with [email or web address]
[2017-04-02] MEDS ORDERED: DEXTROSE 5 % IN WATER 50 ML PGGYBK.PRT IV SCH (17:15)
--- NOTE | 2017-04-02 17:24 | Internal Med History&Physical ---
Date of Encounter: 04/02/17 Time of Encounter: 17:21 Assessment and Plan (1) HCAP (healthcare-associated pneumonia) Current visit: No Status: Acute Patient has had a fever for approximately 3 weeks and has been treated for pneumonia for approximately 3 months. She does reside in a alf-and is on thickened liquid and pureed diet. CT of abdomen did reveal bibasilar opacities suspicious indicative of pneumonia Suspect possible aspiration pneumonia. Blood cultures have been obtained we will obtain a sputum culture-. empirically cover with vancomycin and Zosyn Bronchodilators Aspiration precautions We will make patient nothing by mouth for now and consult speech therapy for swallowing evaluation (2) Hypernatremia Current visit: Yes Status: Acute Patient is hyponatremic with sodium of 153 due to decreased free water intake. We will initiate on D5W and check sodium every 6 hours (3) Acute encephalopathy Current visit: Yes Status: Acute 1 this is multifactorial -patient has hypernatremia as well as infectious process, we will continue to monitor sodium and give D5W. Patient has pneumonia suspected aspiration we will place on aspiration precautions antibiotics as well as obtain a swallow eval (4) COPD (chronic obstructive pulmonary disease) Current visit: No Status: Chronic We will continue with bronchodilators and oxygen titrated to maintain SPO2 greater than 92% Qualifiers: COPD type: unspecified COPD Qualified Code(s): J44.9 - Chronic obstructive pulmonary disease, unspecified (5) Dementia Current visit: No Status: Chronic Patient has history of dementia-we will continue with home medications-she is presently more altered than usual suspect related to hypernatremia and infectious process Qualifiers: Dementia type: unspecified type Dementia behavioral disturbance: with behavioral disturbance Qualified Code(s): F03.91 - Unspecified dementia with behavioral disturbance (6) Constipation Current visit: Yes Status: Acute CT of abdomen did show a fecal impaction-she was disimpacted in the ER and given an enema. We will continue with Colace Qualifiers: Constipation type: unspecified constipation type Qualified Code(s): K59.00 - Constipation, unspecified (7) Elevated troponin Current visit: No Status: Acute Troponin is elevated at 0.[address]-T wave abnormalities continuous cardiac monitoring will continue to trend troponin suspect this is related to demand ischemia (8) Chronic diastolic heart failure Current visit: No Status: Chronic Presently patient does not appear to be fluid overloaded we will hold Lasix for now due to dehydration. Resume once patient is back to baseline (9) DVT prophylaxis Current visit: No Status: Acute Lovenox subcutaneous Internal Medicine - H&P: HPI Chief complaint: fever Admitted From: Emergency Dept Plans for Post Hospital Care: Transfer Retail Sales Manager Care History of present illness: Ms. Cartagena is a 76 year old female past medical history of dementia multiple episodes of pneumonia congestive heart failure coronary artery disease hypertension. Patient resides in an ECF due to her cognitive state information obtained from daughter who is at bedside. Patient has been experiencing fever for approximately 3 weeks and recurrent pneumonia over the past 4 months. She has been on multiple antibiotic regimes and is currently on day 3 of Moxifloxacin. Over the past few days the patient has not been behaving as usual. She has been less interactive with family members, less talkative which is new and has become more weak to the point unable to feed herself. There is no new cough shortness of breath or chest pain noted. She presented to the ER with the above complaints according to ER records lab work was obtained which did show some leukocytosis hyponatremia hypokalemia elevated lactate and elevated troponin. CT of abdomen and pelvis did show bibasilar the patient is in the lungs as well as stool impaction and evidence of proctitis. She has been admitted for further evaluation. Presently patient does not appear to be in any respiratory distress and she is hemodynamically stable. I did speak with the daughter who is at bedside concerning Agatha status she requested DNR CCA-with intubation I did review this case with Dr. Rahman who does agree with plan. Past Med Surg Social Fam HX - Past Medical History Medical history: arthritis, CHF, COPD, coronary artery disease, dementia, hypertension, osteoporosis, other Psychiatric history: anxiety, other - Past Surgical History Surgical History: non-contributory, other - Social History Smoking Status: Former smoker Smokeless Tobacco Status: No Alcohol use: none Drug use: none - Family History Daughter Living Status: Still Living Hx Family Cardiac Disorders: Yes Hx Family Respiratory Disorders: Yes Hx Family Cancer: No Hx Family GI Disorders: Yes Mother Adopted: No Family Member Ethnicity: Non- Living Status: Hx Family Cardiac Disorders: No Hx Family Respiratory Disorders: No Hx Family Cancer: Yes (lung) Hx Family GI Disorders: Yes (acid reflux) Hx Family Endocrine Disorder: No Hx Family Neuromuscular Disorders: No Hx Family Neurologic Disorders: No Hx Family HEENT Disorders: No Hx Family Autoimmune Disorders: No Internal Medicine - H&P: Meds Donepezil [Aricept] 10 mg PO HS #0 07/04/15 [History] Sertraline [Zoloft] 150 mg PO DAILY #0 07/05/15 [History] Furosemide [Lasix] 20 mg PO BID 11/02/15 [History] Memantine HCl [Namenda Xr] 28 mg PO DAILY 11/02/15 [History] Montelukast [Singulair] 10 mg PO DAILY 07/12/16 [History] Potassium Chloride [Klor-Con Sprinkle] 10 meq PO DAILY 07/12/16 [History] GuaiFENesin ER [Mucinex] 1,200 mg PO Q12H 07/14/16 [History] Docusate [Colace] 100 mg PO BID #0 capsule 07/17/16 [Rx] Fluticasone/Salmeterol [Advair 250-50 Diskus] 1 puff IH BID 07/27/16 [History] L. Acidophilus/Pectin, [place] [Acidophilus Probiotic Capsule] 1 cap PO DAILY [History] Albuterol Sulfate [Albuterol Inhaler] 2 puff IH Q4H PRN #1 inhaler 09/08/16 [Rx] Aspirin 81 mg PO DAILY 04/02/17 [History] Folic Acid 1 mg PO DAILY 04/02/17 [History] Ipratropium/Albuterol Neb [Duoneb] 3 ml IH Q4H PRN 04/02/17 [History] OxyCODONE Immed Rel [Roxicodone 5 MG] 5 mg PO Q6H PRN 04/02/17 [History] RisperiDONE [Risperdal] 0.5 mg PO HS 04/02/17 [History] 3 Allergy/AdvReac Type Severity Reaction Status Date / Time No Known Allergies Allergy Verified 07/04/15 21:39 ROS unobtainable: due to mental status All Systems PM: A 10-system review of systems was performed and is negative for pertinent findings except as documented above in the HPI. - Constitutional Vitals: Temp Pulse Resp BP Pulse Ox 99.6 F 119 16 158/76 93 04/02/17 14:04 04/02/17 14:04 04/02/17 14:04 04/02/17 14:04 04/02/17 14:45 General appearance: Present: A&O X 0 - Head Head exam: Present: atraumatic, normocephalic - Eye Eye exam: Present: PERRL, conjuntiva pink, sclera anicteric Pupils: Present: PERRL - Neck Neck exam general surgery: Present: supple, trachea midline. Absent: lymphadenopathy - Respiratory Respiratory exam: Present: decreased breath sounds, CTAB. Absent: accessory muscle use, rales, rhonchi, wheezes - Cardiovascular Cardiovascular exam: Present: RRR, +S1, +S2. Absent: diastolic murmur, gallop, rubs, systolic murmur - GI/Abdominal GI/Abdominal exam: Present: normal bowel sounds, soft, no peritoneal signs. Absent: distended, tenderness - Extremities Exam Extremities exam: Present: warm, radial pulses palpable and symmetrical. Absent : calf tenderness, cyanotic, pedal edema - Neurological Exam Neurological exam: Present: CN II-XII intact, oriented X3, no focal deficits. Absent: pronater drift, facial droop, speech deficit - Skin Skin exam: Present: dry, intact Internal Med - H&P Results - Labs CBC & Chem 7: 04/02/17 14:23 04/02/17 14:23 Labs: Short CBC 04/02/17 Range/Units 14:23 WBC 12.8 H (4.3-11.1) K/mcL Hgb 13.3 (11.5-15.4) g/dL Hct 42.8 (35.3-44.9) % Plt Count 255 (140-400) K/mcL Neutrophils # 8.8 (1.6-8.9) K/mcL BMP 04/02/17 14:23 Sodium 153 H Potassium 3.4 L Chloride 119 H Carbon Dioxide 25 BUN 31 H Creatinine 0.98 Glucose 153 H Calcium 9.2 Cardiac Enzymes 04/02/17 Range/Units 14:23 Troponin I 0.06 H* (< 0.04) ng/mL Liver Function 04/02/17 Range/Units 14:23 Total Bilirubin 0.3 (0.3-1.0) mg/dL Direct Bilirubin 0.0 (0.0-0.2) mg/dL AST 14 (13-39) Units/L ALT 10 (7-52) Units/L Alkaline Phosphatase 80 (34-104) Units/L Albumin 3.5 (3.5-5.7) g/dL Urine 04/02/17 Range/Units 15:48 Urine Color Yellow (Yellow) Urine Clarity Clear (Clear) Urine pH 6.0 (5.0-8.0) pH Units Ur Specific [place] 1.020 (1.010-1.025) Urine Protein Negative (Neg-Trace) mg/dL Urine Glucose (UA) Normal (Normal) mg/dL - Impressions ITS Impressions Abdomen/Pelvis CT 04/02/17 14:19 IMPRESSION: 1. Large stool burden identified in the rectum. Recommend disimpaction. 2. Focal area of wall thickening involving the proximal rectum versus distal sigmoid colon over a length of approximately 4 cm. Both malignancy or muscular hypertrophy related to constipation remain differential considerations. Colonoscopy should be considered after rectal disimpaction. 3. Bibasilar consolidation concerning for pneumonia. Recommend treating the patient and following to resolution. 4. Severe diverticulosis. 5. Severe atherosclerosis. D/ / 04/02/2017 15:31:59 Luana Krause MD / [facility]ign[facility] Interpreting Provider: Luana Krause MD Head CT 04/02/17 14:42 IMPRESSION: No evidence of acute intracranial abnormality. D/ : / 04/02/2017 15:27:50 Easton Hanson MD / [facility] Interpreting Provider: Easton Hanson MD - Diagnostic Studies Other Images Additional comments: Abdomen/Pelvis CT 04/02/17 14:19 IMPRESSION: 1. Large stool burden identified in the rectum. Recommend disimpaction. 2. Focal area of wall thickening involving the proximal rectum versus distal sigmoid colon over a length of approximately 4 cm. Both malignancy or muscular hypertrophy related to constipation remain differential considerations. Colonoscopy should be considered after rectal disimpaction. 3. Bibasilar consolidation concerning for pneumonia. Recommend treating the patient and following to resolution. 4. Severe diverticulosis. 5. Severe atherosclerosis. D/ /02/2017 15:31:59 Luana Krause MD / jignesh Interpreting Provider: Luana Krause MD Head CT 04/02/17 14:42 IMPRESSION: No evidence of acute intracranial abnormality. D/ / 04/02/2017 15:27:50 Easton Hanson MD / [facility] Interpreting Provider: Easton Hanson MD
[2017-04-02] MEDS ORDERED: Vancomycin 1,250 MG in D5% in Water 250 ML IVPB SCH (18:00)
[2017-04-02] MEDS ORDERED: D5% in Water 1,000 ML IVC SCH (18:30)
[2017-04-02] MEDS ORDERED: Acetaminophen 325 MG RECTAL SUPP RC PRN (19:46)
[2017-04-02] MEDS ORDERED: risperiDONE 1 MG TABLET PO SCH (21:00)
[2017-04-02] MEDS ORDERED: Acetaminophen 325 MG TABLET PO PRN (21:18)
[2017-04-02] MEDS ORDERED: methylPREDNISolone 125 MG/2 ML VIAL IVP ONE (23:16)
[2017-04-02] MEDS: D5% in Water 1,000 ML IVC SCH (23:19)
[2017-04-02 23:30] LABS: ABG Base Excess 1 mEq/L (-2 to 3); ABG HCO3 27 mEq/L (21-27); ABG Oxygen Saturation 95 % (95-98); ABG PCO2 47 mmHg (35-45); ABG PH 7.37 pH Units (7.32-7.45); ABG PO2 80 mmHg (85-104); ABG TCO2 29 mEq/L (20-26); Blood Gas FiO2 2.5 (1-15=lpm or21-100=%)
--- NOTE | 2017-04-02 23:31 | Event Note ---
Date of Encounter: 04/02/17 Time of Encounter: 23:28 Called to patient room by nursing staff patient she is very lethargic attempting to cough and having difficulty clearing sputum requiring suctioning, She has fever and is tachycardic. Dr Duque aware of condition and we both see patient together. Concerned for resp failure, worsening sepsis STAT CXR obtained as well as STAT ABG and lactate. Increased fluids, and ordered BIPAP. Dr Duque discuss condition with family and explain may need transfer to for closer observation, family verbalizes understanding.
[2017-04-02] MEDS: Ipratropium/Albuterol Neb 3 ML IH SCH (23:45)
[2017-04-02] MEDS: Budesonide/Formoterol 80/4.5 MDI IH SCH (23:49)
[2017-04-03] MEDS: MethylPREDNISolone 40 MG/ML VIAL IVP SCH ×3 (00:31→16:32)
[2017-04-03] MEDS: MetroNIDAZOLE 500 MG/100 ML 500 MG/100 ML BAG IVPB SCH ×3 (00:31→16:31)
[2017-04-03] MEDS: Piperacillin/Tazobactam 3.375 GM/200 ML BAG IVPB SCH ×3 (00:32→16:29)
[2017-04-03] MEDS: Ipratropium/Albuterol Neb 3 ML IH SCH ×4 (04:24→22:16)
[2017-04-03] MEDS: *HR* Enoxaparin 40 MG/0.4 ML SYRINGE SQ SCH (06:05)
[2017-04-03 07:33] LABS: Basophils % 0.3 %; Eosinophils % 0.1 %; Lymphocytes % 11.8 %; Mean Corpuscular HGB Conc 30.8 g/dL (31.6-35.5); Mean Corpuscular Hemoglobin 29.8 pg (28.0-33.3); Mean Corpuscular Volume 96.9 fL (83.0-100.0); Mean Platelet Volume 10.5 fL (9.4-12.4); Monocytes # 0.1 K/mcL (0.0-1.3); Monocytes % 1.5 %; Neutrophils # 7.4 K/mcL (1.6-8.9); Platelet Count 190 K/mcL (140-400); Red Blood Count 3.92 M/mcL (3.82-4.97); Red Cell Distribution Width 14.2 % (11.5-14.5); Segmented Neutrophils % 85.3 %
[2017-04-03 07:51] LABS: Hemoglobin 11.7 g/dL (11.5-15.4)
[2017-04-03] MEDS: (Memantine Hcl [Namenda Xr] 28 MG) PO SCH (08:04)
[2017-04-03] MEDS: Folic Acid 1 MG TABLET PO SCH (08:04)
[2017-04-03 08:06] LABS: BUN/Creatinine Ratio 30 (6-26); Blood Urea Nitrogen 24 mg/dL (8-23); Calcium 8.6 mg/dL (8.6-10.3); Carbon Dioxide 23 mEq/L (23-29); Chloride 122 mEq/L (98-107); Glucose 174 mg/dL (70-105); Magnesium 2.2 mg/dL (1.6-2.6); Osmolality,Calculated 326 (280-300); Sodium 154 mEq/L (136-145); eGFR For African Americans > 60 (> 60); eGFR For Non-African Americans > 60 (> 60)
[2017-04-03] MEDS: Pantoprazole 40 MG VIAL IVP SCH (08:10)
[2017-04-03 08:36] LABS: Adenovirus Not Detected (Not Detect); Bordetella Pertussis Not Detected (Not Detect); Chlamydophila pneumoniae Not Detected (Not Detect); Coronavirus 229E Not Detected (Not Detect); Coronavirus HKU1 Not Detected (Not Detect); Coronavirus NL63 Not Detected (Not Detect); Coronavirus OC43 Not Detected (Not Detect); Human Metapneumovirus Not Detected (Not Detect); Human Rhinovirus/Enterovirus Not Detected (Not Detect); Influenza A Subtype 2009 H1 Not Detected (Not Detect); Influenza A Untypeable Not Detected (Not Detect); Influenza B Not Detected (Not Detect); Mycoplasma pneumoniae Not Detected (Not Detect); Parainfluenza Virus 1 Not Detected (Not Detect); Parainfluenza Virus 2 Not Detected (Not Detect); Parainfluenza Virus 3 Not Detected (Not Detect); Parainfluenza Virus 4 Not Detected (Not Detect); Respiratory Syncytial Virus Not Detected (Not Detect)
[2017-04-03] MEDS ORDERED: Aspirin 81 MG TAB.CHEW PO SCH (09:00)
[2017-04-03] MEDS ORDERED: Lactobacillus 1 EACH CAP.SPRINK PO SCH (09:00)
[2017-04-03] MEDS ORDERED: *HR* Metoprolol 5 MG/5 ML VIAL IVP ONE (10:25)
[2017-04-03] MEDS: D5% in Water 1,000 ML IVC SCH ×2 (11:08→12:07)
--- NOTE | 2017-04-03 11:22 | Internal Med Progress Note ---
Date of Encounter: 04/03/17 Time of Encounter: 11:20 - Assessment and plan (1) HCAP (healthcare-associated pneumonia) Current Visit: No Status: Acute Assessment and plan: Continue with tobacco and Zosyn. Follow up on cultures. Flagyl has been added as well for possible aspiration. Continue nebulizers. Continue O2 support. Wean as tolerated. Continue IV steroids. (2) Advanced dementia Current Visit: No Status: Chronic Assessment and plan: Continue supportive care. (3) Constipation Current Visit: Yes Status: Acute Assessment and plan: Fecal impaction resolved. Continue laxatives. Qualifiers: Constipation type: unspecified constipation type Qualified Code(s): K59.00 - Constipation, unspecified (4) Elevated troponin Current Visit: No Status: Acute Assessment and plan: Likely demand ischemia. No ST or T-wave changes. (5) Hypertension Current Visit: No Status: Chronic Assessment and plan: Blood pressure is elevated. She is not taking by mouth and respiration precautions. We will add IV Lopressor to be used when necessary with parameters. She is also tachycardic. Qualifiers: Hypertension type: essential hypertension Qualified Code(s): I10 - Essential (primary) hypertension (6) Hypernatremia Current Visit: Yes Status: Acute Assessment and plan: Continue with D5 water today. Check labs in the morning. If continues to worsen and we will ask nephrology to see her. (7) DVT prophylaxis Current Visit: No Status: Acute Assessment and plan: Lovenox - Subjective Interval history: Patient admitted yesterday with fever, respiratory distress, fecal impaction, confusion. She has been afebrile since yesterday evening. Her MAXIMUM TEMPERATURE was 100.2 yesterday evening. She is tachycardic with heart rate in the 110's. The pressure is elevated with systolic in the 170s and diastolic in the 90s. She is on chronic O2 2 L continuous. Daughter is at bedside. Patient has dementia at baseline. - Constitutional Vitals: Temp Pulse Resp BP Pulse Ox 98.6 F 114 15 177/97 96 04/03/17 07:47 04/03/17 07:47 04/03/17 07:47 04/03/17 07:47 04/03/17 08:09 General appearance: Present: A&O X 0 Exam: GEN: On BiPAP. Opens her eyes but does not follow much commands. CVS: RRR. S1, S2, No m/r/g RESP: Diminished with coarse breath sounds throughout. ABD: Soft, NT, ND, +BS EXT: No edema. 2+ DP. No rashes NEURO: Heart assess her pupils are equal and reactive. Internal Medicine: Result - Labs CBC & Chem 7: 04/03/17 06:45 04/03/17 06:45 Labs: Short CBC 04/03/17 Range/Units 06:45 WBC 8.7 (4.3-11.1) K/mcL Hgb 11.7 D (11.5-15.4) g/dL Hct 38.0 (35.3-44.9) % Plt Count 190 (140-400) K/mcL Neutrophils # 7.4 (1.6-8.9) K/mcL BMP 04/02/17 04/03/17 04/03/17 23:43 06:45 06:45 Sodium 154 H 154 H 155 H Potassium 4.0 Chloride 122 H Carbon Dioxide 23 BUN 24 H Creatinine 0.80 Glucose 174 H Calcium 8.6 Cardiac Enzymes 04/02/17 04/03/17 Range/Units 20:25 02:21 Troponin I 0.07 H* 0.06 H* (< 0.04) ng/mL - ABG Interpretation ABG results: ABG ABG pH 7.37 pH Units (7.32-7.45) 04/02/17 23:27 ABG pCO2 47 mmHg (35-45) H 04/02/17 23:27 ABG pO2 80 mmHg (85-104) L 04/02/17 23:27 ABG O2 Saturation 95 % (95-98) 04/02/17 23:27 - Impressions Impressions Chest X-Ray 04/02/17 23:11 IMPRESSION: Minimal patchy airspace disease in the lower lungs bilaterally, somewhat greater on the right. Atelectasis and pneumonia both considered. D/ / Naren Elizabeth MD / Naren Elizabeth MD Interpreting Provider: Naren Elizabeth MD Consult Discharge Plan - Plan Referrals: NONE,PCP [Primary Care Provider] -
[2017-04-03] MEDS: Budesonide/Formoterol 80/4.5 MDI IH SCH ×2 (11:28→21:40)
[2017-04-03] MEDS ORDERED: *HR* Metoprolol 5 MG/5 ML VIAL IVP PRN (11:28)
[2017-04-03] MEDS: Vancomycin 1,250 MG in D5% in Water 250 ML IVPB SCH (18:27)
[2017-04-04] MEDS: MethylPREDNISolone 40 MG/ML VIAL IVP SCH ×3 (00:16→16:59)
[2017-04-04] MEDS: MetroNIDAZOLE 500 MG/100 ML 500 MG/100 ML BAG IVPB SCH ×3 (00:16→16:59)
[2017-04-04] MEDS: D5% in Water 1,000 ML IVC SCH ×2 (00:16→15:31)
[2017-04-04] MEDS: Piperacillin/Tazobactam 3.375 GM/200 ML BAG IVPB SCH ×4 (00:18→22:56)
[2017-04-04] MEDS: Ipratropium/Albuterol Neb 3 ML IH SCH ×4 (04:07→22:03)
[2017-04-04] MEDS: *HR* Enoxaparin 40 MG/0.4 ML SYRINGE SQ SCH (05:57)
[2017-04-04 06:39] LABS: BUN/Creatinine Ratio 29 (6-26); Blood Urea Nitrogen 20 mg/dL (8-23); Carbon Dioxide 22 mEq/L (23-29); Chloride 114 mEq/L (98-107); Glucose 171 mg/dL (70-105); Osmolality,Calculated 307 (280-300); Potassium 3.2 mEq/L (3.5-5.1); Sodium 145 mEq/L (136-145); eGFR For African Americans > 60 (> 60); eGFR For Non-African Americans > 60 (> 60)
[2017-04-04 06:41] LABS: Basophils % 0.2 %; Hematocrit 35.2 % (35.3-44.9); Immature Granulocytes % 0.9 % (0-4); Lymphocytes # 1.1 K/mcL (0.6-4.6); Lymphocytes % 13.3 %; Mean Corpuscular HGB Conc 31.3 g/dL (31.6-35.5); Mean Corpuscular Hemoglobin 29.7 pg (28.0-33.3); Mean Corpuscular Volume 95.1 fL (83.0-100.0); Mean Platelet Volume 10.6 fL (9.4-12.4); Monocytes # 0.3 K/mcL (0.0-1.3); Monocytes % 3.3 %; Neutrophils # 6.8 K/mcL (1.6-8.9); Platelet Count 177 K/mcL (140-400); Red Cell Distribution Width 13.4 % (11.5-14.5); Segmented Neutrophils % 82.3 %
[2017-04-04] MEDS: Pantoprazole 40 MG VIAL IVP SCH (10:02)
[2017-04-04] MEDS: (Memantine Hcl [Namenda Xr] 28 MG) PO SCH (10:03)
[2017-04-04] MEDS: Folic Acid 1 MG TABLET PO SCH (10:03)
[2017-04-04] MEDS: Budesonide/Formoterol 80/4.5 MDI IH SCH ×2 (10:17→22:03)
--- NOTE | 2017-04-04 17:53 | Internal Med Progress Note ---
Date of Encounter: 04/04/17 Time of Encounter: 17:51 - Assessment and plan (1) HCAP (healthcare-associated pneumonia) Current Visit: No Status: Acute Assessment and plan: Continue with tobacco and Zosyn. Follow up on cultures. Flagyl has been added as well for possible aspiration. Continue nebulizers. Continue O2 support. Wean as tolerated. Continue IV steroids. 04/04/2017. 76/female Admitted with healthcare associated pneumonia. This is fourth episode in less than 3 months. Possibility of aspiration is extremely high. We will continue present antibiotics. We will get speech therapy to evaluate tomorrow. If there is no issues with the speech therapy then we will get CT chest and possible pulmonology opinion (2) Advanced dementia Current Visit: No Status: Chronic Assessment and plan: Continue supportive care. (3) Elevated troponin Current Visit: No Status: Acute Assessment and plan: Likely demand ischemia. No ST or T-wave changes. (4) Hypertension Current Visit: No Status: Chronic Assessment and plan: Blood pressure is elevated. She is not taking by mouth and respiration precautions. Qualifiers: Hypertension type: essential hypertension Qualified Code(s): I10 - Essential (primary) hypertension (5) DVT prophylaxis Current Visit: No Status: Acute Assessment and plan: Lovenox - Subjective Interval history: Patient family requested care to be provided by me. Have taken care of this patient in her previous hospitalizations. Patient seen and examined. Chart reviewed. Patient is comfortably lying in the bed. Patient denies any pain/discomfort. - Constitutional Vitals: Temp Pulse Resp BP Pulse Ox 98.4 F 76 18 134/74 95 04/04/17 15:23 04/04/17 15:23 04/04/17 15:23 04/04/17 15:23 04/04/17 15:23 General appearance: Present: A&O X 0 - Head Head exam: Present: atraumatic, normocephalic - Eye Eye exam: Present: PERRL, conjuntiva pink, sclera anicteric Pupils: Present: PERRL - Neck Neck exam general surgery: Present: supple, trachea midline. Absent: lymphadenopathy - Respiratory Respiratory exam: Present: CTAB. Absent: accessory muscle use, rales, rhonchi, wheezes - Cardiovascular Cardiovascular exam: Present: RRR, +S1, +S2. Absent: diastolic murmur, gallop, rubs, systolic murmur - GI/Abdominal GI/Abdominal exam: Present: normal bowel sounds, soft, no peritoneal signs. Absent: distended, tenderness - Extremities Exam Extremities exam: Present: warm, radial pulses palpable and symmetrical. Absent : calf tenderness, cyanotic, pedal edema - Neurological Exam Neurological exam: Present: CN II-XII intact, oriented X3, no focal deficits. Absent: pronater drift, facial droop, speech deficit - Skin Skin exam: Present: dry, intact Internal Medicine: Result - Labs CBC & Chem 7: 04/04/17 05:32 04/04/17 05:32 Labs: Short CBC 04/04/17 Range/Units 05:32 WBC 8.2 (4.3-11.1) K/mcL Hgb 11.0 L (11.5-15.4) g/dL Hct 35.2 L (35.3-44.9) % Plt Count 177 (140-400) K/mcL Neutrophils # 6.8 (1.6-8.9) K/mcL BMP 04/03/17 04/03/17 04/04/17 18:06 23:22 05:32 Sodium 145 142 145 Potassium 3.2 L Chloride 114 H Carbon Dioxide 22 L BUN 20 Creatinine 0.68 Glucose 171 H Calcium 9.0 - ABG Interpretation ABG results: ABG ABG pH 7.37 pH Units (7.32-7.45) 04/02/17 23:27 ABG pCO2 47 mmHg (35-45) H 04/02/17 23:27 ABG pO2 80 mmHg (85-104) L 04/02/17 23:27 ABG O2 Saturation 95 % (95-98) 04/02/17 23:27 Consult Discharge Plan - Plan Referrals: NONE,PCP [Primary Care Provider] -
[2017-04-04] MEDS: Vancomycin 1,250 MG in D5% in Water 250 ML IVPB SCH (20:00)
[2017-04-05] MEDS: MethylPREDNISolone 40 MG/ML VIAL IVP SCH ×4 (00:34→23:49)
[2017-04-05] MEDS: MetroNIDAZOLE 500 MG/100 ML 500 MG/100 ML BAG IVPB SCH ×2 (00:35→10:20)
[2017-04-05] MEDS: Ipratropium/Albuterol Neb 3 ML IH SCH ×4 (04:44→22:15)
[2017-04-05 05:11] LABS: Basophils % 0.1 %; Hematocrit 35.4 % (35.3-44.9); Hemoglobin 11.4 g/dL (11.5-15.4); Immature Granulocytes % 1.5 % (0-4); Lymphocytes # 0.8 K/mcL (0.6-4.6); Lymphocytes % 11.2 %; Mean Corpuscular HGB Conc 32.2 g/dL (31.6-35.5); Mean Corpuscular Hemoglobin 29.6 pg (28.0-33.3); Mean Corpuscular Volume 91.9 fL (83.0-100.0); Mean Platelet Volume 10.2 fL (9.4-12.4); Monocytes # 0.3 K/mcL (0.0-1.3); Monocytes % 3.9 %; Neutrophils # 6.2 K/mcL (1.6-8.9); Platelet Count 176 K/mcL (140-400); Red Blood Count 3.85 M/mcL (3.82-4.97); Red Cell Distribution Width 13.2 % (11.5-14.5); Segmented Neutrophils % 83.3 %
[2017-04-05 05:49] LABS: Alanine Aminotransferase 13 Units/L (7-52); Albumin 2.9 g/dL (3.5-5.7); Albumin/Globulin Ratio 1.1 (1.1-2.2); Alkaline Phosphatase 60 Units/L (34-104); Aspartate Amino Transferase 12 Units/L (13-39); BUN/Creatinine Ratio 30 (6-26); Bilirubin,Total 0.3 mg/dL (0.3-1.0); Blood Urea Nitrogen 16 mg/dL (8-23); Calcium 8.4 mg/dL (8.6-10.3); Carbon Dioxide 25 mEq/L (23-29); Chloride 106 mEq/L (98-107); Globulin 2.6 g/dL (2.4-3.5); Glucose 136 mg/dL (70-105); Osmolality,Calculated 285 (280-300); Sodium 136 mEq/L (136-145); Total Protein 5.5 g/dL (6.4-8.9); eGFR For African Americans > 60 (> 60); eGFR For Non-African Americans > 60 (> 60)
[2017-04-05] MEDS: *HR* Enoxaparin 40 MG/0.4 ML SYRINGE SQ SCH (06:08)
[2017-04-05] MEDS: Piperacillin/Tazobactam 3.375 GM/200 ML BAG IVPB SCH ×3 (06:09→22:17)
--- NOTE | 2017-04-05 10:16 | Electrocardiograph Report ---
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
[2017-04-05] MEDS: Folic Acid 1 MG TABLET PO SCH (10:20)
[2017-04-05] MEDS: (Memantine Hcl [Namenda Xr] 28 MG) PO SCH (10:20)
[2017-04-05] MEDS: D5% in Water 1,000 ML IVC SCH (10:25)
[2017-04-05] MEDS: Budesonide/Formoterol 80/4.5 MDI IH SCH ×2 (11:14→22:15)
[2017-04-05] MEDS ORDERED: Vancomycin 1,000 MG in D5% in Water 250 ML IVPB ONE (12:27)
--- NOTE | 2017-04-05 17:59 | Internal Med Progress Note ---
Date of Encounter: 04/05/17 Time of Encounter: 17:56 - Assessment and plan (1) HCAP (healthcare-associated pneumonia) Current Visit: No Status: Acute Assessment and plan: Continue with tobacco and Zosyn. Follow up on cultures. Flagyl has been added as well for possible aspiration. Continue nebulizers. Continue O2 support. Wean as tolerated. Continue IV steroids. 04/04/2017. 76/female Admitted with healthcare associated pneumonia. This is fourth episode in less than 3 months. Possibility of aspiration is extremely high. We will continue present antibiotics. We will get speech therapy to evaluate tomorrow. If there is no issues with the speech therapy then we will get CT chest and possible pulmonology opinion 04/05/2017. Noted that speech therapy evaluated the patient and as per speech therapy recommendations patient is tolerating honey thickened liquids and pureed textures without any difficulty We will continue present antibiotics for now. We will continue total number of 5 days at least intravenous antibiotics and another 5 days oral to complete altogether tenderness. This is because patient has a recurrent pneumonia. Patient might need a pulmonology evaluation as outpatient. (2) Advanced dementia Current Visit: No Status: Chronic Assessment and plan: Continue supportive care. (3) Elevated troponin Current Visit: No Status: Acute Assessment and plan: Likely demand ischemia. No ST or T-wave changes. (4) Hypertension Current Visit: No Status: Chronic Assessment and plan: Blood pressure is elevated. She is not taking by mouth and respiration precautions. Qualifiers: Hypertension type: essential hypertension Qualified Code(s): I10 - Essential (primary) hypertension (5) DVT prophylaxis Current Visit: No Status: Acute Assessment and plan: Lovenox - Subjective Interval history: Patient family requested care to be provided by me. Have taken care of this patient in her previous hospitalizations. Patient seen and examined. Chart reviewed. Patient is comfortably lying in the bed. Patient denies any pain/discomfort. 04/05/2017 Patient seen and examined. Chart reviewed. Patient is comfortably lying in bed. Patient's smiles back at me on the greetings Patient denies any pain - Constitutional Vitals: Temp Pulse Resp BP Pulse Ox 97.5 F L 75 17 147/70 96 04/05/17 15:57 04/05/17 15:57 04/05/17 15:57 04/05/17 15:57 04/05/17 15:57 General appearance: Present: A&O X 0 - Head Head exam: Present: atraumatic, normocephalic - Eye Eye exam: Present: PERRL, conjuntiva pink, sclera anicteric Pupils: Present: PERRL - Neck Neck exam general surgery: Present: supple, trachea midline. Absent: lymphadenopathy - Respiratory Respiratory exam: Present: CTAB. Absent: accessory muscle use, rales, rhonchi, wheezes - Cardiovascular Cardiovascular exam: Present: RRR, +S1, +S2. Absent: diastolic murmur, gallop, rubs, systolic murmur - GI/Abdominal GI/Abdominal exam: Present: normal bowel sounds, soft, no peritoneal signs. Absent: distended, tenderness - Extremities Exam Extremities exam: Present: warm, radial pulses palpable and symmetrical. Absent : calf tenderness, cyanotic, pedal edema - Neurological Exam Neurological exam: Present: CN II-XII intact, oriented X3, no focal deficits. Absent: pronater drift, facial droop, speech deficit - Skin Skin exam: Present: dry, intact Internal Medicine: Result - Labs CBC & Chem 7: 04/05/17 04:40 04/05/17 04:40 Labs: Short CBC 04/05/17 Range/Units 04:40 WBC 7.4 (4.3-11.1) K/mcL Hgb 11.4 L (11.5-15.4) g/dL Hct 35.4 (35.3-44.9) % Plt Count 176 (140-400) K/mcL Neutrophils # 6.2 (1.6-8.9) K/mcL BMP 04/05/17 04:40 Sodium 136 D Potassium 3.0 L Chloride 106 Carbon Dioxide 25 BUN 16 Creatinine 0.54 L Glucose 136 H Calcium 8.4 L Liver Function 04/05/17 Range/Units 04:40 Total Bilirubin 0.3 (0.3-1.0) mg/dL AST 12 L (13-39) Units/L ALT 13 (7-52) Units/L Alkaline Phosphatase 60 (34-104) Units/L Albumin 2.9 L (3.5-5.7) g/dL - ABG Interpretation ABG results: ABG ABG pH 7.37 pH Units (7.32-7.45) 04/02/17 23:27 ABG pCO2 47 mmHg (35-45) H 04/02/17 23:27 ABG pO2 80 mmHg (85-104) L 04/02/17 23:27 ABG O2 Saturation 95 % (95-98) 04/02/17 23:27 Consult Discharge Plan - Plan Referrals: NONE,PCP [Primary Care Provider] - (patient will follow up with [facility])
[2017-04-06 04:37] LABS: Basophils % 0.2 %; Hematocrit 35.1 % (35.3-44.9); Hemoglobin 11.4 g/dL (11.5-15.4); Immature Granulocytes % 3.6 % (0-4); Lymphocytes # 0.8 K/mcL (0.6-4.6); Mean Corpuscular HGB Conc 32.5 g/dL (31.6-35.5); Mean Corpuscular Hemoglobin 29.6 pg (28.0-33.3); Mean Corpuscular Volume 91.2 fL (83.0-100.0); Mean Platelet Volume 10.5 fL (9.4-12.4); Monocytes # 0.3 K/mcL (0.0-1.3); Monocytes % 3.7 %; Neutrophils # 6.9 K/mcL (1.6-8.9); Platelet Count 201 K/mcL (140-400); Red Blood Count 3.85 M/mcL (3.82-4.97); Red Cell Distribution Width 13.4 % (11.5-14.5); Segmented Neutrophils % 82.5 %
[2017-04-06 04:59] LABS: Alanine Aminotransferase 23 Units/L (7-52); Albumin 2.9 g/dL (3.5-5.7); Alkaline Phosphatase 57 Units/L (34-104); Aspartate Amino Transferase 27 Units/L (13-39); BUN/Creatinine Ratio 27 (6-26); Bilirubin,Total 0.3 mg/dL (0.3-1.0); Blood Urea Nitrogen 16 mg/dL (8-23); Calcium 8.6 mg/dL (8.6-10.3); Carbon Dioxide 26 mEq/L (23-29); Chloride 109 mEq/L (98-107); Glucose 108 mg/dL (70-105); Osmolality,Calculated 290 (280-300); Potassium 3.6 mEq/L (3.5-5.1); Sodium 139 mEq/L (136-145); Total Protein 5.4 g/dL (6.4-8.9); eGFR For African Americans > 60 (> 60); eGFR For Non-African Americans > 60 (> 60)
[2017-04-06 05:00] LABS: Albumin/Globulin Ratio 1.2 (1.1-2.2); Globulin 2.5 g/dL (2.4-3.5)
[2017-04-06] MEDS: Ipratropium/Albuterol Neb 3 ML IH SCH ×4 (05:33→22:07)
[2017-04-06] MEDS: *HR* Enoxaparin 40 MG/0.4 ML SYRINGE SQ SCH (06:22)
[2017-04-06] MEDS: Piperacillin/Tazobactam 3.375 GM/200 ML BAG IVPB SCH (06:30)
[2017-04-06] MEDS: MethylPREDNISolone 40 MG/ML VIAL IVP SCH (08:44)
[2017-04-06] MEDS: Folic Acid 1 MG TABLET PO SCH (08:44)
[2017-04-06] MEDS: Budesonide/Formoterol 80/4.5 MDI IH SCH ×2 (10:42→22:07)
[2017-04-06] MEDS ORDERED: Aminoglycoside Consult 1 EACH MC ONE (11:37)
[2017-04-06] MEDS: predniSONE 20 MG TABLET PO SCH (14:56)
[2017-04-06] MEDS: Ampicillin/Sulbactam 3,000 MG in 0.9 % Sodium Chloride Mini Bag 100 ML IVPB SCH ×3 (14:56→23:25)
--- NOTE | 2017-04-06 15:48 | Internal Med Progress Note ---
<Soren Nath - Last Filed: 04/06/17 15:45> Date of Encounter: 04/06/17 Time of Encounter: 15:45 - Assessment and plan (1) Pneumonia, unspecified organism Current Visit: Yes Status: Acute Assessment and plan: Patient is admitted for healthcare associated pneumonia. Past 4 days has been treated for bacterial pneumonia on broad-spectrum antibiotics vancomycin, Zosyn, Flagyl. Patient has had multiple episodes of pneumonia in past 3 months. Due to high risk for aspiration speech was consulted And recommended honey thickened liquids with pureed textures Patient is on 3 L oxygen. We will wean down to home oxygen level of 2 L. Plan: We will de-escalate antibiotics to Unasyn. Continue day for prednisone. Continue duonebs. Qualifiers: Pneumonia type: aspiration pneumonia Aspiration pneumonia type: unspecified Laterality: unspecified laterality Lung location: unspecified part of lung Qualified Code(s): J69.0 - Pneumonitis due to inhalation of food and vomit (2) Advanced dementia Current Visit: Yes Status: Acute Assessment and plan: Patient is alert to self but not oriented to time place or situation Continue Namenda and donepezil. According to family patient is back to her baseline mental status. (3) DVT prophylaxis Current Visit: Yes Status: Acute Assessment and plan: Lovenox 40 mg subcutaneous (4) Elevated troponin Current Visit: Yes Status: Acute Assessment and plan: Elevated troponins of 0.06, 0.07, 0.06 on admission. EKG was negative for ST or T-wave changes. Secondary to demand ischemia. (5) Hypertension Current Visit: Yes Status: Chronic Assessment and plan: Blood pressure is on average systolics 150s to 160s. Restart patient's home Lasix. Qualifiers: Hypertension type: essential hypertension Qualified Code(s): I10 - Essential (primary) hypertension - Subjective Interval history: Patient sitting up in bed enjoying breakfast this morning. She did not have any complaints. There were no acute overnight events. She denied chest pain, shortness of breath, abdominal pain, nausea, vomiting. She is tolerating her diet. - Constitutional Vitals: Temp Pulse Resp BP Pulse Ox 97.4 F L 78 16 158/77 94 04/06/17 11:48 04/06/17 11:48 04/06/17 11:48 04/06/17 11:48 04/06/17 12:28 General appearance: Present: A&O X 1 - Other Additional findings: General: Pleasant without distress Heart: Regular rate and rhythm with no murmur Lungs: Clear to auscultation bilaterally Abdomen: Soft nontender, nondistended positive bowel sounds Skin: warm and dry Extremities: Absent pedal edema, Neuro: Alert to self not time place or situation (baseline) Vascular: Pedal and radial pulses 2 out of 4 Internal Medicine: Result - Labs CBC & Chem 7: 04/06/17 04:15 04/06/17 04:15 Labs: Short CBC 04/06/17 Range/Units 04:15 WBC 8.3 (4.3-11.1) K/mcL Hgb 11.4 L (11.5-15.4) g/dL Hct 35.1 L (35.3-44.9) % Plt Count 201 (140-400) K/mcL Neutrophils # 6.9 (1.6-8.9) K/mcL BMP 04/06/17 04:15 Sodium 139 Potassium 3.6 Chloride 109 H Carbon Dioxide 26 BUN 16 Creatinine 0.59 L Glucose 108 H Calcium 8.6 Liver Function 04/06/17 Range/Units 04:15 Total Bilirubin 0.3 (0.3-1.0) mg/dL AST 27 (13-39) Units/L ALT 23 (7-52) Units/L Alkaline Phosphatase 57 (34-104) Units/L Albumin 2.9 L (3.5-5.7) g/dL - ABG Interpretation ABG results: ABG ABG pH 7.37 pH Units (7.32-7.45) 04/02/17 23:27 ABG pCO2 47 mmHg (35-45) H 04/02/17 23:27 ABG pO2 80 mmHg (85-104) L 04/02/17 23:27 ABG O2 Saturation 95 % (95-98) 04/02/17 23:27 Consult Discharge Plan - Plan Referrals: NONE,PCP [Primary Care Provider] - (patient will follow up with f pcp) <Johnathan Hooper - Last Filed: 04/06/17 16:31> Date of Encounter: 04/06/17 - Constitutional Vitals: Temp Pulse Resp BP Pulse Ox 97.4 F L 78 16 158/77 94 04/06/17 11:48 04/06/17 11:48 04/06/17 15:55 04/06/17 11:48 04/06/17 15:55 Internal Medicine: Result - Labs CBC & Chem 7: 04/06/17 04:15 04/06/17 04:15 Labs: Short CBC 04/06/17 Range/Units 04:15 WBC 8.3 (4.3-11.1) K/mcL Hgb 11.4 L (11.5-15.4) g/dL Hct 35.1 L (35.3-44.9) % Plt Count 201 (140-400) K/mcL Neutrophils # 6.9 (1.6-8.9) K/mcL BMP 04/06/17 04:15 Sodium 139 Potassium 3.6 Chloride 109 H Carbon Dioxide 26 BUN 16 Creatinine 0.59 L Glucose 108 H Calcium 8.6 Liver Function 04/06/17 Range/Units 04:15 Total Bilirubin 0.3 (0.3-1.0) mg/dL AST 27 (13-39) Units/L ALT 23 (7-52) Units/L Alkaline Phosphatase 57 (34-104) Units/L Albumin 2.9 L (3.5-5.7) g/dL - ABG Interpretation ABG results: ABG ABG pH 7.37 pH Units (7.32-7.45) 04/02/17 23:27 ABG pCO2 47 mmHg (35-45) H 04/02/17 23:27 ABG pO2 80 mmHg (85-104) L 04/02/17 23:27 ABG O2 Saturation 95 % (95-98) 04/02/17 23:27 - Attending Attestation I examined this patient and my medical decision-making was reviewed with the Resident Physician on 04/06/17. I agree with the documented findings, disposition and treatment plan as described except to the extent set forth below. 76 YOF with advanced dementia, resident of [facility], admitted for management of HCAP , suspected aspiration pneumonia She is seen and evaluated at bedside with family, who states she has no new complains Physical exam; Hard of hearing, VSS, not in distress, on same amount of home O2 , chest is CTAB anteriorly, HS S1, S2 , abdomen is soft and not tender, no pedal edema Labs and Imaging reviewed: CBC and Chem WNL Plan: Deescalate antibiotics to Unasyn for anaerobic coverage, cultures are negative Continue to monitor one more day, possible discharge to SNF a.m. when clinically stable. Speech eval documentation noted Rest of details as in the resident physicians documentation.
[2017-04-06] MEDS: Furosemide 20 MG TABLET PO SCH (17:43)
[2017-04-06] MEDS ORDERED: risperiDONE 0.25 MG TABLET PO SCH (21:00)
[2017-04-07] MEDS: Ipratropium/Albuterol Neb 3 ML IH SCH ×2 (04:26→08:55)
[2017-04-07] MEDS: Furosemide 20 MG TABLET PO SCH (07:01)
[2017-04-07] MEDS: Ampicillin/Sulbactam 3,000 MG in 0.9 % Sodium Chloride Mini Bag 100 ML IVPB SCH (07:01)
[2017-04-07] MEDS: *HR* Enoxaparin 40 MG/0.4 ML SYRINGE SQ SCH (07:01)
[2017-04-07 07:26] VITALS: BP 162/70
[2017-04-07] MEDS ORDERED: amLODIPine 5 MG TABLET PO SCH (09:00)
--- NOTE | 2017-04-07 09:00 | Discharge Summary ---
<Soren Nath - Last Filed: 04/07/17 08:56> Date of Encounter: 04/07/17 Time of Encounter: 08:56 - Discharge Diagnosis (1) Pneumonia, unspecified organism Priority: Primary Status: Acute Qualifiers: Pneumonia type: aspiration pneumonia Aspiration pneumonia type: unspecified Laterality: unspecified laterality Lung location: unspecified part of lung Qualified Code(s): J69.0 - Pneumonitis due to inhalation of food and vomit (2) Advanced dementia Priority: Secondary Status: Acute (3) Elevated troponin Priority: Secondary Status: Acute (4) Hypertension Priority: Secondary Status: Chronic Qualifiers: Hypertension type: essential hypertension Qualified Code(s): I10 - Essential (primary) hypertension (5) DVT prophylaxis Priority: Secondary Status: Acute - Discharge Medications Prescriptions: Amoxicillin/Clavulanate [Augmentin] 500 mg PO BIDWM #10 tablet OxyCODONE Immed Rel [Roxicodone 5 MG] 5 mg PO Q6H PRN #7 tablet PRN Reason: Pain Home Medications: Donepezil [Aricept] 10 mg PO HS #0 07/04/15 [History] Sertraline [Zoloft] 150 mg PO DAILY #0 07/05/15 [History] Furosemide [Lasix] 20 mg PO BID 11/02/15 [History] Memantine HCl [Namenda Xr] 28 mg PO DAILY 11/02/15 [History] Montelukast [Singulair] 10 mg PO DAILY 07/12/16 [History] Potassium Chloride [Klor-Con Sprinkle] 10 meq PO DAILY 07/12/16 [History] GuaiFENesin ER [Mucinex] 1,200 mg PO Q12H 07/14/16 [History] Docusate [Colace] 100 mg PO BID #0 capsule 07/17/16 [Rx] Fluticasone/Salmeterol [Advair 250-50 Diskus] 1 puff IH BID 07/27/16 [History] L. Acidophilus/Pectin, [place] [Acidophilus Probiotic Capsule] 1 cap PO DAILY [History] Albuterol Sulfate [Albuterol Inhaler] 2 puff IH Q4H PRN #1 inhaler 09/08/16 [Rx] Aspirin 81 mg PO DAILY 04/02/17 [History] Folic Acid 1 mg PO DAILY 04/02/17 [History] Ipratropium/Albuterol Neb [Duoneb] 3 ml IH Q4H PRN 04/02/17 [History] RisperiDONE [Risperdal] 0.5 mg PO HS 04/02/17 [History] Amoxicillin/Clavulanate [Augmentin] 500 mg PO BIDWM #10 tablet 04/07/17 [Rx] Omeprazole [PriLOSEC] 20 mg PO DAILY capsule. 04/07/17 [Rx] OxyCODONE Immed Rel [Roxicodone 5 MG] 5 mg PO Q6H PRN #7 tablet 04/07/17 [Rx] amLODIPine [Norvasc] 5 mg PO DAILY tablet 04/07/17 [Rx] Allergies/Adverse Reactions: 3 Allergy/AdvReac Type Severity Reaction Status Date / Time No Known Allergies Allergy Verified 07/04/15 21:39 Date of admission: 04/02/17 18:16 Primary care physician: PCP NONE Consults: 04/05/17 09:52 Consult to Manager Integration [CONS] Routine Reason for SW Consult: from [facility] Discharging clinician: Soren Nath Anticipated date of discharge: 04/07/17 - Patient Status Disposition: Transfer SNF Condition: Fair Functional capacity at discharge: uses cane/walker Overall status at discharge: patient is back to baseline - Discharge Instructions Follow Up With: NONE,PCP [Primary Care Provider] - (patient will follow up with [facility] pcp) - Diet and Activity Activity: increase activity as tolerated, wear oxygen at all times Diet: other (Pureed diet: Assistance with all meals, meds and pureed texture. Honey thickened liquids with all meals) Hospital course: Ms. Cartagena is a 76 year old female with history of advanced dementia presented from [facility] due to change in mental status. According to family patient was less interactive, less talkative and more weak, unable to feed herself. Patient has been admitted multiple times in the past year for pneumonia. On presentation she had no new cough, shortness of breath or chest pain. Emergency room workup showed evidence of leukocytosis, hypernatremia, hypokalemia, lactic acidosis and elevated troponin. CT of the abdomen and pelvis showed bibasilar atelectasis and stool impaction. Blood cultures were collected. Patient was treated for healthcare associated pneumonia with broad- spectrum antibiotics initially. She required 3 L of nasal cannula which is an increase from her baseline of 2 L. Due to recurrent pneumonia she was put on aspiration precautions and speech therapy was consulted. Patient also required D5W infusion for her hypernatremia which resolved in the next 24 hours after admission. Her change in mental status was attributed to multiple factors including hypernatremia, pneumonia. Patient's electrolytes were replaced accordingly. Other troponins were adynamic and were secondary to demand ischemia. EKG showed no ST or T-wave changes. Speech therapy stated patient requires honey thickened liquids and pureed diet. Blood cultures and sputum cultures have been negative. Since oxygen requirement is back down to 2 L. Patient's antibiotics and de-escalate her to Unasyn and she will be discharged with Augmentin for an additional 5 days. She will have 10 days of total antibody therapy. He has been afebrile, WBC within normal limits. For the last 48 hours according to family patient is back to baseline. She is able to independently feed herself. Patient is alert to self but not to place or situation which is her baseline. She is conversational. She will be discharged back to [facility]. - Time Spent with Patient Total time spent providing and/or coordinating discharge services: - Constitutional Vitals: Temp Pulse Resp BP Pulse Ox 97.3 F L 91 17 162/70 97 04/07/17 07:24 04/07/17 07:24 04/07/17 07:24 04/07/17 07:24 04/07/17 07:24 General appearance: Present: A&O X 1 - Other Additional findings: General: Pleasant without distress Heart: Regular rate and rhythm with no murmur Lungs: Clear to auscultation bilaterally Abdomen: Soft nontender, nondistended positive bowel sounds Skin: warm and dry Extremities: Absent pedal edema, Neuro: Alert to self not time place or situation (baseline) Vascular: Pedal and radial pulses 2 out of 4 <Johnathan Hooper T - Last Filed: 04/07/17 13:26> Date of Encounter: 04/07/17 Date of admission: 04/02/17 18:16 Primary care physician: PCP NONE Consults: 04/05/17 09:52 Consult to Manager Integration [CONS] Routine Reason for SW Consult: from [facility] course: Ms. Cartagena is a 76 year old female - Time Spent with Patient Total time spent providing and/or coordinating discharge services: - Constitutional Vitals: Temp Pulse Resp BP Pulse Ox 97.3 F L 91 16 162/70 95 04/07/17 07:24 04/07/17 07:24 04/07/17 08:56 04/07/17 07:24 04/07/17 08:56 - Attending Attestation I examined this patient and my medical decision-making was reviewed with the Resident Physician on 04/07/17. I agree with the documented findings, disposition and treatment plan as described except to the extent set forth below. 76 YOF with advanced dementia, resident of SNF, admitted for management of HCAP , suspected aspiration pneumonia She is seen and evaluated at bedside with family, who states she has no new complains Physical exam; Hard of hearing, VSS, not in distress, on same amount of home O2 , chest is CTAB anteriorly, HS S1, S2 , abdomen is soft and not tender, mild papular rash, not weeping, not pruritic, no pedal edema Labs and Imaging reviewed: CBC and Chem WNL Plan: Stable for return to SNF on current diet and Augmentin, add Norvasc for uncontrolled HTN Rest of details as in the resident physicians documentation
--- NOTE | 2017-04-07 09:18 | Physician Discharge Referral ---
ExtendedCare Referral Info Transfer To: [facility] Provider in Charge: susana Provider in Charge after Transfer: PCP Institutional Level of Care: Intermediate - Diagnosis (1) Pneumonia, unspecified organism Priority: Primary Status: Acute (2) Advanced dementia Priority: Secondary Status: Acute (3) Elevated troponin Priority: Secondary Status: Acute (4) Hypertension Priority: Secondary Status: Chronic (5) DVT prophylaxis Priority: Secondary Status: Acute Prognosis: Good Aware of Diagnosis: Family Aware of Prognosis: Family - Transfer Medications Prescriptions: Amoxicillin/Clavulanate [Augmentin] 500 mg PO BIDWM #10 tablet OxyCODONE Immed Rel [Roxicodone 5 MG] 5 mg PO Q6H PRN #7 tablet PRN Reason: Pain Home Medications: Donepezil [Aricept] 10 mg PO HS #0 07/04/15 [History] Sertraline [Zoloft] 150 mg PO DAILY #0 07/05/15 [History] Furosemide [Lasix] 20 mg PO BID 11/02/15 [History] Memantine HCl [Namenda Xr] 28 mg PO DAILY 11/02/15 [History] Montelukast [Singulair] 10 mg PO DAILY 07/12/16 [History] Potassium Chloride [Klor-Con Sprinkle] 10 meq PO DAILY 07/12/16 [History] GuaiFENesin ER [Mucinex] 1,200 mg PO Q12H 07/14/16 [History] Docusate [Colace] 100 mg PO BID #0 capsule 07/17/16 [Rx] Fluticasone/Salmeterol [Advair 250-50 Diskus] 1 puff IH BID 07/27/16 [History] L. Acidophilus/Pectin, [place] [Acidophilus Probiotic Capsule] 1 cap PO DAILY [History] Albuterol Sulfate [Albuterol Inhaler] 2 puff IH Q4H PRN #1 inhaler 09/08/16 [Rx] Aspirin 81 mg PO DAILY 04/02/17 [History] Folic Acid 1 mg PO DAILY 04/02/17 [History] Ipratropium/Albuterol Neb [Duoneb] 3 ml IH Q4H PRN 04/02/17 [History] RisperiDONE [Risperdal] 0.5 mg PO HS 04/02/17 [History] Amoxicillin/Clavulanate [Augmentin] 500 mg PO BIDWM #10 tablet 04/07/17 [Rx] Omeprazole [PriLOSEC] 20 mg PO DAILY capsule. 04/07/17 [Rx] OxyCODONE Immed Rel [Roxicodone 5 MG] 5 mg PO Q6H PRN #7 tablet 04/07/17 [Rx] amLODIPine [Norvasc] 5 mg PO DAILY tablet 04/07/17 [Rx] Allergies/Adverse Reactions: 3 Allergy/AdvReac Type Severity Reaction Status Date / Time No Known Allergies Allergy Verified 07/04/15 21:39 - Respiratory Orders Oxygen / L per min (2L) Smoking Cessation: Smoking cessation has been advised. For more information, call the [place] Tobacco Quit Line at 3-350-EPQM-NOW. - Ancillary Orders May use pressure relief devices daily prn - Advance Directives Code Status: DNR-Arrest/Don't Intubate - Mobility Orders Chair, Ambulate (with assistance) - Rehabiliation Orders Rehab Potential: Good Rehab Orders: ROM Exercises, Evaluation for Physical Therapy - Treatments Skin tear care topically daily PRN per policy - Diet Orders Pureed (Pureed diet: Assistance with all meals, meds and pureed texture. Honey thickened liquids with all meals) CERTIFICATION: I certify that the transfer of the above named patient to an Extended Care Facility is necessary for the continuing treatment of the diagnosis listed. The above information is true and accurate reflection of patient's current condition. Confidential - Redisclosure prohibited without a patient's written consent.
[2017-04-07] MEDS: Folic Acid 1 MG TABLET PO SCH (10:18)
[2017-04-07] MEDS: predniSONE 20 MG TABLET PO SCH (10:18)
[2017-04-07] MEDS: Budesonide/Formoterol 80/4.5 MDI IH SCH (11:08)
== END 2017-04-07 11:38 | DRG 139 ==
LOC: 3BNU 13:59 → EMEROO 13:59 → SUATTDRO 18:16 → 3BNU 18:18 → 2ANU 04-04 08:57
PROVIDERS: ADMIT Registered Nurse; ATTEND Internal Medicine

== ENCOUNTER 2017-06-03 17:11 | Inpatient (IN) ==
--- NOTE | 2017-06-03 17:45 | Emergency Department Note ---
START Narrative - START START: I examined this patient and my medical decision-making was reviewed with the GAS COMPRESSOR TURBINE OPERATOR/PA/Advanced Practice Nurse/Resident Physician. I agree with the documented findings, disposition and treatment plan as described except to the extent set forth below. I did see the patient. She is nonverbal. The patient does have weight gain, fever and decreased level of consciousness and workup is in progress. We will attempt to contact family to discuss goals of care. The patient is DNR CC but is not palliative care. Has had also decreased oxygen saturation. 174
--- NOTE | 2017-06-03 17:54 | Emergency Department Note ---
Disposition Clinical Impression: Constipation Qualifiers: Constipation type: unspecified constipation type Qualified Code(s): K59.00 - Constipation, unspecified UTI (urinary tract infection) Qualifiers: Urinary tract infection type: site unspecified Hematuria presence: without hematuria Qualified Code(s): N39.0 - Urinary tract infection, site not specified Disposition: Admitted As Inpatient Condition: Fair Reasons to Return/Additional Instructions: admitted as inpatient. Referrals: NONE,PCP [Primary Care Provider] - Forms: ED Satisfaction Letter Time of Disposition: 20:48 Fever HPI - General Chief Complaint: ED Fever Stated Complaint: Fever,rapid weight gain Time Seen by Provider: 06/03/17 17:27 Source: patient, EMS Limitations: language barrier, altered mental status, age Nursing Notes Reviewed: Yes Vital Signs Reviewed: Yes - History of Present Illness HPI Narrative: 77-year-old female with a past medical history of dementia, CHF presents to emergency department from [facility]-way facility with a reported fever as well as 5 pound weight gain 1 day. Patient is baseline AOx1 and does not respond to questions. History of present illness is severely limited by this. EMS as well as halfway, he should not will answer direct questions sometimes at baseline. She was sent here for a reported fever of 101.4 Fahrenheit. She did receive Tylenol at that time which did relieve her fever down to 98 degrees Fahrenheit. They also with the patient daily due to history of CHF and states she has gained 5 pounds in the past 24 hours. Pt Subjective Complaint: fever - Related Data Home Medications Medication Instructions Recorded Confirmed Donepezil [Aricept] 10 mg PO HS #0 07/04/15 05/24/17 Sertraline [Zoloft] 150 mg PO DAILY #0 07/05/15 05/24/17 Furosemide [Lasix] 20 mg PO BID 11/02/15 05/24/17 Memantine HCl [Namenda Xr] 28 mg PO DAILY 11/02/15 05/24/17 Montelukast [Singulair] 10 mg PO DAILY 07/12/16 05/24/17 Potassium Chloride [Klor-Con 10 meq PO DAILY 07/12/16 05/24/17 Sprinkle] GuaiFENesin ER [Mucinex] 1,200 mg PO Q12H 07/14/16 05/24/17 Fluticasone/Salmeterol [Advair 1 puff IH BID 07/27/16 05/24/17 250-50 Diskus] L. Acidophilus/Pectin, [place] 1 cap PO DAILY 08/26/16 05/24/17 [Acidophilus Probiotic Capsule] Aspirin 81 mg PO DAILY 04/02/17 05/24/17 Folic Acid 1 mg PO DAILY 04/02/17 05/24/17 Ipratropium/Albuterol Neb [Duoneb] 3 ml IH Q4H PRN 04/02/17 05/24/17 RisperiDONE [Risperdal] 0.5 mg PO HS 04/02/17 05/24/17 Acetaminophen [Tylenol] 650 mg PO Q4H PRN 05/24/17 05/24/17 Baby Shampoo 1 appl TP BID 05/24/17 05/24/17 Cetirizine HCl [Zyrtec] 10 mg PO DAILY 05/24/17 05/24/17 Clotrimazole 1% CRM [Lotrimin 1%] 1 appl TP BID 05/24/17 05/24/17 Ipratropium/Albuterol Neb [Duoneb] 3 ml IH Q4HR 05/24/17 05/24/17 hydrOXYzine HCl [Hydroxyzine HCl] 25 mg PO Q6H PRN 05/24/17 05/24/17 Previous Rx's Medication Instructions Recorded Docusate [Colace] 100 mg PO BID #0 capsule 07/17/16 Albuterol Sulfate [Albuterol 2 puff IH Q4H PRN #1 inhaler 09/08/16 Inhaler] Omeprazole [PriLOSEC] 20 mg PO DAILY capsule. 04/07/17 OxyCODONE Immed Rel [Roxicodone 5 5 mg PO Q6H PRN #7 tablet 04/07/17 MG] amLODIPine [Norvasc] 5 mg PO DAILY tablet 04/07/17 Allergies Allergy/AdvReac Type Severity Reaction Status Date / Time No Known Allergies Allergy Verified 07/04/15 21:39 Limitations: ROS unobtainable due to patients medical condition Fever PMH - Past Medical History Medical history: Reports: arthritis, CHF, COPD, coronary artery disease, dementia, hypertension, osteoporosis, other Surgical history: Reports: non-contributory, hip replacement, other Psychiatric history: Reports: anxiety, other - Social History Smoking Status: Unknown if ever smoked Alcohol use: Reports: unknown Drug use: Reports: unknown Physical Exam - General Limitations: no limitations General appearance: alert, in no apparent distress - Head Head exam: atraumatic, normocephalic, normal inspection - Eye Eye exam: Present: normal appearance, PERRL, EOMI, miosis - ENT ENT exam: mucous membranes dry - Chest Chest inspection: Present: normal inspection, symmetric chest wall rise - Respiratory Respiratory exam: Present: normal lung sounds bilaterally - Cardiovascular Cardiovascular exam: Present: regular rate, normal rhythm, normal heart sounds - Abdominal Exam Abdominal exam: Present: soft, distention, normal bowel sounds. Absent: guarding - Extremities Exam Extremities exam: Present: normal inspection, full ROM, pedal edema. Absent: tenderness - Expanded Lower Extremity Exam Lower leg exam: Present: tenderness (patient adjusts vision to provider when palpating LLE swelling. ), swelling (2+ pretibial. ) - Neurological Exam Neurological exam: Absent: alert, oriented X3 - Psychiatric Psychiatric exam: Present: normal affect, normal mood - Skin Skin exam: Present: warm, dry, intact, normal color Course Course Narrative: Pt coming from halfway for AMS and fever. Family now present at bedside and confirm DNR-CC status but do desire medical treatment and possible admission if necessary. Will obtain CBC, BMP, lactic acid, UA, CXR, abdominal CT. Vital Signs Temperature 98.7 F 06/03/17 17:25 Pulse Rate 92 06/03/17 17:25 Respiratory Rate 18 06/03/17 17:25 Blood Pressure 135/74 06/03/17 17:25 O2 Sat by Pulse Oximetry 95 06/03/17 17:25 Temperature 98.7 F 06/03/17 17:25 Pulse Rate 92 06/03/17 17:25 Respiratory Rate 18 06/03/17 17:25 Blood Pressure 135/74 06/03/17 17:25 O2 Sat by Pulse Oximetry 95 06/03/17 17:25 Oxygen Delivery Oxygen Delivery Nasal Cannula Fever - [facility] Narrative Medical decision making narrative: 77 year old female presenting to ED from [facility] with reported fever of 101.4, decreased mental status, weight gain. She is non verbal on presentation. Family present state they would like treatment for any reversible condition and that she is not at her baseline this morning. Labs show possible UTI, otherwise at baseline. CXR shows stable exam with possible RLL scaring vs infiltrate. CT abdomen shows fecal impaction and non specific colitis. Vital signs are stable at this visit. We will discuss with hospitalist for altered mental status likely secondary to UTI vs constipation. - Lab Data Result diagrams: 06/03/17 18:52 06/03/17 18:52 Lab Results 06/03/17 06/03/17 06/03/17 Range/Units 17:58 18:52 18:52 WBC 9.7 (4.3-11.1) K/mcL RBC 3.67 L (3.82-4.97) M/mcL Hgb 10.8 L (11.5-15.4) g/dL Hct 33.6 L (35.3-44.9) % MCV 91.6 (83.0-100.0) fL MCH 29.4 (28.0-33.3) pg MCHC 32.1 (31.6-35.5) g/dL RDW 14.2 (11.5-14.5) % Plt Count 191 (140-400) K/mcL MPV 9.5 (9.4-12.4) fL Immature Gran % 1.2 (0-4) % Seg Neutrophils % 62.1 % Lymphocytes % 19.2 % Monocytes % 10.4 % Eosinophils % 6.7 % Basophils % 0.4 % Neutrophils # 6.0 (1.6-8.9) K/mcL Lymphocytes # 1.9 (0.6-4.6) K/mcL Monocytes # 1.0 (0.0-1.3) K/mcL Eosinophils # 0.7 H (0.0-0.6) K/mcL Basophils # 0.0 (0.0-0.2) K/mcL Sodium 137 (136-145) mEq/L Potassium 3.9 (3.5-5.1) mEq/L Chloride 97 L (98-107) mEq/L Carbon Dioxide 32 H (23-29) mEq/L BUN 17 (8-23) mg/dL Creatinine 0.56 L (0.60-1.20) mg/dL Est GFR ( Amer) > 60 (> 60) Est GFR (Non-Af Amer) > 60 (> 60) BUN/Creatinine Ratio 30 H (6-26) Glucose 107 H (70-105) mg/dL Calculated Osmolality 286 (280-300) Lactic Acid (0.5-2.2) mmol/L Calcium 9.3 (8.6-10.3) mg/dL B-Natriuretic Peptide (Less than 100) pg/mL Urine Color Yellow (Yellow) Urine Clarity Turbid A (Clear) Urine pH 6.5 (5.0-8.0) pH Units Ur Specific [place] 1.021 (1.010-1.025) Urine Protein Negative (Neg-Trace) mg/dL Urine Glucose (UA) Normal (Normal) mg/dL Urine Ketones Negative (Negative) mg/dL Urine Blood Small H (Negative) Urine Nitrite Negative (Negative) Urine Bilirubin Negative (Negative) Urine Urobilinogen Normal (Normal) mg/dL Ur Leukocyte Esterase Large H (Negative) Urine Microscopic RBC 5-15 H (0-3) per hpf Urine Microscopic WBC TNTC H (0-3) per hpf Ur Squamous Epith Cells Many H (None-Few) per lpf Urine Bacteria None Seen (None-Few) per hpf Ur Culture Indicated? NO. (NO) 06/03/17 06/03/17 Range/Units 18:52 18:52 WBC (4.3-11.1) K/mcL RBC (3.82-4.97) M/mcL Hgb (11.5-15.4) g/dL Hct (35.3-44.9) % MCV (83.0-100.0) fL MCH (28.0-33.3) pg MCHC (31.6-35.5) g/dL RDW (11.5-14.5) % Plt Count (140-400) K/mcL MPV (9.4-12.4) fL Immature Gran % (0-4) % Seg Neutrophils % % Lymphocytes % % Monocytes % % Eosinophils % % Basophils % % Neutrophils # (1.6-8.9) K/mcL Lymphocytes # (0.6-4.6) K/mcL Monocytes # (0.0-1.3) K/mcL Eosinophils # (0.0-0.6) K/mcL Basophils # (0.0-0.2) K/mcL Sodium (136-145) mEq/L Potassium (3.5-5.1) mEq/L Chloride (98-107) mEq/L Carbon Dioxide (23-29) mEq/L BUN (8-23) mg/dL Creatinine (0.60-1.20) mg/dL Est GFR ( Amer) (> 60) Est GFR (Non-Af Amer) (> 60) BUN/Creatinine Ratio (6-26) Glucose (70-105) mg/dL Calculated Osmolality (280-300) Lactic Acid 0.8 (0.5-2.2) mmol/L Calcium (8.6-10.3) mg/dL B-Natriuretic Peptide 73 (Less than 100) pg/mL Urine Color (Yellow) Urine Clarity (Clear) Urine pH (5.0-8.0) pH Units Ur Specific [place] (1.010-1.025) Urine Protein (Neg-Trace) mg/dL Urine Glucose (UA) (Normal) mg/dL Urine Ketones (Negative) mg/dL Urine Blood (Negative) Urine Nitrite (Negative) Urine Bilirubin (Negative) Urine Urobilinogen (Normal) mg/dL Ur Leukocyte Esterase (Negative) Urine Microscopic RBC (0-3) per hpf Urine Microscopic WBC (0-3) per hpf Ur Squamous Epith Cells (None-Few) per lpf Urine Bacteria (None-Few) per hpf Ur Culture Indicated? (NO)
[2017-06-03 18:19] LABS: Bilirubin,Urine Negative (Negative); Blood,Urine Small (Negative); Clarity,Urine Turbid (Clear); Color,Urine Yellow (Yellow); Glucose,Urine (UA) Normal (Normal); Ketones,Urine Negative (Negative); Leukocyte Esterase,Urine Large (Negative); Nitrite,Urine Negative (Negative); PH,Urine 6.5 pH Units (5.0-8.0); Protein,Urine Negative (Neg-Trace); Specific Gravity,Urine 1.021 (1.010-1.025); Urobilinogen,Urine Normal (Normal)
[2017-06-03 18:22] LABS: Bacteria,Urine None Seen per hpf (None-Few); Squamous Epithelial Cell,Urine Many per lpf (None-Few); WBC,Urine TNTC per hpf (0-3)
[2017-06-03 19:08] LABS: Basophils % 0.4 %; Eosinophils # 0.7 K/mcL (0.0-0.6); Eosinophils % 6.7 %; Hematocrit 33.6 % (35.3-44.9); Hemoglobin 10.8 g/dL (11.5-15.4); Immature Granulocytes % 1.2 % (0-4); Lymphocytes # 1.9 K/mcL (0.6-4.6); Lymphocytes % 19.2 %; Mean Corpuscular HGB Conc 32.1 g/dL (31.6-35.5); Mean Corpuscular Hemoglobin 29.4 pg (28.0-33.3); Mean Corpuscular Volume 91.6 fL (83.0-100.0); Mean Platelet Volume 9.5 fL (9.4-12.4); Monocytes % 10.4 %; Platelet Count 191 K/mcL (140-400); Red Blood Count 3.67 M/mcL (3.82-4.97); Red Cell Distribution Width 14.2 % (11.5-14.5); Segmented Neutrophils % 62.1 %
[2017-06-03] MEDS ORDERED: cefTRIAXone 1,000 MG in Water for inj. (sterile) 20 ML 10 ML IVP ONE (20:24)
[2017-06-03 20:26] LABS: BUN/Creatinine Ratio 30 (6-26); Blood Urea Nitrogen 17 mg/dL (8-23); Calcium 9.3 mg/dL (8.6-10.3); Carbon Dioxide 32 mEq/L (23-29); Chloride 97 mEq/L (98-107); Glucose 107 mg/dL (70-105); Osmolality,Calculated 286 (280-300); Potassium 3.9 mEq/L (3.5-5.1); Sodium 137 mEq/L (136-145); eGFR For African Americans > 60 (> 60); eGFR For Non-African Americans > 60 (> 60)
[2017-06-03] MEDS ORDERED: Acetaminophen 325 MG TABLET PO PRN (21:41)
[2017-06-03] MEDS ORDERED: hydrOXYzine pamoate 25 MG CAPSULE PO PRN (21:44)
--- NOTE | 2017-06-03 21:49 | Internal Med History&Physical ---
Date of Encounter: 06/03/17 Time of Encounter: 21:46 Assessment and Plan (1) Acute metabolic encephalopathy Current visit: Yes Status: Acute Acute metabolic encephalopathy secondary to possible UTI, healthcare associated pneumonia present upon admission and colitis secondary to fecal impaction Start cefepime, Levaquin and Flagyl Urine culture, blood cultures, hydration with IV fluids Protonix for GI prophylaxis and subcutaneous tenderness heparin for DVT prophylaxis. The patient will be admitted as inpatient, expected to stay more than 2 midnights. DNR CC arrest DNI. Time spent on the admission 40 minutes (2) Acute on chronic respiratory failure Current visit: No Status: Resolved Acute on chronic respiratory failure secondary to healthcare associated pneumonia, recently treated for acute COPD exacerbation Titrate steroids, continue IV Solu-Medrol, DuoNeb nebs and oxygen therapy Qualifiers: Respiratory failure complication: hypoxia and hypercapnia Qualified Code(s) : J96.21 - Acute and chronic respiratory failure with hypoxia; J96.22 - Acute and chronic respiratory failure with hypercapnia (3) Fecal impaction Current visit: Yes Status: Acute [place] enemas and lactulose (4) Colitis Current visit: Yes Status: Acute (5) Constipation Current visit: Yes Status: Acute Qualifiers: Constipation type: unspecified constipation type Qualified Code(s): K59.00 - Constipation, unspecified (6) Diastolic CHF Current visit: No Status: Acute No exacerbation, hold amlodipine Qualifiers: Heart failure chronicity: acute on chronic Qualified Code(s): I50.33 - Acute on chronic diastolic (congestive) heart failure (7) HCAP (healthcare-associated pneumonia) Current visit: No Status: Acute (8) UTI (urinary tract infection) Current visit: No Status: Acute Qualifiers: Urinary tract infection type: acute cystitis Hematuria presence: without hematuria Qualified Code(s): N30.00 - Acute cystitis without hematuria (9) Advanced dementia Current visit: No Status: Chronic (10) CAD (coronary artery disease) Current visit: No Status: Chronic Continue aspirin Qualifiers: Coronary Disease-Associated Artery/Lesion type: [place] artery [place] vs. transplanted heart: [place] heart Associated angina: without angina Qualified Code(s): I25.10 - Atherosclerotic heart disease of [place] coronary artery without angina pectoris Internal Medicine - H&P: HPI Chief complaint: Altered mental status and fever Admitted From: Emergency Dept History of present illness: Ms. Cartagena is a 77 year old female with a past medical history of dementia, COPD oxygen dependent using 3 L, diastolic CHF, UTIs, ileus recently discharged from the hospital on 05/29/2017 which she was seen and treated for an acute COPD exacerbation. Was transferred from long term having a fever 101.4, she was given Tylenol. Patient at the moment is nonverbal, according to the family she is oriented in person a baseline only. Having a decreased level of consciousness, hemoglobin is 10.8. UA shows too numerous to count white blood cells, in the past she has grown Escherichia coli that has shown intermediate sensitivities to ceftriaxone which was given in the emergency room. CT scan of the abdomen showed fecal impaction and possible colitis in the rectal vault, also chest x-ray shows right lower lobe opacity, long term mentioned apparently she had a decreased saturation of oxygen in the 80s. Patient is not able to give any history, although history was taken from the records and the family Past Med Surg Social Fam HX - Past Medical History Medical history: arthritis, CHF (Diastolic), COPD (Oxygen dependent using 3 L), coronary artery disease, dementia, hypertension, osteoporosis, other (UTI with Escherichia coli resistant to Levaquin intermediate sensitivity to ceftriaxone, asthma, hypokalemia, ileus, anxiety, dementia, CAD, osteoporosis and osteoarthritis) Psychiatric history: anxiety, other - Past Surgical History Surgical History: hip replacement, other - Social History Smoking Status: Former smoker (Heavy smoker in the past up until 30 years ago) Smokeless Tobacco Status: No Alcohol use: unknown Drug use: unknown - Family History Daughter Living Status: Still Living Hx Family Cardiac Disorders: Yes Hx Family Respiratory Disorders: Yes Hx Family Cancer: No Hx Family GI Disorders: Yes Mother Adopted: No Family Member Ethnicity: Non- Living Status: Hx Family Cardiac Disorders: No Hx Family Respiratory Disorders: No Hx Family Cancer: Yes (lung) Hx Family GI Disorders: Yes (acid reflux) Hx Family Endocrine Disorder: No Hx Family Neuromuscular Disorders: No Hx Family Neurologic Disorders: No Hx Family HEENT Disorders: No Hx Family Autoimmune Disorders: No - Additional Family History Additional family history: Mother with lung cancer and reflux Internal Medicine - H&P: Meds Donepezil [Aricept] 10 mg PO HS #0 07/04/15 [History] Sertraline [Zoloft] 150 mg PO DAILY #0 07/05/15 [History] Furosemide [Lasix] 20 mg PO BID 11/02/15 [History] Memantine HCl [Namenda Xr] 28 mg PO DAILY 11/02/15 [History] Montelukast [Singulair] 10 mg PO DAILY 07/12/16 [History] Potassium Chloride [Klor-Con Sprinkle] 10 meq PO DAILY 07/12/16 [History] GuaiFENesin ER [Mucinex] 1,200 mg PO Q12H 07/14/16 [History] Docusate [Colace] 100 mg PO BID #0 capsule 07/17/16 [Rx] Fluticasone/Salmeterol [Advair 250-50 Diskus] 1 puff IH BID 07/27/16 [History] L. Acidophilus/Pectin, [place] [Acidophilus Probiotic Capsule] 1 cap PO DAILY [History] Albuterol Sulfate [Albuterol Inhaler] 2 puff IH Q4H PRN #1 inhaler 09/08/16 [Rx] Aspirin 81 mg PO DAILY 04/02/17 [History] Folic Acid 1 mg PO DAILY 04/02/17 [History] Ipratropium/Albuterol Neb [Duoneb] 3 ml IH QID 04/02/17 [History] RisperiDONE [Risperdal] 0.5 mg PO HS 04/02/17 [History] Omeprazole [PriLOSEC] 20 mg PO DAILY capsule. 04/07/17 [Rx] OxyCODONE Immed Rel [Roxicodone 5 MG] 5 mg PO Q6H PRN #7 tablet 04/07/17 [Rx] amLODIPine [Norvasc] 5 mg PO DAILY tablet 04/07/17 [Rx] Acetaminophen [Tylenol] 325 - 650 mg PO Q4H PRN 05/24/17 [History] Baby Shampoo 1 appl TP BID 05/24/17 [History] Cetirizine HCl [Zyrtec] 10 mg PO DAILY 05/24/17 [History] Ipratropium/Albuterol Neb [Duoneb] 3 ml IH Q4HR PRN 05/24/17 [History] hydrOXYzine HCl [Hydroxyzine HCl] 25 mg PO Q6H PRN 05/24/17 [History] 3 Allergy/AdvReac Type Severity Reaction Status Date / Time No Known Allergies Allergy Verified 07/04/15 21:39 All Systems PM: A 10-system review of systems was performed and is negative for pertinent findings except as documented above in the HPI. Review of systems: Unable to complete review of systems due to patient's status and dementia - Constitutional Vitals: Temp Pulse Resp BP Pulse Ox 98.7 F 81 18 142/72 96 06/03/17 17:25 06/03/17 20:54 06/03/17 20:54 06/03/17 20:54 06/03/17 20:54 General appearance: Present: A&O X 0 - Head Head exam: Present: atraumatic, normocephalic - Eye Eye exam: Present: PERRL, conjuntiva pink, sclera anicteric Pupils: Present: PERRL - Neck Neck exam general surgery: Present: supple, trachea midline. Absent: lymphadenopathy - Respiratory Respiratory exam: Present: CTAB, rales (Muscular crackles, minimal wheezing). Absent: accessory muscle use, rhonchi, wheezes - Cardiovascular Cardiovascular exam: Present: RRR, +S1, +S2. Absent: diastolic murmur, gallop, rubs, systolic murmur - GI/Abdominal GI/Abdominal exam: Present: distended (Abdominal distention), normal bowel sounds, soft, tenderness, no peritoneal signs - Extremities Exam Extremities exam: Present: warm, radial pulses palpable and symmetrical. Absent : calf tenderness, cyanotic, pedal edema - Neurological Exam Neurological exam: Present: CN II-XII intact, no focal deficits. Absent: oriented X3, pronater drift, facial droop, speech deficit - Skin Skin exam: Present: dry, intact Internal Med - H&P Results - Labs CBC & Chem 7: 06/03/17 18:52 06/03/17 18:52 Labs: Short CBC 06/03/17 Range/Units 18:52 WBC 9.7 (4.3-11.1) K/mcL Hgb 10.8 L (11.5-15.4) g/dL Hct 33.6 L (35.3-44.9) % Plt Count 191 (140-400) K/mcL Neutrophils # 6.0 (1.6-8.9) K/mcL BMP 06/03/17 18:52 Sodium 137 Potassium 3.9 Chloride 97 L Carbon Dioxide 32 H BUN 17 Creatinine 0.56 L Glucose 107 H Calcium 9.3 Urine 06/03/17 Range/Units 17:58 Urine Color Yellow (Yellow) Urine Clarity Turbid A (Clear) Urine pH 6.5 (5.0-8.0) pH Units Ur Specific [place] 1.021 (1.010-1.025) Urine Protein Negative (Neg-Trace) mg/dL Urine Glucose (UA) Normal (Normal) mg/dL - Impressions ITS Impressions Chest X-Ray 06/03/17 17:39 IMPRESSION: Chronic interstitial lung changes with superimposed right lower lobe atelectasis or infiltrate. D/ / 06/03/2017 18:22:55 Micah Dickens MD / anh Interpreting Provider: Micah Dickens MD Abdomen/Pelvis CT 06/03/17 18:19 IMPRESSION: 1. No evidence of bowel obstruction, intraperitoneal free air, or abscess. 2. Prominent fecal loading of the colon suggestive of presence of constipation which includes suspected continued fecal impaction in the region of the rectal vault. Degree of impaction is slightly less pronounced when compared to 04/02/2017 as described. 3. Mild prominence of mural thickness of the rectal vault with minimal injection of adjacent mesenteric fat and minimal presacral fluid. Findings could represent manifestation of subtle colitis associated with fecal impaction as described above. D/ / 06/03/2017 19:04:50 Easton Hanson MD / jignesh Interpreting Provider: Easton Hanson MD
[2017-06-03] MEDS ORDERED: Cefepime HCl 1,000 MG in Water for inj. (sterile) 20 ML 10 ML IVPB SCH (22:00)
[2017-06-03] MEDS: MethylPREDNISolone 40 MG/ML VIAL IVP SCH (22:44)
[2017-06-03] MEDS: 0.9 % Sodium Chloride 1,000 ML IVC SCH (22:44)
[2017-06-03] MEDS: MetroNIDAZOLE 500 MG/100 ML 500 MG/100 ML BAG IVPB SCH (22:44)
[2017-06-03] MEDS: Ipratropium/Albuterol Neb 3 ML IH SCH (22:54)
[2017-06-03] MEDS: Lactulose Oral Soln 20 GM/30 ML UDC PO SCH (23:14)
[2017-06-04] MEDS: Levofloxacin 750 MG/150 ML 750 MG/150 ML BAG IVPB SCH ×2 (01:03→21:22)
[2017-06-04] MEDS: Ipratropium/Albuterol Neb 3 ML IH SCH ×4 (04:06→22:05)
[2017-06-04] MEDS: MetroNIDAZOLE 500 MG/100 ML 500 MG/100 ML BAG IVPB SCH ×3 (05:57→21:23)
[2017-06-04] MEDS ORDERED: MEMANTINE HCL 28 MG PO SCH (09:00)
[2017-06-04] MEDS: Aspirin 81 MG TAB.CHEW PO SCH (10:03)
[2017-06-04] MEDS: Lactulose Oral Soln 20 GM/30 ML UDC PO SCH ×2 (10:03→20:04)
[2017-06-04] MEDS: Lactobacillus 1 EACH CAP.SPRINK PO SCH (10:03)
[2017-06-04] MEDS: MethylPREDNISolone 40 MG/ML VIAL IVP SCH (10:04)
[2017-06-04] MEDS: Cefepime HCl 2,000 MG in Water for inj. (sterile) 20 ML 20 ML IVP SCH ×2 (10:05→16:32)
[2017-06-04] MEDS: *HR* Heparin 5,000 UNIT/ML VIAL SQ SCH (16:31)
[2017-06-04] MEDS: Furosemide 20 MG TABLET PO SCH (16:31)
[2017-06-04] MEDS: 0.9 % Sodium Chloride 1,000 ML IVC SCH (16:33)
--- NOTE | 2017-06-04 18:13 | Internal Med Progress Note ---
Date of Encounter: 06/04/17 Time of Encounter: 09:45 - Assessment and plan (1) Acute metabolic encephalopathy Current Visit: Yes Status: Acute Assessment and plan: likely due to underlying infection and constipation; improving; patient has advanced dementia and probably does not converse much at baseline; (2) Colitis Current Visit: Yes Status: Acute Assessment and plan: CT abdomen/pelvis showed fecal impaction in rectal vault and prominent fecal loading of the colon, could be subtle colitis from fecal impaction; Continue PRN enemas, scheduled laxatives; continue IV Levaquin and Flagyl; supportive care; (3) Constipation Current Visit: Yes Status: Acute Assessment and plan: plan as above; Qualifiers: Constipation type: slow transit constipation Qualified Code(s): K59.01 - Slow transit constipation (4) UTI (urinary tract infection) Current Visit: Yes Status: Suspected Assessment and plan: UA shows numerous WBC and squamous cells; continue IV Cefepime based on previous urine culture results (E.coli resistant to fluoroquinolones, intermediate sensitivity to Rocephin); f/up final urine culture; Qualifiers: Urinary tract infection type: site unspecified Hematuria presence: without hematuria Qualified Code(s): N39.0 - Urinary tract infection, site not specified (5) Acute and chronic respiratory failure Current Visit: Yes Status: Acute Assessment and plan: [facility] and CHF; continue; Qualifiers: Respiratory failure complication: hypoxia Qualified Code(s): J96.21 - Acute and chronic respiratory failure with hypoxia (6) Acute exacerbation of chronic obstructive airways disease Current Visit: Yes Status: Suspected Assessment and plan: not in distress at this time; continue IV steroids, breathing treatments, IV antibiotics, supplemental O2 and supportive care; (7) Dementia with behavioral disturbance Current Visit: Yes Status: Chronic Assessment and plan: [facility]; per daughter, she has been there for several months now since she had hip fracture; she also does not participate in PT/OT, and mostly remains bed and wheelchair-bound; supportive care, pressure ulcer prophylaxis; Qualifiers: Dementia type: Alzheimer's disease Alzheimer's disease onset: unspecified onset Qualified Code(s): G30.8 - Other Alzheimer's disease; F02.81 - Dementia in other diseases classified elsewhere with behavioral disturbance (8) Diastolic CHF Current Visit: Yes Status: Chronic Qualifiers: Heart failure chronicity: chronic Qualified Code(s): I50.32 - Chronic diastolic (congestive) heart failure (9) HCAP (healthcare-associated pneumonia) Current Visit: Yes Status: Acute Assessment and plan: Chest XRay shows RLL infiltrate; continue IV Cefepime, Levaquin; f/up blood cultures; supplemental O2 and supportive care; (10) CAD (coronary artery disease) Current Visit: Yes Status: Chronic Qualifiers: Coronary Disease-Associated Artery/Lesion type: [place] artery [place] vs. transplanted heart: [place] heart Associated angina: without angina Qualified Code(s): I25.10 - Atherosclerotic heart disease of [place] coronary artery without angina pectoris - Subjective Interval history: Patient is mostly nonverbal; history obtained from daughter at bedside; noted to have chronic constipation, had a small bowel movement with enema earlier this am; no nausea, vomiting; not in distress; - Constitutional Vitals: Temp Pulse Resp BP Pulse Ox 98.3 F 89 20 145/77 95 06/04/17 15:06 06/04/17 15:06 06/04/17 15:52 06/04/17 15:06 06/04/17 15:52 General appearance: Present: A&O X 1. Absent: answers questions appropriately - Respiratory Respiratory exam: Present: CTAB (coarse breath sounds B/L). Absent: accessory muscle use, rales, rhonchi, wheezes - Cardiovascular Cardiovascular exam: Present: RRR, +S1, +S2. Absent: diastolic murmur, gallop, rubs, systolic murmur - GI/Abdominal GI/Abdominal exam: Present: distended, normal bowel sounds, soft, no peritoneal signs. Absent: tenderness - Extremities Exam Extremities exam: Present: pedal edema, warm, radial pulses palpable and symmetrical. Absent: calf tenderness, cyanotic - Neurological Exam Neurological exam: Present: altered, no focal deficits (decreased motor power B/ L LE). Absent: pronater drift, facial droop, speech deficit Internal Medicine: Result - Labs CBC & Chem 7: 06/05/17 03:11 06/05/17 03:11 Consult Discharge Plan - Plan Referrals: NONE,PCP [Primary Care Provider] -
[2017-06-04] MEDS: risperiDONE 0.25 MG TABLET PO SCH (20:04)
[2017-06-05 04:11] LABS: Basophils % 0.3 %; Eosinophils # 0.1 K/mcL (0.0-0.6); Eosinophils % 0.9 %; Hematocrit 29.3 % (35.3-44.9); Hemoglobin 9.6 g/dL (11.5-15.4); Immature Granulocytes % 1.6 % (0-4); Lymphocytes # 1.2 K/mcL (0.6-4.6); Lymphocytes % 17.1 %; Mean Corpuscular HGB Conc 32.8 g/dL (31.6-35.5); Mean Corpuscular Hemoglobin 29.4 pg (28.0-33.3); Mean Corpuscular Volume 89.6 fL (83.0-100.0); Mean Platelet Volume 9.7 fL (9.4-12.4); Monocytes # 0.6 K/mcL (0.0-1.3); Monocytes % 8.4 %; Neutrophils # 5.1 K/mcL (1.6-8.9); Platelet Count 201 K/mcL (140-400); Red Blood Count 3.27 M/mcL (3.82-4.97); Red Cell Distribution Width 13.6 % (11.5-14.5); Segmented Neutrophils % 71.7 %
[2017-06-05] MEDS: Ipratropium/Albuterol Neb 3 ML IH SCH ×4 (04:37→21:49)
[2017-06-05 04:41] LABS: BUN/Creatinine Ratio 29 (6-26); Blood Urea Nitrogen 13 mg/dL (8-23); Calcium 8.9 mg/dL (8.6-10.3); Carbon Dioxide 30 mEq/L (23-29); Chloride 100 mEq/L (98-107); Glucose 92 mg/dL (70-105); Osmolality,Calculated 284 (280-300); Potassium 3.2 mEq/L (3.5-5.1); Sodium 137 mEq/L (136-145); eGFR For African Americans > 60 (> 60); eGFR For Non-African Americans > 60 (> 60)
[2017-06-05] MEDS: MetroNIDAZOLE 500 MG/100 ML 500 MG/100 ML BAG IVPB SCH ×3 (06:22→21:01)
[2017-06-05] MEDS: *HR* Heparin 5,000 UNIT/ML VIAL SQ SCH ×2 (06:23→18:56)
[2017-06-05] MEDS: Cefepime HCl 2,000 MG in Water for inj. (sterile) 20 ML 20 ML IVP SCH ×2 (06:23→21:49)
[2017-06-05] MEDS ORDERED: Potassium Chloride Elixir 20 MEQ/15 ML UDC PO ONE (10:12)
[2017-06-05] MEDS: Lactulose Oral Soln 20 GM/30 ML UDC PO SCH ×2 (10:31→21:01)
[2017-06-05] MEDS: Furosemide 20 MG TABLET PO SCH ×2 (10:32→18:56)
[2017-06-05] MEDS: Aspirin 81 MG TAB.CHEW PO SCH (10:33)
[2017-06-05] MEDS: MethylPREDNISolone 40 MG/ML VIAL IVP SCH (10:33)
[2017-06-05] MEDS: Lactobacillus 1 EACH CAP.SPRINK PO SCH (10:36)
[2017-06-05] MEDS: Budesonide/Formoterol 80/4.5 MDI IH SCH ×2 (11:07→21:49)
[2017-06-05] MEDS: 0.9 % Sodium Chloride 1,000 ML IVC SCH (13:46)
--- NOTE | 2017-06-05 15:17 | Internal Med Progress Note ---
Date of Encounter: 06/05/17 Time of Encounter: 10:30 - Assessment and plan (1) Acute metabolic encephalopathy Current Visit: Yes Status: Resolved Assessment and plan: likely due to underlying infection and constipation; improving; patient has advanced dementia and probably does not converse much at baseline; (2) Colitis Current Visit: Yes Status: Acute Assessment and plan: CT abdomen/pelvis showed fecal impaction in rectal vault and prominent fecal loading of the colon, could be subtle colitis from fecal impaction; Continue PRN enemas, scheduled laxatives; noted to have good bowel movements. continue IV Levaquin and Flagyl; supportive care; (3) Constipation Current Visit: Yes Status: Acute Assessment and plan: plan as above; diet as tolerated. Qualifiers: Constipation type: slow transit constipation Qualified Code(s): K59.01 - Slow transit constipation (4) UTI (urinary tract infection) Current Visit: Yes Status: Acute Assessment and plan: UA shows numerous WBC and squamous cells; continue IV Cefepime based on previous urine culture results (E.coli resistant to fluoroquinolones, intermediate sensitivity to Rocephin); f/up final urine culture; preliminary urine culture grows gram-negative rods. Qualifiers: Urinary tract infection type: site unspecified Hematuria presence: without hematuria Qualified Code(s): N39.0 - Urinary tract infection, site not specified (5) Acute and chronic respiratory failure Current Visit: Yes Status: Acute Assessment and plan: on O2 at [facility] due to COPD and CHF; continue; Qualifiers: Respiratory failure complication: hypoxia Qualified Code(s): J96.21 - Acute and chronic respiratory failure with hypoxia (6) Acute exacerbation of chronic obstructive airways disease Current Visit: Yes Status: Suspected Assessment and plan: We will change steroids to oral prednisone. Continue breathing treatments, IV antibiotics, supplemental O2 and supportive care; resume LABA/inhaled corticosteroids. 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[facility]; per daughter, she has been there for several months now since she had hip fracture; she also does not participate in PT/OT, and mostly remains bed and wheelchair-bound; supportive care, pressure ulcer prophylaxis; Qualifiers: Dementia type: Alzheimer's disease Alzheimer's disease onset: unspecified onset Qualified Code(s): G30.8 - Other Alzheimer's disease; F02.81 - Dementia in other diseases classified elsewhere with behavioral disturbance (8) Diastolic CHF Current Visit: Yes Status: Chronic Qualifiers: Heart failure chronicity: chronic Qualified Code(s): I50.32 - Chronic diastolic (congestive) heart failure (9) HCAP (healthcare-associated pneumonia) Current Visit: Yes Status: Acute Assessment and plan: Chest XRay shows RLL infiltrate; continue IV Cefepime, Levaquin; preliminary blood cultures negative; supplemental O2 and supportive care; (10) CAD (coronary artery disease) Current Visit: Yes Status: Chronic Qualifiers: Coronary Disease-Associated Artery/Lesion type: [place] artery [place] vs. transplanted heart: [place] heart Associated angina: without angina Qualified Code(s): I25.10 - Atherosclerotic heart disease of [place] coronary artery without angina pectoris - Subjective Interval history: Patient continues to be mostly nonverbal, intermittently speaks short inappropriate sentences. Noted to have some wheezing today. Had a big bowel movement this morning. Daughter at bedside reports that patient has been having some shortness of breath today. - Constitutional Vitals: Temp Pulse Resp BP Pulse Ox 99.2 F 86 19 136/77 92 06/05/17 11:48 06/05/17 11:48 06/05/17 15:14 06/05/17 11:48 06/05/17 15:14 General appearance: Present: A&O X 0. Absent: answers questions appropriately - Respiratory Respiratory exam: Present: CTAB (Coarse breath sounds bilaterally), wheezes ( Bilateral intermittent wheezing). Absent: accessory muscle use, rales, rhonchi - Cardiovascular Cardiovascular exam: Present: RRR, +S1, +S2. Absent: diastolic murmur, gallop, rubs, systolic murmur - GI/Abdominal GI/Abdominal exam: Present: normal bowel sounds, soft, no peritoneal signs. Absent: distended, tenderness - Extremities Exam Extremities exam: Present: pedal edema, warm, radial pulses palpable and symmetrical. Absent: calf tenderness, cyanotic Internal Medicine: Result - Labs CBC & Chem 7: 06/05/17 03:11 06/05/17 03:11 Labs: Short CBC 06/05/17 Range/Units 03:11 WBC 7.0 (4.3-11.1) K/mcL Hgb 9.6 L (11.5-15.4) g/dL Hct 29.3 L (35.3-44.9) % Plt Count 201 (140-400) K/mcL Neutrophils # 5.1 (1.6-8.9) K/mcL BMP 06/05/17 03:11 Sodium 137 Potassium 3.2 L Chloride 100 Carbon Dioxide 30 H BUN 13 Creatinine 0.45 L Glucose 92 Calcium 8.9 Consult Discharge Plan - Plan Referrals: NONE,PCP [Primary Care Provider] -
[2017-06-05] MEDS: risperiDONE 0.25 MG TABLET PO SCH (21:01)
[2017-06-05] MEDS: Levofloxacin 750 MG/150 ML 750 MG/150 ML BAG IVPB SCH (21:44)
[2017-06-06] MEDS: Ipratropium/Albuterol Neb 3 ML IH SCH ×3 (05:30→16:31)
[2017-06-06] MEDS: MetroNIDAZOLE 500 MG/100 ML 500 MG/100 ML BAG IVPB SCH ×2 (06:26→13:43)
[2017-06-06] MEDS: *HR* Heparin 5,000 UNIT/ML VIAL SQ SCH ×2 (06:26→18:08)
[2017-06-06] MEDS: Cefepime HCl 2,000 MG in Water for inj. (sterile) 20 ML 20 ML IVP SCH ×2 (06:27→15:44)
[2017-06-06] MEDS ORDERED: Folic Acid 1 MG TABLET PO SCH (09:00)
[2017-06-06] MEDS ORDERED: predniSONE 20 MG TABLET PO SCH (09:00)
[2017-06-06] MEDS ORDERED: amLODIPine 5 MG TABLET PO SCH (09:00)
[2017-06-06] MEDS: Lactobacillus 1 EACH CAP.SPRINK PO SCH (10:30)
[2017-06-06] MEDS: Aspirin 81 MG TAB.CHEW PO SCH (10:30)
[2017-06-06] MEDS: Furosemide 20 MG TABLET PO SCH ×2 (10:30→18:07)
[2017-06-06] MEDS: Lactulose Oral Soln 20 GM/30 ML UDC PO SCH (10:30)
[2017-06-06 10:39] VITALS: BP 123/68
[2017-06-06] MEDS: Budesonide/Formoterol 80/4.5 MDI IH SCH (10:59)
--- NOTE | 2017-06-06 14:49 | Discharge Summary ---
- NOTES TO OUTPATIENT PROVIDER Notes to Outpatient Provider: Continue IV Cefepime for 4 more days. Continue PO Flagyl 4 more days Orders not resulted at time of discharge: Pending orders 06/06/17 04:00 Basic Metabolic Panel AM 0400 Magnesium AM 0400 Date of Encounter: 06/06/17 Time of Encounter: 11:45 - Discharge Diagnosis (1) Acute metabolic encephalopathy Priority: Primary Status: Resolved (2) UTI (urinary tract infection) Priority: Primary Status: Suspected Qualifiers: Urinary tract infection type: acute cystitis Hematuria presence: without hematuria Qualified Code(s): N30.00 - Acute cystitis without hematuria (3) HCAP (healthcare-associated pneumonia) Priority: Primary Status: Acute (4) Acute on chronic respiratory failure Priority: Primary Status: Resolved Qualifiers: Respiratory failure complication: hypoxia and hypercapnia Qualified Code(s) : J96.21 - Acute and chronic respiratory failure with hypoxia; J96.22 - Acute and chronic respiratory failure with hypercapnia (5) Acute exacerbation of chronic obstructive airways disease Priority: Primary Status: Suspected (6) Diastolic CHF Priority: Secondary Status: Chronic Qualifiers: Heart failure chronicity: chronic Qualified Code(s): I50.32 - Chronic diastolic (congestive) heart failure (7) Advanced dementia Priority: Secondary Status: Acute Hospital course: Ms. Cartagena is a 77 year old female with a past medical history of dementia, COPD oxygen dependent using 3 L, diastolic CHF, UTIs pt was brought into ER from SNF after she happened to have fever 101.4 and pt c/o lower abdomen pain. Her CT of Abd showed prominent fecal loading of the distal colon suggesting constipation also possible colitis. Patient was admitted in the hospital started on empirical antibiotic with Cefepime and Flagyl. Her chest x-ray also showed infiltrates versus atelectasis. Patient does look high risk for aspiration, so we continued Flagyl for anaerobic coverage. Patient was evaluated by dietitian suggestive for pured diet with honey thickened liquids. Patient symptoms started improving slowly. As per family patient seems to be back to baseline today. 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 So I am discharging her back senior living today with IV cefepime for 4 more days along with Flagyl. I did talk to the patient's family and bedside, explained to them about the current care and answered all their questions - Time Spent with Patient Total time spent providing and/or coordinating discharge services: - Discharge Medications Prescriptions: Cefepime HCl [Maxipime] 1,000 mg IVPB Q12HR #8 vial metroNIDAZOLE [Flagyl] 500 mg PO TID #12 tablet OxyCODONE Immed Rel [Roxicodone 5 MG] 5 mg PO Q6H PRN 5 Days #10 tablet PRN Reason: Pain predniSONE [PredniSONE] 40 mg PO DAILY #10 tablet Home Medications: Donepezil [Aricept] 10 mg PO HS #0 07/04/15 [History] Sertraline [Zoloft] 150 mg PO DAILY #0 07/05/15 [History] Memantine HCl [Namenda Xr] 28 mg PO DAILY 11/02/15 [History] Montelukast [Singulair] 10 mg PO DAILY 07/12/16 [History] Potassium Chloride [Klor-Con Sprinkle] 10 meq PO DAILY 07/12/16 [History] GuaiFENesin ER [Mucinex] 1,200 mg PO Q12H 07/14/16 [History] Docusate [Colace] 100 mg PO BID #0 capsule 07/17/16 [Rx] Fluticasone/Salmeterol [Advair 250-50 Diskus] 1 puff IH BID 07/27/16 [History] L. Acidophilus/Pectin, [place] [Acidophilus Probiotic Capsule] 1 cap PO DAILY [History] Albuterol Sulfate [Albuterol Inhaler] 2 puff IH Q4H PRN #1 inhaler 09/08/16 [Rx] Aspirin 81 mg PO DAILY 04/02/17 [History] Folic Acid 1 mg PO DAILY 04/02/17 [History] Ipratropium/Albuterol Neb [Duoneb] 3 ml IH QID 04/02/17 [History] RisperiDONE [Risperdal] 0.5 mg PO HS 04/02/17 [History] Omeprazole [PriLOSEC] 20 mg PO DAILY capsule. 04/07/17 [Rx] amLODIPine [Norvasc] 5 mg PO DAILY tablet 04/07/17 [Rx] Acetaminophen [Tylenol] 325 - 650 mg PO Q4H PRN 05/24/17 [History] Baby Shampoo 1 appl TP BID 05/24/17 [History] Cetirizine HCl [Zyrtec] 10 mg PO DAILY 05/24/17 [History] Ipratropium/Albuterol Neb [Duoneb] 3 ml IH Q4HR PRN 05/24/17 [History] hydrOXYzine HCl [Hydroxyzine HCl] 25 mg PO Q6H PRN 05/24/17 [History] Budesonide/Formoterol 80/4.5 [Symbicort 80/4.5] 2 puff IH BIDRESP inhaler 02/13 [Rx] Cefepime HCl [Maxipime] 1,000 mg IVPB Q12HR #8 vial 06/06/17 [Rx] Furosemide [Lasix] 20 mg PO DAILY #0 06/06/17 [Rx] OxyCODONE Immed Rel [Roxicodone 5 MG] 5 mg PO Q6H PRN 5 Days #10 tablet [Rx] metroNIDAZOLE [Flagyl] 500 mg PO TID #12 tablet 06/06/17 [Rx] predniSONE [PredniSONE] 40 mg PO DAILY #10 tablet 06/06/17 [Rx] Allergies/Adverse Reactions: 3 Allergy/AdvReac Type Severity Reaction Status Date / Time No Known Allergies Allergy Verified 07/04/15 21:39 Date of admission: 06/04/17 14:43 Primary care physician: PCP NONE - Constitutional Vitals: Temp Pulse Resp BP Pulse Ox 97.5 F L 98 18 123/68 95 06/06/17 10:37 06/06/17 10:37 06/06/17 11:01 06/06/17 10:37 06/06/17 11:01 General appearance: Present: A&O X 0, cooperative Exam: Pleasantly demented - Head Head exam: Present: atraumatic, normal inspection - Neck Neck exam general surgery: Present: supple - Respiratory Respiratory exam: Present: decreased breath sounds. Absent: rales, respiratory distress, rhonchi, wheezes - Cardiovascular Cardiovascular exam: Present: RRR, +S1, +S2. Absent: tachycardia - GI/Abdominal GI/Abdominal exam: Present: normal bowel sounds, soft. Absent: rebound, rigid, tenderness - Extremities Exam Extremities exam: Absent: calf tenderness, pedal edema, tenderness - Back Exam Back exam: Absent: CVA tenderness (L), CVA tenderness (R) - Patient Status Disposition: Transfer SNF Condition: Good Overall status at discharge: patient is back to baseline - Discharge Instructions Follow Up With: NONE,PCP [Primary Care Provider] - - Diet and Activity Activity: as per physical therapy Diet: other (Pured)
--- NOTE | 2017-06-06 14:58 | Physician Discharge Referral ---
ExtendedCare Referral Info Transfer To: F Provider in Charge after Transfer: PCP Institutional Level of Care: Skilled - Diagnosis (1) Acute metabolic encephalopathy Status: Resolved (2) UTI (urinary tract infection) Status: Suspected (3) HCAP (healthcare-associated pneumonia) Status: Acute (4) Acute on chronic respiratory failure Status: Resolved (5) Acute exacerbation of chronic obstructive airways disease Status: Suspected (6) Diastolic CHF Status: Chronic (7) Advanced dementia Status: Acute - Transfer Medications Prescriptions: Cefepime HCl [Maxipime] 1,000 mg IVPB Q12HR #8 vial metroNIDAZOLE [Flagyl] 500 mg PO TID #12 tablet OxyCODONE Immed Rel [Roxicodone 5 MG] 5 mg PO Q6H PRN 5 Days #10 tablet PRN Reason: Pain predniSONE [PredniSONE] 40 mg PO DAILY #10 tablet Home Medications: Donepezil [Aricept] 10 mg PO HS #0 07/04/15 [History] Sertraline [Zoloft] 150 mg PO DAILY #0 07/05/15 [History] Memantine HCl [Namenda Xr] 28 mg PO DAILY 11/02/15 [History] Montelukast [Singulair] 10 mg PO DAILY 07/12/16 [History] Potassium Chloride [Klor-Con Sprinkle] 10 meq PO DAILY 07/12/16 [History] GuaiFENesin ER [Mucinex] 1,200 mg PO Q12H 07/14/16 [History] Docusate [Colace] 100 mg PO BID #0 capsule 07/17/16 [Rx] Fluticasone/Salmeterol [Advair 250-50 Diskus] 1 puff IH BID 07/27/16 [History] L. Acidophilus/Pectin, [place] [Acidophilus Probiotic Capsule] 1 cap PO DAILY [History] Albuterol Sulfate [Albuterol Inhaler] 2 puff IH Q4H PRN #1 inhaler 09/08/16 [Rx] Aspirin 81 mg PO DAILY 04/02/17 [History] Folic Acid 1 mg PO DAILY 04/02/17 [History] Ipratropium/Albuterol Neb [Duoneb] 3 ml IH QID 04/02/17 [History] RisperiDONE [Risperdal] 0.5 mg PO HS 04/02/17 [History] Omeprazole [PriLOSEC] 20 mg PO DAILY capsule. 04/07/17 [Rx] amLODIPine [Norvasc] 5 mg PO DAILY tablet 04/07/17 [Rx] Acetaminophen [Tylenol] 325 - 650 mg PO Q4H PRN 05/24/17 [History] Baby Shampoo 1 appl TP BID 05/24/17 [History] Cetirizine HCl [Zyrtec] 10 mg PO DAILY 05/24/17 [History] Ipratropium/Albuterol Neb [Duoneb] 3 ml IH Q4HR PRN 05/24/17 [History] hydrOXYzine HCl [Hydroxyzine HCl] 25 mg PO Q6H PRN 05/24/17 [History] Budesonide/Formoterol 80/4.5 [Symbicort 80/4.5] 2 puff IH BIDRESP inhaler 02/13 [Rx] Cefepime HCl [Maxipime] 1,000 mg IVPB Q12HR #8 vial 06/06/17 [Rx] Furosemide [Lasix] 20 mg PO DAILY #0 06/06/17 [Rx] OxyCODONE Immed Rel [Roxicodone 5 MG] 5 mg PO Q6H PRN 5 Days #10 tablet [Rx] metroNIDAZOLE [Flagyl] 500 mg PO TID #12 tablet 06/06/17 [Rx] predniSONE [PredniSONE] 40 mg PO DAILY #10 tablet 06/06/17 [Rx] Allergies/Adverse Reactions: 3 Allergy/AdvReac Type Severity Reaction Status Date / Time No Known Allergies Allergy Verified 07/04/15 21:39 - Respiratory Orders Smoking Cessation: Smoking cessation has been advised. For more information, call the [place] Tobacco Quit Line at [phone]-TBCUNOW. CERTIFICATION: I certify that the transfer of the above named patient to an Extended Care Facility is necessary for the continuing treatment of the diagnosis listed. The above information is true and accurate reflection of patient's current condition. Confidential - Redisclosure prohibited without a patient's written consent.
== END 2017-06-06 18:50 | DRG 463 ==
LOC: 2ANU 17:11 → EMEROO 17:11 → 2ANU 21:58 → SUATTDRO 06-04 14:43
PROVIDERS: ADMIT Pediatrics; ATTEND Family Medicine